=== PATIENT | male | born 1940 | race Caucasian/White ===

== ENCOUNTER 2016-10-06 13:17 | Emergency (ER) | payer OTHER, BC ==
[~2016-10-06] VITALS: Ht 170.2 cm; Wt 98.0 kg
[~2016-10-06 13:17] MED LIST: METFTAB PO; SIMV40TA2 PO
[2016-10-06 13:21] VITALS: TEMP 36.8
[2016-10-06] MEDS ORDERED: PIPERACILLIN/TAZOBACTAM 4.5 GM/100ML D5W IV STA (14:22)
[2016-10-06] MEDS ORDERED: SODIUM CHLORIDE 0.9% 1000ML 1,000 ML IV ONE (14:22)
[2016-10-06 14:28] VITALS: Ht 170.2 cm; Wt 98.0 kg
--- NOTE | 2016-10-06 14:57 | DIAGNOSTIC IMAGING REPORT ---
CHEST ONE VIEW PORTABLE CLINICAL HISTORY: Sepsis dyspnea COMPARISON STUDY: 07/25/2014 FINDINGS: The bones soft tissues and hemidiaphragms are normal. The cardiomediastinal silhouette is normal. The lungs are clear. The pulmonary vasculature is normal. IMPRESSION: Negative chest. Electronically signed by: Cesar Slater M.D. 10/06/2016 2:56 PM Dictated Date/Time: 10/06/2016 2:56 PM
[2016-10-06 15:06] LABS: HEMATOCRIT 35.6 % (42-52); MEAN CELL VOLUME 84.8 fL (80-100); MEAN CORPUSCULAR HEMOGLOBIN 29.5 pg (25-34); MEAN CORPUSCULAR HGB CONC 34.8 g/dl (32-36); WHITE BLOOD COUNT 4.27 K/uL (4.8-10.8)
[2016-10-06 15:25] LABS: PROTHROMBIN TIME (PATIENT) 11.2 SECONDS (9.0-12.0)
[2016-10-06 15:40] LABS: ALT/SGPT 56 U/L (12-78); AST/SGOT 55 U/L (15-37); BLOOD UREA NITROGEN 18 mg/dl (7-18); BUN/CREATININE RATIO 14.7 (10-20); CALCIUM 8.2 mg/dl (8.5-10.1); CARBON DIOXIDE 21 mmol/L (21-32); CHLORIDE 100 mmol/L (98-107); GLUCOSE 137 mg/dl (70-99); POTASSIUM 3.5 mmol/L (3.5-5.1); SODIUM 132 mmol/L (136-145)
[2016-10-06 15:42] LABS: BASO % 0.2 %; BASO ABS # 0.01 K/uL (0-0.2); COMPLETE YES; IG% 0.5 %; LYMPH % 19.7 %; LYMPH ABS # 0.84 K/uL (1.2-3.4); MEAN PLATELET VOLUME 10.6 fL (7.4-10.4); MONO % 3.7 %; NEUT % 75.9 %; PLATELET COUNT 79 K/uL (130-400); PLT ESTIMATE DECREASED
[2016-10-06 15:44] LABS: ALB/GLOB RATIO 0.9 (0.9-2); ALKALINE PHOSPHATASE 67 U/L (45-117)
[2016-10-06 15:57] VITALS: O2SAT 95
[2016-10-06 17:19] LABS: URINE APPEARANCE CLEAR (CLEAR); URINE BILIRUBIN NEG (NEG); URINE COLOR YELLOW; URINE NITRITE NEG (NEG); URINE PH 5.5 (4.5-7.5); URINE SPECIFIC GRAVITY 1.021 (1.000-1.030); UROBILINOGEN NEG (NEG); ZZUR CULT IF INDIC CLEAN CATCH NO
[2016-10-06 17:25] LABS: MANUAL MICROSCOPIC REQUIRED? NO; REVIEW REQ? NO
[2016-10-06] MEDS ORDERED: CEPH500C PO (17:41)
[2016-10-06 17:49] VITALS: BP 131/57; PULSE 93; O2SAT 97
--- NOTE | 2016-10-06 17:54 | EMERGENCY ROOM VISIT NOTE ---
History Report prepared by Willie: Lino Hess Under the Supervision of: Dr. Zaid Baldwin M.D. First contact with patient: 14:18 Chief Complaint: WEAKNESS Stated Complaint: FEVER, VOMITING, WEAKNESS History of Present Illness The patient is a 76 year old male who presents to the Emergency Room with complaints of a waxing and waning fever of 105 degrees beginning 10 days ago. He states that he was waking up sweating with chills each night over the past week. He was seen by his PCP for his symptoms and was given an injection which improved his symptoms. The patient states that his symptoms were improving following the injection, but suddenly came back last night. He denies any cough , sore throat, SOB, abdominal pain, chest pain, or rash. He also complains of burning with urination and vomiting. The patient has a history of melanoma. He is currently receiving radiation treatments, but no chemotherapy. He does not believe that he is immunocompromised. The patient notes that he may have passed out earlier this week as well, but denies any injury. He states that he has not had anything to eat today due to lack of appetite. I obtained records from the outpatient office. The patient received 1 gm of Rocephin IM and was placed on a 10 day course of Keflex. He had blood work which did not suggest any bacterial source. Source of History: patient Onset: 10 days ago Symptom Intensity: 105 degrees Quality: other (fever) Timing: waxes/wanes Associated Symptoms: + chills, + diaphoresis, + vomiting, + urinary symptoms (burning with urination), No sorethroat, No cough, No chest pain, No SOB, No abdominal pain Review of Systems See HPI for pertinent positives & negatives. A total of 10 systems reviewed and were otherwise negative. Past Medical & Surgical Medical Problems: (1) Metastatic malignant melanoma Family History No pertinent family history stated. Social History Smoking Status: Never Smoker Current/Historical Medications Scheduled Allopurinol (Zyloprim), 300 MG PO DAILY Cephalexin Monohydrate (Keflex), 500 MG PO QID Simvastatin (Zocor), 40 MG PO QPM Scheduled PRN Metformin Ext Rel (Glucophage Ext Rel), 500 MG PO DAILY PRN for BID Allergies Coded Allergies: No Known Allergies (Unverified , 10/06/16) Physical Exam Vital Signs Date Time Temp Pulse Resp B/P (MAP) Pulse Ox O2 Delivery O2 Flow Rate FiO2 10/06/16 17:49 93 20 131/57 97 10/06/16 17:01 96 16 120/58 96 Room Air 10/06/16 15:57 95 10/06/16 15:20 89 18 114/61 94 Room Air 10/06/16 13:21 36.8 98 20 142/72 97 Room Air Physical Exam GENERAL: Patient is in no acute distress. HEENT: No acute trauma, normocephalic atraumatic, mucous membranes moist, no nasal congestion, no scleral icterus. NECK: No stridor, no adenopathy, no meningismus, trachea is midline. LUNGS: Clear to auscultation bilaterally, no wheeze, no rhonchi, breath sounds equal. HEART: Without murmurs gallops or rubs, regular rate and rhythm. ABDOMEN: Soft, nontender, bowel sounds positive, no hernias, no peritonitis. EXTREMITIES: No cyanosis or edema, full range of motion of all the joints without pain or difficulty, no signs for acute trauma. No evidence of cellulitis. NEUROLOGIC: Oriented x 3, no acute motor or sensory deficits, no focal weakness. SKIN: No rash, no jaundice, no diaphoresis. Medical Decision & Procedures ER Provider Diagnostic Interpretation: X-ray results as stated below per interpretation by me and the radiologist: CHEST ONE VIEW PORTABLE FINDINGS: The bones soft tissues and hemidiaphragms are normal. The cardiomediastinal silhouette is normal. The lungs are clear. The pulmonary vasculature is normal. IMPRESSION: Negative chest. Electronically signed by: Cesar Slater M.D. Laboratory Results 10/06/16 14:35 Red Blood Count 4.20, Mean Corpuscular Volume 84.8, Mean Corpuscular Hemoglobin 29.5, Mean Corpuscular Hemoglobin Concent 34.8, Mean Platelet Volume 10.6, Neutrophils (%) (Auto) 75.9, Lymphocytes (%) (Auto) 19.7, Monocytes (%) (Auto) 3.7, Eosinophils (%) (Auto) 0.0, Basophils (%) (Auto) 0.2, Neutrophils # (Auto) 3.24, Lymphocytes # (Auto) 0.84, Monocytes # (Auto) 0.16, Eosinophils # (Auto) 0.00, Basophils # (Auto) 0.01 10/06/16 14:35 Test 10/06/16 13:24 10/06/16 14:35 10/06/16 15:46 10/06/16 17:00 Bedside Glucose 156 mg/dl (70-99) White Blood Count 4.27 K/uL (4.8-10.8) Red Blood Count 4.20 M/uL (4.7-6.1) Hemoglobin 12.4 g/dL (14.0-18.0) Hematocrit 35.6 % (42-52) Mean Corpuscular Volume 84.8 fL (80-100) Mean Corpuscular Hemoglobin 29.5 pg (25-34) Mean Corpuscular Hemoglobin Concent 34.8 g/dl (32-36) Platelet Count 79 K/uL (130-400) Mean Platelet Volume 10.6 fL (7.4-10.4) Neutrophils (%) (Auto) 75.9 % Lymphocytes (%) (Auto) 19.7 % Monocytes (%) (Auto) 3.7 % Eosinophils (%) (Auto) 0.0 % Basophils (%) (Auto) 0.2 % Neutrophils # (Auto) 3.24 K/uL (1.4-6.5) Lymphocytes # (Auto) 0.84 K/uL (1.2-3.4) Monocytes # (Auto) 0.16 K/uL (0.11-0.59) Eosinophils # (Auto) 0.00 K/uL (0-0.5) Basophils # (Auto) 0.01 K/uL (0-0.2) RDW Standard Deviation 46.3 fL (36.4-46.3) RDW Coefficient of Variation 14.9 % (11.5-14.5) Immature Granulocyte % (Auto) 0.5 % Immature Granulocyte # (Auto) 0.02 K/uL (0.00-0.02) Platelet Estimate DECREASED Prothrombin Time 11.2 SECONDS (9.0-12.0) Prothromb Time International Ratio 1.0 (0.9-1.1) Activated Partial Thromboplast Time 26.8 SECONDS (21.0-31.0) Partial Thromboplastin Ratio 1.0 Anion Gap 11.0 mmol/L (3-11) Est Creatinine Clear Calc Drug Dose 58.4 ml/min Estimated GFR () 67.7 Estimated GFR (Non- 58.4 BUN/Creatinine Ratio 14.7 (10-20) Calcium Level 8.2 mg/dl (8.5-10.1) Total Bilirubin 0.6 mg/dl (0.2-1) Aspartate Amino Transf (AST/SGOT) 55 U/L (15-37) Alanine Aminotransferase (ALT/SGPT) 56 U/L (12-78) Alkaline Phosphatase 67 U/L (45-117) Troponin I < 0.015 ng/ml (0-0.045) Total Protein 6.8 gm/dl (6.4-8.2) Albumin 3.2 gm/dl (3.4-5.0) Globulin 3.6 gm/dl (2.5-4.0) Albumin/Globulin Ratio 0.9 (0.9-2) Bedside Lactic Acid Venous 1.30 mmol/L (0.90-1.70) Urine Color YELLOW Urine Appearance CLEAR (CLEAR) Urine pH 5.5 (4.5-7.5) Urine Specific [place] 1.021 (1.000-1.030) Urine Protein 2+ (NEG) Urine Glucose (UA) NEG (NEG) Urine Ketones NEG (NEG) Urine Occult Blood TRACE (NEG) Urine Nitrite NEG (NEG) Urine Bilirubin NEG (NEG) Urine Urobilinogen NEG (NEG) Urine Leukocyte Esterase NEG (NEG) Urine WBC (Auto) 1-5 /hpf (0-5) Urine RBC (Auto) 0-4 /hpf (0-4) Urine Hyaline Casts (Auto) 1-5 /lpf (0-5) Urine Epithelial Cells (Auto) 10-20 /lpf (0-5) Urine Bacteria (Auto) NEG (NEG) Laboratory results reviewed by me. Medications Administered Medications (Trade) Dose Ordered Sig/[place] Route Start Time Stop Time Status Last Admin Dose Admin Sodium Chloride 1,000 ml @ 999 mls/hr Q1H1M ONCE IV 10/06/16 14:22 10/06/16 15:22 DC 10/06/16 15:25 999 MLS/HR Piperacillin Sod/ Tazobactam Sod (Zosyn Iv) 4.5 gm ONE STAT IV 10/06/16 14:22 10/06/16 14:27 DC 10/06/16 14:22 4.5 GM ECG Indication: weakness Rate (beats per minute): 92 Rhythm: sinus with SA, sinus rhythm Findings: RBBB, no ectopy ED Course 1419: The patient was evaluated in room C9. A complete history and physical exam was performed. 1422: Ordered Zosyn 4.5 gm IV, Sodium Chloride 1000 ml @ 999 mls/hr IV. 1737: Reevaluated the patient. He feels better. Discussed results and discharge instructions: he verbalized understanding and agreement. He will follow up with his PCP within two days. The patient is ready for discharge. Medical Decision The patient is a 76 year old male who presents to the ED with complaints of fevers. Differential diagnoses considered include bacteremia, sepsis, pneumonia , UTI, pyelonephritis, cellulitis, dehydration, electrolyte imbalance, anemia, dysrhythmia, and SC. Blood pressure screening: Patient was found to have a slightly elevated blood pressure due to circumstances. I do not believe that the patient requires hypertension monitoring. Medication Reconciliation: I attest that I have personally reviewed the patient' s current medication list. The white count, hemoglobin and platelet count are all slightly low, this is consistent with his past testing. No significant electrolyte abnormality, kidney failure, hepatitis. Urinalysis does not show evidence for infection. Chest x-ray shows no pneumonia or CHF. EKG shows a sinus rhythm, no acute ischemic change. Cardiac enzyme testing times one is not consistent with acute cardiac injury. On exam, the patient was not toxic or febrile. There was no cellulitis. Blood cultures are pending. The patient received IV saline and IV Zosyn. He is resting comfortably. He is feeling improved. I reviewed his workup as an outpatient when he presented to his doctor for similar symptoms. His workup showed no source for bacterial infection, the notes indicate a viral source for the fever. I do think the patient can be discharged. I will place him back on Keflex which seemed to help him before. We await blood culture results. He will follow with his doctor for a recheck in a couple days. He was encouraged to return here for worsening symptoms or if not feeling improved. Impression Primary Impression: Weakness Additional Impression: Chills Scribe Attestation The scribe's documentation has been prepared under my direction and personally reviewed by me in its entirety. I confirm that the note above accurately reflects all work, treatment, procedures, and medical decision making performed by me. Departure Information Dispostion Home / Self-Care Prescriptions Cephalexin Monohydrate (Keflex) 500 Mg Cap 500 MG PO QID for 10 Days, #40 CAP Prov: Zaid Baldwin M.D. 10/06/16 Referrals Angélica Root M.D. (MEDICAL) (PCP) Forms HOME CARE DOCUMENTATION FORM, IMPORTANT VISIT INFORMATION Patient Instructions My [facility] Additional Instructions Keflex 4x per day for 10 days stay well hydrated rest tylenol for aches or chills we will call with any positive blood culture results see your fam md with 1-2 days for a recheck return to the ER for worsening symptoms as discussed Problem Qualifiers
[2016-11-17] MEDS ORDERED: ALLO300T2 PO (11:45)
[2016-12-04] MEDS ORDERED: LSX20 PO (15:16)
[2016-12-04] MEDS ORDERED: MCRK20 PO (15:16)
[2016-12-04] MEDS ORDERED: AMB5 PO (15:16)
[2016-12-04] MEDS ORDERED: CYM20 PO (15:16)
[2016-12-04] MEDS ORDERED: DRGTP25 TD (15:16)
[2016-12-04] MEDS ORDERED: NRN300 PO (15:16)
[2016-12-04] MEDS ORDERED: CLC100 PO (15:22)
[2016-12-04] MEDS ORDERED: DXM/4 PO (15:22)
== END 2016-10-06 17:50 | disposition home or self-care (01) ==
LOC: C.EDB 13:19 → C.EDC 17:50
DX: R53.1 Weakness (principal); R68.83 Chills (without fever); Z85.820 Personal history of malignant melanoma of skin; Z79.899 Other long term (current) drug therapy

== ENCOUNTER 2016-10-08 08:27 | Inpatient (IN) | payer OTHER, BC ==
[~2016-10-08] VITALS: Ht 170.2 cm; Wt 97.7 kg
[~2016-10-08 08:27] MED LIST changes: +CEPH500C PO
[2016-10-08] MEDS ORDERED: SODIUM CHLORIDE 0.9% 1000ML 1,000 ML IV STA (08:48)
--- NOTE | 2016-10-08 08:54 | EMERGENCY ROOM VISIT NOTE ---
History Report prepared by Willie: Veronica Mar Under the Supervision of: Dr. Sumeet Sandoval M.D. First contact with patient: 08:42 Chief Complaint: FEVER Stated Complaint: FEVER,NAUSEA,SENT BY CROW MIX History of Present Illness The patient is a 76 year old male who presents to the Emergency Room with complaints of a constant fever beginning a few days prior to arrival. He was given a shot of Rocephin when the fever started. He was seen in the ED 2 days and started on Keflex. He has had no improvement of his symptoms. The patient saw his PCP this morning and was referred to the ED. The patient is experiencing fatigue and weakness. He notes recently he has fallen. The patient is unsure if he hit his head when he fell. The patient is currently on chemotherapy for Melanoma. 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 Review of Systems See HPI for pertinent positives & negatives. A total of 10 systems reviewed and were otherwise negative. Past Medical & Surgical Medical Problems: (1) Metastatic malignant melanoma (2) Pancytopenia Family History Diabetes mellitus FHx: cancer Social History Smoking Status: Never Smoker Smokeless Tobacco Use: No Alcohol Use: none Housing Status: lives alone Occupation Status: retired Current/Historical Medications Scheduled Allopurinol (Zyloprim), 300 MG PO DAILY Cephalexin Monohydrate (Keflex), 500 MG PO QID Metformin HCl (Metformin HCl), 500 MG PO BID Simvastatin (Zocor), 40 MG PO QPM Allergies Coded Allergies: No Known Allergies (Unverified , 10/06/16) Physical Exam Vital Signs Date Time Temp Pulse Resp B/P (MAP) Pulse Ox O2 Delivery O2 Flow Rate FiO2 10/08/16 11:38 37.1 82 20 126/56 95 Room Air 10/08/16 10:33 86 19 135/60 96 10/08/16 10:15 96 Room Air 10/08/16 09:56 37.3 81 20 144/71 95 Room Air 10/08/16 09:20 85 20 116/65 95 Room Air 10/08/16 08:46 93 10/08/16 08:34 38.1 98 22 123/64 97 Room Air Physical Exam GENERAL: Patient is ill appearing, diaphoretic and in no acute distress. HEENT: No acute trauma, normocephalic atraumatic, mucous membranes moist, no nasal congestion, no scleral icterus. NECK: No stridor, no adenopathy, no meningismus, trachea is midline. LUNGS: No dyspnea. Clear to auscultation and equal bilaterally. No wheeze, no rhonchi. HEART: Tachycardic rate and regular rhythm. No murmurs, rubs, gallops appreciated. ABDOMEN: Soft, nontender, bowel sounds positive, no masses appreciated, no peritonitis. BACK: No midline tenderness, no CVA tenderness EXTREMITIES: Normal motion all extremities, no cyanosis, no edema. NEUROLOGIC: Alert and oriented, no acute motor or sensory deficits, no focal weakness, cranial nerves grossly intact. SKIN: No rash, no jaundice, no diaphoresis. Medical Decision & Procedures ER Provider Diagnostic Interpretation: Radiology results and stated below per my review and radiologist interpretation: CHEST ONE VIEW PORTABLE CLINICAL HISTORY: fever cough COMPARISON STUDY: 10/06/2016 FINDINGS: The bones soft tissues and hemidiaphragms are normal. The cardiomediastinal silhouette is normal. The lungs are clear. The pulmonary vasculature is normal. IMPRESSION: Negative chest. Electronically signed by: Cesar Slater M.D. 10/08/2016 9:13 AM Dictated Date/Time: 10/08/2016 9:[address] CT DOSE: 729.78 mGycm HISTORY: Mental status change syncope, unknown head injury TECHNIQUE: Multiaxial CT images of the head were performed without the use of intravenous contrast. Comparison: None. Findings: The paranasal sinuses and mastoid air cells are clear. The calvarium and skull base are intact. The ventricles and sulci are within normal limits. There is no mass, hematoma, midline shift, or acute infarct. Impression: No acute intracranial abnormality. Electronically signed by: Cesar Slater M.D. 10/08/2016 10:48 AM Dictated Date/Time: 10/08/2016 10:47 AM Laboratory Results 10/08/16 09:00 Red Blood Count 4.06, Mean Corpuscular Volume 84.7, Mean Corpuscular Hemoglobin 30.0, Mean Corpuscular Hemoglobin Concent 35.5, Mean Platelet Volume 10.8, Neutrophils (%) (Auto) 80.3, Lymphocytes (%) (Auto) 15.5, Monocytes (%) (Auto) 3.3, Eosinophils (%) (Auto) 0.0, Basophils (%) (Auto) 0.6, Neutrophils # (Auto) 2.64, Lymphocytes # (Auto) 0.51, Monocytes # (Auto) 0.11, Eosinophils # (Auto) 0.00, Basophils # (Auto) 0.02 10/08/16 09:00 Test 10/08/16 09:00 10/08/16 09:05 10/08/16 12:38 White Blood Count 3.29 K/uL (4.8-10.8) Red Blood Count 4.06 M/uL (4.7-6.1) Hemoglobin 12.2 g/dL (14.0-18.0) Hematocrit 34.4 % (42-52) Mean Corpuscular Volume 84.7 fL (80-100) Mean Corpuscular Hemoglobin 30.0 pg (25-34) Mean Corpuscular Hemoglobin Concent 35.5 g/dl (32-36) Platelet Count 48 K/uL (130-400) Mean Platelet Volume 10.8 fL (7.4-10.4) Neutrophils (%) (Auto) 80.3 % Lymphocytes (%) (Auto) 15.5 % Monocytes (%) (Auto) 3.3 % Eosinophils (%) (Auto) 0.0 % Basophils (%) (Auto) 0.6 % Neutrophils # (Auto) 2.64 K/uL (1.4-6.5) Lymphocytes # (Auto) 0.51 K/uL (1.2-3.4) Monocytes # (Auto) 0.11 K/uL (0.11-0.59) Eosinophils # (Auto) 0.00 K/uL (0-0.5) Basophils # (Auto) 0.02 K/uL (0-0.2) RDW Standard Deviation 46.0 fL (36.4-46.3) RDW Coefficient of Variation 14.8 % (11.5-14.5) Immature Granulocyte % (Auto) 0.3 % Immature Granulocyte # (Auto) 0.01 K/uL (0.00-0.02) Prothrombin Time 12.0 SECONDS (9.0-12.0) Prothromb Time International Ratio 1.1 (0.9-1.1) Anion Gap 13.0 mmol/L (3-11) Est Creatinine Clear Calc Drug Dose 49.8 ml/min Estimated GFR () 56.2 Estimated GFR (Non- 48.5 BUN/Creatinine Ratio 10.5 (10-20) Calcium Level 7.9 mg/dl (8.5-10.1) Magnesium Level 2.0 mg/dl (1.8-2.4) Total Bilirubin 0.7 mg/dl (0.2-1) Direct Bilirubin 0.2 mg/dl (0-0.2) Aspartate Amino Transf (AST/SGOT) 154 U/L (15-37) Alanine Aminotransferase (ALT/SGPT) 101 U/L (12-78) Alkaline Phosphatase 63 U/L (45-117) Total Creatine Kinase 264 U/L (39-308) Creatine Kinase MB < 0.5 ng/ml (0.5-3.6) Creatine Kinase MB Ratio (0-3.0) Troponin I < 0.015 ng/ml (0-0.045) Total Protein 7.0 gm/dl (6.4-8.2) Albumin 3.2 gm/dl (3.4-5.0) Lipase 585 U/L (73-393) Procalcitonin 1.54 ng/ml (0-0.5) Lyme Disease IgG Antibody NEG (NEG) Lyme Disease IgM Antibody NEG (NEG) Bedside Lactic Acid Venous 1.60 mmol/L (0.90-1.70) Urine Color [place]K YELLOW Urine Appearance CLEAR (CLEAR) Urine pH 5.5 (4.5-7.5) Urine Specific [place] 1.024 (1.000-1.030) Urine Protein 3+ (NEG) Urine Glucose (UA) NEG (NEG) Urine Ketones TRACE (NEG) Urine Occult Blood 2+ (NEG) Urine Nitrite NEG (NEG) Urine Bilirubin NEG (NEG) Urine Urobilinogen NEG (NEG) Urine Leukocyte Esterase NEG (NEG) Urine WBC (Auto) 5-10 /hpf (0-5) Urine RBC (Auto) 5-10 /hpf (0-4) Urine Epithelial Cells (Auto) >30 /lpf (0-5) Urine Bacteria (Auto) NEG (NEG) Urine Renal Epithelial Cells /lpf (0-5) Urine Pathogenic Casts 1-5 GRANULAR CASTS /lpf (0) Urine Mucus PRESENT (NONE PRSENT) Laboratory results as reviewed by me. Medications Administered Medications (Trade) Dose Ordered Sig/[place] Route Start Time Stop Time Status Last Admin Dose Admin Sodium Chloride 1,000 ml @ 999 mls/hr Q1H1M STAT IV 10/08/16 08:48 10/08/16 09:48 DC 10/08/16 09:20 999 MLS/HR Piperacillin Sod/ Tazobactam Sod (Zosyn Iv) 4.5 gm NOW STAT IV 10/08/16 10:15 10/08/16 10:18 DC 10/08/16 10:48 4.5 GM Vancomycin HCl 2500 mg/Sodium Chloride 550 ml @ 200 mls/hr ONE STAT IV 10/08/16 10:15 10/08/16 12:59 DC 10/08/16 11:26 200 MLS/HR ED Course 0843: The patient was evaluated in room A12. A complete history and physical exam was performed. 0848: Sodium Chloride 1,000 ml @ 999 mls/hr IV. 1013: I reevaluated the patient. 1015: Vancomycin HCl 2,500 mg/ Sodium Chloride 550 ml @ 200 mls/hr IV, Zosyn IV 4.5 gm IV. 1016: Discussed the patient's case with CECILIA Moulton. The patient will be evaluated for further treatment and disposition. 1020: Upon reevaluation, the patient is hemodynamically stable. Discussed results and treatment plan with the patient. He verbalized understanding and agreement with the treatment plan. The patient will be evaluated for further management. Medical Decision Differential: Viral, Pharyngitis, Cellulitis, Pneumonia, Influenza, Meningitis, Sepsis, Bacteremia, UTI/Pyelonephritis, Endocrine, Toxicologic, amongst other pathologies entertained. Medication Reconciliation: I attest that I have personally reviewed the patient 's current medication list. Blood pressure screening: Patient was found to have a mildly elevated blood pressure and will be managed by hospitalist further treatment. 76 yr old male on chemo drugs for metastatic melanoma arrives for evaluation of persistent fever despite abx therapy. Becoming more and more weak to point where unable to stand at home unaided. Associated with fatigue, diaphoresis and generalized fatigue. Exam non-focal though clearly not well. CXR UA unremarkable. Blood cultures, broad spec abx, and fluids started. Not in septic shock and thus does not require 30ml/kg fluid. Stable throughout ED stay. Given this will bring in for further evaluation and treatment. Consults Time Called: 1014 Consulting Physician: CECILIA Moulton Returned Call: [phone] Discussed the patient's case. The patient will be evaluated for further treatment and disposition. Impression Primary Impression: Fever of unknown origin Scribe Attestation The scribe's documentation has been prepared under my direction and personally reviewed by me in its entirety. I confirm that the note above accurately reflects all work, treatment, procedures, and medical decision making performed by me. Departure Information Dispostion Being Evaluated By Hospitalist Referrals Angélica Root M.D. (MEDICAL) (PCP)
--- NOTE | 2016-10-08 09:14 | DIAGNOSTIC IMAGING REPORT ---
CHEST ONE VIEW PORTABLE CLINICAL HISTORY: fever cough COMPARISON STUDY: 10/06/2016 FINDINGS: The bones soft tissues and hemidiaphragms are normal. The cardiomediastinal silhouette is normal. The lungs are clear. The pulmonary vasculature is normal. IMPRESSION: Negative chest. Electronically signed by: Cesar Slater M.D. 10/08/2016 9:13 AM Dictated Date/Time: 10/08/2016 9:12 AM
[2016-10-08] MEDS ORDERED: GLC500 PO (09:19)
[2016-10-08 09:29] LABS: HEMATOCRIT 34.4 % (42-52); MEAN CELL VOLUME 84.7 fL (80-100); MEAN CORPUSCULAR HGB CONC 35.5 g/dl (32-36); RED BLOOD COUNT 4.06 M/uL (4.7-6.1); WHITE BLOOD COUNT 3.29 K/uL (4.8-10.8)
[2016-10-08 09:48] LABS: ALT/SGPT 101 U/L (12-78); AST/SGOT 154 U/L (15-37); BLOOD UREA NITROGEN 15 mg/dl (7-18); BUN/CREATININE RATIO 10.5 (10-20); CALCIUM 7.9 mg/dl (8.5-10.1); CARBON DIOXIDE 21 mmol/L (21-32); CHLORIDE 98 mmol/L (98-107); GLUCOSE 132 mg/dl (70-99); POTASSIUM 3.2 mmol/L (3.5-5.1); SODIUM 132 mmol/L (136-145)
[2016-10-08 09:54] LABS: ALKALINE PHOSPHATASE 63 U/L (45-117)
[2016-10-08 09:58] LABS: INR 1.1 (0.9-1.1)
[2016-10-08 09:59] LABS: MEAN PLATELET VOLUME 10.8 fL (7.4-10.4); PLATELET COUNT 48 K/uL (130-400)
[2016-10-08 10:05] LABS: BASO % 0.6 %; BASO ABS # 0.02 K/uL (0-0.2); COMPLETE YES; IG% 0.3 %; LYMPH % 15.5 %; LYMPH ABS # 0.51 K/uL (1.2-3.4); MONO % 3.3 %; NEUT % 80.3 %
[2016-10-08 10:15] VITALS: O2SAT 96; Ht 170.2 cm; Wt 97.7 kg
[2016-10-08] MEDS ORDERED: PIPERACILLIN/TAZOBACTAM 4.5 GM/100ML D5W IV STA (10:15)
[2016-10-08] MEDS ORDERED: VANCOMYCIN INJ 2,500 MG in SODIUM CHLORIDE 0.9% 500ML 500 ML IV STA (10:15)
[2016-10-08 10:37] LABS: LYME DISEASE AB IGG NEG (NEG); LYME DISEASE AB IGM NEG (NEG)
--- NOTE | 2016-10-08 10:49 | DIAGNOSTIC IMAGING REPORT ---
HEAD CT NONCONTRAST CT DOSE: 729.78 mGycm HISTORY: Mental status change syncope, unknown head injury TECHNIQUE: Multiaxial CT images of the head were performed without the use of intravenous contrast. Comparison: None. Findings: The paranasal sinuses and mastoid air cells are clear. The calvarium and skull base are intact. The ventricles and sulci are within normal limits. There is no mass, hematoma, midline shift, or acute infarct. Impression: No acute intracranial abnormality. Electronically signed by: Cesar Slater M.D. 10/08/2016 10:48 AM Dictated Date/Time: 10/08/2016 10:47 AM
[2016-10-08] MEDS ORDERED: ONDANSETRON INJ 2 MG/ML 2 ML VIAL IV PRN (11:15)
[2016-10-08] MEDS ORDERED: DEXTROSE 50% 50 ML SYR IV PRN (11:30)
[2016-10-08] MEDS ORDERED: GLUCAGON FOR INJ 1 MG VIAL SQ PRN (11:30)
[2016-10-08] MEDS ORDERED: GLUCOSE 10 TABS/TUBE PO PRN (11:30)
[2016-10-08] MEDS ORDERED: GLUCOSE 40% GEL 15 GM TUBE PO PRN (11:30)
[2016-10-08] MEDS ORDERED: PIPERACILL/TAZOBAC CONSULT ACTIVE PRN (11:59)
[2016-10-08] MEDS ORDERED: VANCOMYCIN CONSULT ACTIVE PRN (11:59)
--- NOTE | 2016-10-08 12:28 | DIAGNOSTIC IMAGING REPORT ---
ABDOMINAL ULTRASOUND, RIGHT UPPER QUADRANT HISTORY: elevated LFTs. COMPARISON: Outside hospital abdomen and pelvis CT 04/03/2015. FINDINGS: Pancreas: The pancreatic tail is obscured by overlying bowel gas. The remaining portions of the pancreas are within normal limits. Liver: Unremarkable. Gallbladder: No gallbladder wall thickening. No gallstones. A 3 mm gallbladder polyp. CBD: 4 mm. Right kidney: No hydronephrosis. IMPRESSION: 1. Unremarkable liver. 2. No gallbladder wall thickening. No gallstones. 3. A 3 mm gallbladder polyp. Electronically signed by: Earl Saeed M.D. 10/08/2016 12:27 PM Dictated Date/Time: 10/08/2016 12:24 PM
[2016-10-08 12:51] LABS: URINE APPEARANCE CLEAR (CLEAR); URINE BILIRUBIN NEG (NEG); URINE COLOR DK YELLOW; URINE EPITHELIAL CELL AUTO >30 /lpf (0-5); URINE NITRITE NEG (NEG); URINE PH 5.5 (4.5-7.5); URINE SPECIFIC GRAVITY 1.024 (1.000-1.030); UROBILINOGEN NEG (NEG); ZZUR CULT IF INDIC CLEAN CATCH NO
[2016-10-08 12:59] LABS: MANUAL MICROSCOPIC REQUIRED? NO; REVIEW REQ? YES
[2016-10-08 13:07] LABS: URINE PATH CASTS 1-5 GRANULAR CASTS /lpf (0)
[2016-10-08 13:08] LABS: URINE MUCUS PRESENT (NONE PRSENT)
[2016-10-08 13:40] VITALS: BP 95/56; PULSE 83; TEMP 36.7; O2SAT 96
[2016-10-08] MEDS: POTASSIUM CHLR 10 MEQ / WTR 10 MEQ in PREMIXED WATER 100 ML IV SCH ×3 (13:55→15:47)
[2016-10-08] MEDS: NSS + 20MEQ KCL 1000ML 1,000 ML IV SCH ×3 (13:57→21:07)
--- NOTE | 2016-10-08 14:28 | Pharmacy Progress Note ---
Pharmacy Antibiotic Consult Date of Service: Oct 08, 2016. Pharmacy Dosing Scope Pharmacy is consulted to initiate vancomycin and zosyn IV dosing therapy, order appropriate labs and adjust drug dose/frequency. Subjective The patient is a 76 year old male admitted on Oct 08, 2016 at 11:15. Objective Height (Feet): 5 Height (Inches): 7.00 Weight (Kilograms): 97.000 Lab Results (24hrs): Test 10/08/16 09:00 10/08/16 09:05 10/08/16 12:38 10/08/16 13:45 White Blood Count 3.29 K/uL (4.8-10.8) Red Blood Count 4.06 M/uL (4.7-6.1) Hemoglobin 12.2 g/dL (14.0-18.0) Hematocrit 34.4 % (42-52) Mean Corpuscular Volume 84.7 fL (80-100) Mean Corpuscular Hemoglobin 30.0 pg (25-34) Mean Corpuscular Hemoglobin Concent 35.5 g/dl (32-36) Platelet Count 48 K/uL (130-400) Mean Platelet Volume 10.8 fL (7.4-10.4) Neutrophils (%) (Auto) 80.3 % Lymphocytes (%) (Auto) 15.5 % Monocytes (%) (Auto) 3.3 % Eosinophils (%) (Auto) 0.0 % Basophils (%) (Auto) 0.6 % Neutrophils # (Auto) 2.64 K/uL (1.4-6.5) Lymphocytes # (Auto) 0.51 K/uL (1.2-3.4) Monocytes # (Auto) 0.11 K/uL (0.11-0.59) Eosinophils # (Auto) 0.00 K/uL (0-0.5) Basophils # (Auto) 0.02 K/uL (0-0.2) RDW Standard Deviation 46.0 fL (36.4-46.3) RDW Coefficient of Variation 14.8 % (11.5-14.5) Immature Granulocyte % (Auto) 0.3 % Immature Granulocyte # (Auto) 0.01 K/uL (0.00-0.02) Prothrombin Time 12.0 SECONDS (9.0-12.0) Prothromb Time International Ratio 1.1 (0.9-1.1) Sodium Level 132 mmol/L (136-145) Potassium Level 3.2 mmol/L (3.5-5.1) Chloride Level 98 mmol/L (98-107) Carbon Dioxide Level 21 mmol/L (21-32) Anion Gap 13.0 mmol/L (3-11) Blood Urea Nitrogen 15 mg/dl (7-18) Creatinine 1.40 mg/dl (0.60-1.40) Est Creatinine Clear Calc Drug Dose 49.8 ml/min Estimated GFR () 56.2 Estimated GFR (Non- 48.5 BUN/Creatinine Ratio 10.5 (10-20) Random Glucose 132 mg/dl (70-99) Calcium Level 7.9 mg/dl (8.5-10.1) Magnesium Level 2.0 mg/dl (1.8-2.4) Total Bilirubin 0.7 mg/dl (0.2-1) Direct Bilirubin 0.2 mg/dl (0-0.2) Aspartate Amino Transf (AST/SGOT) 154 U/L (15-37) Alanine Aminotransferase (ALT/SGPT) 101 U/L (12-78) Alkaline Phosphatase 63 U/L (45-117) Total Creatine Kinase 264 U/L (39-308) Creatine Kinase MB < 0.5 ng/ml (0.5-3.6) Creatine Kinase MB Ratio (0-3.0) Troponin I < 0.015 ng/ml (0-0.045) Total Protein 7.0 gm/dl (6.4-8.2) Albumin 3.2 gm/dl (3.4-5.0) Lipase 585 U/L (73-393) Procalcitonin 1.54 ng/ml (0-0.5) Lyme Disease IgG Antibody NEG (NEG) Lyme Disease IgM Antibody NEG (NEG) Bedside Lactic Acid Venous 1.60 mmol/L (0.90-1.70) Urine Color DK YELLOW Urine Appearance CLEAR (CLEAR) Urine pH 5.5 (4.5-7.5) Urine Specific Rom[place] 1.024 (1.000-1.030) Urine Protein 3+ (NEG) Urine Glucose (UA) NEG (NEG) Urine Ketones TRACE (NEG) Urine Occult Blood 2+ (NEG) Urine Nitrite NEG (NEG) Urine Bilirubin NEG (NEG) Urine Urobilinogen NEG (NEG) Urine Leukocyte Esterase NEG (NEG) Urine WBC (Auto) 5-10 /hpf (0-5) Urine RBC (Auto) 5-10 /hpf (0-4) Urine Epithelial Cells (Auto) >30 /lpf (0-5) Urine Bacteria (Auto) NEG (NEG) Urine Renal Epithelial Cells /lpf (0-5) Urine Pathogenic Casts 1-5 GRANULAR CASTS /lpf (0) Urine Mucus PRESENT (NONE PRSENT) Micro Results: Item Value Date Time Urine Culture Received 10/08/16 1238 Urine , Clean Catch Pending Blood Culture Received 10/08/16 0905 Blood Pending Blood Culture Received 10/08/16 0900 Blood Pending Assessment & Plan Patient started on vancomycin and zosyn after presenting with persistent fever. Of note, had been seen in ED given keflex 2 days ago. BC x 2 and urine cultures are pending. Also currently receiving chemotherapy. Vancomycin: * Patient received LD of vancomycin 2500 mg (~25 mg/kg) x 1 in the ED * Will start MD of vancomycin 1500 mg (~15 mg/kg) iv q 18 hrs to achieve an estimated trough ~15-20 mcg/ml (goal for bacteremia/pna) * Estimated kinetics: t1/2~15 hrs, ke~0.045 hr-1, CrCl ~50 ml/min (baseline Scr closer to 1.2 mg/dL) * Will obtain a trough prior to the 1800 dose on 10/10 to ensure therapeutic Zosyn: * 4.5 gm iv x 1 (given in ED); will start 3.375 gm iv q 8 hrs (appropriate for CrCl >20 ml/min) Pharmacy will continue to follow and will adjust dose/frequency as necessary. Thank you
--- NOTE | 2016-10-08 14:40 | Progress Note ---
Progress Note Date of Service Oct 08, 2016. Progress Note ID Consult Dictated #[id number] A/P: 1. Fever -Continue abx, follow cultures -Add doxy, ? tick borne -perph smear pending, add anaplasma serologies -will follow, thank you
--- NOTE | 2016-10-08 15:12 | INFECT. DISEASE CONSULTATION ---
DATE OF CONSULTATION: 10/08/2016 DATE OF CONSULTATION: 10/08/2016. HISTORY OF PRESENT ILLNESS: This is a 76-year-old gentleman who was admitted to the hospital after he had a syncopal episode at home. He was just recently seen in the Emergency Room 2 days ago for a febrile illness and discharged on Keflex. Blood cultures were done at that time and were negative. He did not feel any improvement on Keflex and continued to have worsening fevers at home with associated chills and sweats. He states last night he was sleeping on his couch when he got up to go to the bathroom. He felt severely weak and needed a cane to make it to the bathroom. On his way back to the couch he had a syncopal episode and woke up on the floor. He crawled across the floor to his cellphone and called family members who subsequently brought him to the hospital. He states his fever has been going on for the past 1-1/2 to 2 weeks. He has poor p.o. intake. He has had one episode of vomiting and intermittent diarrhea. He denies any abdominal pain. He did have jello here today and tolerated this well. He denies any cough, shortness of breath, wheezing or chest pain. He denies any fevers. He denies any headache or double vision. He has no nuchal rigidity. He denies any urinary symptoms. He denies any tick bites or skin rashes. He denies any skin abrasions other than his bilateral knees from crawling on the carpet last night. He denies any back pain, arthralgias or myalgias. He denies any sick contacts or recent travel. All remaining review of systems are reviewed and are unremarkable. PAST MEDICAL HISTORY: Significant for metastatic malignant melanoma and pancytopenia. PAST SURGICAL HISTORY: Unknown. FAMILY HISTORY: Noncontributory. SOCIAL HISTORY: Negative for tobacco use, alcohol use or drug use. He lives at home. He denies any sick contacts or travel. He denies any tick bite. ALLERGIES: He has no known drug allergies. CURRENT MEDICATIONS: Include allopurinol, vancomycin, Zocor, insulin, Zosyn, potassium, acetaminophen and Zofran. PHYSICAL EXAMINATION: VITAL SIGNS: Temperature is 36.7, T-max is 38.1, pulse 83, respiratory rate is 20, blood pressure is 95/56, oxygen saturation 96% on room air. GENERAL: He is awake, alert and oriented x3. He is in no acute distress. HEAD, EYES, EARS, NOSE, AND THROAT: Mucous membranes are moist. Extraocular muscles are intact. HEART: Regular. LUNGS: Clear bilaterally. ABDOMEN: Soft, nontender, nondistended. There is no lower extremity edema. SKIN: Without rash. LABORATORY STUDIES: CBC today reveals a white blood cell count of 3.9, hemoglobin 12.2, platelets are 48. Peripheral smear is pending. Chemistry panel reveals a sodium of 132, potassium 3.2, chloride 98, bicarbonate 21, BUN 15, creatinine 1.4, glucose is 132, AST is 154, ALT is 101, CK-MB is negative. Procalcitonin is 1.4, lipase is 585. Urinalysis has 5-10 WBCs. Lyme screen is negative. Blood cultures are pending. Blood cultures were obtained in the ER on the and are negative to date. His white blood cell count at that time was 4.2 and platelets are 79. LFTs were normal at his previous ER visit. Chest x-ray is unremarkable. Head CT is unremarkable. Liver ultrasound does not show any gallstones. ASSESSMENT AND PLAN: Fever. Certainly blood cultures will be followed. His previous blood cultures are negative to date and repeats are pending. Urine studies are pending as well. He can remain on empiric antibiotics. I will add doxycycline empirically for tick-borne illness such as Anaplasma with elevated LFTs and pancytopenia. Peripheral smear is pending, but serologies will be checked as well. We will follow along with you. Thank you for this consultation.
--- NOTE | 2016-10-08 15:17 | History and Physical ---
History & Physical Date & Time of Service: Oct 08, 2016 at 11:20 Chief Complaint: Fever,Nausea,Sent By Neeraj King. Primary Care Physician: Angélica Root M.D. (MEDICAL) History of Present Illness Source: patient, family (daughter in law at bedside), clinic records, hospital records This is a 76 year old male with metastatic melanoma who presents to the ED with fever and generalized weakness. 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 Patient follows with Dr. Vogel / Diann WILSON of [place] hem/onc and Dr. Tari Aguirre for radiation oncology. Radiation is being done for mets to left lateral abdominal wall and left subpleural space. Patient is currently undergoing immunotherapy with Opdivo and Yervoy- last treatment 3 weeks ago. Patient states the day after last treatment he developed profuse sweats and subjective fever. He was seen in clinic by Dr. Root on 09/23 and found to have fever of 100.3, declined ER eval, and was treated with Rocephin injection and started on PO Keflex for infection of unknown source. Labs showed mild pancytopenia, mildly elevated ALT and AST. Blood cultures from 09/23 were negative. He was seen in the ER on 10/06, was afebrile with mild pancytopenia. UA and CXR were negative. He was given a dose of Zosyn and sent home with PO Keflex. BC from 10/06 no growth to date. He was seen again in clinic today by Dr. Lozano, was febrile to 102.5 in office, declined admission to [facility], and was sent to ER for evaluation. Patient reports intermittent subjective fevers/ sweats at home which occur randomly. Unsure of his temps at home. He reports fatigue, generalized weakness , poor PO intake. Has required walker for 2 days. Had trouble getting up off couch. Taking in liquids and meds only. He was vomiting, last episode 1 week ago , but still remains nauseous. Has had diarrhea starting 2 days ago with liquid stools. He has lost 27 lb in past 3 weeks per Epic trend. He reports possible syncopal episodes at home x 2 which were unwitnessed. He only remembers awakening on the floor. Denies any significant injury. No tongue biting or incontinence. Has nonpainful rash on left flank in radiation area which is well demarcated, but no other rashes or wounds. Patient denies headache, dizziness, vision change, focal neurologic symptoms, rhinorrhea, sore throat, cough, SOB, chest pain, abdominal pain, dysuria, frequency, urgency, bleeding. Past Medical/Surgical History Medical Problems: (1) DM type 2 (diabetes mellitus, type 2) Status: Chronic (2) Dyslipidemia Status: Chronic (3) Gout Status: Chronic (4) Metastatic malignant melanoma Permanent Comment: Development of the lesion of the left ring finger in 2013 Biopsy then amputation of the left ring finger and sentinel lymph node biopsy Stage pT3a pN2a M0 Treatment with systemic chemotherapy - Keytruda discontinued due to pneumonitis Development of a axillary mass 4 cycles of Yervoy September 2014 showing progression September 2015 status post 4 weekly radiation treatments to the left abdominal wall December 2015 excision of multiple deep subcutaneous metastatic lesions Status post 12 cycles of Pembro completed February 2016 Development of additional left abdominal wall lesions Status: Chronic (5) SAVANNAH on CPAP Status: Chronic Surgical Problems: (1) History of carpal tunnel surgery Status: Chronic (2) History of surgical removal of pilonidal cyst Status: Chronic (3) S/p amputation left 4th finger Status: Chronic (4) S/P colonoscopy with polypectomy Status: Chronic (5) S/P lumbar discectomy Status: Chronic Family History Diabetes mellitus FHx: cancer Social History Smoking Status: Former Smoker Smokeless Tobacco Use: No Alcohol Use: none Housing status: lives alone Occupational Status: retired Immunizations History of Influenza Vaccine: No History of Tetanus Vaccine?: Yes History of Pneumococcal: No History of Hepatitis B Vaccine: No Multi-Drug Resistant Organisms History of MDRO: No Allergies Coded Allergies: No Known Allergies (Unverified , 10/06/16) Home Medications Scheduled Allopurinol (Zyloprim), 300 MG PO DAILY Cephalexin Monohydrate (Keflex), 500 MG PO QID Metformin HCl (Metformin HCl), 500 MG PO BID Simvastatin (Zocor), 40 MG PO QPM Review of Systems Constitutional- (+) as noted above Eyes- no acute visual changes ENT- no sinus drainage; no pharyngitis Pulmonary- no cough, no wheezing, no shortness of breath Cardiac- no chest pain, no palpitations, no orthopnea, no dependent edema GI- (+) as noted above - no dysuria, no hematuria Musculoskeletal- no arthralgias, no myalgias Derm- no rashes, no new skin lesions, no changing skin lesions Hematologic- no unusual bruising, no unusual bleeding Lymphatics- no adenopathy Endocrine- no polyuria or polydipsia; no heat or cold intolerance Neuro- no headaches, no focal neurologic symptoms Psych- no anxiety, no depression Physical Exam Vital Signs Date Time Temp Pulse Resp B/P (MAP) Pulse Ox O2 Delivery O2 Flow Rate FiO2 10/08/16 10:33 86 19 135/60 96 10/08/16 09:56 37.3 81 20 144/71 95 Room Air 10/08/16 09:20 85 20 116/65 95 Room Air 10/08/16 08:46 93 10/08/16 08:34 38.1 98 22 123/64 97 Room Air General Appearance: WD/WN, + pertinent finding (acutely ill appearing 76 year old male, diaphoretic, not in acute distress, daughter in law at bedside) Head: normocephalic, atraumatic Eyes: normal inspection, PERRL, EOMI, sclerae normal ENT: hearing grossly normal, pharynx normal Neck: supple, trachea midline Respiratory/Chest: lungs clear, normal breath sounds, no respiratory distress, no accessory muscle use Cardiovascular: regular rate, rhythm, no murmur Abdomen/GI: normal bowel sounds, non tender, soft Extremities/Musculoskelatal: no calf tenderness, no pedal edema Neurologic/Psych: alert, normal mood/affect, oriented x 3, + pertinent finding (no focal deficit on gross examination. speech is clear. no facial droop. no motor deficit of extremities. ) Skin: warm/dry, + diaphoresis, + pertinent finding (well demarcated area of erythema on left flank in area of radiation tx. no warmth or tenderness. ) Diagnostics Laboratory Results Results Past 24 Hours Test 10/08/16 09:00 10/08/16 09:05 10/08/16 11:11 Range/Units White Blood Count 3.29 4.8-10.8 K/uL Red Blood Count 4.06 4.7-6.1 M/uL Hemoglobin 12.2 14.0-18.0 g/dL Hematocrit 34.4 42-52 % Mean Corpuscular Volume 84.7 80-100 fL Mean Corpuscular Hemoglobin 30.0 25-34 pg Mean Corpuscular Hemoglobin Concent 35.5 32-36 g/dl Platelet Count 48 130-400 K/uL Mean Platelet Volume 10.8 7.4-10.4 fL Neutrophils (%) (Auto) 80.3 % Lymphocytes (%) (Auto) 15.5 % Monocytes (%) (Auto) 3.3 % Eosinophils (%) (Auto) 0.0 % Basophils (%) (Auto) 0.6 % Neutrophils # (Auto) 2.64 1.4-6.5 K/uL Lymphocytes # (Auto) 0.51 1.2-3.4 K/uL Monocytes # (Auto) 0.11 0.11-0.59 K/uL Eosinophils # (Auto) 0.00 0-0.5 K/uL Basophils # (Auto) 0.02 0-0.2 K/uL RDW Standard Deviation 46.0 36.4-46.3 fL RDW Coefficient of Variation 14.8 11.5-14.5 % Immature Granulocyte % (Auto) 0.3 % Immature Granulocyte # (Auto) 0.01 0.00-0.02 K/uL Prothrombin Time 12.0 9.0-12.0 SECONDS Prothromb Time International Ratio 1.1 0.9-1.1 Sodium Level 132 136-145 mmol/L Potassium Level 3.2 3.5-5.1 mmol/L Chloride Level 98 98-107 mmol/L Carbon Dioxide Level 21 21-32 mmol/L Anion Gap 13.0 3-11 mmol/L Blood Urea Nitrogen 15 7-18 mg/dl Creatinine 1.40 0.60-1.40 mg/dl Est Creatinine Clear Calc Drug Dose 49.8 ml/min Estimated GFR () 56.2 Estimated GFR (Non- 48.5 BUN/Creatinine Ratio 10.5 10-20 Random Glucose 132 70-99 mg/dl Calcium Level 7.9 8.5-10.1 mg/dl Magnesium Level 2.0 1.8-2.4 mg/dl Total Bilirubin 0.7 0.2-1 mg/dl Direct Bilirubin 0.2 0-0.2 mg/dl Aspartate Amino Transf (AST/SGOT) 154 15-37 U/L Alanine Aminotransferase (ALT/SGPT) 101 12-78 U/L Alkaline Phosphatase 63 45-117 U/L Total Creatine Kinase 264 39-308 U/L Creatine Kinase MB < 0.5 0.5-3.6 ng/ml Creatine Kinase MB Ratio 0-3.0 Troponin I < 0.015 0-0.045 ng/ml Total Protein 7.0 6.4-8.2 gm/dl Albumin 3.2 3.4-5.0 gm/dl Lyme Disease IgG Antibody NEG NEG Lyme Disease IgM Antibody NEG NEG Bedside Lactic Acid Venous 1.60 0.90-1.70 mmol/L Microbiology Results 10/08/16 Blood Culture, Received Pending 10/08/16 Blood Culture, Received Pending Diagnostic Radiology CHEST ONE VIEW PORTABLE CLINICAL HISTORY: fever cough COMPARISON STUDY: 10/06/2016 FINDINGS: The bones soft tissues and hemidiaphragms are normal. The cardiomediastinal silhouette is normal. The lungs are clear. The pulmonary vasculature is normal. IMPRESSION: Negative chest. HEAD CT NONCONTRAST CT DOSE: 729.78 mGycm HISTORY: Mental status change syncope, unknown head injury TECHNIQUE: Multiaxial CT images of the head were performed without the use of intravenous contrast. Comparison: None. Findings: The paranasal sinuses and mastoid air cells are clear. The calvarium and skull base are intact. The ventricles and sulci are within normal limits. There is no mass, hematoma, midline shift, or acute infarct. Impression: No acute intracranial abnormality. ABDOMINAL ULTRASOUND, RIGHT UPPER QUADRANT HISTORY: elevated LFTs. COMPARISON: Outside hospital abdomen and pelvis CT 04/03/2015. FINDINGS: Pancreas: The pancreatic tail is obscured by overlying bowel gas. The remaining portions of the pancreas are within normal limits. Liver: Unremarkable. Gallbladder: No gallbladder wall thickening. No gallstones. A 3 mm gallbladder polyp. CBD: 4 mm. Right kidney: No hydronephrosis. IMPRESSION: 1. Unremarkable liver. 2. No gallbladder wall thickening. No gallstones. 3. A 3 mm gallbladder polyp. EKG NSR, 91 bpm, RBBB- chronic Impression Assessment and Plan FEVER OF UNKNOWN ORIGIN In patient with metastatic melanoma on immunotherapy and radiation Almost 3 weeks duration, no source identified; treated as outpatient with Rocephin injection x 1, PO Keflex, IV Zosyn x 1 Prior blood cultures 09/23/16-neg, 10/06/16- NGTD CXR- no infiltrate; UA- dirty, no cellulitis Urine culture and blood cultures pending Reports of diarrhea- check stool culture, fecal leucocytes, C. diff Treated with empiric vancomycin and Zosyn in ED Continue vancomycin/ Zosyn for now Consult ID; appreciate input- doxy added for ? tick borne disease, anaplasma serologies added SIRS Meets SIRS criteria with fever and leukopenia; HR stable; BP low normal; POC lactic acid neg; procalcitonin elevated Received 1 liter bolus in ER Continue IVF's at 125/hour- spoke with RN about getting second IV site so this can be started No source of infection identified; f/u cultures Empiric broad spectrum antibiotics as above HYPOKALEMIA Due to poor PO intake/ GI loss IV replacement given Recheck at 5 pm PANCYTOPENIA Check absolute neutrophil count Follows with Dr. Vogel [place] [facility] Consult hem/onc- spoke to Dr. Tomas, appreciate input Check CT A/P, peripheral smear Spoke with Dr. Vogel- appreciate input- recommended adding CT chest, ACTH, cortisol level, TSH, B12, folate; patient had initially declined [facility] admission to Dr. Lozano; would consider transfer to [facility] if anything comes up in the workup Obtain records from Dr. Vogel's office THROMBOCYTOPENIA Platelets 48 No bleeding Monitor CBC NAUSEA/ VOMITING ELEVATED LFT's Check liver ultrasound- unremarkable liver, no GB wall thickening, no gallstones , 3 mm gallbladder polyp Check CT a/p Clear liquid diet for now Recheck LFT's in am SYNCOPE Possibly due to orthostatic hypotension from dehydration CT head negative Check orthostatic VS Monitor in telemetry METASTATIC MELANOMA Malignant melanoma of left 4th finger was dx in 06/2013 s/p amputation; has mets to left lateral abdominal wall and left subpleural space Follows with Dr. Vogel / Diann WILSON of [place] hem/on[facility] and Dr. Tari Aguirre for radiation oncology Currently on immunotherapy Opdivo and Yervoy (last treatment 3 weeks ago) and radiation DM TYPE 2 Hold metformin Insulin sliding scale coverage GOUT Continue allopurinol DYSLIPIDEMIA Continue statin SLEEP APNEA Continue CPAP DVT PROPHYLAXIS SCD's due to thrombocytopenia CODE STATUS Full code per my discussion with the patient DISPOSITION Admit to telemetry Lives alone; social services counselor consulted for discharge planning Follows with Dr. Root for primary care Patient seen in collaboration with Dr. Yung. Please see his addendum. ATTENDING ADDENDUM care coordinated with CECILIA Ferrara please refer to her notes for full details, I agree with her notes patient seen and examined, records reviewed by myself as well on exam, patient seen resting in bed states he feels somewhat better able to tolerate dinner no active dizziness , chest pain, dyspnea, abdominal pain on exam no other symptoms VS noted and reviewed oriented x 3, not in distress, speaks in sentences with no effort nor accessory muscle use normal rate, regular rhythm, no murmurs clear breath sounds bilaterally non distended, soft, nontender no bipedal edema, erythema, warmth no neuro deficits WBC 3.2 Hg 12.2 Crea 1.4 Na 130 K 3.6 ASSESSMENT/PLAN> FEVER ON IMMUNOTHERAPY, RADIATION FOR MALIGNANT MELANOMA -- ff up cultures -- on empiric Vanco, Zosyn Doxy added for possible tick borne illness appreciate ID consult -- IV fluids PANCYTOPENIA -- no signs of bleeding -- Hem/Onc consulted HYPONATREMIA/HYPOKALEMIA -- likely hypovolemic -- will send urine studies -- PO K given -- repeat PCP at 930pm other diagnoses and plan of care as per CECILIA ferrara's notes Arpan Yung MD VTE Prophylaxis VTE Risk Assessment Done? Y/N: Yes Risk Level: Moderate
[2016-10-08 15:55] VITALS: BP 108/51; PULSE 82; TEMP 36.8; O2SAT 96
[2016-10-08] MEDS: INSULIN ASPART 100 UNITS/ML 3 ML PEN SC SCH ×2 (16:15→21:00)
[2016-10-08] MEDS: PIPERACILL/TAZOBAC IV 3.375 GM in DEXTROSE 5% 100ML IV SCH ×2 (16:30→23:53)
[2016-10-08] MEDS ORDERED: OPTIRAY 320 IV PRN (16:30)
[2016-10-08] MEDS: ACETAMINOPHEN 325 MG TAB PO PRN ×2 (16:33→23:52)
[2016-10-08 16:34] VITALS: TEMP 37.5
[2016-10-08 18:09] LABS: BUN/CREATININE RATIO 9.5 (10-20); CALCIUM 7.8 mg/dl (8.5-10.1); CREATININE 1.4 mg/dl (0.60-1.40); POTASSIUM 3.2 mmol/L (3.5-5.1)
--- NOTE | 2016-10-08 18:11 | DIAGNOSTIC IMAGING REPORT ---
CT OF THE CHEST WITH IV CONTRAST CLINICAL HISTORY: Fever of unknown origin MELANOMA COMPARISON STUDY: 07/06/2014 TECHNIQUE: Following the IV administration of 115 mL of Optiray-320, CT of the thorax was performed from the thoracic inlet to the lung bases. Images are reviewed in the axial, sagittal, and coronal planes. IV contrast was administered without complication. CT DOSE: 1386.82 mGy.cm FINDINGS: Thyroid: Imaged portions of the thyroid gland are normal in appearance. Thoracic aorta: The thoracic aorta is normal in course and caliber, noting standard 3-vessel arch anatomy. No aneurysm or dissection is seen. Pulmonary vasculature: The pulmonary trunk is normal in caliber. There are no central filling defects identified to suggest pulmonary embolus. Note that this examination was not protocoled for the evaluation of pulmonary emboli. HEART: The heart is normal in size and configuration, without pericardial effusion. Lungs and pleural spaces: There are no pleural effusions. There is no focal pulmonary consolidation. Evaluation of the lung parenchyma is limited due to respiratory motion artifact. There is a 5 x 3 mm solid left lower lobe point nodule as visualized in image #[id number] Mediastinum: There is no mediastinal lymphadenopathy. Christine: There is no evidence of pathologic hilar adenopathy Axilla: There are postsurgical changes involving the left axilla. No pathologically enlarged lymph nodes are evident Upper abdomen: There is mild splenomegaly. Skeletal structures: There are no lytic or blastic osseous lesions. IMPRESSION: 1. Postsurgical changes involving the left axilla 2. Splenomegaly 3. Slight limited evaluation the lung parenchyma due to respiratory motion artifact. No evidence of focal pulmonary consolidation. 4. 5 x 3 mm solid left lower lobe pulmonary nodule Please refer to below summary of Fleischner criteria recommendations for follow-up of incidental CT nodules (Shelley Alicea, Guidelines for management of small pulmonary nodules detected on CT scans: A statement from the Fleischner Society, Radiology 237: [phone].) SOLID NODULES Solitary nodule size: <6 mm * low risk patients: no follow-up needed * high risk patients: optional CT at 12 months Solitary nodule size: 6-8 mm * low risk patients: follow-up at 6-12 months, then consider further follow-up at 18-24 months * high risk patients: initial follow-up CT at 6-12 months and then at 18-24 months if no change Solitary nodule size: >8 mm * either low or high risk patients - consider follow-up CT at 3 months, and/or CT-PET, and/or biopsy Multiple nodules size: <6 mm * low risk patients: no routine follow-up * high risk patients: optional CT at 12 months Multiple nodules size: 6-8 mm * low risk patients: follow-up at 3-6 months, then consider further follow-up at 18-24 months * high risk patients: follow-up at 3-6 months, then at 18-24 months if no change Multiple nodules size: >8 mm * low risk patients: follow-up at 3-6 months, then consider further follow-up at 18-24 months * high risk patients: follow-up at 3-6 months, then at 18-24 months if no change Note: newly detected indeterminate nodule in persons 35 years of age or older. * low risk patients: minimal or absent history of smoking and/or other known risk factors * high risk patients: history of smoking or of other known risk factors (e.g. first degree relative with lung cancer, or exposure to asbestos, radon, uranium) * if a nodule up to 8 mm is partly solid or is ground glass further follow-up is required after 24 months to exclude possible slow growing adenocarcinoma (ANDRES) SUBSOLID NODULES Solitary pure ground-glass nodule * nodule size <6 mm - no CT follow-up required * nodule size >=6 mm - follow-up CT at 6-12 months, then every 2 years until 5 years Solitary part-solid nodule * nodule size <6 mm - no CT follow-up required * nodule size >=6 mm - follow-up CT at 3-6 months. If unchanged, and solid component remains <6 mm, then annual follow-up for 5 years Multiple subsolid nodules * nodule size <6 mm - follow-up CT at 3-6 months, consider further follow-up at 2 and 4 years if stable * nodule size >=6 mm - follow-up CT at 3-6 months, subsequent management based on the most suspicious nodule(s) Electronically signed by: Adolfo Goodwin M.D. 10/08/2016 6:10 PM Dictated Date/Time: 10/08/2016 6:03 PM
[2016-10-08 18:21] LABS: THYROID STIMULATING HORMONE 1.55 uIu/ml (0.300-4.500)
--- NOTE | 2016-10-08 18:26 | DIAGNOSTIC IMAGING REPORT ---
CT ABD/PELVIS IV AND ORAL CONT CLINICAL HISTORY: Fever of unknown origin. Diarrhea. MELANOMA COMPARISON STUDY: Outside CT scan dated 04/03/2015 TECHNIQUE: Following the IV administration of 115 mL of Optiray-320, CT scan of the abdomen and pelvis was performed from the lung bases to the proximal femurs. Images are reviewed in the axial, sagittal, and coronal planes. IV contrast was administered without complication. CT DOSE: FINDINGS: Lower chest: There is a 5 x 3 mm solid left lower lobe pulmonary nodule. There are no pleural effusions. Liver: No focal hepatic masses are visualized. Gallbladder: Unremarkable. Spleen: The spleen is mildly enlarged measuring 13 cm. The spleen measured 11.8 cm in March 2015 Pancreas: Unremarkable. Adrenal glands: Unremarkable. Kidneys: There is a small nonobstructing lower pole right renal calculus. Bowel: There are no transition zones indicate bowel obstruction. There is no evidence of acute diverticulitis. There is no evidence of acute appendicitis. There is no pathologic bowel wall thickening. Peritoneum: There is no intraperitoneal free air or abdominal ascites. Vasculature: The abdominal aorta is normal in course and caliber. Adenopathy: There are 2 tangential nodules within the central mesentery measuring 22 mm in aggregate. These contain a small calcification. These remain unchanged from the prior study. Pelvic viscera: The bladder, and pelvic viscera are unremarkable. Skeletal structures: No destructive osseous lesions are seen. IMPRESSION: 1. No acute inflammatory changes 2. Right-sided nephrolithiasis 3. Mild splenomegaly 4. Stable small central mesenteric nodules 5. No evidence of bowel obstruction. No evidence of free air. No evidence of acute appendicitis. No evidence of acute diverticulitis. Electronically signed by: Adolfo Goodwin M.D. 10/08/2016 6:24 PM Dictated Date/Time: 10/08/2016 6:18 PM
[2016-10-08] MEDS ORDERED: POTASSIUM CHLORIDE 10 MEQ TABCR PO ONE (20:30)
[2016-10-08 20:36] VITALS: BP 106/56; PULSE 77; TEMP 36.8; O2SAT 96
[2016-10-08] MEDS ORDERED: SIMVASTATIN 40 MG TAB PO SCH (21:00)
[2016-10-08] MEDS: DOXYCYCLINE HYCLATE 100 MG CAP PO SCH (21:04)
[2016-10-08 22:17] LABS: BUN/CREATININE RATIO 8.4 (10-20); CREATININE 1.4 mg/dl (0.60-1.40); POTASSIUM 3.2 mmol/L (3.5-5.1)
[2016-10-08 22:31] LABS: CALCIUM 7.3 mg/dl (8.5-10.1)
--- NOTE | 2016-10-08 22:34 | Medical Consult ---
Consultation Date of Consultation: Oct 08, 2016. Attending Physician: Arpan Yung MD Reason for Consultation: metastatic melanoma Patient with intermittent fevers for past 1 1/2 week History of Present Illness 76 year old male with metastatic melanoma. 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 He developed recurrence. Past treatment included keytruda. He is currently on Yervoy and Opdivo combination under supervision of his oncologist at [facility] Dr Vogel. He is also receiving RT to left abdominal wall lesion. He is admitted with fever and had a syncopal episode at his home. He has fatigue and generalized weakness and decreased oral intake since his last Opdivo /Yervoy treatment approximately 3 weeks ago. +weight loss. Patient reports that for several days after his last treatment he developed night sweats and had subjective fever and chills and he had loss of appetite. He states that this lasted for several days. He had 2 syncopal episodes at his home. He states that on Thursday he went to use his bathroom and woke up on the floor. He states that he had a second episode recalls going into his kitchen but woke up and found himself on the floor. He denies any tongue bite or urine or bowel incontinence. He denies any headache or paresthesias or lightheadedness or chest pain or shortness of breath. He has diarrhea for 2 days. He denies any abdominal pain or vomiting. 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 for melanmoa and sentinel lymph node resection, lumbar discectomy Medical Problems: (1) Chills Status: Acute (2) Fever of unknown origin Status: Acute (3) Weakness Status: Acute Family History Diabetes mellitus FHx: cancer Social History Smoking Status: Former Smoker Smokeless Tobacco Use: No Alcohol Use: none Housing Status: lives alone Occupation Status: retired Allergies Coded Allergies: No Known Allergies (Unverified , 10/06/16) Current Inpatient Medications Current Inpatient Medications Medications (Trade) Dose Ordered Sig/Tamika Route Start Time Stop Time Status Last Admin Dose Admin Potassium Chloride/Sodium Chloride 1,000 ml @ 125 mls/hr Q8H IV 10/08/16 14:00 11/07/16 13:59 10/08/16 21:07 125 MLS/HR Acetaminophen (Tylenol Tab) 650 mg Q4H PRN PO 10/08/16 11:15 11/07/16 11:14 10/08/16 16:33 650 MG Ondansetron HCl (Zofran Inj) 4 mg Q6H PRN IV 10/08/16 11:15 11/07/16 11:14 Insulin Aspart (novoLOG ASPART) SLIDING SCALE If C... ACHS SC 10/08/16 16:00 11/07/16 15:59 Glucose (Glucose 40% Gel) 15-30 GRAMS 15 GRAMS... UD PRN PO 10/08/16 11:30 11/07/16 11:29 Glucose (Glucose Chew Tab) 4-8 Tablets 4 Tabl... UD PRN PO 10/08/16 11:30 11/07/16 11:29 Dextrose (Dextrose 50% 50ML Syringe) 25-50ML OF 50% DW IV FOR... UD PRN IV 10/08/16 11:30 11/07/16 11:29 Glucagon (Glucagon Inj) 1 mg UD PRN SQ 10/08/16 11:30 11/07/16 11:29 Allopurinol (Zyloprim Tab) 300 mg DAILY PO 10/09/16 09:00 11/08/16 08:59 Vancomycin HCl (Consult) 1 ea UD PRN N/A 10/08/16 11:59 11/07/16 11:58 Piperacillin Sod/ Tazobactam Sod (Consult) 1 ea UD PRN N/A 10/08/16 11:59 11/07/16 11:58 Piperacillin Sod/ Tazobactam Sod 3.375 gm/Dextrose 115 ml @ 28.75 mls/ hr Q8H IV 10/08/16 16:00 10/10/16 15:59 10/08/16 16:30 28.75 MLS/HR Vancomycin HCl 1500 mg/Sodium Chloride 530 ml @ 200 mls/hr Q18H IV 10/09/16 06:00 10/11/16 05:59 Doxycycline Hyclate (Vibramycin Cap) 100 mg BID PO 10/08/16 21:00 10/18/16 20:59 10/08/16 21:04 100 MG Ioversol (Optiray 320) 125 ml UD PRN IV 10/08/16 16:30 10/12/16 16:29 Review of Systems Constitutional: + fever (intermittent), + sweats (intermittent), + weight loss , + weakness (generalized), + fatigue Eyes: No worsening of vision, No eye pain, No diplopia ENT: No unusual epistaxis, No nasal symptoms, No sore throat, No trouble swallowing Respiratory: No cough, No sputum, No wheezing, No shortness of breath, No dyspnea on exertion, No dyspnea at rest, No hemoptysis Cardiovascular: No chest pain, No orthopnea, No PND, No edema, No palpitations Abdomen: + diarrhea, No pain, No nausea, No vomiting, No constipation, No GI bleeding Musculoskeletal: No joint pain, No muscle pain Genitourinary - Male: No hematuria, No dysuria, No urinary incontinence Neurologic: No paralysis, No numbness/tingling Endocrine: + fatigue Hematologic / Lymphatic: No abnormal bleeding/bruising, No clotting problems, No swollen lymph nodes Integumentary: No rash, No itch Physical Exam Date Time Temp Pulse Resp B/P (MAP) Pulse Ox O2 Delivery O2 Flow Rate FiO2 10/08/16 20:36 36.8 77 18 106/56 (73) 96 10/08/16 19:30 Room Air 10/08/16 16:34 37.5 10/08/16 16:00 Room Air 10/08/16 15:55 36.8 82 18 108/51 (70) 96 10/08/16 14:07 Room Air 10/08/16 13:40 36.7 83 20 95/56 (69) 96 Room Air 10/08/16 11:38 37.1 82 20 126/56 95 Room Air 10/08/16 10:33 86 19 135/60 96 10/08/16 10:15 96 Room Air 10/08/16 09:56 37.3 81 20 144/71 95 Room Air 10/08/16 09:20 85 20 116/65 95 Room Air 10/08/16 08:46 93 10/08/16 08:34 38.1 98 22 123/64 97 Room Air General Appearance: WD/WN, no apparent distress Head: normocephalic, atraumatic Eyes: sclerae normal, + pertinent finding (Normocephalic atraumatic) ENT: pharynx normal Neck: supple, no adenopathy, no JVD Respiratory/Chest: chest non-tender, lungs clear, normal breath sounds, no respiratory distress, no accessory muscle use Cardiovascular: regular rate, rhythm, no edema, no gallop, no murmur Abdomen/GI: normal bowel sounds, non tender, soft Back: no CVA tenderness Extremities/Musculoskelatal: no calf tenderness, no pedal edema, non-tender Neurologic/Psych: no motor/sensory deficits (grossly), alert, normal mood/ affect, oriented x 3 Skin: warm/dry, no rash, + pertinent finding (mild erythema/RT changes on left flank ) Laboratory Results Last 24 Hours Test 10/08/16 09:00 10/08/16 09:05 10/08/16 12:38 10/08/16 16:33 White Blood Count 3.29 K/uL Red Blood Count 4.06 M/uL Hemoglobin 12.2 g/dL Hematocrit 34.4 % Mean Corpuscular Volume 84.7 fL Mean Corpuscular Hemoglobin 30.0 pg Mean Corpuscular Hemoglobin Concent 35.5 g/dl Platelet Count 48 K/uL Mean Platelet Volume 10.8 fL Neutrophils (%) (Auto) 80.3 % Lymphocytes (%) (Auto) 15.5 % Monocytes (%) (Auto) 3.3 % Eosinophils (%) (Auto) 0.0 % Basophils (%) (Auto) 0.6 % Neutrophils # (Auto) 2.64 K/uL Lymphocytes # (Auto) 0.51 K/uL Monocytes # (Auto) 0.11 K/uL Eosinophils # (Auto) 0.00 K/uL Basophils # (Auto) 0.02 K/uL RDW Standard Deviation 46.0 fL RDW Coefficient of Variation 14.8 % Immature Granulocyte % (Auto) 0.3 % Immature Granulocyte # (Auto) 0.01 K/uL Peripheral Blood Smear Path Consult Prothrombin Time 12.0 SECONDS Prothromb Time International Ratio 1.1 Sodium Level 132 mmol/L Potassium Level 3.2 mmol/L Chloride Level 98 mmol/L Carbon Dioxide Level 21 mmol/L Anion Gap 13.0 mmol/L Blood Urea Nitrogen 15 mg/dl Creatinine 1.40 mg/dl Est Creatinine Clear Calc Drug Dose 49.8 ml/min Estimated GFR () 56.2 Estimated GFR (Non- 48.5 BUN/Creatinine Ratio 10.5 Random Glucose 132 mg/dl Calcium Level 7.9 mg/dl Magnesium Level 2.0 mg/dl Total Bilirubin 0.7 mg/dl Direct Bilirubin 0.2 mg/dl Aspartate Amino Transf (AST/SGOT) 154 U/L Alanine Aminotransferase (ALT/SGPT) 101 U/L Alkaline Phosphatase 63 U/L Total Creatine Kinase 264 U/L Creatine Kinase MB < 0.5 ng/ml Creatine Kinase MB Ratio Troponin I < 0.015 ng/ml Total Protein 7.0 gm/dl Albumin 3.2 gm/dl Lipase 585 U/L Procalcitonin 1.54 ng/ml Lyme Disease IgG Antibody NEG Lyme Disease IgM Antibody NEG Bedside Lactic Acid Venous 1.60 mmol/L Urine Color DK YELLOW Urine Appearance CLEAR Urine pH 5.5 Urine Specific [place] 1.024 Urine Protein 3+ Urine Glucose (UA) NEG Urine Ketones TRACE Urine Occult Blood 2+ Urine Nitrite NEG Urine Bilirubin NEG Urine Urobilinogen NEG Urine Leukocyte Esterase NEG Urine WBC (Auto) 5-10 /hpf Urine RBC (Auto) 5-10 /hpf Urine Hyaline Casts (Auto) 10-30 /lpf Urine Epithelial Cells (Auto) >30 /lpf Urine Bacteria (Auto) NEG Urine Renal Epithelial Cells /lpf Urine Pathogenic Casts 1-5 GRANULAR CASTS /lpf Urine Mucus PRESENT Bedside Glucose 89 mg/dl Test 10/08/16 17:20 10/08/16 20:24 10/08/16 21:30 Sodium Level 130 mmol/L Potassium Level 3.2 mmol/L Chloride Level 99 mmol/L Carbon Dioxide Level 20 mmol/L Anion Gap 11.0 mmol/L Blood Urea Nitrogen 13 mg/dl Creatinine 1.40 mg/dl Est Creatinine Clear Calc Drug Dose 49.8 ml/min Estimated GFR () 56.2 Estimated GFR (Non- 48.5 BUN/Creatinine Ratio 9.5 Random Glucose 127 mg/dl Osmolality 267 mOsm/kg Calcium Level 7.8 mg/dl Magnesium Level 2.0 mg/dl Vitamin B12 Level 565 pg/mL Folate > 24.00 ng/mL Thyroid Stimulating Hormone (TSH) 1.550 uIu/ml Random Cortisol 39.22 mcg/dl Bedside Glucose 161 mg/dl CT abdomen/pelvis IMPRESSION: Adenopathy: There are 2 tangential nodules within the central mesentery measuring 22 mm in aggregate. These contain a small calcification. These remain unchanged from the prior study, No acute inflammatory changes, Right-sided nephrolithiasis Mild splenomegaly, Stable small central mesenteric nodules, No evidence of bowel obstruction. No evidence of free air. No evidence of acute appendicitis. No evidence of acute diverticulitis CT chest IMPRESSION: 1. Postsurgical changes involving the left axilla 2. Splenomegaly 3. Slight limited evaluation the lung parenchyma due to respiratory motion artifact. No evidence of focal pulmonary consolidation. 4. 5 x 3 mm solid left lower lobe pulmonary nodule Assessment & Plan 76 year old male with metastatic melanoma on Yervoy/Opdivo - last treatment 3 weeks ago and palliative RT, admitted with fevers, generalized weakness, poor oral intake. He had recent outpatient antibiotic treatment from his PCP and ER and blood cultures were negative then He had 2 recent falls/syncopal events at his home Recommend rule out infection Recommend consider check Echo and MRI brain Recommend CBC w/ diff, smear, ACTH and cortisol levels TSH He is on empiric antibiotic coverage in the mean time ID consult appreciated Check FSP and fibrinogen level Consider transfer to tertiary center if his symptoms persist without a clear cause Differential include infection, or drug reaction Would recommend consider endocrine and rheumatology evaluation if his symptoms persist without a clear etiology He would be due for treatment Yervoy/Opdivo tomorrow but discussed with the patient that I would recommend hold at least temporarily due to his current symptoms and his poor oral intake Thank you for consult.
[2016-10-08 23:53] VITALS: BP 145/72; PULSE 98; TEMP 38.5; O2SAT 99
[2016-10-09] VITALS (9 sets, daily range): BP systolic 100–131; BP diastolic 54–69; PULSE 74–106; TEMP 36.7–39.4; O2SAT 95–99
[2016-10-09] MEDS ORDERED: POTASSIUM CHLORIDE 10 MEQ TABCR PO ONE (03:45)
[2016-10-09] MEDS: ACETAMINOPHEN 325 MG TAB PO PRN (04:42)
[2016-10-09] MEDS: NSS + 20MEQ KCL 1000ML 1,000 ML IV SCH ×3 (05:09→20:47)
[2016-10-09] MEDS: VANCOMYCIN INJ 1,500 MG in SODIUM CHLORIDE 0.9% 500ML 500 ML IV SCH (06:00)
[2016-10-09 06:30] LABS: HEMATOCRIT 27.9 % (42-52); MEAN CELL VOLUME 83.8 fL (80-100); MEAN CORPUSCULAR HEMOGLOBIN 29.1 pg (25-34); MEAN CORPUSCULAR HGB CONC 34.8 g/dl (32-36); MEAN PLATELET VOLUME 9.8 fL (7.4-10.4); PLATELET COUNT 32 K/uL (130-400); RED BLOOD COUNT 3.33 M/uL (4.7-6.1)
[2016-10-09 07:00] LABS: COMPLETE YES; IG% 0.4 %; LYMPH % 15.4 %; LYMPH ABS # 0.43 K/uL (1.2-3.4); MONO % 5.4 %; NEUT % 78.8 %
[2016-10-09] MEDS: INSULIN ASPART 100 UNITS/ML 3 ML PEN SC SCH ×4 (07:00→21:00)
[2016-10-09 07:02] LABS: FIBRINOGEN* 254 mg/dl (184-400)
[2016-10-09 07:12] LABS: BUN/CREATININE RATIO 9.4 (10-20); CALCIUM 6.9 mg/dl (8.5-10.1); CREATININE 1.2 mg/dl (0.60-1.40); MAGNESIUM 1.9 mg/dl (1.8-2.4); POTASSIUM 3.5 mmol/L (3.5-5.1)
--- NOTE | 2016-10-09 07:12 | Clinical Documentation Query ---
CLINICAL DOCUMENTATION QUERY 76 year old male who is currently undergoing chemotherapy for malignant melanoma. He presents to the Emergency Room with complaints of a constant fever. Query #1/2 In your clinical opinion is this patient being managed for: X ) Chemotherapy related pancytopenia ( ) Other explanation of clinical findings (Please Explain) ( ) Unable to determine (Please Define) ( ) Need to Discuss ( ) Not Agree The medical record reflects the following clinical findings, treatment, and risk factors. Clinical Indicators: WBC 3.29, PLT 48, RBC 4.06, Hgb 12.2, HCT 34.4 Treatment: Oncology consult, daily CBC's Risk Factors: Chemotherapy Query #2/2 In your clinical opinion is this patient being managed for: ( X) Unidentified infectious process evidenced by Fever, +Procalcitonin treated with IV Vanco and Zosyn ( ) Possible sepsis ( ) Other explanation of clinical findings (Please Explain) ( ) Unable to determine (Please Define) ( ) Need to Discuss ( ) Not Agree The medical record reflects the following clinical findings, treatment, and risk factors. Clinical Indicators: Tmax 38.5, WBC 3.29, PLT 48, RBC 4.06, Hgb 12.2, HCT 34.4, Procalcitonin 1.54, Treatment: IVF bolus, IV Zosyn, IV Vancomycin, daily CBC's, Risk Factors: Age, chemotherapy, Please clarify and document your clinical opinion in the progress notes and discharge summary. Terms such as "probable", "suspected", "likely", "questionable", "possible", or "still to be ruled out" are acceptable. IF IN AGREEMENT, YOU MUST DOCUMENT ABOVE DIAGNOSTIC STATEMENT IN DAILY PROGRESS NOTES AND DISCHARGE SUMMARY. This document is not part of the patient's record. Thank You, Dereje Mina, RN [phone]
[2016-10-09] MEDS: DOXYCYCLINE HYCLATE 100 MG CAP PO SCH ×2 (08:08→20:47)
[2016-10-09] MEDS: PIPERACILL/TAZOBAC IV 3.375 GM in DEXTROSE 5% 100ML IV SCH ×2 (08:08→15:59)
[2016-10-09] MEDS: ALLOPURINOL 300 MG TAB PO SCH (08:09)
[2016-10-09] MEDS ORDERED: PHARMACY GLYCEMIC MGMT CONSULT SCH (10:46)
--- NOTE | 2016-10-09 10:49 | Progress Note ---
Medicine Progress Note Date & Time of Visit: Oct 09, 2016 at 10:35. Subjective febrile episodes overnight seen resting in bed, appears brighter, alert states he feels improved compared to yesterday "if only the fever can get controlled" no nausea, abdominal pain no headache, dizziness, chest pain, cough no diarrhea, urinary symptoms denies other symptoms Objective Last 8 Hrs Date Time Temp Pulse Resp B/P (MAP) Pulse Ox O2 Delivery O2 Flow Rate FiO2 10/09/16 08:00 95 Room Air 10/09/16 07:16 36.7 74 20 100/57 (71) 95 Room Air 10/09/16 04:41 38.0 94 18 131/63 (85) 97 Room Air 10/09/16 04:00 Room Air Physical Exam: General- oriented x 3, not in distress, speaks in sentences with no effort Eyes- EOMI, anicteric ENT- oropharynx clear, dry oral mucoas Neck- supple, no JVD, no adenopathy Lungs- clear breath sounds bilaterally Heart- regular rhythm; no murmur, normal rate Abdomen- normal bowel sounds, soft, nontender Extremities- no pretibial edema, no calf tenderness; peripheral pulses intact Neuro- alert, oriented x 3; no gross focal neuro deficit Skin- warm & dry Laboratory Results: Last 24 Hours Test 10/08/16 12:38 10/08/16 16:33 10/08/16 17:20 10/08/16 20:24 Urine Color DK YELLOW Urine Appearance CLEAR Urine pH 5.5 Urine Specific Thurmond 1.024 Urine Protein 3+ Urine Glucose (UA) NEG Urine Ketones TRACE Urine Occult Blood 2+ Urine Nitrite NEG Urine Bilirubin NEG Urine Urobilinogen NEG Urine Leukocyte Esterase NEG Urine WBC (Auto) 5-10 /hpf Urine RBC (Auto) 5-10 /hpf Urine Hyaline Casts (Auto) 10-30 /lpf Urine Epithelial Cells (Auto) >30 /lpf Urine Bacteria (Auto) NEG Urine Renal Epithelial Cells /lpf Urine Pathogenic Casts 1-5 GRANULAR CASTS /lpf Urine Mucus PRESENT Bedside Glucose 89 mg/dl 161 mg/dl Sodium Level 130 mmol/L Potassium Level 3.2 mmol/L Chloride Level 99 mmol/L Carbon Dioxide Level 20 mmol/L Anion Gap 11.0 mmol/L Blood Urea Nitrogen 13 mg/dl Creatinine 1.40 mg/dl Est Creatinine Clear Calc Drug Dose 49.8 ml/min Estimated GFR () 56.2 Estimated GFR (Non- 48.5 BUN/Creatinine Ratio 9.5 Random Glucose 127 mg/dl Osmolality 267 mOsm/kg Calcium Level 7.8 mg/dl Magnesium Level 2.0 mg/dl Vitamin B12 Level 565 pg/mL Folate > 24.00 ng/mL Thyroid Stimulating Hormone (TSH) 1.550 uIu/ml Random Cortisol 39.22 mcg/dl Test 10/08/16 21:40 10/09/16 01:35 10/09/16 06:09 10/09/16 06:42 Sodium Level 131 mmol/L 134 mmol/L Potassium Level 3.2 mmol/L 3.5 mmol/L Chloride Level 100 mmol/L 105 mmol/L Carbon Dioxide Level 22 mmol/L 21 mmol/L Anion Gap 9.0 mmol/L 8.0 mmol/L Blood Urea Nitrogen 12 mg/dl 11 mg/dl Creatinine 1.40 mg/dl 1.20 mg/dl Est Creatinine Clear Calc Drug Dose 49.8 ml/min 58.3 ml/min Estimated GFR () 56.2 67.7 Estimated GFR (Non- 48.5 58.4 BUN/Creatinine Ratio 8.4 9.4 Random Glucose 107 mg/dl 102 mg/dl Calcium Level 7.3 mg/dl 6.9 mg/dl Urine Random Sodium 50 mEq/L White Blood Count 2.80 K/uL Red Blood Count 3.33 M/uL Hemoglobin 9.7 g/dL Hematocrit 27.9 % Mean Corpuscular Volume 83.8 fL Mean Corpuscular Hemoglobin 29.1 pg Mean Corpuscular Hemoglobin Concent 34.8 g/dl Platelet Count 32 K/uL Mean Platelet Volume 9.8 fL Neutrophils (%) (Auto) 78.8 % Lymphocytes (%) (Auto) 15.4 % Monocytes (%) (Auto) 5.4 % Eosinophils (%) (Auto) 0.0 % Basophils (%) (Auto) 0.0 % Neutrophils # (Auto) 2.21 K/uL Lymphocytes # (Auto) 0.43 K/uL Monocytes # (Auto) 0.15 K/uL Eosinophils # (Auto) 0.00 K/uL Basophils # (Auto) 0.00 K/uL RDW Standard Deviation 46.0 fL RDW Coefficient of Variation 14.9 % Immature Granulocyte % (Auto) 0.4 % Immature Granulocyte # (Auto) 0.01 K/uL Erythrocyte Sedimentation Rate 11 mm/hr Fibrinogen 254 mg/dl Fibrin Degradation Products >40 mcg/ml Magnesium Level 1.9 mg/dl Total Bilirubin 0.6 mg/dl Direct Bilirubin 0.2 mg/dl Aspartate Amino Transf (AST/SGOT) 162 U/L Alanine Aminotransferase (ALT/SGPT) 101 U/L Alkaline Phosphatase 56 U/L Total Protein 5.4 gm/dl Albumin 2.5 gm/dl Bedside Glucose 111 mg/dl Date/Time Source Procedure Growth Status 10/08/16 20:07 Stool C.difficile Toxin B Gene (PCR) - Final No C. difficile toxin B gene detected Complete 10/08/16 20:07 Stool WBC Smear - Final Resulted 10/08/16 20:07 Stool Shiga Toxin Test Pending Resulted 10/08/16 20:07 Stool Stool Culture Pending Resulted 10/08/16 12:38 Urine , Clean Catch Urine Culture Pending Received Assessment & Plan 76 year old male with metastatic melanoma, DM presenting with fever. UNIDENTIFIED INFECTIOUS PROCESS, possible BACTEREMIA ON IMMUNO AND RADIATION THERAPY, RADIATION FOR MALIGNANT MELANOMA -- (+) fever spikes WBC decreasing -- (+) procalcitonin -- subjectively, feeling improved -- Blood culture 1/2: gram positive cocci -- on empiric Vanco, Zosyn, Doxy X day 2 -- ID on board, appreciate the input PANCYTOPENIA -- likely from Chemotherapy related, Infection Related -- Follows with Dr. Vogel [place] [facility] -- WBC, RBC, Plt decreasing -- peripheral smear: likely from chemotherapy -- Check absolute neutrophil count CT chest: (+) left lower lobe nodule Ct abdomen: unrevealing cortisol level: normal TSH, B12, folate: normal -- no signs of bleeding -- may need neupogen and irradiated blood products PRN will discuss with Dr. 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 Vogel / Diann W[facility] of [facility] and Dr. Tari Aguirre for radiation oncology Currently on immunotherapy Opdivo and Yervoy (last treatment 3 weeks ago) and radiation HYPONATREMIA -- hypovolemic -- improving continue IV NSS -- repeat PRP in PM HYPOKALEMIA Due to poor PO intake/ GI loss resolved, monitor NAUSEA/ VOMITING, Resolved ELEVATED LFT's liver ultrasound- unremarkable liver, no GB wall thickening, no gallstones, 3 mm gallbladder polyp LFTs: about the same CT a/p: unrevealing -- advance diet monitor LFTs SYNCOPE Possibly due to orthostatic hypotension from dehydration CT head negative continue IV fluids DM TYPE 2 Hold metformin Insulin sliding scale coverage GOUT Continue allopurinol DYSLIPIDEMIA hold statin SLEEP APNEA Continue CPAP DVT PROPHYLAXIS SCD's due to thrombocytopenia CODE STATUS Full code per my discussion with the patient DISPOSITION pending discussed case with patient at length, including that platelets may not be readily available in our facility if needed emergently he would like to continue care in [facility], and wait until tomorrow before making any decision re: transfer Current Inpatient Medications: Current Inpatient Medications Medications (Trade) Dose Ordered Sig/Tamika Route Start Time Stop Time Status Last Admin Dose Admin Potassium Chloride/Sodium Chloride 1,000 ml @ 125 mls/hr Q8H IV 10/08/16 14:00 11/07/16 13:59 10/09/16 05:09 125 MLS/HR Acetaminophen (Tylenol Tab) 650 mg Q4H PRN PO 10/08/16 11:15 11/07/16 11:14 10/09/16 04:42 650 MG Ondansetron HCl (Zofran Inj) 4 mg Q6H PRN IV 10/08/16 11:15 11/07/16 11:14 10/09/16 00:36 4 MG Insulin Aspart (novoLOG ASPART) SLIDING SCALE If C... ACHS SC 10/08/16 16:00 11/07/16 15:59 Glucose (Glucose 40% Gel) 15-30 GRAMS 15 GRAMS... UD PRN PO 10/08/16 11:30 11/07/16 11:29 Glucose (Glucose Chew Tab) 4-8 Tablets 4 Tabl... UD PRN PO 10/08/16 11:30 11/07/16 11:29 Dextrose (Dextrose 50% 50ML Syringe) 25-50ML OF 50% DW IV FOR... UD PRN IV 10/08/16 11:30 11/07/16 11:29 Glucagon (Glucagon Inj) 1 mg UD PRN SQ 10/08/16 11:30 11/07/16 11:29 Allopurinol (Zyloprim Tab) 300 mg DAILY PO 10/09/16 09:00 11/08/16 08:59 10/09/16 08:09 300 MG Vancomycin HCl (Consult) 1 ea UD PRN N/A 10/08/16 11:59 11/07/16 11:58 Piperacillin Sod/ Tazobactam Sod (Consult) 1 ea UD PRN N/A 10/08/16 11:59 11/07/16 11:58 Piperacillin Sod/ Tazobactam Sod 3.375 gm/Dextrose 115 ml @ 28.75 mls/ hr Q8H IV 10/08/16 16:00 10/22/16 15:59 10/09/16 08:08 28.75 MLS/HR Vancomycin HCl 1500 mg/Sodium Chloride 530 ml @ 200 mls/hr Q18H IV 10/09/16 06:00 10/23/16 05:59 10/09/16 06:00 200 MLS/HR Doxycycline Hyclate (Vibramycin Cap) 100 mg BID PO 10/08/16 21:00 10/18/16 20:59 10/09/16 08:08 100 MG Ioversol (Optiray 320) 125 ml UD PRN IV 10/08/16 16:30 10/12/16 16:29
--- NOTE | 2016-10-09 11:41 | Pharmacy Progress Note ---
Glycemic Control Intl Consult Date of Service Oct 09, 2016. Scope Glycemic Pharmacist consulted by Dr Yung on 10/09/16 for glycemic control and to write orders per [facility] inpatient glycemic control protocol Objective Weight (Kilograms): 97.500 Accuchecks BSG (last 24hrs): Test 10/08/16 16:33 10/08/16 17:20 10/08/16 20:24 10/08/16 21:40 Bedside Glucose 89 mg/dl (70-99) 161 mg/dl (70-99) Random Glucose 127 mg/dl (70-99) 107 mg/dl (70-99) Test 10/09/16 06:09 10/09/16 06:42 Random Glucose 102 mg/dl (70-99) Bedside Glucose 111 mg/dl (70-99) Laboratory Data (last 24hrs) Test 10/08/16 17:20 10/08/16 21:40 10/09/16 06:09 Anion Gap 11.0 mmol/L 9.0 mmol/L 8.0 mmol/L BUN/Creatinine Ratio 9.5 8.4 9.4 Blood Urea Nitrogen 13 mg/dl 12 mg/dl 11 mg/dl Creatinine 1.40 mg/dl 1.40 mg/dl 1.20 mg/dl Potassium Level 3.2 mmol/L 3.2 mmol/L 3.5 mmol/L Sodium Level 130 mmol/L 131 mmol/L 134 mmol/L White Blood Count 2.80 K/uL Red Blood Count 3.33 M/uL Hemoglobin 9.7 g/dL Hematocrit 27.9 % Mean Corpuscular Volume 83.8 fL Mean Corpuscular Hemoglobin 29.1 pg Mean Corpuscular Hemoglobin Concent 34.8 g/dl Platelet Count 32 K/uL Mean Platelet Volume 9.8 fL Neutrophils (%) (Auto) 78.8 % Lymphocytes (%) (Auto) 15.4 % Monocytes (%) (Auto) 5.4 % Eosinophils (%) (Auto) 0.0 % Basophils (%) (Auto) 0.0 % Neutrophils # (Auto) 2.21 K/uL Lymphocytes # (Auto) 0.43 K/uL Monocytes # (Auto) 0.15 K/uL Eosinophils # (Auto) 0.00 K/uL Basophils # (Auto) 0.00 K/uL Recent Pertinent Medications Outpatient Anti-diabetic Regimen: * Metformin 500 mg PO BID * A1c - ordered for 10/09 The patient is currently receiving: * Correctional Insulin: Novolog Correction per scale ACHS Goal Range: Low 140 mg/dL - High 180 mg/dL Correction Factor: 45 mg/dL/unit * Prandial insulin: Per carb ratio of 1 unit per 15 grams CHO consumed Risk Factors for Insulin Resistance: * Infection: Vancomycin + Zosyn + Doxycycline PO * Diet: T2DM Assessment & Plan ASSESSMENT: * 76 yr old T2DM admitted with pancytopenia and fever of unknown source. h/o metastatic melanoma undergoing immunotherapy and radiation therapy. * Unknown level of outpatient glycemic control - A1c pending * Pt is maintained on oral antidiabetic agents as an outpatient * Oral agents are not recommended for inpatient use d/t drug interactions, changing PO intake, and difficulty titrating for acute hyper/hypoglycemia. ADA recommends re-initiating outpatient oral agents 1-2 days prior to discharge if/ when appropriate if they were held on admission. * Will hold oral agents for admission and utilize SQ bolus insulin which is the recommended regimen for inpatient glycemic control. * Will initiate weight based insulin dosing for insulin stacey patient and titrate based on BSG trends. * ADA & AACE recommend a goal blood sugar range 140-180 mg/dl for the majority of critically ill & non-critically ill patients. * Patient is currently euglycemic - basal insulin not indicated at this time PLAN FOR INPATIENT GLYCEMIC CONTROL: * Holding outpatient oral diabetes medications * Correctional Insulin with NOVOLOG per scale ACHS * Goal Range: Low 140 mg/dL - High 180 mg/dL * Correction Factor: 45 mg/dL/unit * Nutritional / Prandial insulin per carb ratio of 1 unit per 15 grams CHO consumed * Please note that the plan above was derived based on current level of insulin resistance and hospital stress. These recommendations are appropriate for inpatient admission only. Plan of care upon discharge will need to be reassessed to avoid potential outpatient hypo/hyperglycemia. Thank you.
[2016-10-09] MEDS: ACETAMINOPHEN 325 MG TAB PO SCH ×2 (12:12→20:06)
--- NOTE | 2016-10-09 14:22 | Progress Note ---
Subjective Date of Service: Oct 09, 2016. Subjective pt ambulating in room, intermittent fevers overnight. currently afebrile. tolerating abx, remains on broad spectrum. Initial blood culture with gpc, 10/06 cultures remain negative. wbc decreased to 2.8 today. ESR 11, LFTS remain elevated. c diff negative. ct abd/pelvis without abnml or liver/gb. spleen mildly enlarged, solitary left pulm nodule, no PE/ consolidation. Problem List Medical Problems: (1) Chills Status: Acute (2) Fever of unknown origin Status: Acute (3) Weakness Status: Acute Objective Vital Signs Date Time Temp Pulse Resp B/P (MAP) Pulse Ox O2 Delivery O2 Flow Rate FiO2 10/09/16 13:56 36.7 10/09/16 12:00 88 10/09/16 12:00 95 Room Air 10/09/16 10:57 37.1 87 20 120/59 (79) 98 Room Air 10/09/16 08:00 95 Room Air 10/09/16 07:16 36.7 74 20 100/57 (71) 95 Room Air 10/09/16 04:41 38.0 94 18 131/63 (85) 97 Room Air 10/09/16 04:00 Room Air 10/09/16 01:00 37.4 10/09/16 00:00 Room Air 10/08/16 23:53 38.5 98 18 145/72 (96) 99 Room Air 10/08/16 20:36 36.8 77 18 106/56 (73) 96 10/08/16 19:30 Room Air 10/08/16 16:34 37.5 10/08/16 16:00 Room Air 10/08/16 15:55 36.8 82 18 108/51 (70) 96 Physical Exam General Appearance: WD/WN, no apparent distress Neck: supple Respiratory/Chest: no respiratory distress Neurologic/Psychiatric: alert, oriented x 3 Skin: normal color Laboratory Results Item Value Date Time Blood Culture - Preliminary Resulted 10/08/16 0900 Blood Gram Positive Cocci C.difficile Toxin B Gene (PCR) - Final Complete 10/08/162006 Stool No C. difficile toxin B gene detected Urine Culture - Preliminary Resulted 10/08/16 1238 Urine , Clean Catch NO GROWTH - LESS THAN 1,000 COLONIES/... Last 24 Hours Test 10/08/16 16:33 10/08/16 17:20 10/08/16 20:24 10/08/16 21:40 Bedside Glucose 89 mg/dl 161 mg/dl Sodium Level 130 mmol/L 131 mmol/L Potassium Level 3.2 mmol/L 3.2 mmol/L Chloride Level 99 mmol/L 100 mmol/L Carbon Dioxide Level 20 mmol/L 22 mmol/L Anion Gap 11.0 mmol/L 9.0 mmol/L Blood Urea Nitrogen 13 mg/dl 12 mg/dl Creatinine 1.40 mg/dl 1.40 mg/dl Est Creatinine Clear Calc Drug Dose 49.8 ml/min 49.8 ml/min Estimated GFR () 56.2 56.2 Estimated GFR (Non- 48.5 48.5 BUN/Creatinine Ratio 9.5 8.4 Random Glucose 127 mg/dl 107 mg/dl Osmolality 267 mOsm/kg Calcium Level 7.8 mg/dl 7.3 mg/dl Magnesium Level 2.0 mg/dl Vitamin B12 Level 565 pg/mL Folate > 24.00 ng/mL Thyroid Stimulating Hormone (TSH) 1.550 uIu/ml Random Cortisol 39.22 mcg/dl Test 10/09/16 01:35 10/09/16 06:09 10/09/16 06:42 Urine Random Sodium 50 mEq/L White Blood Count 2.80 K/uL Red Blood Count 3.33 M/uL Hemoglobin 9.7 g/dL Hematocrit 27.9 % Mean Corpuscular Volume 83.8 fL Mean Corpuscular Hemoglobin 29.1 pg Mean Corpuscular Hemoglobin Concent 34.8 g/dl Platelet Count 32 K/uL Mean Platelet Volume 9.8 fL Neutrophils (%) (Auto) 78.8 % Lymphocytes (%) (Auto) 15.4 % Monocytes (%) (Auto) 5.4 % Eosinophils (%) (Auto) 0.0 % Basophils (%) (Auto) 0.0 % Neutrophils # (Auto) 2.21 K/uL Lymphocytes # (Auto) 0.43 K/uL Monocytes # (Auto) 0.15 K/uL Eosinophils # (Auto) 0.00 K/uL Basophils # (Auto) 0.00 K/uL RDW Standard Deviation 46.0 fL RDW Coefficient of Variation 14.9 % Immature Granulocyte % (Auto) 0.4 % Immature Granulocyte # (Auto) 0.01 K/uL Erythrocyte Sedimentation Rate 11 mm/hr Fibrinogen 254 mg/dl Fibrin Degradation Products >40 mcg/ml Sodium Level 134 mmol/L Potassium Level 3.5 mmol/L Chloride Level 105 mmol/L Carbon Dioxide Level 21 mmol/L Anion Gap 8.0 mmol/L Blood Urea Nitrogen 11 mg/dl Creatinine 1.20 mg/dl Est Creatinine Clear Calc Drug Dose 58.3 ml/min Estimated GFR () 67.7 Estimated GFR (Non- 58.4 BUN/Creatinine Ratio 9.4 Random Glucose 102 mg/dl Calcium Level 6.9 mg/dl Magnesium Level 1.9 mg/dl Total Bilirubin 0.6 mg/dl Direct Bilirubin 0.2 mg/dl Aspartate Amino Transf (AST/SGOT) 162 U/L Alanine Aminotransferase (ALT/SGPT) 101 U/L Alkaline Phosphatase 56 U/L Total Protein 5.4 gm/dl Albumin 2.5 gm/dl Bedside Glucose 111 mg/dl Assessment and Plan (1) Gram positive septicemia Assessment & Plan: cotninue abx, follow cultures, if no gnr, will narrow therapy. repeat blood cultures today, would check echo. tick serologies pending as well, perph smear pending. await results, if negative will stop doxy. will follow. (2) Fever
[2016-10-09 17:31] LABS: BUN/CREATININE RATIO 7.4 (10-20); CALCIUM 7.3 mg/dl (8.5-10.1); CREATININE 1.3 mg/dl (0.60-1.40); POTASSIUM 3.8 mmol/L (3.5-5.1)
--- NOTE | 2016-10-09 21:22 | Hematology/Oncology Prog Note ---
Hematology/Onc Progress Note Date of Service Oct 09, 2016. Subjective S: Patient states that he feels better today Less fatigue, Was feeling good all day and sat in his chair but he had chills and sweats once this afternoon had fever this evening up to 39.4 He states that appetite is improving Denies any cough or shortness of breath Diarrhea improved Denies any bleeding or bruising symptoms Vital Signs Vital Signs Past 12 Hours Date Time Temp Pulse Resp B/P (MAP) Pulse Ox O2 Delivery O2 Flow Rate FiO2 10/09/16 20:22 39.4 92 22 104/54 (71) 96 Room Air 99 109/56 (73) 106 115/64 (81) 10/09/16 16:25 36.9 76 24 122/60 (80) 99 Room Air 86 127/65 (85) 91 130/69 (89) 10/09/16 16:00 Room Air 10/09/16 13:56 36.7 10/09/16 12:00 88 10/09/16 12:00 95 Room Air 10/09/16 10:57 37.1 87 20 120/59 (79) 98 Room Air Physical Exam Head: normocephalic, atraumatic Lungs: Auscuitation: breath sounds normal, no wheezing, no rales/crackles Cardiovascular: Heart Auscultation: RRR, normal S1, normal S2 Abdomen: Inspection & Palpation: soft, non-distended, no tenderness, guarding & rebound Extremities: no edema Laboratory . Results Past 24 Hours Test 10/08/16 21:40 10/09/16 01:35 10/09/16 06:09 10/09/16 06:42 Range/Units Sodium Level 131 134 136-145 mmol/L Potassium Level 3.2 3.5 3.5-5.1 mmol/L Chloride Level 100 105 98-107 mmol/L Carbon Dioxide Level 22 21 21-32 mmol/L Anion Gap 9.0 8.0 3-11 mmol/L Blood Urea Nitrogen 12 11 7-18 mg/dl Creatinine 1.40 1.20 0.60-1.40 mg/dl Est Creatinine Clear Calc Drug Dose 49.8 58.3 ml/min Estimated GFR () 56.2 67.7 Estimated GFR (Non- 48.5 58.4 BUN/Creatinine Ratio 8.4 9.4 10-20 Random Glucose 107 102 70-99 mg/dl Calcium Level 7.3 6.9 8.5-10.1 mg/dl Urine Random Sodium 50 mEq/L White Blood Count 2.80 4.8-10.8 K/uL Red Blood Count 3.33 4.7-6.1 M/uL Hemoglobin 9.7 14.0-18.0 g/dL Hematocrit 27.9 42-52 % Mean Corpuscular Volume 83.8 80-100 fL Mean Corpuscular Hemoglobin 29.1 25-34 pg Mean Corpuscular Hemoglobin Concent 34.8 32-36 g/dl Platelet Count 32 130-400 K/uL Mean Platelet Volume 9.8 7.4-10.4 fL Neutrophils (%) (Auto) 78.8 % Lymphocytes (%) (Auto) 15.4 % Monocytes (%) (Auto) 5.4 % Eosinophils (%) (Auto) 0.0 % Basophils (%) (Auto) 0.0 % Neutrophils # (Auto) 2.21 1.4-6.5 K/uL Lymphocytes # (Auto) 0.43 1.2-3.4 K/uL Monocytes # (Auto) 0.15 0.11-0.59 K/uL Eosinophils # (Auto) 0.00 0-0.5 K/uL Basophils # (Auto) 0.00 0-0.2 K/uL RDW Standard Deviation 46.0 36.4-46.3 fL RDW Coefficient of Variation 14.9 11.5-14.5 % Immature Granulocyte % (Auto) 0.4 % Immature Granulocyte # (Auto) 0.01 0.00-0.02 K/uL Erythrocyte Sedimentation Rate 11 0-14 mm/hr Fibrinogen 254 184-400 mg/dl Fibrin Degradation Products >40 <10 mcg/ml Magnesium Level 1.9 1.8-2.4 mg/dl Total Bilirubin 0.6 0.2-1 mg/dl Direct Bilirubin 0.2 0-0.2 mg/dl Aspartate Amino Transf (AST/SGOT) 162 15-37 U/L Alanine Aminotransferase (ALT/SGPT) 101 12-78 U/L Alkaline Phosphatase 56 45-117 U/L Total Protein 5.4 6.4-8.2 gm/dl Albumin 2.5 3.4-5.0 gm/dl Bedside Glucose 111 70-99 mg/dl Test 10/09/16 10:56 10/09/16 13:51 10/09/16 16:46 10/09/16 17:02 Range/Units Bedside Glucose 113 156 110 70-99 mg/dl Sodium Level 137 136-145 mmol/L Potassium Level 3.8 3.5-5.1 mmol/L Chloride Level 106 98-107 mmol/L Carbon Dioxide Level 19 21-32 mmol/L Anion Gap 12.0 3-11 mmol/L Blood Urea Nitrogen 10 7-18 mg/dl Creatinine 1.30 0.60-1.40 mg/dl Est Creatinine Clear Calc Drug Dose 53.8 ml/min Estimated GFR () 61.4 Estimated GFR (Non- 53.0 BUN/Creatinine Ratio 7.4 10-20 Random Glucose 113 70-99 mg/dl Calcium Level 7.3 8.5-10.1 mg/dl Test 10/09/16 20:56 Range/Units Bedside Glucose 134 70-99 mg/dl Microbiology Results 10/09/16 Blood Culture, Received Pending 10/09/16 Blood Culture, Received Pending Assessment & Plan 76 year old male with metastatic melanoma on yervoy/opdivo admitted with fever chills and night sweats, blood culture positive for gram positive cocci melanoma: was due to yervoy and opdivo today but treatment on hold due to infection Thrombocytopenia: may be secondary to sepsis. recommend monitor cbc w/ diff and transfuse if platelet count is <20 or if any bleeding recommend repeat PT/PTT and fibrinogen as well with next labs He has no bleeding or bruising symptoms at this time Sepsis: Antibiotics as per ID recommend check Echo He is currently on BS antibiotics with zosyn, vancomycin and doxycycline I spoke to Dr Olguin his primary oncologist at [facility] this evening and updated him about the patient's blood culture result and also spoke to him about the CT scan results and he agrees that his symptoms are likely from sepsis/infection Follow up with his primary oncologist at [facility] I discussed recommendations with Dr Woodard
[2016-10-09] MEDS ORDERED: ALUMINUM/MAGNESIUM SUSP 30 ML UDC PO ONE (21:30)
[2016-10-10] VITALS (9 sets, daily range): BP systolic 97–124; BP diastolic 51–66; PULSE 68–98; TEMP 36.5–37.6; O2SAT 91–100
[2016-10-10] MEDS: VANCOMYCIN INJ 1,500 MG in SODIUM CHLORIDE 0.9% 500ML 500 ML IV SCH ×2 (00:39→17:34)
[2016-10-10] MEDS: PIPERACILL/TAZOBAC IV 3.375 GM in DEXTROSE 5% 100ML IV SCH ×2 (00:39→08:05)
[2016-10-10] MEDS: NSS + 20MEQ KCL 1000ML 1,000 ML IV SCH ×2 (06:15→17:11)
[2016-10-10] MEDS: ACETAMINOPHEN 325 MG TAB PO SCH ×4 (06:15→21:22)
[2016-10-10 06:32] LABS: HEMATOCRIT 26.6 % (42-52); MEAN CELL VOLUME 83.9 fL (80-100); MEAN CORPUSCULAR HEMOGLOBIN 28.7 pg (25-34); MEAN CORPUSCULAR HGB CONC 34.2 g/dl (32-36); RED BLOOD COUNT 3.17 M/uL (4.7-6.1); WHITE BLOOD COUNT 2.74 K/uL (4.8-10.8)
[2016-10-10 06:39] LABS: COMPLETE YES; IG% 0.4 %; LYMPH % 21.5 %; LYMPH ABS # 0.59 K/uL (1.2-3.4); MEAN PLATELET VOLUME 10.8 fL (7.4-10.4); MONO % 1.8 %; NEUT % 76.3 %; PLATELET COUNT 31 K/uL (130-400)
[2016-10-10 06:48] LABS: ESTIMATED AVERAGE GLUCOSE 151 mg/dl; HA1C FLAG Normal (Normal)
[2016-10-10 06:58] LABS: CREATININE 1.2 mg/dl (0.60-1.40); POTASSIUM 3.8 mmol/L (3.5-5.1)
[2016-10-10 07:34] LABS: INR 1.2 (0.9-1.1); PARTIAL THROMBOPLASTIN RATIO 1.3; PROTHROMBIN TIME (PATIENT) 13.2 SECONDS (9.0-12.0)
[2016-10-10 07:45] LABS: FIBRINOGEN* 213 mg/dl (184-400)
[2016-10-10] MEDS: ALLOPURINOL 300 MG TAB PO SCH (08:04)
[2016-10-10] MEDS: DOXYCYCLINE HYCLATE 100 MG CAP PO SCH ×2 (08:04→21:21)
[2016-10-10] MEDS: INSULIN ASPART 100 UNITS/ML 3 ML PEN SC SCH ×4 (08:09→21:00)
--- NOTE | 2016-10-10 10:50 | Progress Note ---
Medicine Progress Note Date & Time of Visit: Oct 10, 2016 at 10:35. Subjective patient seen resting in bed, comfortable states he feels improved again today had 1 fever spike last night no chills today denies headache, dizziness, cough, dyspnea, chest pain ,abdominal pain, changes with urination had loose BMs yesterday, none today no other symptoms Objective Last 8 Hrs Date Time Temp Pulse Resp B/P (MAP) Pulse Ox O2 Delivery O2 Flow Rate FiO2 10/10/16 08:00 95 Room Air 10/10/16 07:45 37.3 81 16 110/63 (79) 91 116/65 (82) 124/65 (84) 10/10/16 04:00 Room Air 10/10/16 03:19 36.8 98 28 97/51 (66) 98 Room Air Physical Exam: General- oriented x 3, not in distress, speaks in sentences with no effort Eyes- anicteric Neck- no JVD Lungs- clear breath sounds bilaterally, no rales, no wheezes Heart- regular rhythm; no murmur, normal rate Abdomen- normal bowel sounds, soft, nontender Extremities- no pretibial edema, no calf tenderness; peripheral pulses intact (+) abrasion bilateral knees: no signs of infection Neuro- alert, oriented x 3; no gross focal neuro deficit Skin- warm & dry Laboratory Results: Last 24 Hours Test 10/09/16 10:56 10/09/16 13:51 10/09/16 16:46 10/09/16 17:02 Bedside Glucose 113 mg/dl 156 mg/dl 110 mg/dl Sodium Level 137 mmol/L Potassium Level 3.8 mmol/L Chloride Level 106 mmol/L Carbon Dioxide Level 19 mmol/L Anion Gap 12.0 mmol/L Blood Urea Nitrogen 10 mg/dl Creatinine 1.30 mg/dl Est Creatinine Clear Calc Drug Dose 53.8 ml/min Estimated GFR () 61.4 Estimated GFR (Non- 53.0 BUN/Creatinine Ratio 7.4 Random Glucose 113 mg/dl Calcium Level 7.3 mg/dl Test 10/09/16 20:56 10/10/16 06:15 10/10/16 06:50 Bedside Glucose 134 mg/dl 120 mg/dl White Blood Count 2.74 K/uL Red Blood Count 3.17 M/uL Hemoglobin 9.1 g/dL Hematocrit 26.6 % Mean Corpuscular Volume 83.9 fL Mean Corpuscular Hemoglobin 28.7 pg Mean Corpuscular Hemoglobin Concent 34.2 g/dl Platelet Count 31 K/uL Mean Platelet Volume 10.8 fL Neutrophils (%) (Auto) 76.3 % Lymphocytes (%) (Auto) 21.5 % Monocytes (%) (Auto) 1.8 % Eosinophils (%) (Auto) 0.0 % Basophils (%) (Auto) 0.0 % Neutrophils # (Auto) 2.09 K/uL Lymphocytes # (Auto) 0.59 K/uL Monocytes # (Auto) 0.05 K/uL Eosinophils # (Auto) 0.00 K/uL Basophils # (Auto) 0.00 K/uL RDW Standard Deviation 46.6 fL RDW Coefficient of Variation 15.0 % Immature Granulocyte % (Auto) 0.4 % Immature Granulocyte # (Auto) 0.01 K/uL Prothrombin Time 13.2 SECONDS Prothromb Time International Ratio 1.2 Activated Partial Thromboplast Time 34.5 SECONDS Partial Thromboplastin Ratio 1.3 Fibrinogen 213 mg/dl Fibrin Degradation Products >40 mcg/ml Sodium Level 135 mmol/L Potassium Level 3.8 mmol/L Chloride Level 107 mmol/L Carbon Dioxide Level 19 mmol/L Anion Gap 9.0 mmol/L Blood Urea Nitrogen 12 mg/dl Creatinine 1.20 mg/dl Est Creatinine Clear Calc Drug Dose 58.3 ml/min Estimated GFR () 67.7 Estimated GFR (Non- 58.4 BUN/Creatinine Ratio 10.0 Random Glucose 119 mg/dl Estimated Average Glucose 151 mg/dl Hemoglobin A1c 6.9 % Calcium Level 7.0 mg/dl Total Bilirubin 0.5 mg/dl Direct Bilirubin 0.2 mg/dl Aspartate Amino Transf (AST/SGOT) 180 U/L Alanine Aminotransferase (ALT/SGPT) 116 U/L Alkaline Phosphatase 59 U/L Total Protein 5.2 gm/dl Albumin 2.4 gm/dl Date/Time Source Procedure Growth Status 10/09/16 15:00 Blood Blood Culture Pending Received 10/09/16 14:55 Blood Blood Culture Pending Received Assessment & Plan 76 year old male with metastatic melanoma, DM on Insulin presenting with fever. BACTEREMIA, STAPH ON IMMUNO AND RADIATION THERAPY, RADIATION FOR MALIGNANT MELANOMA -- 1 fever spike last night WBC about the same -- no port/PICC recently -- clinically improving -- Blood culture /2: Staph, sens pending Lyme negative urine culture: negative stool studies, C diff: negative Echo: pending -- on empiric Vanco, Zosyn, Doxy X day 3 -- ID on board, appreciate the input PANCYTOPENIA -- likely Chemotherapy related, Infection Related -- Follows with Dr. Lela Gan hem/onc -- WBC, RBC, Plt about the same as yesterday -- peripheral smear: likely from chemotherapy CT chest: (+) left lower lobe nodule Ct abdomen: unrevealing cortisol level: normal TSH, B12, folate: normal -- no signs of bleeding discussed with Dr. 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 Voegl / Diann [facility] hem/onc and Dr. Tari Aguirre for radiation oncology Currently on immunotherapy Opdivo and Yervoy (last treatment 3 weeks ago) and radiation HYPONATREMIA -- hypovolemic -- improving continue IV NSS, lower rate HYPOKALEMIA Due to poor PO intake/ GI loss resolved, monitor NAUSEA/ VOMITING, Resolved ELEVATED LFT's liver ultrasound- unremarkable liver, no GB wall thickening, no gallstones, 3 mm gallbladder polyp LFTs: about the same CT a/p: unrevealing -- from statin? -- LFTs overall stable hold stain monitor SYNCOPE Possibly due to orthostatic hypotension from dehydration CT head negative continue IV fluids DM TYPE 2 Hold metformin Insulin sliding scale coverage GOUT Continue allopurinol DYSLIPIDEMIA hold statin SLEEP APNEA Continue CPAP DVT PROPHYLAXIS SCD's due to thrombocytopenia CODE STATUS Full code per my discussion with the patient DISPOSITION pending discussed case with patient at length, including that platelets may not be readily available in our facility if needed emergently he would like to continue care in [facility] Current Inpatient Medications: Current Inpatient Medications Medications (Trade) Dose Ordered Sig/Tamika Route Start Time Stop Time Status Last Admin Dose Admin Potassium Chloride/Sodium Chloride 1,000 ml @ 125 mls/hr Q8H IV 10/08/16 14:00 11/07/16 13:59 10/10/16 06:15 125 MLS/HR Ondansetron HCl (Zofran Inj) 4 mg Q6H PRN IV 10/08/16 11:15 11/07/16 11:14 10/09/16 00:36 4 MG Insulin Aspart (novoLOG ASPART) SLIDING SCALE If C... ACHS SC 10/08/16 16:00 11/07/16 15:59 10/10/16 08:09 3 UNITS Glucose (Glucose 40% Gel) 15-30 GRAMS 15 GRAMS... UD PRN PO 10/08/16 11:30 11/07/16 11:29 Glucose (Glucose Chew Tab) 4-8 Tablets 4 Tabl... UD PRN PO 10/08/16 11:30 11/07/16 11:29 Dextrose (Dextrose 50% 50ML Syringe) 25-50ML OF 50% DW IV FOR... UD PRN IV 10/08/16 11:30 11/07/16 11:29 Glucagon (Glucagon Inj) 1 mg UD PRN SQ 10/08/16 11:30 11/07/16 11:29 Allopurinol (Zyloprim Tab) 300 mg DAILY PO 10/09/16 09:00 11/08/16 08:59 10/10/16 08:04 300 MG Vancomycin HCl (Consult) 1 ea UD PRN N/A 10/08/16 11:59 11/07/16 11:58 Piperacillin Sod/ Tazobactam Sod (Consult) 1 ea UD PRN N/A 10/08/16 11:59 11/07/16 11:58 Piperacillin Sod/ Tazobactam Sod 3.375 gm/Dextrose 115 ml @ 28.75 mls/ hr Q8H IV 10/08/16 16:00 10/22/16 15:59 10/10/16 08:05 28.75 MLS/HR Vancomycin HCl 1500 mg/Sodium Chloride 530 ml @ 200 mls/hr Q18H IV 10/09/16 06:00 10/23/16 05:59 10/10/16 00:39 200 MLS/HR Doxycycline Hyclate (Vibramycin Cap) 100 mg BID PO 10/08/16 21:00 10/18/16 20:59 10/10/16 08:04 100 MG Ioversol (Optiray 320) 125 ml UD PRN IV 6/21/17 16:30 10/12/16 16:29 Acetaminophen (Tylenol Tab) 650 mg Q8H PO 10/09/16 14:00 11/08/16 13:59 10/10/16 08:03 650 MG Miscellaneous Information (Consult Glycemic Management Pharmacy) 1 ea UD N/A 10/09/16 10:46 11/08/16 10:45
--- NOTE | 2016-10-10 11:27 | Progress Note ---
Subjective Date of Service: Oct 10, 2016. Subjective Pt evaluation today including: conversation w/ patient, physical exam, chart review, lab review pt feeling much better today. ambulating, more energy, no weakness. no fevers, isolated fever, 39.4 yesterday afternoon, none overnight. slept well. eating. no n/v/d. no pain. Initial blood culture with staph species, ID pending. tolerating abx. repeat blood cultures pending. 10/06 cultures from ER remain negative. no cp. chemo on hold. counts continue to fall, wbc 2.7, platelets 31, heme/onc following. LFTs increased today. tick serologies pending. also on emperic doxy. abd imaging negative. all remaining ros reviewed and are neagtive. Problem List Medical Problems: (1) Chills Status: Acute (2) Fever of unknown origin Status: Acute (3) Weakness Status: Acute Objective Vital Signs Date Time Temp Pulse Resp B/P (MAP) Pulse Ox O2 Delivery O2 Flow Rate FiO2 10/10/16 08:00 95 Room Air 10/10/16 07:45 37.3 81 16 110/63 (79) 91 116/65 (82) 124/65 (84) 10/10/16 04:00 Room Air 10/10/16 03:19 36.8 98 28 97/51 (66) 98 Room Air 10/10/16 00:10 36.5 69 16 106/59 (75) 97 Room Air 10/10/16 00:00 Room Air 10/09/16 20:22 39.4 92 22 104/54 (71) 96 Room Air 99 109/56 (73) 106 115/64 (81) 10/09/16 20:00 Room Air 10/09/16 16:25 36.9 76 24 122/60 (80) 99 Room Air 86 127/65 (85) 91 130/69 (89) 10/09/16 16:00 Room Air 10/09/16 13:56 36.7 10/09/16 12:00 88 10/09/16 12:00 95 Room Air Physical Exam General Appearance: WD/WN, no apparent distress Eyes: normal inspection, EOMI Neck: supple Respiratory/Chest: lungs clear, normal breath sounds, no respiratory distress Cardiovascular: regular rate, rhythm, no edema Abdomen: non tender, soft Extremities: non-tender, normal inspection, no pedal edema Neurologic/Psychiatric: alert, oriented x 3 Skin: normal color, warm/dry Laboratory Results Item Value Date Time Blood Culture - Preliminary Resulted 10/08/16 0900 Blood Staph Species Blood Culture - Preliminary Resulted 10/08/16 0905 Blood NO GROWTH TO DATE. C.difficile Toxin B Gene (PCR) - Final Complete 10/08/162006 Stool No C. difficile toxin B gene detected Blood Culture - Preliminary Resulted 10/06/16 1540 Blood NO GROWTH TO DATE. Blood Culture - Preliminary Resulted 10/06/16 1435 Blood NO GROWTH TO DATE. Last 24 Hours Test 10/09/16 13:51 10/09/16 16:46 10/09/16 17:02 10/09/16 20:56 Bedside Glucose 156 mg/dl 110 mg/dl 134 mg/dl Sodium Level 137 mmol/L Potassium Level 3.8 mmol/L Chloride Level 106 mmol/L Carbon Dioxide Level 19 mmol/L Anion Gap 12.0 mmol/L Blood Urea Nitrogen 10 mg/dl Creatinine 1.30 mg/dl Est Creatinine Clear Calc Drug Dose 53.8 ml/min Estimated GFR () 61.4 Estimated GFR (Non- 53.0 BUN/Creatinine Ratio 7.4 Random Glucose 113 mg/dl Calcium Level 7.3 mg/dl Test 10/10/16 06:15 10/10/16 06:50 White Blood Count 2.74 K/uL Red Blood Count 3.17 M/uL Hemoglobin 9.1 g/dL Hematocrit 26.6 % Mean Corpuscular Volume 83.9 fL Mean Corpuscular Hemoglobin 28.7 pg Mean Corpuscular Hemoglobin Concent 34.2 g/dl Platelet Count 31 K/uL Mean Platelet Volume 10.8 fL Neutrophils (%) (Auto) 76.3 % Lymphocytes (%) (Auto) 21.5 % Monocytes (%) (Auto) 1.8 % Eosinophils (%) (Auto) 0.0 % Basophils (%) (Auto) 0.0 % Neutrophils # (Auto) 2.09 K/uL Lymphocytes # (Auto) 0.59 K/uL Monocytes # (Auto) 0.05 K/uL Eosinophils # (Auto) 0.00 K/uL Basophils # (Auto) 0.00 K/uL RDW Standard Deviation 46.6 fL RDW Coefficient of Variation 15.0 % Immature Granulocyte % (Auto) 0.4 % Immature Granulocyte # (Auto) 0.01 K/uL Prothrombin Time 13.2 SECONDS Prothromb Time International Ratio 1.2 Activated Partial Thromboplast Time 34.5 SECONDS Partial Thromboplastin Ratio 1.3 Fibrinogen 213 mg/dl Fibrin Degradation Products >40 mcg/ml Sodium Level 135 mmol/L Potassium Level 3.8 mmol/L Chloride Level 107 mmol/L Carbon Dioxide Level 19 mmol/L Anion Gap 9.0 mmol/L Blood Urea Nitrogen 12 mg/dl Creatinine 1.20 mg/dl Est Creatinine Clear Calc Drug Dose 58.3 ml/min Estimated GFR () 67.7 Estimated GFR (Non- 58.4 BUN/Creatinine Ratio 10.0 Random Glucose 119 mg/dl Estimated Average Glucose 151 mg/dl Hemoglobin A1c 6.9 % Calcium Level 7.0 mg/dl Total Bilirubin 0.5 mg/dl Direct Bilirubin 0.2 mg/dl Aspartate Amino Transf (AST/SGOT) 180 U/L Alanine Aminotransferase (ALT/SGPT) 116 U/L Alkaline Phosphatase 59 U/L Total Protein 5.2 gm/dl Albumin 2.4 gm/dl Bedside Glucose 120 mg/dl Assessment and Plan (1) Staphylococcus aureus septicemia Assessment & Plan: continue vanco for now, will also continue doxy pending anaplasma. pancytopenia may be due to infection/chemo or combo but will rule out tick borne illness as well. needs echo, r/o veg (2) Fever Assessment & Plan: resolved
--- NOTE | 2016-10-10 14:09 | Pharmacy Progress Note ---
Pharmacy Glycemic Sign Off Nt Date of Service Oct 10, 2016. Assessment & Plan ASSESSMENT: * Pharmacy was consulted by Dr Yung on 10/09/16 for glycemic control and to write orders per [facility] inpatient glycemic control protocol. * Major changes made by pharmacy to antidiabetic regimen include: * holding outpatient medication of metformin and initiating SQ bolus insulin ACHS with NovoLog per CF/CR {weight based parameters} * Patient has been receiving/requiring 0-6 units of insulin per day for adequate glycemic control * BSGs ranging 111 - 156 mg/dl * Regimen has only required minor adjustments over the past 48hrs to achieve this level of control * Do not anticipate further changes in patient status that would quickly deteriorate glycemic control (i.e. patient to be NPO for upcoming procedure, steroids tapering, starting tube feedings, etc). * Please see recommendations for outpatient antidiabetic regimen below. PLAN FOR INPATIENT GLYCEMIC CONTROL: No changes needed to current regimen. * No basal insulin warranted at this time. * Continue NovoLog per scale ACHS/Q6hrs while NPO * Goal range = 110 - 140 mg/dl * CF = 45 mg/dl/unit * CR = 1 unit for ever 15 g CHO consumed * A1c added to discharge instructions to be communicated to PCP. * Pharmacy is signing off of glycemic consult and will no longer be making adjustments to inpatient regimen. Please feel free to re-consult if needed. Thank you. DISCHARGE RECOMMENDATIONS: * A1c 6.9 % on 10/10/16 * Outpatient control is adequate * Pt may resume outpatient regimen of Metformin 500mg PO BIDM * No insulin needed at discharge
[2016-10-10] MEDS ORDERED: VANCOMYCIN TROUGH ONE (17:30)
--- NOTE | 2016-10-10 18:05 | ECHOCARDIOGRAM REPORT ---
*NOTICE TO RECEIVING CONSTITUTION PARTY AGENCY This information is strictly Confidential and protected under [place] law. [place] law prohibits you from making any further disclosure of this information unless further disclosure is expressly permitted by the written consent of the person to whom it pertains or is authorized by law. A general authorization for the release of medical or other information is not sufficient for this purpose. Hospital accepts no responsibility if the information is made available to any other person, INCLUDING THE PATIENT. Interpretation Summary * Name: EPHRAIM BURR Study Date: 10/10/2016 04:01 PM BP: 97/51 mmHg * Patient Location: C.2T\S\S236\S\1 HR: 100 * : 1940 (M/d/yyyy) Gender: Male Height: 67 in * Age: 76 yrs Ethnicity: CA Weight: 214 lb * Ordering Physician: Arpan Yung * Referring Physician: UNKNOWN * Performed By: Crista Suarez RCS * * Reason For Study: BACTEREMIA / R/O ENDOCARDITIS * BSA: 2.1 m2 * -- Conclusions -- * Sinius tachycardia * The left ventricle is normal in size. * There is mild concentric left ventricular hypertrophy. * The left ventricular wall motion is normal. * Ejection Fraction = 65-70%. * There is no valvular disease * No vegetations are visualized within limitations of transthoracic study. Procedure Details * A complete two-dimensional transthoracic echocardiogram was performed (2D, M-mode, Doppler and color flow Doppler). Left Ventricle * The left ventricle is normal in size. * There is mild concentric left ventricular hypertrophy. * Ejection Fraction = 65-70%. * Left ventricular systolic function is normal. * The left ventricular wall motion is normal. Right Ventricle * The right ventricle is normal in size and function. Atria * The left atrial size is normal. * Right atrial size is normal. * No ASD detected; PFO is not assessed. Mitral Valve * The mitral valve is normal. * There is no mitral valve stenosis. * There is trace mitral regurgitation. Tricuspid Valve * The tricuspid valve is normal. * There is no tricuspid stenosis. * There is trace tricuspid regurgitation. Aortic Valve * The aortic valve is trileaflet. * No hemodynamically significant valvular aortic stenosis. * No aortic regurgitation is present. Pulmonic Valve * The pulmonic valve is not well visualized. Great Vessels * The aortic root is normal size. Pericardium/Pleural * There is no pericardial effusion. Great Vessels * Normal inferior vena cava diameter and respiratory variation suggests normal central venous pressure. MMode 2D Measurements and Calculations IVSd 1.4 cm IVSs 1.6 cm LVIDd 4.5 cm LVIDs 3.0 cm LVPWd 1.1 cm LVPWs 1.6 cm IVS/LVPW 1.2 FS 32.2 % EDV(Teich) 90.8 ml ESV(Teich) 35.8 ml EF(Teich) 60.5 % EDV(cubed) 89.1 ml ESV(cubed) 27.8 ml EF(cubed) 68.8 % % IVS thick 15.8 % % LVPW thick 44.5 % LV mass(C)d 205.0 grams LV mass(C)dI 98.5 grams/m\S\2 LV mass(C)s 177.1 grams LV mass(C)sI 85.1 grams/m\S\2 SV(Teich) 55.0 ml SI(Teich) 26.4 ml/m\S\2 SV(cubed) 61.3 ml SI(cubed) 29.4 ml/m\S\2 Ao root diam 3.7 cm Ao root area 10.8 cm\S\2 LA dimension 3.8 cm LA/Ao 1.0 LVOT diam 2.0 cm LVOT area 3.1 cm\S\2 LVAd ap4 36.8 cm\S\2 LVLd ap4 8.5 cm EDV(MOD-sp4) 132.2 ml EDV(sp4-el) 135.4 ml LVAs ap4 21.5 cm\S\2 LVLs ap4 7.1 cm ESV(MOD-sp4) 53.0 ml ESV(sp4-el) 54.8 ml EF(MOD-sp4) 59.9 % EF(sp4-el) 59.5 % LVAd ap2 34.4 cm\S\2 LVLd ap2 8.3 cm EDV(MOD-sp2) 116.1 ml EDV(sp2-el) 120.7 ml LVAs ap2 17.7 cm\S\2 LVLs ap2 6.3 cm ESV(MOD-sp2) 39.1 ml ESV(sp2-el) 42.5 ml EF(MOD-sp2) 66.4 % EF(sp2-el) 64.8 % LVLd %diff -2.15 % EDV(MOD-bp) 123.5 ml LVLs %diff -13.98 % ESV(MOD-bp) 46.8 ml EF(MOD-bp) 62.1 % SV(MOD-sp4) 79.2 ml SI(MOD-sp4) 38.0 ml/m\S\2 SV(MOD-sp2) 77.0 ml SI(MOD-sp2) 37.0 ml/m\S\2 SV(MOD-bp) 76.7 ml SI(MOD-bp) 36.8 ml/m\S\2 SV(sp4-el) 80.6 ml SI(sp4-el) 38.7 ml/m\S\2 SV(sp2-el) 78.2 ml SI(sp2-el) 37.6 ml/m\S\2 Doppler Measurements and Calculations MV E max cassi 100.8 cm/sec MV A max cassi 88.4 cm/sec MV E/A 1.1 MV P1/2t max cassi 124.8 cm/sec MV P1/2t 61.0 msec MVA(P1/2t) 3.6 cm\S\2 MV dec slope 598.9 cm/sec\S\2 MV dec time 0.22 sec Ao V2 max 180.1 cm/sec Ao max PG 13.0 mmHg Ao max PG (full) 0.98 mmHg LEONELA(V,A) 2.9 cm\S\2 LEONELA(V,D) 2.9 cm\S\2 LV V1 max PG 12.0 mmHg LV V1 max 173.1 cm/sec PA V2 max 141.2 cm/sec PA max PG 8.0 mmHg TR max cassi 314.9 cm/sec
--- NOTE | 2016-10-10 20:19 | Pharmacy Progress Note ---
Pharmacy Abx Dose Progress Nt Date of Service Oct 10, 2016. Pharmacy Dosing Scope The patient is currently receiving the following antimicrobial agents per Pharmacy consult: Vancomycin 1500mg (~15mg/kg) IV every 18 hours for febrile bacteremia Objective Height (Feet): 5 Height (Inches): 7.00 Weight (Kilograms): 97.500 Vital Signs (Past 12Hrs) Vital Signs Past 12 Hours Date Time Temp Pulse Resp B/P (MAP) Pulse Ox O2 Delivery O2 Flow Rate FiO2 10/10/16 20:00 Room Air 10/10/16 16:31 37.6 97 20 124/66 (85) 93 Room Air 10/10/16 16:00 95 Room Air 10/10/16 12:04 36.7 68 18 107/60 (76) 100 10/10/16 12:00 95 Room Air Lab Results (24Hrs) Laboratory Tests (24 Hours) Test 10/10/16 06:15 White Blood Count 2.74 K/uL (4.8-10.8) L Red Blood Count 3.17 M/uL (4.7-6.1) L Hemoglobin 9.1 g/dL (14.0-18.0) L Hematocrit 26.6 % (42-52) L Mean Corpuscular Volume 83.9 fL (80-100) Mean Corpuscular Hemoglobin 28.7 pg (25-34) Mean Corpuscular Hemoglobin Concent 34.2 g/dl (32-36) Platelet Count 31 K/uL (130-400) L Mean Platelet Volume 10.8 fL (7.4-10.4) H Neutrophils (%) (Auto) 76.3 % Lymphocytes (%) (Auto) 21.5 % Monocytes (%) (Auto) 1.8 % Eosinophils (%) (Auto) 0.0 % Basophils (%) (Auto) 0.0 % Neutrophils # (Auto) 2.09 K/uL (1.4-6.5) Lymphocytes # (Auto) 0.59 K/uL (1.2-3.4) L Monocytes # (Auto) 0.05 K/uL (0.11-0.59) L Eosinophils # (Auto) 0.00 K/uL (0-0.5) Basophils # (Auto) 0.00 K/uL (0-0.2) Micro Results Date/Time Source Procedure Growth Status 10/09/16 15:00 Blood Blood Culture Pending Received 10/09/16 14:55 Blood Blood Culture Pending Received 10/08/16 09:05 Blood Blood Culture - Preliminary NO GROWTH TO DATE. Resulted 10/08/16 09:00 Blood Blood Culture - Preliminary Coag Neg Staph Not Lugdunensis Resulted 10/08/16 20:07 Stool C.difficile Toxin B Gene (PCR) - Final No C. difficile toxin B gene detected Complete 10/08/16 20:07 Stool WBC Smear - Final Resulted 10/08/16 20:07 Stool Shiga Toxin Test - Preliminary No E. Coli shiga toxin 1 or shiga tox... Resulted 10/08/16 20:07 Stool Stool Culture - Preliminary NO SALMONELLA ISOLATED TO DATE,... Resulted 10/08/16 12:38 Urine , Clean Catch Urine Culture - Final NO GROWTH - LESS THAN 1,000 COLONIES/ML Complete Risk Factors for Resistance * Immunocompromised (chemotherapy) Assessment & Plan Assessment 76 year old male receiving Vancomycin for treatment of febrile bacteremia Day # 3 of antimicrobial therapy Plan Vancomycin IV * Trough level of 14.8 mcg/mL is therapeutic * Continue dose of 1500 mg (~15mkg/kg) IV every 18 hours * Goal trough level for bacteremia : 15 to 20 mcg/mL * Trough or random level ordered for: 10/13/16 ~30 minutes before the 1800 dose Pharmacy will continue to follow and will adjust dose/frequency as necessary. Thank you.
[2016-10-11] VITALS (10 sets, daily range): BP systolic 118–136; BP diastolic 54–72; PULSE 73–96; TEMP 36.6–39.2; O2SAT 94–98
[2016-10-11] MEDS: ACETAMINOPHEN 325 MG TAB PO SCH ×2 (05:30→14:40)
[2016-10-11 07:02] LABS: HEMATOCRIT 26.7 % (42-52); MEAN CELL VOLUME 82.9 fL (80-100); MEAN CORPUSCULAR HEMOGLOBIN 29.2 pg (25-34); MEAN CORPUSCULAR HGB CONC 35.2 g/dl (32-36); RED BLOOD COUNT 3.22 M/uL (4.7-6.1); WHITE BLOOD COUNT 3.35 K/uL (4.8-10.8)
[2016-10-11 07:11] LABS: INR 1.2 (0.9-1.1); PARTIAL THROMBOPLASTIN RATIO 1.3
[2016-10-11 07:12] LABS: BASO % 0.3 %; BASO ABS # 0.01 K/uL (0-0.2); COMPLETE YES; IG% 0.6 %; LYMPH % 20.3 %; LYMPH ABS # 0.68 K/uL (1.2-3.4); MEAN PLATELET VOLUME 11.1 fL (7.4-10.4); MONO % 2.1 %; NEUT % 76.7 %; PLATELET COUNT 41 K/uL (130-400)
[2016-10-11 07:43] LABS: BUN/CREATININE RATIO 10.8 (10-20); CALCIUM 7.4 mg/dl (8.5-10.1); POTASSIUM 3.6 mmol/L (3.5-5.1)
[2016-10-11] MEDS: DOXYCYCLINE HYCLATE 100 MG CAP PO SCH ×2 (08:45→21:46)
[2016-10-11] MEDS: ALLOPURINOL 300 MG TAB PO SCH (08:45)
[2016-10-11] MEDS: INSULIN ASPART 100 UNITS/ML 3 ML PEN SC SCH ×4 (08:49→21:25)
[2016-10-11] MEDS: NSS + 20MEQ KCL 1000ML 1,000 ML IV SCH (10:34)
[2016-10-11] MEDS: VANCOMYCIN INJ 1,500 MG in SODIUM CHLORIDE 0.9% 500ML 500 ML IV SCH (12:10)
[2016-10-11] MEDS ORDERED: ACETAMINOPHEN 325 MG TAB ONE (14:39)
--- NOTE | 2016-10-11 16:51 | Progress Note ---
Medicine Progress Note Date & Time of Visit: Oct 11, 2016 at 16:51. Subjective patient seen resting in bed, comfortable states he feels improved again today still has episodes of feeling warm, "sweats" denies headache, cough, dyspnea, abdominal pain appetite improving no other symptoms patient re-evaluated 645pm noticed rash on his bilateral arms, (+) pruritus no dyspnea, tongue/lip swelling Objective Last 8 Hrs Date Time Temp Pulse Resp B/P (MAP) Pulse Ox O2 Delivery O2 Flow Rate FiO2 10/11/16 16:03 36.9 89 20 132/70 (90) 96 Room Air 10/11/16 16:00 95 Room Air 10/11/16 12:42 36.7 78 18 120/72 (88) 98 10/11/16 12:00 95 Room Air Physical Exam: General- oriented x 3, not in distress, speaks in sentences with no effort Eyes- anicteric Neck- no JVD Lungs- clear breath sounds , no rales/wheezes bilaterally Heart- regular rhythm; no murmur, normal rate Abdomen- normal bowel sounds, soft, nontender Extremities- no pretibial edema, no calf tenderness; peripheral pulses intact (+) abrasion bilateral knees: no signs of infection (+) maculopapular rash on bilateral inner arms, left chest, back Neuro- alert, oriented x 3; no gross focal neuro deficit Skin- warm & dry Laboratory Results: Last 24 Hours Test 10/10/16 17:36 10/10/16 20:39 10/11/16 06:10 10/11/16 06:54 Vancomycin Level Trough 14.8 mcg/ml Bedside Glucose 101 mg/dl 122 mg/dl White Blood Count 3.35 K/uL Red Blood Count 3.22 M/uL Hemoglobin 9.4 g/dL Hematocrit 26.7 % Mean Corpuscular Volume 82.9 fL Mean Corpuscular Hemoglobin 29.2 pg Mean Corpuscular Hemoglobin Concent 35.2 g/dl Platelet Count 41 K/uL Mean Platelet Volume 11.1 fL Neutrophils (%) (Auto) 76.7 % Lymphocytes (%) (Auto) 20.3 % Monocytes (%) (Auto) 2.1 % Eosinophils (%) (Auto) 0.0 % Basophils (%) (Auto) 0.3 % Neutrophils # (Auto) 2.57 K/uL Lymphocytes # (Auto) 0.68 K/uL Monocytes # (Auto) 0.07 K/uL Eosinophils # (Auto) 0.00 K/uL Basophils # (Auto) 0.01 K/uL RDW Standard Deviation 46.6 fL RDW Coefficient of Variation 15.2 % Immature Granulocyte % (Auto) 0.6 % Immature Granulocyte # (Auto) 0.02 K/uL Prothrombin Time 13.0 SECONDS Prothromb Time International Ratio 1.2 Activated Partial Thromboplast Time 34.5 SECONDS Partial Thromboplastin Ratio 1.3 Sodium Level 136 mmol/L Potassium Level 3.6 mmol/L Chloride Level 108 mmol/L Carbon Dioxide Level 16 mmol/L Anion Gap 12.0 mmol/L Blood Urea Nitrogen 11 mg/dl Creatinine 1.00 mg/dl Est Creatinine Clear Calc Drug Dose 69.8 ml/min Estimated GFR () 84.4 Estimated GFR (Non- 72.8 BUN/Creatinine Ratio 10.8 Random Glucose 110 mg/dl Calcium Level 7.4 mg/dl Total Bilirubin 0.5 mg/dl Direct Bilirubin 0.1 mg/dl Aspartate Amino Transf (AST/SGOT) 189 U/L Alanine Aminotransferase (ALT/SGPT) 146 U/L Alkaline Phosphatase 98 U/L Total Protein 5.6 gm/dl Albumin 2.4 gm/dl Test 10/11/16 11:45 10/11/16 16:19 Bedside Glucose 117 mg/dl 192 mg/dl Assessment & Plan 76 year old male with metastatic melanoma, DM on Insulin presenting with fever. BACTEREMIA, STAPH ON CHEMO- AND RADIATION THERAPY FOR MALIGNANT MELANOMA - no fever overnight WBC slightly improved -- no port/PICC recently -- Blood culture /2: Staph, coag neg not Lugdunensis Lyme negative urine culture: negative stool studies, C diff: negative Echo: no vegetation noted -- Zosyn has been discontinued on empiric Vanco Doxy X day 4 hold Vancomycin as patient (+) for rash on the arms, chest and back with pruritus -- discuss antibiotics with ID PANCYTOPENIA -- LIKELY FROM UNDERLYING INFECTION, CHEMOTHERAPY RELATED -- Follows with Dr. Lela Gan hem/onc -- WBC,Plt slightly increased -- peripheral smear: changes likely from chemotherapy CT chest: (+) left lower lobe nodule Ct abdomen: unrevealing cortisol level: normal TSH, B12, folate: normal -- no signs of bleeding discussed with Dr. 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 Vogel / Diann WILSON of [place] hem/onc and Dr. Tari Aguirre for radiation oncology Currently on immunotherapy Opdivo and Yervoy (last treatment 3 weeks ago) and radiation HYPONATREMIA -- hypovolemic -- resolved continue IV NSS HYPOKALEMIA Due to poor PO intake/ GI loss resolved, monitor NAUSEA/ VOMITING, Resolved ELEVATED AST/ALT liver ultrasound- unremarkable liver, no GB wall thickening, no gallstones, [address] a/p: unrevealing -- from statin? -- AST/ALT increasing hold stain -- will consult GI SYNCOPE Possibly due to orthostatic hypotension from dehydration CT head negative continue IV fluids DM TYPE 2 Hold metformin Insulin sliding scale coverage GOUT Continue allopurinol DYSLIPIDEMIA hold statin for elevated LFTs SLEEP APNEA Continue CPAP DVT PROPHYLAXIS SCD's hold anticoag due to thrombocytopenia encouraged ambulation CODE STATUS Full code per my discussion with the patient DISPOSITION pending lives at home with family PT/OT ordered ff up with PCP Dr. Root ff up with Oncologist in [place] Dr. Vogel, Radiation Oncologist in [facility] Dr. Tari Aguirre Current Inpatient Medications: Current Inpatient Medications Medications (Trade) Dose Ordered Sig/Tamika Route Start Time Stop Time Status Last Admin Dose Admin Potassium Chloride/Sodium Chloride 1,000 ml @ 60 mls/hr [id number] IV 10/08/16 14:00 11/07/16 13:59 10/11/16 10:34 60 MLS/HR Ondansetron HCl (Zofran Inj) 4 mg Q6H PRN IV 10/08/16 11:15 11/07/16 11:14 10/09/16 00:36 4 MG Insulin Aspart (novoLOG ASPART) SLIDING SCALE If C... ACHS SC 10/08/16 16:00 11/07/16 15:59 10/11/16 08:49 4 UNITS Glucose (Glucose 40% Gel) 15-30 GRAMS 15 GRAMS... UD PRN PO 10/08/16 11:30 11/07/16 11:29 Glucose (Glucose Chew Tab) 4-8 Tablets 4 Tabl... UD PRN PO 10/08/16 11:30 11/07/16 11:29 Dextrose (Dextrose 50% 50ML Syringe) 25-50ML OF 50% DW IV FOR... UD PRN IV 10/08/16 11:30 11/07/16 11:29 Glucagon (Glucagon Inj) 1 mg UD PRN SQ 10/08/16 11:30 11/07/16 11:29 Allopurinol (Zyloprim Tab) 300 mg DAILY PO 10/09/16 09:00 11/08/16 08:59 10/11/16 08:45 300 MG Vancomycin HCl (Consult) 1 ea UD PRN N/A 10/08/16 11:59 11/07/16 11:58 Vancomycin HCl 1500 mg/Sodium Chloride 530 ml @ 200 mls/hr Q18H IV 10/09/16 06:00 10/23/16 05:59 10/11/16 12:10 200 MLS/HR Doxycycline Hyclate (Vibramycin Cap) 100 mg BID PO 10/08/16 21:00 10/18/16 20:59 10/11/16 08:45 100 MG Ioversol (Optiray 320) 125 ml UD PRN IV 10/08/16 16:30 10/12/16 16:29 Acetaminophen (Tylenol Tab) 650 mg Q8H PO 10/09/16 14:00 11/08/16 13:59 10/11/16 14:40 650 MG
[2016-10-11] MEDS ORDERED: NURSING VERBAL MED ORDER ONE (18:15)
[2016-10-11] MEDS ORDERED: DiphenhydrAMINE HCL 50 MG/ML VIAL IV STA (18:46)
[2016-10-11 19:40] LABS: BUN/CREATININE RATIO 10.3 (10-20); CALCIUM 7.1 mg/dl (8.5-10.1); CREATININE 1.2 mg/dl (0.60-1.40); POTASSIUM 3.4 mmol/L (3.5-5.1)
[2016-10-11] MEDS ORDERED: POTASSIUM CHLORIDE 10 MEQ TABCR PO ONE (21:15)
[2016-10-11] MEDS ORDERED: ACETAMINOPHEN 325 MG TAB PO PRN (22:00)
[2016-10-12] VITALS (10 sets, daily range): BP systolic 129–158; BP diastolic 57–75; PULSE 78–106; TEMP 36.6–37.2; O2SAT 94–99
[2016-10-12] MEDS: NSS + 20MEQ KCL 1000ML 1,000 ML IV SCH ×2 (03:06→20:11)
[2016-10-12 07:07] LABS: HEMATOCRIT 27.9 % (42-52); MEAN CELL VOLUME 83.8 fL (80-100); MEAN CORPUSCULAR HEMOGLOBIN 28.8 pg (25-34); MEAN CORPUSCULAR HGB CONC 34.4 g/dl (32-36); RED BLOOD COUNT 3.33 M/uL (4.7-6.1); WHITE BLOOD COUNT 2.82 K/uL (4.8-10.8)
[2016-10-12 07:15] LABS: INR 1.2 (0.9-1.1); PARTIAL THROMBOPLASTIN RATIO 1.3; PROTHROMBIN TIME (PATIENT) 12.6 SECONDS (9.0-12.0)
[2016-10-12 07:40] LABS: COMPLETE YES; LYMPH % 21.3 %; MEAN PLATELET VOLUME 10.3 fL (7.4-10.4); MONO % 2.8 %; NEUT % 75.9 %; PLATELET COUNT 41 K/uL (130-400)
[2016-10-12 07:44] LABS: POTASSIUM 3.6 mmol/L (3.5-5.1)
[2016-10-12 08:02] LABS: CALCIUM 7.3 mg/dl (8.5-10.1)
[2016-10-12] MEDS: CETIRIZINE HCL 10 MG TAB PO PRN (08:09)
[2016-10-12] MEDS: ALLOPURINOL 300 MG TAB PO SCH (08:09)
[2016-10-12] MEDS: DOXYCYCLINE HYCLATE 100 MG CAP PO SCH ×2 (08:09→21:19)
[2016-10-12] MEDS: INSULIN ASPART 100 UNITS/ML 3 ML PEN SC SCH ×4 (08:13→21:00)
--- NOTE | 2016-10-12 12:13 | Progress Note ---
Medicine Progress Note Date & Time of Visit: Oct 12, 2016 at 11:58. Subjective 76 year old diabetic male with metastatic melanoma on immunotherapy presenting with fever, diarrhea, metabolic encephalopathy and syncopal episodes at home. Pt states that 2.5 weeks ago he developed diarrhea and felt overall sick. He went to take a BM and woke up on the bathroom floor. He then went to sleep and woke up soaking the sheets with sweat. He went to see PCP who prescribed steroids, however, he persistently had symptoms of diarrhea, fevers, chills and again passed out prior to arrival in the ER this admission. He denies cough, sore throat, denies ETOH melba and states that he was a heavy drinker in the past- quit 6 years ago. He denies any smoking. He lives alone at home and is undergoing immunotherapy and XRT for malignant metastatic melanoma. -drug reaction to Vanc yesterday which was stopped. -pt persisted with fever overnight last night -tolerating PO -states he would like to get better faster so he can get out of here but states he understands that he needs to feel better first. Objective Last 8 Hrs Date Time Temp Pulse Resp B/P (MAP) Pulse Ox O2 Delivery O2 Flow Rate FiO2 10/12/16 08:46 36.7 102 16 138/75 (96) 98 Room Air 10/12/16 08:00 95 Room Air 10/12/16 04:15 36.7 78 18 129/67 (87) 98 Room Air 10/12/16 04:00 Room Air Physical Exam: GEN: WNWD, in no acute distress, alert and appropriate HEENT: NC/AT, pupils are equal bilaterally, normal sclerae, no LAD CARDIO: reg rate, S1/2 heard without m/g/r LUNGS: CTA bilaterally, no crackles, rales or wheezes, good diaphragmatic excursion ABD: +BS, soft, non-tender, non-distended, no rebound or guarding EXTREMITY: RP and DP palpable 2+ bilat, no LE swelling or edema, extremities are warm and well-perfused NEURO: CN 2-12 grossly intact, EOMI, sensation intact throughout, no gross focal deficits. MUSC: 5/5 strength throughout, no focal deficits SKIN: erythematous papular rash along both arms and extending into subaxillary area, no rash on back or trunk, skin is warm and dry. There are some healing abrasions on knees bilaterally Laboratory Results: 10/12/16 06:29 Red Blood Count 3.33, Mean Corpuscular Volume 83.8, Mean Corpuscular Hemoglobin 28.8, Mean Corpuscular Hemoglobin Concent 34.4, Mean Platelet Volume 10.3, Neutrophils (%) (Auto) 75.9, Lymphocytes (%) (Auto) 21.3, Monocytes (%) (Auto) 2.8, Eosinophils (%) (Auto) 0.0, Basophils (%) (Auto) 0.0, Neutrophils # (Auto) 2.14, Lymphocytes # (Auto) 0.60, Monocytes # (Auto) 0.08, Eosinophils # (Auto) 0.00, Basophils # (Auto) 0.00 10/12/16 06:29 Test 10/08/16 09:00 10/08/16 09:05 10/08/16 12:38 10/08/16 17:20 Peripheral Blood Smear Path Consult Total Creatine Kinase 264 U/L (39-308) Creatine Kinase MB < 0.5 ng/ml (0.5-3.6) Creatine Kinase MB Ratio (0-3.0) Troponin I < 0.015 ng/ml (0-0.045) Lipase 585 U/L (73-393) Procalcitonin 1.54 ng/ml (0-0.5) Lyme Disease IgG Antibody NEG (NEG) Lyme Disease IgM Antibody NEG (NEG) Bedside Lactic Acid Venous 1.60 mmol/L (0.90-1.70) Urine Color DK YELLOW Urine Appearance CLEAR (CLEAR) Urine pH 5.5 (4.5-7.5) Urine Specific [place] 1.024 (1.000-1.030) Urine Protein 3+ (NEG) Urine Glucose (UA) NEG (NEG) Urine Ketones TRACE (NEG) Urine Occult Blood 2+ (NEG) Urine Nitrite NEG (NEG) Urine Bilirubin NEG (NEG) Urine Urobilinogen NEG (NEG) Urine Leukocyte Esterase NEG (NEG) Urine WBC (Auto) 5-10 /hpf (0-5) Urine RBC (Auto) 5-10 /hpf (0-4) Urine Hyaline Casts (Auto) 10-30 /lpf (0-5) Urine Epithelial Cells (Auto) >30 /lpf (0-5) Urine Bacteria (Auto) NEG (NEG) Urine Renal Epithelial Cells /lpf (0-5) Urine Pathogenic Casts 1-5 GRANULAR CASTS /lpf (0) Urine Mucus PRESENT (NONE PRSENT) Osmolality 267 mOsm/kg (280-300) Vitamin B12 Level 565 pg/mL (211-911) Folate > 24.00 ng/mL (>5.38) Thyroid Stimulating Hormone (TSH) 1.550 uIu/ml (0.300-4.500) Random Cortisol 39.22 mcg/dl Test 10/09/16 01:35 10/09/16 06:09 10/10/16 06:15 10/10/16 17:36 Urine Random Sodium 50 mEq/L Erythrocyte Sedimentation Rate 11 mm/hr (0-14) Magnesium Level 1.9 mg/dl (1.8-2.4) Fibrinogen 213 mg/dl (184-400) Fibrin Degradation Products >40 mcg/ml (<10) Estimated Average Glucose 151 mg/dl Hemoglobin A1c 6.9 % (4.5-5.6) Vancomycin Level Trough 14.8 mcg/ml (SEE COMMENT) Test 10/12/16 06:29 10/12/16 11:48 White Blood Count 2.82 K/uL (4.8-10.8) Red Blood Count 3.33 M/uL (4.7-6.1) Hemoglobin 9.6 g/dL (14.0-18.0) Hematocrit 27.9 % (42-52) Mean Corpuscular Volume 83.8 fL (80-100) Mean Corpuscular Hemoglobin 28.8 pg (25-34) Mean Corpuscular Hemoglobin Concent 34.4 g/dl (32-36) Platelet Count 41 K/uL (130-400) Mean Platelet Volume 10.3 fL (7.4-10.4) Neutrophils (%) (Auto) 75.9 % Lymphocytes (%) (Auto) 21.3 % Monocytes (%) (Auto) 2.8 % Eosinophils (%) (Auto) 0.0 % Basophils (%) (Auto) 0.0 % Neutrophils # (Auto) 2.14 K/uL (1.4-6.5) Lymphocytes # (Auto) 0.60 K/uL (1.2-3.4) Monocytes # (Auto) 0.08 K/uL (0.11-0.59) Eosinophils # (Auto) 0.00 K/uL (0-0.5) Basophils # (Auto) 0.00 K/uL (0-0.2) RDW Standard Deviation 47.9 fL (36.4-46.3) RDW Coefficient of Variation 15.4 % (11.5-14.5) Immature Granulocyte % (Auto) 0.0 % Immature Granulocyte # (Auto) 0.00 K/uL (0.00-0.02) Prothrombin Time 12.6 SECONDS (9.0-12.0) Prothromb Time International Ratio 1.2 (0.9-1.1) Activated Partial Thromboplast Time 33.6 SECONDS (21.0-31.0) Partial Thromboplastin Ratio 1.3 Anion Gap 11.0 mmol/L (3-11) Est Creatinine Clear Calc Drug Dose 69.8 ml/min Estimated GFR () 84.4 Estimated GFR (Non- 72.8 BUN/Creatinine Ratio 12.0 (10-20) Calcium Level 7.3 mg/dl (8.5-10.1) Total Bilirubin 0.5 mg/dl (0.2-1) Direct Bilirubin 0.2 mg/dl (0-0.2) Aspartate Amino Transf (AST/SGOT) 183 U/L (15-37) Alanine Aminotransferase (ALT/SGPT) 163 U/L (12-78) Alkaline Phosphatase 129 U/L (45-117) Total Protein 5.7 gm/dl (6.4-8.2) Albumin 2.3 gm/dl (3.4-5.0) Bedside Glucose 143 mg/dl (70-99) Date/Time Source Procedure Growth Status 10/09/16 15:00 Blood Blood Culture - Preliminary NO GROWTH TO DATE. Resulted 10/08/16 20:07 Stool C.difficile Toxin B Gene (PCR) - Final No C. difficile toxin B gene detected Complete 10/08/16 12:38 Urine , Clean Catch Urine Culture - Final NO GROWTH - LESS THAN 1,000 COLONIES/ML Complete Last 24 Hours Test 10/11/16 16:19 10/11/16 19:15 10/11/16 20:22 10/12/16 06:29 Bedside Glucose 192 mg/dl 104 mg/dl Sodium Level 135 mmol/L 139 mmol/L Potassium Level 3.4 mmol/L 3.6 mmol/L Chloride Level 107 mmol/L 109 mmol/L Carbon Dioxide Level 19 mmol/L 19 mmol/L Anion Gap 9.0 mmol/L 11.0 mmol/L Blood Urea Nitrogen 12 mg/dl 12 mg/dl Creatinine 1.20 mg/dl 1.00 mg/dl Est Creatinine Clear Calc Drug Dose 58.2 ml/min 69.8 ml/min Estimated GFR () 67.7 84.4 Estimated GFR (Non- 58.4 72.8 BUN/Creatinine Ratio 10.3 12.0 Random Glucose 127 mg/dl 111 mg/dl Calcium Level 7.1 mg/dl 7.3 mg/dl White Blood Count 2.82 K/uL Red Blood Count 3.33 M/uL Hemoglobin 9.6 g/dL Hematocrit 27.9 % Mean Corpuscular Volume 83.8 fL Mean Corpuscular Hemoglobin 28.8 pg Mean Corpuscular Hemoglobin Concent 34.4 g/dl Platelet Count 41 K/uL Mean Platelet Volume 10.3 fL Neutrophils (%) (Auto) 75.9 % Lymphocytes (%) (Auto) 21.3 % Monocytes (%) (Auto) 2.8 % Eosinophils (%) (Auto) 0.0 % Basophils (%) (Auto) 0.0 % Neutrophils # (Auto) 2.14 K/uL Lymphocytes # (Auto) 0.60 K/uL Monocytes # (Auto) 0.08 K/uL Eosinophils # (Auto) 0.00 K/uL Basophils # (Auto) 0.00 K/uL RDW Standard Deviation 47.9 fL RDW Coefficient of Variation 15.4 % Immature Granulocyte % (Auto) 0.0 % Immature Granulocyte # (Auto) 0.00 K/uL Prothrombin Time 12.6 SECONDS Prothromb Time International Ratio 1.2 Activated Partial Thromboplast Time 33.6 SECONDS Partial Thromboplastin Ratio 1.3 Total Bilirubin 0.5 mg/dl Direct Bilirubin 0.2 mg/dl Aspartate Amino Transf (AST/SGOT) 183 U/L Alanine Aminotransferase (ALT/SGPT) 163 U/L Alkaline Phosphatase 129 U/L Total Protein 5.7 gm/dl Albumin 2.3 gm/dl Test 10/12/16 06:54 10/12/16 11:48 Bedside Glucose 113 mg/dl 143 mg/dl Assessment & Plan 76 year old diabetic male with metastatic melanoma on immunotherapy presenting with fever, diarrhea, metabolic encephalopathy and syncopal episodes at home 1. Pancytopenia 2. Underlying infection? Fever/chills consistently for two weeks and fever overnight on the doxy. No lines other than PIV. No port or PICC recently. Poss rickettsial? (no known exposure recently) vs liver etiology? (await GI eval and recs but currently imaging is negative). May also be inflammatory or related to immunotherapy--will look back in the records to see when this was started. 3. Drug reaction to vanco-rash on arms bilaterally with pruritis which is improved. 4. 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 Vogel / Diann WILSON of [place] hem/onc and Dr. Tari Aguirre for radiation oncology. Currently on immunotherapy Opdivo and Yervoy ( last treatment 3 weeks ago) and radiation 5. Transaminitis-persistent fevers and chills. RUQ us negative, no TTP in abdomen. CT a/p with IV/PO contrast was unremarkable. Splenomagaly noted on imaging. GI consulted to assist with workup. Of note, statin is being held. 6. Syncope-in setting of diarrhea and persistent fevers and chills, syncope likely related to orthostatic hypotension, especially as it occurred around toileting. 7. DMII-controlled, tolerating PO. Holding Metformin. Cont ISS. DVT proph: SCDs, chemoprophylaxis contraindicated in setting of thrombocytopenia./ FULL CODE Dispo-uncertain at this time. Nancy Stahl DO [facility] Hospitalist. BACTEREMIA, STAPH ON CHEMO- AND RADIATION THERAPY FOR MALIGNANT MELANOMA - no fever overnight WBC slightly improved -- no port/PICC recently -- Blood culture /2: Staph, coag neg not Lugdunensis Lyme negative urine culture: negative stool studies, C diff: negative Echo: no vegetation noted -- Zosyn has been discontinued on empiric Vanco Doxy X day 4 hold Vancomycin as patient (+) for rash on the arms, chest and back with pruritus -- discuss antibiotics with ID PANCYTOPENIA -- LIKELY FROM UNDERLYING INFECTION, CHEMOTHERAPY RELATED -- Follows with Dr. Vogel [place] hem/onc -- WBC,Plt slightly increased -- peripheral smear: changes likely from chemotherapy CT chest: (+) left lower lobe nodule Ct abdomen: unrevealing cortisol level: normal TSH, B12, folate: normal -- no signs of bleeding discussed with Dr. Tomas continue management of infection, monitor CBC daily GOUT Continue allopurinol DYSLIPIDEMIA hold statin for elevated LFTs SLEEP APNEA Continue CPAP DVT PROPHYLAXIS SCD's hold anticoag due to thrombocytopenia encouraged ambulation CODE STATUS Full code per my discussion with the patient DISPOSITION pending lives at home with family PT/OT ordered ff up with PCP Dr. Root ff up with Oncologist in [place] Dr. Vogel, Radiation Oncologist in [facility] Dr. Tari Aguirre Consultants: ID, Gastro, Heme Current Inpatient Medications: Current Inpatient Medications Medications (Trade) Dose Ordered Sig/Tamika Route Start Time Stop Time Status Last Admin Dose Admin Potassium Chloride/Sodium Chloride 1,000 ml @ 60 mls/hr [id number] IV 10/08/16 14:00 11/07/16 13:59 10/12/16 03:06 60 MLS/HR Ondansetron HCl (Zofran Inj) 4 mg Q6H PRN IV 10/08/16 11:15 11/07/16 11:14 10/09/16 00:36 4 MG Insulin Aspart (novoLOG ASPART) SLIDING SCALE If C... ACHS SC 10/08/16 16:00 11/07/16 15:59 10/12/16 08:13 1 UNITS Glucose (Glucose 40% Gel) 15-30 GRAMS 15 GRAMS... UD PRN PO 10/08/16 11:30 11/07/16 11:29 Glucose (Glucose Chew Tab) 4-8 Tablets 4 Tabl... UD PRN PO 10/08/16 11:30 11/07/16 11:29 Dextrose (Dextrose 50% 50ML Syringe) 25-50ML OF 50% DW IV FOR... UD PRN IV 10/08/16 11:30 11/07/16 11:29 Glucagon (Glucagon Inj) 1 mg UD PRN SQ 10/08/16 11:30 11/07/16 11:29 Allopurinol (Zyloprim Tab) 300 mg DAILY PO 10/09/16 09:00 11/08/16 08:59 10/12/16 08:09 300 MG Vancomycin HCl (Consult) 1 ea UD PRN N/A 10/08/16 11:59 11/07/16 11:58 Future Hold Vancomycin HCl 1500 mg/Sodium Chloride 530 ml @ 200 mls/hr Q18H IV 10/09/16 06:00 10/23/16 05:59 Future Hold 10/11/16 12:10 200 MLS/HR Doxycycline Hyclate (Vibramycin Cap) 100 mg BID PO 10/08/16 21:00 10/18/16 20:59 10/12/16 08:09 100 MG Ioversol (Optiray 320) 125 ml UD PRN IV 10/08/16 16:30 10/12/16 16:29 Cetirizine HCl (zyrTEC TAB) 10 mg DAILY PRN PO 10/11/16 19:00 11/10/16 18:59 10/12/16 08:09 10 MG Acetaminophen (Tylenol Tab) 650 mg Q8H PRN PO 10/11/16 22:00 11/08/16 13:59 10/11/16 23:25 650 MG
--- NOTE | 2016-10-12 17:04 | GASTROINTESTINAL CONSULTATION ---
DATE OF CONSULTATION: 10/12/2016 AGE: 76. SEX: Male. RACE: . ATTENDING PHYSICIAN: Dr. Yung. CONSULTING PHYSICIAN: Dr. France. REASON FOR CONSULTATION: Elevated LFTs. HISTORY OF PRESENT ILLNESS: Tom Salmon is a 76-year-old male who presented to the Department of Emergency Medicine on October 08 with complaints of fever and nausea as well as syncope. He had previously been seen for fevers in the ER and was started on antibiotics. He is on chronic chemotherapy for metastatic melanoma and was noted to have pancytopenia on admission as well. During the course of his hospitalization, he has had intermittent fevers to as high as 39.4 on October 09 and last night at 39.2. He had been treated with antibiotics during this hospitalization; however, blood cultures were negative and he is currently off antibiotic therapy. Throughout the course of his hospitalization, he was noted to have elevations of his liver panel including elevation of his AST, his ALT and his alkaline phosphatase. He did have an ultrasound of his liver on October 08 and was noted to have an unremarkable liver with no gallbladder wall thickening or gallstones. There was a 3-mm gallbladder polyp, but no other findings and a CT scan of his abdomen and pelvis was unremarkable. At the time that I saw the patient, he denied any abdominal pain. He states he has never been told previously that his liver panel was abnormal. Review of his medical record reveals no evidence of chronic hepatitis based on laboratory studies with an isolated elevation of his AST, ALT and alkaline phosphatase ____ hospitalization, he did have one elevation of his AST previously, though resolved and a slight elevation of his alkaline phosphatase as well in 2014, which returned to normal as well. He denies any exposure to hepatitis C or other viral hepatitis. He denies any current alcohol use. He states that he drank heavily as a young man, but has not had anything to drink in over 6 years. He is being treated for malignant melanoma at present and he has been on experimental therapy for malignant melanoma at [facility] with Kalyee and Linda. He states his last dose of this was approximately 1 week ago per the patient. He states that he has not had any abdominal pain, fevers, chills, nausea, vomiting, hematemesis, melena, hematochezia, jaundice, acholic stools, dark urine, pruritus or fatigue. His only complaint at present is of night sweats and recurrent fever. PAST MEDICAL HISTORY: Significant for malignant melanoma with metastases as well as pancytopenia. He also has type 2 diabetes, hyperlipidemia, gout, history of radiation exposure, and obstructive sleep apnea, on CPAP. 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 ALLERGIES: None. MEDICATIONS AT PRESENT: Tylenol 650 mg p.o. q. 8 hours p.r.n. fever or pain, Zyrtec 10 mg p.o. daily p.r.n. itching, Zyloprim 300 mg p.o. daily, vibramycin 100 mg p.o. b.i.d. and Zofran 4 mg IV q. 6 hours p.r.n. nausea. SOCIAL HISTORY: He denies any current alcohol use. He states his last drink was 6 years ago. He is a former smoker with a [id number] history. He denies any illicit drug use. He did not have any blood transfusions prior to 1991. FAMILY HISTORY: Negative for GI malignancy or inflammatory bowel disease. REVIEW OF SYSTEMS: Negative x10 system review other than pertinent positives listed in the HPI. PHYSICAL EXAMINATION: VITAL SIGNS: Today include a temp of 37, pulse 106, respirations 18, blood pressure 158/67 and pulse ox of 99% on room air. GENERAL: He is awake, cooperative, chronic ill appearing, in no acute distress. HEAD: Normocephalic and atraumatic. EYES: Pupils equally round. Extraocular muscles are intact. Sclerae are nonicteric. Oropharynx is clear. ENT: External evaluation of ears and nose are normal. Oropharynx is clear. NECK: Soft and supple. CHEST: Decreased breath sounds bilaterally in the bases. CARDIOVASCULAR SYSTEM: Regular rate and rhythm. ABDOMEN: Soft, nontender, and nondistended. There are positive bowel sounds. There is no appreciable hepatosplenomegaly or stigmata of chronic liver disease. EXTREMITIES: No clubbing, cyanosis, or edema. LABORATORY STUDIES: Today include a white blood cell count of 2.82, hemoglobin 9.6, hematocrit 27.9 and a platelet count of 41. PT 12.6, PTT 33.6, and INR 1.2. Sodium 139, potassium 3.6, chloride 109, bicarbonate 19, BUN 12, creatinine 1.0, and blood glucose 111. Total bilirubin 0.5. AST 183, ALT 163, and alkaline phosphatase 129. IMPRESSION: A 76-year-old male with multiple medical comorbidities including malignant melanoma with some slight elevation of his transaminases. The differential diagnosis in this patient regarding his elevated liver panel includes, 1. Medication induced. 2. Infectious etiology secondary to sepsis. 3. Ischemic hepatitis secondary to recent syncopal event. 4. Unless likely chronic viral hepatitis. PLAN: At the present time, I do agree with holding his statin therapy. Other possibilities of this patient's elevated liver panel could be secondary to the patient's treatment with Opdivo and Yervoy or exposure to recent antibiotics, though it definitely appears that his transaminitis is acute in nature as he has not had a previous elevations. I would recommend supportive care. We will follow his clinical course and make further recommendations as needed. Once again, thanks for allowing me to participate in the care of this patient. If you have any further questions, please do not hesitate in contacting me.
[2016-10-13] VITALS (11 sets, daily range): BP systolic 126–177; BP diastolic 44–76; PULSE 77–103; TEMP 36.3–37.6; O2SAT 95–100
[2016-10-13 07:46] LABS: HEMATOCRIT 26.9 % (42-52); MEAN CELL VOLUME 83.3 fL (80-100); MEAN CORPUSCULAR HGB CONC 36.1 g/dl (32-36); RED BLOOD COUNT 3.23 M/uL (4.7-6.1); WHITE BLOOD COUNT 2.97 K/uL (4.8-10.8)
[2016-10-13] MEDS: ALLOPURINOL 300 MG TAB PO SCH (07:51)
[2016-10-13] MEDS: CETIRIZINE HCL 10 MG TAB PO PRN (07:51)
[2016-10-13] MEDS: DOXYCYCLINE HYCLATE 100 MG CAP PO SCH ×2 (07:52→20:16)
[2016-10-13] MEDS: INSULIN ASPART 100 UNITS/ML 3 ML PEN SC SCH ×4 (07:53→20:19)
[2016-10-13 07:57] LABS: BASO % 0.3 %; BASO ABS # 0.01 K/uL (0-0.2); COMPLETE YES; IG% 0.3 %; LYMPH % 21.2 %; LYMPH ABS # 0.63 K/uL (1.2-3.4); MONO % 5.1 %; NEUT % 73.1 %; PLATELET COUNT 56 K/uL (130-400)
[2016-10-13 08:00] LABS: INR 1.1 (0.9-1.1)
[2016-10-13 08:14] LABS: BUN/CREATININE RATIO 10.1 (10-20); C-REACTIVE PROTEIN 12.9 mg/dl (0-0.29); CALCIUM 7.5 mg/dl (8.5-10.1); POTASSIUM 3.5 mmol/L (3.5-5.1)
--- NOTE | 2016-10-13 10:40 | Progress Note ---
Medicine Progress Note Date & Time of Visit: Oct 13, 2016 at 10:25. Subjective 76 year old diabetic male with metastatic melanoma on immunotherapy presenting with fever, diarrhea, metabolic encephalopathy and syncopal episodes at home. Since admission he has been on 3 broad abx for several days and still fevering. He developed a rash after the 4th dose of Vancomycin and was taken off this. He remains on doxycycline and there has been no fever or chills overnight. His diarrhea, nausea and vomiting has resolved and he is tolerating PO. He has some residual weakness in his legs and continues to work with PT. -pt is asymptomatic today aside from some weakness in legs. -denies fevers, chills, abdominal pain, diarrhea, nausea, vomiting -tolerating PO -denies dysuria -denies lightheadedness with ambulation Objective Last 8 Hrs Date Time Temp Pulse Resp B/P (MAP) Pulse Ox O2 Delivery O2 Flow Rate FiO2 10/13/16 08:00 95 Room Air 10/13/16 07:16 37.0 90 19 126/71 (89) 96 Room Air 10/13/16 04:31 36.6 87 18 133/44 (73) 97 Room Air 10/13/16 04:00 Room Air Physical Exam: GEN: WNWD, in no acute distress, alert and appropriate HEENT: NC/AT, pupils are equal bilaterally, normal sclerae CARDIO: reg rate, S1/2 heard without m/g/r LUNGS: CTA bilaterally, no crackles, rales or wheezes, good diaphragmatic excursion ABD: +BS, soft, non-tender, non-distended, no rebound or guarding EXTREMITY: RP and DP palpable 2+ bilat, no LE swelling or edema, extremities are warm and well-perfused NEURO: CN 2-12 grossly intact, sensation intact throughout, no gross focal deficits. MUSC: 5/5 strength throughout, no focal deficits SKIN: erythematous papular rash along both arms and extending into subaxillary area, no rash on back or trunk, skin is warm and dry. There are some healing abrasions on knees bilaterally Laboratory Results: 10/13/16 07:24 Red Blood Count 3.23, Mean Corpuscular Volume 83.3, Mean Corpuscular Hemoglobin 30.0, Mean Corpuscular Hemoglobin Concent 36.1, Mean Platelet Volume 10.0, Neutrophils (%) (Auto) 73.1, Lymphocytes (%) (Auto) 21.2, Monocytes (%) (Auto) 5.1, Eosinophils (%) (Auto) 0.0, Basophils (%) (Auto) 0.3, Neutrophils # (Auto) 2.17, Lymphocytes # (Auto) 0.63, Monocytes # (Auto) 0.15, Eosinophils # (Auto) 0.00, Basophils # (Auto) 0.01 10/13/16 07:24 Test 10/08/16 09:00 10/08/16 09:05 10/08/16 12:38 10/08/16 17:20 Peripheral Blood Smear Path Consult Total Creatine Kinase 264 U/L (39-308) Creatine Kinase MB < 0.5 ng/ml (0.5-3.6) Creatine Kinase MB Ratio (0-3.0) Troponin I < 0.015 ng/ml (0-0.045) Lipase 585 U/L (73-393) Procalcitonin 1.54 ng/ml (0-0.5) Lyme Disease IgG Antibody NEG (NEG) Lyme Disease IgM Antibody NEG (NEG) Bedside Lactic Acid Venous 1.60 mmol/L (0.90-1.70) Urine Color DK YELLOW Urine Appearance CLEAR (CLEAR) Urine pH 5.5 (4.5-7.5) Urine Specific [place] 1.024 (1.000-1.030) Urine Protein 3+ (NEG) Urine Glucose (UA) NEG (NEG) Urine Ketones TRACE (NEG) Urine Occult Blood 2+ (NEG) Urine Nitrite NEG (NEG) Urine Bilirubin NEG (NEG) Urine Urobilinogen NEG (NEG) Urine Leukocyte Esterase NEG (NEG) Urine WBC (Auto) 5-10 /hpf (0-5) Urine RBC (Auto) 5-10 /hpf (0-4) Urine Hyaline Casts (Auto) 10-30 /lpf (0-5) Urine Epithelial Cells (Auto) >30 /lpf (0-5) Urine Bacteria (Auto) NEG (NEG) Urine Renal Epithelial Cells /lpf (0-5) Urine Pathogenic Casts 1-5 GRANULAR CASTS /lpf (0) Urine Mucus PRESENT (NONE PRSENT) Osmolality 267 mOsm/kg (280-300) Vitamin B12 Level 565 pg/mL (211-911) Folate > 24.00 ng/mL (>5.38) Thyroid Stimulating Hormone (TSH) 1.550 uIu/ml (0.300-4.500) Random Cortisol 39.22 mcg/dl Test 10/09/16 01:35 10/09/16 06:09 10/10/16 06:15 10/10/16 17:36 Urine Random Sodium 50 mEq/L Magnesium Level 1.9 mg/dl (1.8-2.4) Fibrinogen 213 mg/dl (184-400) Fibrin Degradation Products >40 mcg/ml (<10) Estimated Average Glucose 151 mg/dl Hemoglobin A1c 6.9 % (4.5-5.6) Vancomycin Level Trough 14.8 mcg/ml (SEE COMMENT) Test 10/12/16 06:29 10/13/16 06:48 10/13/16 07:24 Activated Partial Thromboplast Time 33.6 SECONDS (21.0-31.0) Partial Thromboplastin Ratio 1.3 Bedside Glucose 128 mg/dl (70-99) White Blood Count 2.97 K/uL (4.8-10.8) Red Blood Count 3.23 M/uL (4.7-6.1) Hemoglobin 9.7 g/dL (14.0-18.0) Hematocrit 26.9 % (42-52) Mean Corpuscular Volume 83.3 fL (80-100) Mean Corpuscular Hemoglobin 30.0 pg (25-34) Mean Corpuscular Hemoglobin Concent 36.1 g/dl (32-36) Platelet Count 56 K/uL (130-400) Mean Platelet Volume 10.0 fL (7.4-10.4) Neutrophils (%) (Auto) 73.1 % Lymphocytes (%) (Auto) 21.2 % Monocytes (%) (Auto) 5.1 % Eosinophils (%) (Auto) 0.0 % Basophils (%) (Auto) 0.3 % Neutrophils # (Auto) 2.17 K/uL (1.4-6.5) Lymphocytes # (Auto) 0.63 K/uL (1.2-3.4) Monocytes # (Auto) 0.15 K/uL (0.11-0.59) Eosinophils # (Auto) 0.00 K/uL (0-0.5) Basophils # (Auto) 0.01 K/uL (0-0.2) RDW Standard Deviation 47.9 fL (36.4-46.3) RDW Coefficient of Variation 15.5 % (11.5-14.5) Immature Granulocyte % (Auto) 0.3 % Immature Granulocyte # (Auto) 0.01 K/uL (0.00-0.02) Erythrocyte Sedimentation Rate 12 mm/hr (0-14) Prothrombin Time 12.0 SECONDS (9.0-12.0) Prothromb Time International Ratio 1.1 (0.9-1.1) Anion Gap 10.0 mmol/L (3-11) Est Creatinine Clear Calc Drug Dose 70.0 ml/min Estimated GFR () 84.4 Estimated GFR (Non- 72.8 BUN/Creatinine Ratio 10.1 (10-20) Calcium Level 7.5 mg/dl (8.5-10.1) Total Bilirubin 0.6 mg/dl (0.2-1) Direct Bilirubin 0.2 mg/dl (0-0.2) Aspartate Amino Transf (AST/SGOT) 186 U/L (15-37) Alanine Aminotransferase (ALT/SGPT) 172 U/L (12-78) Alkaline Phosphatase 142 U/L (45-117) C-Reactive Protein 12.90 mg/dl (0-0.29) Total Protein 6.2 gm/dl (6.4-8.2) Albumin 2.5 gm/dl (3.4-5.0) Hepatitis B Surface Antigen NEG (NEG) Hepatitis C Antibody NEG (NEG) Date/Time Source Procedure Growth Status 10/09/16 15:00 Blood Blood Culture - Preliminary NO GROWTH TO DATE. Resulted 10/08/16 20:07 Stool C.difficile Toxin B Gene (PCR) - Final No C. difficile toxin B gene detected Complete 10/08/16 12:38 Urine , Clean Catch Urine Culture - Final NO GROWTH - LESS THAN 1,000 COLONIES/ML Complete Last 24 Hours Test 10/12/16 11:48 10/12/16 16:19 10/12/16 20:22 10/13/16 06:48 Bedside Glucose 143 mg/dl 136 mg/dl 130 mg/dl 128 mg/dl Test 10/13/16 07:24 White Blood Count 2.97 K/uL Red Blood Count 3.23 M/uL Hemoglobin 9.7 g/dL Hematocrit 26.9 % Mean Corpuscular Volume 83.3 fL Mean Corpuscular Hemoglobin 30.0 pg Mean Corpuscular Hemoglobin Concent 36.1 g/dl Platelet Count 56 K/uL Mean Platelet Volume 10.0 fL Neutrophils (%) (Auto) 73.1 % Lymphocytes (%) (Auto) 21.2 % Monocytes (%) (Auto) 5.1 % Eosinophils (%) (Auto) 0.0 % Basophils (%) (Auto) 0.3 % Neutrophils # (Auto) 2.17 K/uL Lymphocytes # (Auto) 0.63 K/uL Monocytes # (Auto) 0.15 K/uL Eosinophils # (Auto) 0.00 K/uL Basophils # (Auto) 0.01 K/uL RDW Standard Deviation 47.9 fL RDW Coefficient of Variation 15.5 % Immature Granulocyte % (Auto) 0.3 % Immature Granulocyte # (Auto) 0.01 K/uL Erythrocyte Sedimentation Rate 12 mm/hr Prothrombin Time 12.0 SECONDS Prothromb Time International Ratio 1.1 Sodium Level 137 mmol/L Potassium Level 3.5 mmol/L Chloride Level 106 mmol/L Carbon Dioxide Level 21 mmol/L Anion Gap 10.0 mmol/L Blood Urea Nitrogen 10 mg/dl Creatinine 1.00 mg/dl Est Creatinine Clear Calc Drug Dose 70.0 ml/min Estimated GFR () 84.4 Estimated GFR (Non- 72.8 BUN/Creatinine Ratio 10.1 Random Glucose 119 mg/dl Calcium Level 7.5 mg/dl Total Bilirubin 0.6 mg/dl Direct Bilirubin 0.2 mg/dl Aspartate Amino Transf (AST/SGOT) 186 U/L Alanine Aminotransferase (ALT/SGPT) 172 U/L Alkaline Phosphatase 142 U/L C-Reactive Protein 12.90 mg/dl Total Protein 6.2 gm/dl Albumin 2.5 gm/dl Hepatitis B Surface Antigen NEG Hepatitis C Antibody NEG Assessment & Plan 76 year old diabetic male with metastatic melanoma on immunotherapy presenting with fever, diarrhea, metabolic encephalopathy and syncopal episodes at home. Since admission he has been on 3 broad abx for several days and still fevering. He developed a rash after the 4th dose of Vancomycin and was taken off this. He remains on doxycycline and there has been no fever or chills overnight. His diarrhea, nausea and vomiting has resolved and he is tolerating PO. He has some residual weakness in his legs and continues to work with PT. 1. Pancytopenia-though 2/2 sepsis of unknown cause. Improved today. Poss virus but other nonninfectious etiologies are also possible. 2. Fever-resolved overnight, pt remains on doxycycline. Uncertain cause for fever w etiologies including but not limited to viral illness, drug reaction ( on two immunotherapies, multiple new meds) vs other. One of four BCx was positive for [employer], thought to be a contaminant, however, appreciate ID input on this. No lines other than PIV. No port or PICC recently. Poss rickettsial? ( no known exposure recently) vs liver etiology? Rickettsial panels still pending and still with transaminitis. Peripheral smear reveals changes consistent with chemotherapy only. I ordered hepatitis panel which is pending and also screened for TB exposure with a Quantiferon which is pending. May also be inflammatory or related to immunotherapy--just started two weeks ago with last dose one week ago. Treated at [facility]. Apprec Heme/Onc thoughts on this. 3. Rash-thought secondary to Vanco, however, there were several doses of this given prior to rash. Listed on allergy profile to be safe. Rash persists with pruritis resolved. Rash does not look much improved but is also not worse. May also be related to poss viral xanthem? Cont to monitor. 4. 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 Vogel / Diann WILSON of [facility] and Dr. Tari Aguirre for radiation oncology. Currently on immunotherapy Opdivo and Yervoy and radiation 5. Transaminitis-persists. RUQ us negative, no TTP in abdomen. CT a/p with IV /PO contrast was unremarkable. Splenomegaly noted on imaging. GI consulted to assist with workup. Of note, statin is being held. 6. Syncope-in setting of diarrhea and persistent fevers and chills, syncope likely related to orthostatic hypotension, especially as it occurred around toileting. 7. DMII-controlled, tolerating PO. Holding Metformin. Cont ISS. 8. Pulmonary nodule-monitor per guidelines. 9. Gout-stable, cont allopurinol 10. HLP-holding statin with elevated LFTs 11. OSA_cont nightly CPAP 12. Weakness-likely related to prolonged hospitalization and recent illness. Cont PT. DVT proph: SCDs, chemoprophylaxis contraindicated in setting of thrombocytopenia. FULL CODE Dispo-uncertain at this time. Nancy Stahl DO [facility] Hospitalist. Consultants: ID, Gastro, Heme Current Inpatient Medications: Current Inpatient Medications Medications (Trade) Dose Ordered Sig/Tamika Route Start Time Stop Time Status Last Admin Dose Admin Ondansetron HCl (Zofran Inj) 4 mg Q6H PRN IV 10/08/16 11:15 11/07/16 11:14 10/09/16 00:36 4 MG Insulin Aspart (novoLOG ASPART) SLIDING SCALE If C... ACHS SC 10/08/16 16:00 11/07/16 15:59 10/13/16 07:53 2 UNITS Glucose (Glucose 40% Gel) 15-30 GRAMS 15 GRAMS... UD PRN PO 10/08/16 11:30 11/07/16 11:29 Glucose (Glucose Chew Tab) 4-8 Tablets 4 Tabl... UD PRN PO 10/08/16 11:30 11/07/16 11:29 Dextrose (Dextrose 50% 50ML Syringe) 25-50ML OF 50% DW IV FOR... UD PRN IV 10/08/16 11:30 11/07/16 11:29 Glucagon (Glucagon Inj) 1 mg UD PRN SQ 10/08/16 11:30 11/07/16 11:29 Allopurinol (Zyloprim Tab) 300 mg DAILY PO 10/09/16 09:00 11/08/16 08:59 10/13/16 07:51 300 MG Doxycycline Hyclate (Vibramycin Cap) 100 mg BID PO 10/08/16 21:00 10/18/16 20:59 10/13/16 07:52 100 MG Cetirizine HCl (zyrTEC TAB) 10 mg DAILY PRN PO 10/11/16 19:00 11/10/16 18:59 10/13/16 07:51 10 MG Acetaminophen (Tylenol Tab) 650 mg Q8H PRN PO 10/11/16 22:00 11/08/16 13:59 10/11/16 23:25 650 MG
--- NOTE | 2016-10-13 11:17 | Gastroenterology Progress Note ---
Progress Note Date of Service: Oct 13, 2016 Subjective Pt evaluation today including: conversation w/ patient, physical exam, chart review, lab review Pt was seen and evaluated this AM. He tells me he is tired and quite drowsy. Fell asleep twice during conversation. Denies abdominal pain, nausea, vomiting, diarrhea. Transaminases remain elevated. Review of Systems Constitutional: No fever, No chills Respiratory: No shortness of breath Cardiac: No chest pain Abdomen: No pain, No nausea, No vomiting, No diarrhea, No constipation Endo: + fatigue Medications Current Inpatient Medications Medications (Trade) Dose Ordered Sig/Tamika Route Start Time Stop Time Status Last Admin Dose Admin Ondansetron HCl (Zofran Inj) 4 mg Q6H PRN IV 10/08/16 11:15 11/07/16 11:14 10/09/16 00:36 4 MG Insulin Aspart (novoLOG ASPART) SLIDING SCALE If C... ACHS SC 10/08/16 16:00 11/07/16 15:59 10/13/16 07:53 2 UNITS Glucose (Glucose 40% Gel) 15-30 GRAMS 15 GRAMS... UD PRN PO 10/08/16 11:30 11/07/16 11:29 Glucose (Glucose Chew Tab) 4-8 Tablets 4 Tabl... UD PRN PO 10/08/16 11:30 11/07/16 11:29 Dextrose (Dextrose 50% 50ML Syringe) 25-50ML OF 50% DW IV FOR... UD PRN IV 10/08/16 11:30 11/07/16 11:29 Glucagon (Glucagon Inj) 1 mg UD PRN SQ 10/08/16 11:30 11/07/16 11:29 Allopurinol (Zyloprim Tab) 300 mg DAILY PO 10/09/16 09:00 11/08/16 08:59 10/13/16 07:51 300 MG Doxycycline Hyclate (Vibramycin Cap) 100 mg BID PO 10/08/16 21:00 10/18/16 20:59 10/13/16 07:52 100 MG Cetirizine HCl (zyrTEC TAB) 10 mg DAILY PRN PO 10/11/16 19:00 11/10/16 18:59 10/13/16 07:51 10 MG Acetaminophen (Tylenol Tab) 650 mg Q8H PRN PO 10/11/16 22:00 11/08/16 13:59 10/11/16 23:25 650 MG Objective Vital Signs Date Time Temp Pulse Resp B/P (MAP) Pulse Ox O2 Delivery O2 Flow Rate FiO2 10/13/16 08:00 95 Room Air 10/13/16 07:16 37.0 90 19 126/71 (89) 96 Room Air 10/13/16 04:31 36.6 87 18 133/44 (73) 97 Room Air 10/13/16 04:00 Room Air 10/12/16 23:59 Room Air 10/12/16 23:48 36.9 104 20 94 Room Air 10/12/16 22:48 132/68 (89) 10/12/16 20:00 Room Air 10/12/16 19:57 36.6 94 20 133/57 (82) 97 Room Air 10/12/16 16:00 95 Room Air 10/12/16 15:27 37.2 98 18 140/68 (92) 97 10/12/16 12:24 37.0 106 18 158/67 (97) 99 Room Air 10/12/16 12:00 95 Room Air Physical Exam General Appearance: no apparent distress Eyes: PERRL ENT: hearing grossly normal Neck: supple Respiratory/Chest: lungs clear, normal breath sounds Cardiovascular: regular rate, rhythm, no JVD, no murmur Abdomen: normal bowel sounds, non tender, soft, no organomegaly Neurologic/Psych: alert, oriented x 3 Skin: normal color, no jaundice Laboratory Results Last 24 Hours Test 10/12/16 11:48 10/12/16 16:19 10/12/16 20:22 10/13/16 06:48 Bedside Glucose 143 mg/dl 136 mg/dl 130 mg/dl 128 mg/dl Test 10/13/16 07:24 White Blood Count 2.97 K/uL Red Blood Count 3.23 M/uL Hemoglobin 9.7 g/dL Hematocrit 26.9 % Mean Corpuscular Volume 83.3 fL Mean Corpuscular Hemoglobin 30.0 pg Mean Corpuscular Hemoglobin Concent 36.1 g/dl Platelet Count 56 K/uL Mean Platelet Volume 10.0 fL Neutrophils (%) (Auto) 73.1 % Lymphocytes (%) (Auto) 21.2 % Monocytes (%) (Auto) 5.1 % Eosinophils (%) (Auto) 0.0 % Basophils (%) (Auto) 0.3 % Neutrophils # (Auto) 2.17 K/uL Lymphocytes # (Auto) 0.63 K/uL Monocytes # (Auto) 0.15 K/uL Eosinophils # (Auto) 0.00 K/uL Basophils # (Auto) 0.01 K/uL RDW Standard Deviation 47.9 fL RDW Coefficient of Variation 15.5 % Immature Granulocyte % (Auto) 0.3 % Immature Granulocyte # (Auto) 0.01 K/uL Erythrocyte Sedimentation Rate 12 mm/hr Prothrombin Time 12.0 SECONDS Prothromb Time International Ratio 1.1 Sodium Level 137 mmol/L Potassium Level 3.5 mmol/L Chloride Level 106 mmol/L Carbon Dioxide Level 21 mmol/L Anion Gap 10.0 mmol/L Blood Urea Nitrogen 10 mg/dl Creatinine 1.00 mg/dl Est Creatinine Clear Calc Drug Dose 70.0 ml/min Estimated GFR () 84.4 Estimated GFR (Non- 72.8 BUN/Creatinine Ratio 10.1 Random Glucose 119 mg/dl Calcium Level 7.5 mg/dl Total Bilirubin 0.6 mg/dl Direct Bilirubin 0.2 mg/dl Aspartate Amino Transf (AST/SGOT) 186 U/L Alanine Aminotransferase (ALT/SGPT) 172 U/L Alkaline Phosphatase 142 U/L C-Reactive Protein 12.90 mg/dl Total Protein 6.2 gm/dl Albumin 2.5 gm/dl Hepatitis B Surface Antigen NEG Hepatitis C Antibody NEG Assessment and Plan A 76-year-old male with multiple medical comorbidities including malignant melanoma on opdivo/yervoy with new elevation of his transaminases. Medication induced vs infectious vs ischemic. Will continue with a serological work up Hold statin Follow labs Continue supportive measures Monitor LFTs ATTESTATION: I have performed a history and physical examination of this patient and reviewed the electronic record. Specifically, on history there is no prior exposure of history of liver abnormality. I have discussed the case with STEVE Samuels. The above note reflects my findings, conclusions, and recommendations. Александр Dumas MD
--- NOTE | 2016-10-13 11:22 | Progress Note ---
Subjective Date of Service: Oct 13, 2016. Subjective pt sleeping, afebrile. 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 ER cultures negative as well. Remains pancytopenic. afebrile. remains on doxy , tick serologies pending but no improvement in counts on doxy. LFTS remain elevated s/p GI eval. ESR remains nml. Hepatitis panel B,C. no overnight events. Problem List Medical Problems: (1) Chills Status: Acute (2) Fever of unknown origin Status: Acute (3) Weakness Status: Acute Objective Vital Signs Date Time Temp Pulse Resp B/P (MAP) Pulse Ox O2 Delivery O2 Flow Rate FiO2 10/13/16 08:00 95 Room Air 10/13/16 07:16 37.0 90 19 126/71 (89) 96 Room Air 10/13/16 04:31 36.6 87 18 133/44 (73) 97 Room Air 10/13/16 04:00 Room Air 10/12/16 23:59 Room Air 10/12/16 23:48 36.9 104 20 94 Room Air 10/12/16 22:48 132/68 (89) 10/12/16 20:00 Room Air 10/12/16 19:57 36.6 94 20 133/57 (82) 97 Room Air 10/12/16 16:00 95 Room Air 10/12/16 15:27 37.2 98 18 140/68 (92) 97 10/12/16 12:24 37.0 106 18 158/67 (97) 99 Room Air 10/12/16 12:00 95 Room Air Physical Exam General Appearance: WD/WN Neck: supple Respiratory/Chest: normal breath sounds, no respiratory distress Skin: normal color Laboratory Results Item Value Date Time Blood Culture - Preliminary Resulted 10/08/16 0900 Blood Coag Neg Staph Not Lugdunensis Blood Culture - Preliminary Resulted 10/08/16 0905 Blood NO GROWTH TO DATE. Blood Culture - Preliminary Resulted 10/09/16 1455 Blood NO GROWTH TO DATE. Blood Culture - Preliminary Resulted 10/09/16 1500 Blood NO GROWTH TO DATE. Blood Culture - Final Complete 10/06/16 1540 Blood NO GROWTH Blood Culture - Final Complete 10/06/16 1435 Blood NO GROWTH Last 24 Hours Test 10/12/16 11:48 10/12/16 16:19 10/12/16 20:22 10/13/16 06:48 Bedside Glucose 143 mg/dl 136 mg/dl 130 mg/dl 128 mg/dl Test 10/13/16 07:24 10/13/16 11:14 White Blood Count 2.97 K/uL Red Blood Count 3.23 M/uL Hemoglobin 9.7 g/dL Hematocrit 26.9 % Mean Corpuscular Volume 83.3 fL Mean Corpuscular Hemoglobin 30.0 pg Mean Corpuscular Hemoglobin Concent 36.1 g/dl Platelet Count 56 K/uL Mean Platelet Volume 10.0 fL Neutrophils (%) (Auto) 73.1 % Lymphocytes (%) (Auto) 21.2 % Monocytes (%) (Auto) 5.1 % Eosinophils (%) (Auto) 0.0 % Basophils (%) (Auto) 0.3 % Neutrophils # (Auto) 2.17 K/uL Lymphocytes # (Auto) 0.63 K/uL Monocytes # (Auto) 0.15 K/uL Eosinophils # (Auto) 0.00 K/uL Basophils # (Auto) 0.01 K/uL RDW Standard Deviation 47.9 fL RDW Coefficient of Variation 15.5 % Immature Granulocyte % (Auto) 0.3 % Immature Granulocyte # (Auto) 0.01 K/uL Erythrocyte Sedimentation Rate 12 mm/hr Prothrombin Time 12.0 SECONDS Prothromb Time International Ratio 1.1 Sodium Level 137 mmol/L Potassium Level 3.5 mmol/L Chloride Level 106 mmol/L Carbon Dioxide Level 21 mmol/L Anion Gap 10.0 mmol/L Blood Urea Nitrogen 10 mg/dl Creatinine 1.00 mg/dl Est Creatinine Clear Calc Drug Dose 70.0 ml/min Estimated GFR () 84.4 Estimated GFR (Non- 72.8 BUN/Creatinine Ratio 10.1 Random Glucose 119 mg/dl Calcium Level 7.5 mg/dl Total Bilirubin 0.6 mg/dl Direct Bilirubin 0.2 mg/dl Aspartate Amino Transf (AST/SGOT) 186 U/L Alanine Aminotransferase (ALT/SGPT) 172 U/L Alkaline Phosphatase 142 U/L C-Reactive Protein 12.90 mg/dl Total Protein 6.2 gm/dl Albumin 2.5 gm/dl Hepatitis B Surface Antigen NEG Hepatitis C Antibody NEG Assessment and Plan (1) Fever Assessment & Plan: resolved, continue to follow cultures suspect intial 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 will follow on doxy pending tick serologies. ? chemo/ malignancy as contributing factor. (2) Positive blood culture
--- NOTE | 2016-10-13 14:07 | Hematology/Oncology Prog Note ---
Hematology/Onc Progress Note Date of Service Oct 13, 2016. Medications Current Inpatient Medications Medications (Trade) Dose Ordered Sig/Tamika Route Start Time Stop Time Status Last Admin Dose Admin Ondansetron HCl (Zofran Inj) 4 mg Q6H PRN IV 10/08/16 11:15 11/07/16 11:14 10/09/16 00:36 4 MG Insulin Aspart (novoLOG ASPART) SLIDING SCALE If C... ACHS SC 10/08/16 16:00 11/07/16 15:59 10/13/16 12:38 5 UNITS Glucose (Glucose 40% Gel) 15-30 GRAMS 15 GRAMS... UD PRN PO 10/08/16 11:30 11/07/16 11:29 Glucose (Glucose Chew Tab) 4-8 Tablets 4 Tabl... UD PRN PO 10/08/16 11:30 11/07/16 11:29 Dextrose (Dextrose 50% 50ML Syringe) 25-50ML OF 50% DW IV FOR... UD PRN IV 10/08/16 11:30 11/07/16 11:29 Glucagon (Glucagon Inj) 1 mg UD PRN SQ 10/08/16 11:30 11/07/16 11:29 Allopurinol (Zyloprim Tab) 300 mg DAILY PO 10/09/16 09:00 11/08/16 08:59 10/13/16 07:51 300 MG Doxycycline Hyclate (Vibramycin Cap) 100 mg BID PO 10/08/16 21:00 10/18/16 20:59 10/13/16 07:52 100 MG Cetirizine HCl (zyrTEC TAB) 10 mg DAILY PRN PO 10/11/16 19:00 11/10/16 18:59 10/13/16 07:51 10 MG Acetaminophen (Tylenol Tab) 650 mg Q8H PRN PO 10/11/16 22:00 11/08/16 13:59 10/11/16 23:25 650 MG Subjective Mr. Salmon Reports feeling overall well today. He has not had a fever since yesterday. He denies cough or dyspnea. He reports a good appetite and has not had nausea. His bowels are becoming more formed ; he had 2 bowel movements today. He has not had bleeding from any sites. He denies headache. Review of Systems: Constitutional: + see HPI Cardiovascular: + see HPI Abdomen: + see HPI Vital Signs Vital Signs Past 12 Hours Date Time Temp Pulse Resp B/P (MAP) Pulse Ox O2 Delivery O2 Flow Rate FiO2 10/13/16 12:57 Room Air 10/13/16 12:21 37.0 82 24 153/72 (99) 98 10/13/16 12:00 37.0 90 19 95 10/13/16 11:30 36.3 77 18 129/71 (90) 97 Room Air 91 145/66 (92) 93 131/68 (89) 10/13/16 08:00 95 Room Air 10/13/16 07:16 37.0 90 19 126/71 (89) 96 Room Air 10/13/16 04:31 36.6 87 18 133/44 (73) 97 Room Air 10/13/16 04:00 Room Air Physical Exam Head: normocephalic, atraumatic ENMT: hearing grossly normal Lungs: Auscuitation: breath sounds normal, no wheezing, no rales/crackles Cardiovascular: Heart Auscultation: pertinent finding (distant heart tones) Abdomen: Bowel Sounds: normal Inspection & Palpation: soft Extremities: no edema, no palpable cord Laboratory 10/13/16 07:24 Red Blood Count 3.23, Mean Corpuscular Volume 83.3, Mean Corpuscular Hemoglobin 30.0, Mean Corpuscular Hemoglobin Concent 36.1, Mean Platelet Volume 10.0, Neutrophils (%) (Auto) 73.1, Lymphocytes (%) (Auto) 21.2, Monocytes (%) (Auto) 5.1, Eosinophils (%) (Auto) 0.0, Basophils (%) (Auto) 0.3, Neutrophils # (Auto) 2.17, Lymphocytes # (Auto) 0.63, Monocytes # (Auto) 0.15, Eosinophils # (Auto) 0.00, Basophils # (Auto) 0.01 10/13/16 07:24 Test 10/13/16 07:24 10/13/16 11:22 10/13/16 12:56 White Blood Count 2.97 K/uL (4.8-10.8) Red Blood Count 3.23 M/uL (4.7-6.1) Hemoglobin 9.7 g/dL (14.0-18.0) Hematocrit 26.9 % (42-52) Mean Corpuscular Volume 83.3 fL (80-100) Mean Corpuscular Hemoglobin 30.0 pg (25-34) Mean Corpuscular Hemoglobin Concent 36.1 g/dl (32-36) Platelet Count 56 K/uL (130-400) Mean Platelet Volume 10.0 fL (7.4-10.4) Neutrophils (%) (Auto) 73.1 % Lymphocytes (%) (Auto) 21.2 % Monocytes (%) (Auto) 5.1 % Eosinophils (%) (Auto) 0.0 % Basophils (%) (Auto) 0.3 % Neutrophils # (Auto) 2.17 K/uL (1.4-6.5) Lymphocytes # (Auto) 0.63 K/uL (1.2-3.4) Monocytes # (Auto) 0.15 K/uL (0.11-0.59) Eosinophils # (Auto) 0.00 K/uL (0-0.5) Basophils # (Auto) 0.01 K/uL (0-0.2) RDW Standard Deviation 47.9 fL (36.4-46.3) RDW Coefficient of Variation 15.5 % (11.5-14.5) Immature Granulocyte % (Auto) 0.3 % Immature Granulocyte # (Auto) 0.01 K/uL (0.00-0.02) Erythrocyte Sedimentation Rate 12 mm/hr (0-14) Prothrombin Time 12.0 SECONDS (9.0-12.0) Prothromb Time International Ratio 1.1 (0.9-1.1) Anion Gap 10.0 mmol/L (3-11) Est Creatinine Clear Calc Drug Dose 70.0 ml/min Estimated GFR () 84.4 Estimated GFR (Non- 72.8 BUN/Creatinine Ratio 10.1 (10-20) Calcium Level 7.5 mg/dl (8.5-10.1) Total Bilirubin 0.6 mg/dl (0.2-1) Direct Bilirubin 0.2 mg/dl (0-0.2) Aspartate Amino Transf (AST/SGOT) 186 U/L (15-37) Alanine Aminotransferase (ALT/SGPT) 172 U/L (12-78) Alkaline Phosphatase 142 U/L (45-117) C-Reactive Protein 12.90 mg/dl (0-0.29) Total Protein 6.2 gm/dl (6.4-8.2) Albumin 2.5 gm/dl (3.4-5.0) Hepatitis B Surface Antigen NEG (NEG) Hepatitis C Antibody NEG (NEG) Bedside Glucose 152 mg/dl (70-99) Assessment & Plan 1. Metastatic melanoma- s/p 2 infusions Yervoy/Opdivo * Metastatic disease intrathoracic * Patient states he will refuse further immunotherapy, but counseled patient this is a decision he needs to have with his primary managing medical oncologist at [place] on discharge 2. 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 Pancytopenia * Improving, continue to monitor CBC daily * Possible element of BM suppression with severe acute illness * Question if thrombocytopenia was potentiated by shock to liver (also why may be seeing LFT elevations) 4. LFT elevations * GI consulted- medication vs infectious vs ischemic * Immunotherapy hepatitis can be seen with Yervoy/Opdivo, if infectious and ischemic considered to be less likely by GI, steroids could be initiated for possible immunotherapy hepatitis * Continue to monitor LFTs daily 5. Rash * Vancomycin being held due to rash * Dermatitis is also a known immune related AE with immunotherapy, again steroids would be indicated for complication such as this * Possibility that infection related rash as well * Will discuss with Dr. Tomas Updated primary service with Dr. Tomas's recommendations: Consider derm consult for rash. Monitor LFTs, if continue to elevate, transfer patient to [facility] [place]. Discussed with Darlene Vee PA-C and with Dr Stahl today Recommend dermatology evaluation of the skin rash and consider transfer to [facility] for evaluation if his rash and LFT abnormalities persist. Differential include drug reaction, immune mediated reactions or infectious causes His LFT abnormalities persist. thrombocytopenia improved.
[2016-10-13] MEDS ORDERED: VANCOMYCIN TROUGH SCH (17:30)
[2016-10-14 03:37] VITALS: BP 129/67; PULSE 93; TEMP 36.6; O2SAT 95
[2016-10-14 06:04] LABS: HEMATOCRIT 24.6 % (42-52); MEAN CELL VOLUME 82.3 fL (80-100); MEAN CORPUSCULAR HEMOGLOBIN 29.1 pg (25-34); MEAN CORPUSCULAR HGB CONC 35.4 g/dl (32-36); RED BLOOD COUNT 2.99 M/uL (4.7-6.1); WHITE BLOOD COUNT 2.36 K/uL (4.8-10.8)
[2016-10-14 06:07] LABS: MEAN PLATELET VOLUME 9.7 fL (7.4-10.4); PLATELET COUNT 64 K/uL (130-400)
[2016-10-14 06:13] LABS: INR 1.2 (0.9-1.1); PROTHROMBIN TIME (PATIENT) 12.6 SECONDS (9.0-12.0)
[2016-10-14 06:50] LABS: BUN/CREATININE RATIO 12.1 (10-20); C-REACTIVE PROTEIN 10.2 mg/dl (0-0.29); CREATININE 0.98 mg/dl (0.60-1.40); POTASSIUM 3.2 mmol/L (3.5-5.1)
[2016-10-14 07:07] LABS: COMPLETE YES; IG% 0.4 %; LARGE PLATELETS 1+; LYMPH % 17.8 %; LYMPH ABS # 0.42 K/uL (1.2-3.4); MONO % 3.4 %; NEUT % 78.4 %
[2016-10-14 07:28] VITALS: BP 135/75; PULSE 76; TEMP 37; O2SAT 99
--- NOTE | 2016-10-14 07:31 | Gastroenterology Progress Note ---
Progress Note Date of Service: Oct 14, 2016 Subjective Pt evaluation today including: conversation w/ patient, physical exam, chart review, lab review Pt was seen and evaluated this AM. No acute events overnight. His only concern is bilateral knee pain and is requesting an orthopedic evaluation - I advised him to address this with Dr. Stahl and the primary team. LFTs remain mildly elevated. Serologies pending. Review of Systems Constitutional: No fever, No chills Respiratory: No shortness of breath Cardiac: No chest pain Abdomen: No pain, No nausea, No vomiting, No diarrhea, No constipation, No GI bleeding Musculoskeletal: + joint pain (bilateral kn ee) Medications Current Inpatient Medications Medications (Trade) Dose Ordered Sig/Tamika Route Start Time Stop Time Status Last Admin Dose Admin Ondansetron HCl (Zofran Inj) 4 mg Q6H PRN IV 10/08/16 11:15 11/07/16 11:14 10/09/16 00:36 4 MG Insulin Aspart (novoLOG ASPART) SLIDING SCALE If C... ACHS SC 10/08/16 16:00 11/07/16 15:59 10/13/16 20:19 2 UNITS Glucose (Glucose 40% Gel) 15-30 GRAMS 15 GRAMS... UD PRN PO 10/08/16 11:30 11/07/16 11:29 Glucose (Glucose Chew Tab) 4-8 Tablets 4 Tabl... UD PRN PO 10/08/16 11:30 11/07/16 11:29 Dextrose (Dextrose 50% 50ML Syringe) 25-50ML OF 50% DW IV FOR... UD PRN IV 10/08/16 11:30 11/07/16 11:29 Glucagon (Glucagon Inj) 1 mg UD PRN SQ 10/08/16 11:30 11/07/16 11:29 Allopurinol (Zyloprim Tab) 300 mg DAILY PO 10/09/16 09:00 11/08/16 08:59 10/13/16 07:51 300 MG Doxycycline Hyclate (Vibramycin Cap) 100 mg BID PO 10/08/16 21:00 10/18/16 20:59 10/13/16 20:16 100 MG Cetirizine HCl (zyrTEC TAB) 10 mg DAILY PRN PO 10/11/16 19:00 11/10/16 18:59 10/13/16 07:51 10 MG Acetaminophen (Tylenol Tab) 650 mg Q8H PRN PO 10/11/16 22:00 11/08/16 13:59 10/11/16 23:25 650 MG Objective Vital Signs Date Time Temp Pulse Resp B/P (MAP) Pulse Ox O2 Delivery O2 Flow Rate FiO2 10/14/16 07:28 37.0 76 20 135/75 (95) 99 Room Air 10/14/16 03:37 36.6 93 20 129/67 (87) 95 Room Air 10/14/16 00:00 Room Air 10/13/16 23:53 36.8 98 20 177/76 (109) 96 Room Air 10/13/16 20:00 Room Air 10/13/16 19:13 37.6 97 18 168/76 (106) 97 Room Air 10/13/16 17:05 37.6 103 20 137/72 97 10/13/16 16:36 37.6 103 20 137/72 97 10/13/16 15:36 36.7 101 24 155/63 (93) 100 10/13/16 12:57 Room Air 10/13/16 12:21 37.0 82 24 153/72 (99) 98 10/13/16 12:00 37.0 90 19 95 10/13/16 11:30 36.3 77 18 129/71 (90) 97 Room Air 91 145/66 (92) 93 131/68 (89) 10/13/16 08:00 95 Room Air Physical Exam General Appearance: no apparent distress Eyes: normal inspection ENT: hearing grossly normal Neck: supple Respiratory/Chest: lungs clear Cardiovascular: regular rate, rhythm Abdomen: normal bowel sounds, non tender, soft Neurologic/Psych: alert, normal mood/affect, oriented x 3 Skin: normal color Laboratory Results Last 24 Hours Test 10/13/16 11:22 10/13/16 12:56 10/13/16 16:02 10/13/16 20:12 Bedside Glucose 152 mg/dl 96 mg/dl 193 mg/dl Test 10/14/16 05:29 White Blood Count 2.36 K/uL Red Blood Count 2.99 M/uL Hemoglobin 8.7 g/dL Hematocrit 24.6 % Mean Corpuscular Volume 82.3 fL Mean Corpuscular Hemoglobin 29.1 pg Mean Corpuscular Hemoglobin Concent 35.4 g/dl Platelet Count 64 K/uL Mean Platelet Volume 9.7 fL Neutrophils (%) (Auto) 78.4 % Lymphocytes (%) (Auto) 17.8 % Monocytes (%) (Auto) 3.4 % Eosinophils (%) (Auto) 0.0 % Basophils (%) (Auto) 0.0 % Neutrophils # (Auto) 1.85 K/uL Lymphocytes # (Auto) 0.42 K/uL Monocytes # (Auto) 0.08 K/uL Eosinophils # (Auto) 0.00 K/uL Basophils # (Auto) 0.00 K/uL RDW Standard Deviation 46.7 fL RDW Coefficient of Variation 15.5 % Immature Granulocyte % (Auto) 0.4 % Immature Granulocyte # (Auto) 0.01 K/uL Nucleated RBC Absolute Count (auto) 0.02 K/uL Nucleated Red Blood Cells % 0.7 % Large Platelets 1+ Erythrocyte Sedimentation Rate 12 mm/hr Prothrombin Time 12.6 SECONDS Prothromb Time International Ratio 1.2 Sodium Level 135 mmol/L Potassium Level 3.2 mmol/L Chloride Level 104 mmol/L Carbon Dioxide Level 21 mmol/L Anion Gap 10.0 mmol/L Blood Urea Nitrogen 12 mg/dl Creatinine 0.98 mg/dl Est Creatinine Clear Calc Drug Dose 74.4 ml/min Estimated GFR () 86.5 Estimated GFR (Non- 74.6 BUN/Creatinine Ratio 12.1 Random Glucose 106 mg/dl Total Bilirubin 0.6 mg/dl Direct Bilirubin 0.1 mg/dl Aspartate Amino Transf (AST/SGOT) 171 U/L Alanine Aminotransferase (ALT/SGPT) 157 U/L Alkaline Phosphatase 124 U/L C-Reactive Protein 10.20 mg/dl Total Protein 5.4 gm/dl Albumin 2.1 gm/dl Assessment and Plan A 76-year-old male with multiple medical comorbidities including malignant melanoma on opdivo/yervoy with new elevation of his transaminases. Medication induced vs infectious vs ischemic. Will continue with a serological work up Hold statin Follow labs Continue supportive measures Monitor LFTs Please call with any questions or concerns. GI will watch labs peripherally. ATTESTATION: I have performed a history and physical examination of this patient and reviewed the electronic record. Specifically, there is no sign of impending liver failure. 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 I have discussed the case with STEVE Samuels. The above note reflects my findings, conclusions, and recommendations. Александр Dumas MD
--- NOTE | 2016-10-14 07:36 | Radiation Oncology Progress Nt ---
Radiation Oncology Progress Nt Date of Service Date of Service: Oct 14, 2016. Subjective Pt evaluation today including: conversation w/ bus info consultant Objective Vital Signs Date Time Temp Pulse Resp B/P (MAP) Pulse Ox O2 Delivery O2 Flow Rate FiO2 10/14/16 07:28 37.0 76 20 135/75 (95) 99 Room Air 10/14/16 03:37 36.6 93 20 129/67 (87) 95 Room Air 10/14/16 00:00 Room Air 10/13/16 23:53 36.8 98 20 177/76 (109) 96 Room Air 10/13/16 20:00 Room Air 10/13/16 19:13 37.6 97 18 168/76 (106) 97 Room Air 10/13/16 17:05 37.6 103 20 137/72 97 10/13/16 16:36 37.6 103 20 137/72 97 10/13/16 15:36 36.7 101 24 155/63 (93) 100 10/13/16 12:57 Room Air 10/13/16 12:21 37.0 82 24 153/72 (99) 98 10/13/16 12:00 37.0 90 19 95 10/13/16 11:30 36.3 77 18 129/71 (90) 97 Room Air 91 145/66 (92) 93 131/68 (89) 10/13/16 08:00 95 Room Air Laboratory Results Last 24 Hours Test 10/13/16 11:22 10/13/16 12:56 10/13/16 16:02 10/13/16 20:12 Bedside Glucose 152 mg/dl 96 mg/dl 193 mg/dl Test 10/14/16 05:29 White Blood Count 2.36 K/uL Red Blood Count 2.99 M/uL Hemoglobin 8.7 g/dL Hematocrit 24.6 % Mean Corpuscular Volume 82.3 fL Mean Corpuscular Hemoglobin 29.1 pg Mean Corpuscular Hemoglobin Concent 35.4 g/dl Platelet Count 64 K/uL Mean Platelet Volume 9.7 fL Neutrophils (%) (Auto) 78.4 % Lymphocytes (%) (Auto) 17.8 % Monocytes (%) (Auto) 3.4 % Eosinophils (%) (Auto) 0.0 % Basophils (%) (Auto) 0.0 % Neutrophils # (Auto) 1.85 K/uL Lymphocytes # (Auto) 0.42 K/uL Monocytes # (Auto) 0.08 K/uL Eosinophils # (Auto) 0.00 K/uL Basophils # (Auto) 0.00 K/uL RDW Standard Deviation 46.7 fL RDW Coefficient of Variation 15.5 % Immature Granulocyte % (Auto) 0.4 % Immature Granulocyte # (Auto) 0.01 K/uL Nucleated RBC Absolute Count (auto) 0.02 K/uL Nucleated Red Blood Cells % 0.7 % Large Platelets 1+ Erythrocyte Sedimentation Rate 12 mm/hr Prothrombin Time 12.6 SECONDS Prothromb Time International Ratio 1.2 Sodium Level 135 mmol/L Potassium Level 3.2 mmol/L Chloride Level 104 mmol/L Carbon Dioxide Level 21 mmol/L Anion Gap 10.0 mmol/L Blood Urea Nitrogen 12 mg/dl Creatinine 0.98 mg/dl Est Creatinine Clear Calc Drug Dose 74.4 ml/min Estimated GFR () 86.5 Estimated GFR (Non- 74.6 BUN/Creatinine Ratio 12.1 Random Glucose 106 mg/dl Total Bilirubin 0.6 mg/dl Direct Bilirubin 0.1 mg/dl Aspartate Amino Transf (AST/SGOT) 171 U/L Alanine Aminotransferase (ALT/SGPT) 157 U/L Alkaline Phosphatase 124 U/L C-Reactive Protein 10.20 mg/dl Total Protein 5.4 gm/dl Albumin 2.1 gm/dl Assessment and Plan (1) Fever of unknown origin Status: Acute (2) Metastatic malignant melanoma Status: Chronic (3) Pancytopenia Mr. Salmon is admitted to the hospital due to fever of unknown origin and was determined to also have thrombocytopenia most likely secondary to his systemic therapy for metastatic melanoma. The patient is also undergoing radiation therapy for multiple nodules in the left chest wall and a subpleural nodule. I have spoken to Dr. Sthal and we will continue with radiation therapy while the patient is in the inpatient setting. The patient was evaluated and deemed stable for treatment.
[2016-10-14] MEDS: ALLOPURINOL 300 MG TAB PO SCH (07:57)
[2016-10-14] MEDS: DOXYCYCLINE HYCLATE 100 MG CAP PO SCH (07:57)
[2016-10-14] MEDS: INSULIN ASPART 100 UNITS/ML 3 ML PEN SC SCH ×4 (08:09→20:22)
[2016-10-14 10:17] VITALS: BP 126/60; PULSE 80; O2SAT 97
[2016-10-14] MEDS: POTASSIUM CHLORIDE 20 MEQ TABCR PO SCH ×2 (10:17→15:43)
[2016-10-14 11:43] VITALS: BP 153/70; PULSE 93; TEMP 37.1; O2SAT 97
[2016-10-14 13:05] LABS: CALCIUM 7.3 mg/dl (8.5-10.1)
--- NOTE | 2016-10-14 14:21 | Progress Note ---
Subjective Date of Service: Oct 14, 2016. Subjective pt with low grade fever overnight, all counts remain low. has been on doxy for ? tick borne illness but no improvement. ? chemo relate, also with elevated LFTs persistent with no evidence of liver disease on ct. Repeat blood cultures all negative, with exception of mechanical drafter in 1/2 sets. ER cultures 10/06 negative. ESR remain negative, LUCY pending, IGRA pending, hepatitis negative, anaplasma pending. no overnight events. Problem List Medical Problems: (1) Chills Status: Acute (2) Fever of unknown origin Status: Acute (3) Weakness Status: Acute Objective Vital Signs Date Time Temp Pulse Resp B/P (MAP) Pulse Ox O2 Delivery O2 Flow Rate FiO2 10/14/16 11:43 37.1 93 18 153/70 (97) 97 Room Air 10/14/16 10:17 80 97 10/14/16 08:00 Room Air 10/14/16 07:28 37.0 76 20 135/75 (95) 99 Room Air 10/14/16 03:37 36.6 93 20 129/67 (87) 95 Room Air 10/14/16 00:00 Room Air 10/13/16 23:53 36.8 98 20 177/76 (109) 96 Room Air 10/13/16 20:00 Room Air 10/13/16 19:13 37.6 97 18 168/76 (106) 97 Room Air 10/13/16 17:05 37.6 103 20 137/72 97 10/13/16 16:36 37.6 103 20 137/72 97 10/13/16 15:36 36.7 101 24 155/63 (93) 100 Laboratory Results Item Value Date Time Blood Culture - Preliminary Resulted 10/09/16 1500 Blood NO GROWTH TO DATE. Blood Culture - Preliminary Resulted 10/09/16 1455 Blood NO GROWTH TO DATE. Blood Culture - Final Complete 10/08/16 0905 Blood NO GROWTH Blood Culture - Final Complete 10/08/16 0900 Blood Coag Neg Staph Not Lugdunensis C.difficile Toxin B Gene (PCR) - Final Complete 10/08/162006 Stool No C. difficile toxin B gene detected WBC Smear - Final Complete 10/08/162006 Stool Urine Culture - Final Complete 10/08/16 1238 Urine , Clean Catch NO GROWTH - LESS THAN 1,000 COLONIES/ML Last 24 Hours Test 10/13/16 16:02 10/13/16 20:12 10/14/16 05:29 10/14/16 07:55 Bedside Glucose 96 mg/dl 193 mg/dl 120 mg/dl White Blood Count 2.36 K/uL Red Blood Count 2.99 M/uL Hemoglobin 8.7 g/dL Hematocrit 24.6 % Mean Corpuscular Volume 82.3 fL Mean Corpuscular Hemoglobin 29.1 pg Mean Corpuscular Hemoglobin Concent 35.4 g/dl Platelet Count 64 K/uL Mean Platelet Volume 9.7 fL Neutrophils (%) (Auto) 78.4 % Lymphocytes (%) (Auto) 17.8 % Monocytes (%) (Auto) 3.4 % Eosinophils (%) (Auto) 0.0 % Basophils (%) (Auto) 0.0 % Neutrophils # (Auto) 1.85 K/uL Lymphocytes # (Auto) 0.42 K/uL Monocytes # (Auto) 0.08 K/uL Eosinophils # (Auto) 0.00 K/uL Basophils # (Auto) 0.00 K/uL RDW Standard Deviation 46.7 fL RDW Coefficient of Variation 15.5 % Immature Granulocyte % (Auto) 0.4 % Immature Granulocyte # (Auto) 0.01 K/uL Nucleated RBC Absolute Count (auto) 0.02 K/uL Nucleated Red Blood Cells % 0.7 % Large Platelets 1+ Erythrocyte Sedimentation Rate 12 mm/hr Prothrombin Time 12.6 SECONDS Prothromb Time International Ratio 1.2 Sodium Level 135 mmol/L Potassium Level 3.2 mmol/L Chloride Level 104 mmol/L Carbon Dioxide Level 21 mmol/L Anion Gap 10.0 mmol/L Blood Urea Nitrogen 12 mg/dl Creatinine 0.98 mg/dl Est Creatinine Clear Calc Drug Dose 74.4 ml/min Estimated GFR () 86.5 Estimated GFR (Non- 74.6 BUN/Creatinine Ratio 12.1 Random Glucose 106 mg/dl Calcium Level 7.3 mg/dl Total Bilirubin 0.6 mg/dl Direct Bilirubin 0.1 mg/dl Aspartate Amino Transf (AST/SGOT) 171 U/L Alanine Aminotransferase (ALT/SGPT) 157 U/L Alkaline Phosphatase 124 U/L C-Reactive Protein 10.20 mg/dl Total Protein 5.4 gm/dl Albumin 2.1 gm/dl Test 10/14/16 11:40 Bedside Glucose 180 mg/dl Assessment and Plan (1) Fever Assessment & Plan: spoke with primary, doubt infectios etiology, ? treatment/ malignancy related. could check lower ext doppler to r/o clot as cause for fever but this would not explain LFTs and pancytopenia. No inclusion bodies noted on smear, smear c/w with chemo related abnml. No contraindication to sterois if felt to be chemo related, agree with transfer if needed. (2) Positive blood culture
[2016-10-14 14:40] VITALS: BP 153/79; PULSE 97; TEMP 36.8; O2SAT 96
--- NOTE | 2016-10-14 16:38 | Hematology/Oncology Prog Note ---
Hematology/Onc Progress Note Date of Service Oct 14, 2016. Subjective Mr. Salmon reports no change in baseline health status. He has not had a documented fever in past 2 days. He denies cough or dyspnea. His bowels are becoming more formed ; he had 2 bowel movements yesterday. He has not had bleeding from any sites. He believes rash on his arms is resolved, sometime during the night. Vital Signs Vital Signs Past 12 Hours Date Time Temp Pulse Resp B/P (MAP) Pulse Ox O2 Delivery O2 Flow Rate FiO2 10/14/16 14:40 36.8 97 20 153/79 (103) 96 Room Air 10/14/16 11:43 37.1 93 18 153/70 (97) 97 Room Air 10/14/16 10:17 80 97 10/14/16 08:00 Room Air 10/14/16 07:28 37.0 76 20 135/75 (95) 99 Room Air Physical Exam Head: normocephalic, atraumatic ENMT: hearing grossly normal Lungs: Auscuitation: breath sounds normal, no wheezing, no rales/crackles Cardiovascular: Heart Auscultation: RRR, pertinent finding Abdomen: Bowel Sounds: normal Inspection & Palpation: soft Laboratory 10/14/16 05:29 Red Blood Count 2.99, Mean Corpuscular Volume 82.3, Mean Corpuscular Hemoglobin 29.1, Mean Corpuscular Hemoglobin Concent 35.4, Mean Platelet Volume 9.7, Neutrophils (%) (Auto) 78.4, Lymphocytes (%) (Auto) 17.8, Monocytes (%) (Auto) 3.4, Eosinophils (%) (Auto) 0.0, Basophils (%) (Auto) 0.0, Neutrophils # (Auto) 1.85, Lymphocytes # (Auto) 0.42, Monocytes # (Auto) 0.08, Eosinophils # (Auto) 0.00, Basophils # (Auto) 0.00 10/14/16 05:29 Test 10/14/16 05:29 10/14/16 11:40 White Blood Count 2.36 K/uL (4.8-10.8) Red Blood Count 2.99 M/uL (4.7-6.1) Hemoglobin 8.7 g/dL (14.0-18.0) Hematocrit 24.6 % (42-52) Mean Corpuscular Volume 82.3 fL (80-100) Mean Corpuscular Hemoglobin 29.1 pg (25-34) Mean Corpuscular Hemoglobin Concent 35.4 g/dl (32-36) Platelet Count 64 K/uL (130-400) Mean Platelet Volume 9.7 fL (7.4-10.4) Neutrophils (%) (Auto) 78.4 % Lymphocytes (%) (Auto) 17.8 % Monocytes (%) (Auto) 3.4 % Eosinophils (%) (Auto) 0.0 % Basophils (%) (Auto) 0.0 % Neutrophils # (Auto) 1.85 K/uL (1.4-6.5) Lymphocytes # (Auto) 0.42 K/uL (1.2-3.4) Monocytes # (Auto) 0.08 K/uL (0.11-0.59) Eosinophils # (Auto) 0.00 K/uL (0-0.5) Basophils # (Auto) 0.00 K/uL (0-0.2) RDW Standard Deviation 46.7 fL (36.4-46.3) RDW Coefficient of Variation 15.5 % (11.5-14.5) Immature Granulocyte % (Auto) 0.4 % Immature Granulocyte # (Auto) 0.01 K/uL (0.00-0.02) Nucleated RBC Absolute Count (auto) 0.02 K/uL (0-0) Nucleated Red Blood Cells % 0.7 % Large Platelets 1+ Erythrocyte Sedimentation Rate 12 mm/hr (0-14) Prothrombin Time 12.6 SECONDS (9.0-12.0) Prothromb Time International Ratio 1.2 (0.9-1.1) Anion Gap 10.0 mmol/L (3-11) Est Creatinine Clear Calc Drug Dose 74.4 ml/min Estimated GFR () 86.5 Estimated GFR (Non- 74.6 BUN/Creatinine Ratio 12.1 (10-20) Calcium Level 7.3 mg/dl (8.5-10.1) Total Bilirubin 0.6 mg/dl (0.2-1) Direct Bilirubin 0.1 mg/dl (0-0.2) Aspartate Amino Transf (AST/SGOT) 171 U/L (15-37) Alanine Aminotransferase (ALT/SGPT) 157 U/L (12-78) Alkaline Phosphatase 124 U/L (45-117) C-Reactive Protein 10.20 mg/dl (0-0.29) Total Protein 5.4 gm/dl (6.4-8.2) Albumin 2.1 gm/dl (3.4-5.0) Bedside Glucose 180 mg/dl (70-99) Assessment & Plan 1. Metastatic melanoma- s/p 2 infusions Yervoy/Opdivo * Metastatic disease intrathoracic * Patient states he will refuse further immunotherapy, but counseled patient this is a decision he needs to have with his primary managing medical oncologist at [facility] on discharge 2. Fever with positive blood culture for [employer] (thought to be contaminated per ID , uncertain source * Last fever was 2 days prior? * Currently on doxycycline only, vancomycin held due to rash * Management per hospitalist and ID * Tick serology pending, EBV and CMV pending * Hep B+C negative 3. Pancytopenia * PLT count improving, WBC/anemia fairly stable * Possible element of BM suppression with severe acute illness * Question if thrombocytopenia was potentiated by shock to liver (also why may be seeing LFT elevations) 4. LFT elevations * GI consulted- medication vs infectious vs ischemic * Immunotherapy hepatitis can be seen with Yervoy/Opdivo, if infectious and ischemic considered to be less likely by GI, steroids could be initiated for possible immunotherapy hepatitis * LFTs stable to better today 5. Rash * Vancomycin being held due to rash * Dermatitis is also a known immune related AE with immunotherapy, again steroids would be indicated for complication such as this * Rash per patient resolved, verified at least on arms It has been decided by primary service to [place] [facility] [place] of FUO, rash and LFTs. His primary managing oncologist will be able to see him in consult there.
--- NOTE | 2016-10-14 18:26 | Progress Note ---
Medicine Progress Note Date & Time of Visit: Oct 14, 2016 at 16:12. Subjective 76 year old diabetic male with metastatic melanoma on immunotherapy presenting with fever, diarrhea, metabolic encephalopathy and syncopal episodes at home. Since admission he has been on 3 broad abx for several days and still fevering. He developed a rash after the 4th dose of Vancomycin and was taken off this. however, in retrospect this was not likely an allergic reaction as he appears to be suffering side effects of his immunotherapy. He remained on doxycycline but this will be stopped now. His diarrhea, nausea and vomiting has resolved and he is tolerating PO. He has some residual weakness in his legs and continues to work with PT. -tolerating PO -not ambulatory and can hardly sit up as he is so weak -rash persists -fever persisted overnight -denies pain -mentating normally -discuss[place] [facility], held on this so we can give a trial of steroids Objective Last 8 Hrs Date Time Temp Pulse Resp B/P (MAP) Pulse Ox O2 Delivery O2 Flow Rate FiO2 10/14/16 14:40 36.8 97 20 153/79 (103) 96 Room Air 10/14/16 11:43 37.1 93 18 153/70 (97) 97 Room Air 10/14/16 10:17 80 97 Physical Exam: GEN: WNWD, in no acute distress, alert and appropriate HEENT: NC/AT, pupils are equal bilaterally, normal sclerae CARDIO: reg rate, S1/2 heard without m/g/r LUNGS: CTA bilaterally, no crackles, rales or wheezes, good diaphragmatic excursion ABD: +BS, soft, non-tender, non-distended, no rebound or guarding EXTREMITY: RP and DP palpable 2+ bilat, no LE swelling or edema, extremities are warm and well-perfused NEURO: CN 2-12 grossly intact, sensation intact throughout, no gross focal deficits. MUSC: 5/5 strength throughout, no focal deficits SKIN: erythematous papular rash along both arms and extending into subaxillary area, no rash on back or trunk, skin is warm and dry. There are some healing abrasions on knees bilaterally Laboratory Results: 10/14/16 05:29 Red Blood Count 2.99, Mean Corpuscular Volume 82.3, Mean Corpuscular Hemoglobin 29.1, Mean Corpuscular Hemoglobin Concent 35.4, Mean Platelet Volume 9.7, Neutrophils (%) (Auto) 78.4, Lymphocytes (%) (Auto) 17.8, Monocytes (%) (Auto) 3.4, Eosinophils (%) (Auto) 0.0, Basophils (%) (Auto) 0.0, Neutrophils # (Auto) 1.85, Lymphocytes # (Auto) 0.42, Monocytes # (Auto) 0.08, Eosinophils # (Auto) 0.00, Basophils # (Auto) 0.00 10/14/16 05:29 Test 10/08/16 09:00 10/08/16 09:05 10/08/16 12:38 10/08/16 17:20 Peripheral Blood Smear Path Consult Total Creatine Kinase 264 U/L (39-308) Creatine Kinase MB < 0.5 ng/ml (0.5-3.6) Creatine Kinase MB Ratio (0-3.0) Troponin I < 0.015 ng/ml (0-0.045) Lipase 585 U/L (73-393) Procalcitonin 1.54 ng/ml (0-0.5) Lyme Disease IgG Antibody NEG (NEG) Lyme Disease IgM Antibody NEG (NEG) Bedside Lactic Acid Venous 1.60 mmol/L (0.90-1.70) Urine Color DK YELLOW Urine Appearance CLEAR (CLEAR) Urine pH 5.5 (4.5-7.5) Urine Specific [place] 1.024 (1.000-1.030) Urine Protein 3+ (NEG) Urine Glucose (UA) NEG (NEG) Urine Ketones TRACE (NEG) Urine Occult Blood 2+ (NEG) Urine Nitrite NEG (NEG) Urine Bilirubin NEG (NEG) Urine Urobilinogen NEG (NEG) Urine Leukocyte Esterase NEG (NEG) Urine WBC (Auto) 5-10 /hpf (0-5) Urine RBC (Auto) 5-10 /hpf (0-4) Urine Hyaline Casts (Auto) 10-30 /lpf (0-5) Urine Epithelial Cells (Auto) >30 /lpf (0-5) Urine Bacteria (Auto) NEG (NEG) Urine Renal Epithelial Cells /lpf (0-5) Urine Pathogenic Casts 1-5 GRANULAR CASTS /lpf (0) Urine Mucus PRESENT (NONE PRSENT) Osmolality 267 mOsm/kg (280-300) Vitamin B12 Level 565 pg/mL (211-911) Folate > 24.00 ng/mL (>5.38) Thyroid Stimulating Hormone (TSH) 1.550 uIu/ml (0.300-4.500) Random Cortisol 39.22 mcg/dl Adrenocorticotropic Hormone 29 PG/ML (6-50) Test 10/09/16 01:35 10/09/16 06:09 10/10/16 06:15 10/10/16 17:36 Urine Random Sodium 50 mEq/L Magnesium Level 1.9 mg/dl (1.8-2.4) Fibrinogen 213 mg/dl (184-400) Fibrin Degradation Products >40 mcg/ml (<10) Estimated Average Glucose 151 mg/dl Hemoglobin A1c 6.9 % (4.5-5.6) Vancomycin Level Trough 14.8 mcg/ml (SEE COMMENT) Test 10/12/16 06:29 10/13/16 07:24 10/13/16 12:56 10/14/16 05:29 Activated Partial Thromboplast Time 33.6 SECONDS (21.0-31.0) Partial Thromboplastin Ratio 1.3 Hepatitis A IgM Antibody NON-REACTIVE (NON-REACTIVE) Hepatitis B Surface Antigen NEG (NEG) Hepatitis B Core IgM Antibody NON-REACTIVE (NON-REACTIVE) Hepatitis C Antibody NEG (NEG) White Blood Count 2.36 K/uL (4.8-10.8) Red Blood Count 2.99 M/uL (4.7-6.1) Hemoglobin 8.7 g/dL (14.0-18.0) Hematocrit 24.6 % (42-52) Mean Corpuscular Volume 82.3 fL (80-100) Mean Corpuscular Hemoglobin 29.1 pg (25-34) Mean Corpuscular Hemoglobin Concent 35.4 g/dl (32-36) Platelet Count 64 K/uL (130-400) Mean Platelet Volume 9.7 fL (7.4-10.4) Neutrophils (%) (Auto) 78.4 % Lymphocytes (%) (Auto) 17.8 % Monocytes (%) (Auto) 3.4 % Eosinophils (%) (Auto) 0.0 % Basophils (%) (Auto) 0.0 % Neutrophils # (Auto) 1.85 K/uL (1.4-6.5) Lymphocytes # (Auto) 0.42 K/uL (1.2-3.4) Monocytes # (Auto) 0.08 K/uL (0.11-0.59) Eosinophils # (Auto) 0.00 K/uL (0-0.5) Basophils # (Auto) 0.00 K/uL (0-0.2) RDW Standard Deviation 46.7 fL (36.4-46.3) RDW Coefficient of Variation 15.5 % (11.5-14.5) Immature Granulocyte % (Auto) 0.4 % Immature Granulocyte # (Auto) 0.01 K/uL (0.00-0.02) Nucleated RBC Absolute Count (auto) 0.02 K/uL (0-0) Nucleated Red Blood Cells % 0.7 % Large Platelets 1+ Erythrocyte Sedimentation Rate 12 mm/hr (0-14) Prothrombin Time 12.6 SECONDS (9.0-12.0) Prothromb Time International Ratio 1.2 (0.9-1.1) Anion Gap 10.0 mmol/L (3-11) Est Creatinine Clear Calc Drug Dose 74.4 ml/min Estimated GFR () 86.5 Estimated GFR (Non- 74.6 BUN/Creatinine Ratio 12.1 (10-20) Calcium Level 7.3 mg/dl (8.5-10.1) Total Bilirubin 0.6 mg/dl (0.2-1) Direct Bilirubin 0.1 mg/dl (0-0.2) Aspartate Amino Transf (AST/SGOT) 171 U/L (15-37) Alanine Aminotransferase (ALT/SGPT) 157 U/L (12-78) Alkaline Phosphatase 124 U/L (45-117) C-Reactive Protein 10.20 mg/dl (0-0.29) Total Protein 5.4 gm/dl (6.4-8.2) Albumin 2.1 gm/dl (3.4-5.0) Test 10/14/16 17:27 Bedside Glucose 127 mg/dl (70-99) Date/Time Source Procedure Growth Status 10/09/16 15:00 Blood Blood Culture - Preliminary NO GROWTH TO DATE. Resulted 10/08/16 20:07 Stool C.difficile Toxin B Gene (PCR) - Final No C. difficile toxin B gene detected Complete 10/08/16 12:38 Urine , Clean Catch Urine Culture - Final NO GROWTH - LESS THAN 1,000 COLONIES/ML Complete Last 24 Hours Test 10/13/16 20:12 10/14/16 05:29 10/14/16 07:55 10/14/16 11:40 Bedside Glucose 193 mg/dl 120 mg/dl 180 mg/dl White Blood Count 2.36 K/uL Red Blood Count 2.99 M/uL Hemoglobin 8.7 g/dL Hematocrit 24.6 % Mean Corpuscular Volume 82.3 fL Mean Corpuscular Hemoglobin 29.1 pg Mean Corpuscular Hemoglobin Concent 35.4 g/dl Platelet Count 64 K/uL Mean Platelet Volume 9.7 fL Neutrophils (%) (Auto) 78.4 % Lymphocytes (%) (Auto) 17.8 % Monocytes (%) (Auto) 3.4 % Eosinophils (%) (Auto) 0.0 % Basophils (%) (Auto) 0.0 % Neutrophils # (Auto) 1.85 K/uL Lymphocytes # (Auto) 0.42 K/uL Monocytes # (Auto) 0.08 K/uL Eosinophils # (Auto) 0.00 K/uL Basophils # (Auto) 0.00 K/uL RDW Standard Deviation 46.7 fL RDW Coefficient of Variation 15.5 % Immature Granulocyte % (Auto) 0.4 % Immature Granulocyte # (Auto) 0.01 K/uL Nucleated RBC Absolute Count (auto) 0.02 K/uL Nucleated Red Blood Cells % 0.7 % Large Platelets 1+ Erythrocyte Sedimentation Rate 12 mm/hr Prothrombin Time 12.6 SECONDS Prothromb Time International Ratio 1.2 Sodium Level 135 mmol/L Potassium Level 3.2 mmol/L Chloride Level 104 mmol/L Carbon Dioxide Level 21 mmol/L Anion Gap 10.0 mmol/L Blood Urea Nitrogen 12 mg/dl Creatinine 0.98 mg/dl Est Creatinine Clear Calc Drug Dose 74.4 ml/min Estimated GFR () 86.5 Estimated GFR (Non- 74.6 BUN/Creatinine Ratio 12.1 Random Glucose 106 mg/dl Calcium Level 7.3 mg/dl Total Bilirubin 0.6 mg/dl Direct Bilirubin 0.1 mg/dl Aspartate Amino Transf (AST/SGOT) 171 U/L Alanine Aminotransferase (ALT/SGPT) 157 U/L Alkaline Phosphatase 124 U/L C-Reactive Protein 10.20 mg/dl Total Protein 5.4 gm/dl Albumin 2.1 gm/dl Assessment & Plan 76 year old diabetic male with metastatic melanoma on immunotherapy presenting with fever, diarrhea, metabolic encephalopathy and syncopal episodes at home. Since admission he has been on 3 broad abx for several days and still fevering. He developed a rash after the 4th dose of Vancomycin and was taken off this. however, in retrospect this was not likely an allergic reaction as he appears to be suffering side effects of his immunotherapy. He remained on doxycycline but this will be stopped now. His diarrhea, nausea and vomiting has resolved and he is tolerating PO. He has some residual weakness in his legs and continues to work with PT. 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 Hodgson) as well as his Oncologist (Dr. Mesfin Vogel) at [facility]. All issues may be a result of an adverse reaction from this medication which needs to be treated with steroids. Will start prednisone at 1mg/kg daily, first dose tonight, and expect him to defervesce fairly quickly. Of note, TSH and ACTH have already been checked and are within normal limits as this is a consideration with possible autoimmune thyroiditis and adrenal insufficiency. Rheum has been consulted and will formally evaluate him tomorrow or Thurs. The patient is aware of this plan and in agreement. I have cancelled [place] [facility] All issues below (#2 -7) are considered related to #1. will cont to monitor for improvement. 2. Pancytopenia 3. Fever 4. Rash 5. Malignant melanoma-monitor axillary mass and lesions 6. Transaminitis 2/2 above. Cont to trend with steroids and expect these to improve. 7. Syncope-no issues since admission, likely related to adverse drug side effect and orthostasis 8. DMII 9. Pulmonary nodule-monitor per guidelines. 10. Gout-stable, cont allopurinol 11. HLP-holding statin with elevated LFTs 12. OSA_cont nightly CPAP 13. Weakness-likely related to prolonged hospitalization and recent illness. Cont PT. Dispo to rehab when medically stable. DVT proph: SCDs, chemoprophylaxis contraindicated in setting of thrombocytopenia. FULL CODE Dispo-to rehab when medically stable. Nancy Stahl DO [facility] Hospitalist. Consultants: ID, Gastro, Heme, Rheum Current Inpatient Medications: Current Inpatient Medications Medications (Trade) Dose Ordered Sig/Tamika Route Start Time Stop Time Status Last Admin Dose Admin Ondansetron HCl (Zofran Inj) 4 mg Q6H PRN IV 10/08/16 11:15 11/07/16 11:14 10/09/16 00:36 4 MG Insulin Aspart (novoLOG ASPART) SLIDING SCALE If C... ACHS SC 10/08/16 16:00 11/07/16 15:59 10/14/16 13:01 5 UNITS Glucose (Glucose 40% Gel) 15-30 GRAMS 15 GRAMS... UD PRN PO 10/08/16 11:30 11/07/16 11:29 Glucose (Glucose Chew Tab) 4-8 Tablets 4 Tabl... UD PRN PO 10/08/16 11:30 11/07/16 11:29 Dextrose (Dextrose 50% 50ML Syringe) 25-50ML OF 50% DW IV FOR... UD PRN IV 10/08/16 11:30 11/07/16 11:29 Glucagon (Glucagon Inj) 1 mg UD PRN SQ 10/08/16 11:30 11/07/16 11:29 Allopurinol (Zyloprim Tab) 300 mg DAILY PO 10/09/16 09:00 11/08/16 08:59 10/14/16 07:57 300 MG Doxycycline Hyclate (Vibramycin Cap) 100 mg BID PO 10/08/16 21:00 10/18/16 20:59 10/14/16 07:57 100 MG Cetirizine HCl (zyrTEC TAB) 10 mg DAILY PRN PO 10/11/16 19:00 11/10/16 18:59 10/13/16 07:51 10 MG Acetaminophen (Tylenol Tab) 650 mg Q8H PRN PO 10/11/16 22:00 11/08/16 13:59 10/11/16 23:25 650 MG
[2016-10-14 23:36] VITALS: BP 130/63; PULSE 80; TEMP 36.6; O2SAT 92
[2016-10-15 03:40] VITALS: BP 126/69; PULSE 63; TEMP 36.6; O2SAT 98
[2016-10-15 06:15] LABS: HEMATOCRIT 27.3 % (42-52); MEAN CELL VOLUME 83.2 fL (80-100); MEAN CORPUSCULAR HEMOGLOBIN 28.7 pg (25-34); MEAN CORPUSCULAR HGB CONC 34.4 g/dl (32-36); RED BLOOD COUNT 3.28 M/uL (4.7-6.1); WHITE BLOOD COUNT 1.49 K/uL (4.8-10.8)
[2016-10-15 06:17] LABS: MEAN PLATELET VOLUME 9.7 fL (7.4-10.4); PLATELET COUNT 70 K/uL (130-400)
[2016-10-15 06:46] LABS: COMPLETE YES; GIANT PLATELETS 2+; IG% 0.7 %; LYMPH % 19.5 %; LYMPH ABS # 0.29 K/uL (1.2-3.4); NEUT % 77.8 %
[2016-10-15 06:48] LABS: ALB/GLOB RATIO 0.6 (0.9-2); BUN/CREATININE RATIO 15.3 (10-20); C-REACTIVE PROTEIN 9.39 mg/dl (0-0.29); CALCIUM 7.7 mg/dl (8.5-10.1); CREATININE 0.9 mg/dl (0.60-1.40); MAGNESIUM 2.1 mg/dl (1.8-2.4); POTASSIUM 3.7 mmol/L (3.5-5.1)
[2016-10-15 06:57] VITALS: BP 136/70; PULSE 68; TEMP 36; O2SAT 99
[2016-10-15] MEDS: ALLOPURINOL 300 MG TAB PO SCH (08:13)
[2016-10-15] MEDS: INSULIN ASPART 100 UNITS/ML 3 ML PEN SC SCH ×4 (08:16→20:41)
[2016-10-15] MEDS ORDERED: PHARMACY GLYCEMIC MGMT CONSULT PRN (08:23)
--- NOTE | 2016-10-15 08:46 | Pharmacy Progress Note ---
Glycemic Control Intl Consult Date of Service Oct 15, 2016. Scope Glycemic Pharmacist reconsulted by Dr Stahl on 10/15/16 for glycemic control and to write orders per [facility] inpatient glycemic control protocol Objective Weight (Kilograms): 103.600 Accuchecks BSG (last 24hrs): Test 10/14/16 11:40 10/14/16 17:27 10/14/16 20:19 10/14/16 23:32 Bedside Glucose 180 mg/dl (70-99) 127 mg/dl (70-99) 144 mg/dl (70-99) 185 mg/dl (70-99) Test 10/15/16 05:53 10/15/16 07:36 Random Glucose 192 mg/dl (70-99) Bedside Glucose 194 mg/dl (70-99) Laboratory Data (last 24hrs) Test 10/15/16 05:53 Anion Gap 11.0 mmol/L BUN/Creatinine Ratio 15.3 Blood Urea Nitrogen 14 mg/dl Creatinine 0.90 mg/dl Potassium Level 3.7 mmol/L Sodium Level 138 mmol/L White Blood Count 1.49 K/uL Red Blood Count 3.28 M/uL Hemoglobin 9.4 g/dL Hematocrit 27.3 % Mean Corpuscular Volume 83.2 fL Mean Corpuscular Hemoglobin 28.7 pg Mean Corpuscular Hemoglobin Concent 34.4 g/dl Platelet Count 70 K/uL Mean Platelet Volume 9.7 fL Neutrophils (%) (Auto) 77.8 % Lymphocytes (%) (Auto) 19.5 % Monocytes (%) (Auto) 2.0 % Eosinophils (%) (Auto) 0.0 % Basophils (%) (Auto) 0.0 % Neutrophils # (Auto) 1.16 K/uL Lymphocytes # (Auto) 0.29 K/uL Monocytes # (Auto) 0.03 K/uL Eosinophils # (Auto) 0.00 K/uL Basophils # (Auto) 0.00 K/uL HbA1c Test 10/10/16 06:15 Hemoglobin A1c 6.9 % (4.5-5.6) H Recent Pertinent Medications Outpatient Anti-diabetic Regimen: * Metformin 500 mg PO BIDM The patient is currently receiving: * Correctional Insulin: Novolog Correction per scale ACHS Goal Range: Low 110 mg/dL - High 140 mg/dL Correction Factor: 45 mg/dL/unit * Prandial insulin: Per carb ratio of 1 unit per 15 grams CHO consumed Risk Factors for Insulin Resistance: * Steroids: Initiated on Prednisone 100 mg PO daily last night * Diet: DM2 Assessment & Plan ASSESSMENT: * Spoke with MD this morning regarding glycemic consult * 76 yo M w/ good glycemic control as evidenced by A1c <7% * Patient's BSGs have been well controlled on wt-based Novolog since admission and metformin has continued to be held * Per MD, Prednisone 100 mg initiated last night and will continue daily with plans to taper over 10 days * Plan will be to tighten CF/CR as steroids have their most profound effect on post-prandial BSGs * Add NPH in the AM to mimic kinetics of oral prednisone to hopefully avoid peak in BSGs in the early evening * ADA & AACE recommend a goal blood sugar range 140-180 mg/dl for the majority of critically ill & non-critically ill patients. However, more stringent targets may be selected in individual cases. Patient has been maintained this admission with a goal 110-140 mg/dL which has been appropriate. PLAN FOR INPATIENT GLYCEMIC CONTROL: * Continue to hold metformin * Initiate NPH 15 units in the AM * Tighten Correctional Insulin with NOVOLOG per scale ACHS * Goal Range: Low 110 mg/dL - High 140 mg/dL * Correction Factor: 30 mg/dL/unit * Nutritional / Prandial insulin per carb ratio of 1 unit per 10 grams CHO consumed * Please note that the plan above was derived based on current level of insulin resistance and hospital stress. These recommendations are appropriate for inpatient admission only. Plan of care upon discharge will need to be reassessed to avoid potential outpatient hypo/hyperglycemia. Thank you.
--- NOTE | 2016-10-15 09:02 | Progress Note ---
Subjective Date of Service: Oct 15, 2016. Subjective pt started on steroids, wbc still low but just started steroids yesterday, rheum eval today. likely reaction to meds. doxy stopped. pt afebrile overnight. Repeat blood cultures negative and final. no overnight events. Problem List Medical Problems: (1) Chills Status: Acute (2) Fever of unknown origin Status: Acute (3) Weakness Status: Acute Objective Vital Signs Date Time Temp Pulse Resp B/P (MAP) Pulse Ox O2 Delivery O2 Flow Rate FiO2 10/15/16 08:15 Room Air 10/15/16 06:57 36.0 68 20 136/70 (92) 99 Room Air 10/15/16 03:40 36.6 63 18 126/69 (88) 98 Room Air 10/15/16 00:01 Room Air 10/14/16 23:36 36.6 80 20 130/63 (85) 92 Room Air 10/14/16 16:20 Room Air 10/14/16 14:40 36.8 97 20 153/79 (103) 96 Room Air 10/14/16 11:43 37.1 93 18 153/70 (97) 97 Room Air 10/14/16 10:17 80 97 Laboratory Results Item Value Date Time Blood Culture - Final Complete 10/09/16 1500 Blood NO GROWTH Blood Culture - Final Complete 10/09/16 1455 Blood NO GROWTH C.difficile Toxin B Gene (PCR) - Final Complete 10/08/162006 Stool No C. difficile toxin B gene detected Blood Culture - Final Complete 10/08/16 0905 Blood NO GROWTH Blood Culture - Final Complete 10/08/16 0900 Blood Coag Neg Staph Not Lugdunensis Last 24 Hours Test 10/14/16 11:40 10/14/16 17:27 10/14/16 20:19 10/14/16 23:32 Bedside Glucose 180 mg/dl 127 mg/dl 144 mg/dl 185 mg/dl Test 10/15/16 05:53 10/15/16 07:36 White Blood Count 1.49 K/uL Red Blood Count 3.28 M/uL Hemoglobin 9.4 g/dL Hematocrit 27.3 % Mean Corpuscular Volume 83.2 fL Mean Corpuscular Hemoglobin 28.7 pg Mean Corpuscular Hemoglobin Concent 34.4 g/dl Platelet Count 70 K/uL Mean Platelet Volume 9.7 fL Neutrophils (%) (Auto) 77.8 % Lymphocytes (%) (Auto) 19.5 % Monocytes (%) (Auto) 2.0 % Eosinophils (%) (Auto) 0.0 % Basophils (%) (Auto) 0.0 % Neutrophils # (Auto) 1.16 K/uL Lymphocytes # (Auto) 0.29 K/uL Monocytes # (Auto) 0.03 K/uL Eosinophils # (Auto) 0.00 K/uL Basophils # (Auto) 0.00 K/uL RDW Standard Deviation 48.3 fL RDW Coefficient of Variation 15.5 % Immature Granulocyte % (Auto) 0.7 % Immature Granulocyte # (Auto) 0.01 K/uL Giant Platelets 2+ Erythrocyte Sedimentation Rate 27 mm/hr Sodium Level 138 mmol/L Potassium Level 3.7 mmol/L Chloride Level 105 mmol/L Carbon Dioxide Level 22 mmol/L Anion Gap 11.0 mmol/L Blood Urea Nitrogen 14 mg/dl Creatinine 0.90 mg/dl Est Creatinine Clear Calc Drug Dose 80.1 ml/min Estimated GFR () 95.8 Estimated GFR (Non- 82.7 BUN/Creatinine Ratio 15.3 Random Glucose 192 mg/dl Calcium Level 7.7 mg/dl Magnesium Level 2.1 mg/dl Total Bilirubin 0.4 mg/dl Aspartate Amino Transf (AST/SGOT) 124 U/L Alanine Aminotransferase (ALT/SGPT) 159 U/L Alkaline Phosphatase 125 U/L C-Reactive Protein 9.39 mg/dl Total Protein 6.2 gm/dl Albumin 2.3 gm/dl Globulin 3.9 gm/dl Albumin/Globulin Ratio 0.6 Bedside Glucose 194 mg/dl Assessment and Plan (1) Fever Assessment & Plan: likely non infectious. now on steroids, no contraindication from ID standpoint. No new ID recs at this time. (2) Positive blood culture
[2016-10-15] MEDS: INSULIN HUMAN NPH SC SCH (09:03)
[2016-10-15 11:14] VITALS: BP 118/64; PULSE 77; TEMP 36.5; O2SAT 95
[2016-10-15] MEDS ORDERED: DiphenhydrAMINE 2%/ZINC 0.1% CREAM 28GM TUBE EXT PRN (11:15)
[2016-10-15] MEDS ORDERED: DiphenhydrAMINE INJ 25 MG in SYRINGE 0 ML IV SCH (11:15)
--- NOTE | 2016-10-15 11:25 | Progress Note ---
Medicine Progress Note Date & Time of Visit: Oct 15, 2016 at 11:18. Subjective 76 year old diabetic male with metastatic melanoma on immunotherapy presenting with fever, diarrhea, metabolic encephalopathy and syncopal episodes at home. Since admission he has been on 3 broad abx for several days and still fevering. He developed a rash after the 4th dose of Vancomycin and was taken off this. however, in retrospect this was not likely an allergic reaction as he appears to be suffering side effects of his immunotherapy. Doxy was stopped with no fevers overnight. His diarrhea, nausea and vomiting has resolved and he is tolerating PO. He has some residual weakness in his legs and continues to work with PT. High dose steroids started last night after conversations with Rheum and his treating Oncologist, Dr. Vogel from [facility]. There is a concern that he has AIH. Rash worsened with itching overnight and WBC decreased slightly, however, will cont with steroids and start Benadryl for supportive care. Will monitor symptoms closely. -pt reports that he slept well -denies pain -rash became more itchy on his arms and is now along his anterior chest, no rash on back -steroids started last night -pt feeling well overall -tolerating PO -continues with PT -no fevers overnight--was taken off doxy last night Objective Last 8 Hrs Date Time Temp Pulse Resp B/P (MAP) Pulse Ox O2 Delivery O2 Flow Rate FiO2 10/15/16 11:14 36.5 77 18 118/64 (82) 95 Room Air 10/15/16 08:15 Room Air 10/15/16 06:57 36.0 68 20 136/70 (92) 99 Room Air 10/15/16 03:40 36.6 63 18 126/69 (88) 98 Room Air Physical Exam: GEN: WNWD, in no acute distress, alert and appropriate HEENT: NC/AT, pupils are equal bilaterally, normal sclerae CARDIO: reg rate, S1/2 heard without m/g/r LUNGS: CTA bilaterally, no crackles, rales or wheezes, good diaphragmatic excursion ABD: +BS, soft, non-tender, non-distended, no rebound or guarding EXTREMITY: RP and DP palpable 2+ bilat, no LE swelling or edema, extremities are warm and well-perfused NEURO: CN 2-12 grossly intact, sensation intact throughout, no gross focal deficits. MUSC: 5/5 strength throughout, no focal deficits SKIN: erythematous papular rash along both arms and extending into subaxillary area, with some extension onto anterior chest, skin is warm and dry. There are some healing abrasions on knees bilaterally Laboratory Results: Last 24 Hours Test 10/14/16 11:40 10/14/16 17:27 10/14/16 20:19 10/14/16 23:32 Bedside Glucose 180 mg/dl 127 mg/dl 144 mg/dl 185 mg/dl Test 10/15/16 05:53 10/15/16 07:36 White Blood Count 1.49 K/uL Red Blood Count 3.28 M/uL Hemoglobin 9.4 g/dL Hematocrit 27.3 % Mean Corpuscular Volume 83.2 fL Mean Corpuscular Hemoglobin 28.7 pg Mean Corpuscular Hemoglobin Concent 34.4 g/dl Platelet Count 70 K/uL Mean Platelet Volume 9.7 fL Neutrophils (%) (Auto) 77.8 % Lymphocytes (%) (Auto) 19.5 % Monocytes (%) (Auto) 2.0 % Eosinophils (%) (Auto) 0.0 % Basophils (%) (Auto) 0.0 % Neutrophils # (Auto) 1.16 K/uL Lymphocytes # (Auto) 0.29 K/uL Monocytes # (Auto) 0.03 K/uL Eosinophils # (Auto) 0.00 K/uL Basophils # (Auto) 0.00 K/uL RDW Standard Deviation 48.3 fL RDW Coefficient of Variation 15.5 % Immature Granulocyte % (Auto) 0.7 % Immature Granulocyte # (Auto) 0.01 K/uL Giant Platelets 2+ Erythrocyte Sedimentation Rate 27 mm/hr Sodium Level 138 mmol/L Potassium Level 3.7 mmol/L Chloride Level 105 mmol/L Carbon Dioxide Level 22 mmol/L Anion Gap 11.0 mmol/L Blood Urea Nitrogen 14 mg/dl Creatinine 0.90 mg/dl Est Creatinine Clear Calc Drug Dose 80.1 ml/min Estimated GFR () 95.8 Estimated GFR (Non- 82.7 BUN/Creatinine Ratio 15.3 Random Glucose 192 mg/dl Calcium Level 7.7 mg/dl Magnesium Level 2.1 mg/dl Total Bilirubin 0.4 mg/dl Aspartate Amino Transf (AST/SGOT) 124 U/L Alanine Aminotransferase (ALT/SGPT) 159 U/L Alkaline Phosphatase 125 U/L C-Reactive Protein 9.39 mg/dl Total Protein 6.2 gm/dl Albumin 2.3 gm/dl Globulin 3.9 gm/dl Albumin/Globulin Ratio 0.6 Bedside Glucose 194 mg/dl Assessment & Plan 76 year old diabetic male with metastatic melanoma on immunotherapy presenting with fever, diarrhea, metabolic encephalopathy and syncopal episodes at home. Since admission he has been on 3 broad abx for several days and still fevering. He developed a rash after the 4th dose of Vancomycin and was taken off this. however, in retrospect this was not likely an allergic reaction as he appears to be suffering side effects of his immunotherapy. Doxy was stopped with no fevers overnight. His diarrhea, nausea and vomiting has resolved and he is tolerating PO. He has some residual weakness in his legs and continues to work with PT. High dose steroids started last night after conversations with Rheum and his treating Oncologist, Dr. Vogel from [facility]. There is a concern that he has AIH. Rash worsened with itching overnight and WBC decreased slightly, however, will cont with steroids and start Benadryl for supportive care. Will monitor symptoms closely. 1. 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 No fevers overnight. Of note, TSH and ACTH have already been checked and are within normal limits as this is a consideration with possible autoimmune thyroiditis and adrenal insufficiency. Rheum has been consulted and will formally evaluate him within the next two days. The patient is aware of this plan and in agreement. I have cancelled the transfer order to [facility]. All issues below (#2-7 ) are considered related to #1. will cont to monitor for improvement. 2. Pancytopenia 3. Fever 4. Rash 5. Malignant melanoma-monitor axillary mass and lesions 6. Transaminitis 2/2 above. Cont to trend with steroids and expect these to improve. 7. Syncope-no issues since admission, likely related to adverse drug side effect and orthostasis 8. DMII--glycemic pharmacy consutl placed and I discussed the case with pharmacist. Now on high dose steroids so expect the blood sugar to rise. She is aware and will adjust insulin accordingly. 9. Pulmonary nodule-monitor per guidelines. 10. Gout-stable, cont allopurinol 11. HLP-holding statin with elevated LFTs-trend them while on the steroids. 12. SAVANNAH-cont nightly CPAP 13. Weakness-likely related to prolonged hospitalization and recent illness. Cont PT. Dispo to rehab when medically stable. DVT proph: SCDs, chemoprophylaxis contraindicated in setting of thrombocytopenia which is again improved today but not >100. FULL CODE Dispo-to rehab when medically stable. Nancy Stahl DO [facility] Hospitalist. Consultants: ID, Gastro, Heme, Rheum Current Inpatient Medications: Current Inpatient Medications Medications (Trade) Dose Ordered Sig/Tamika Route Start Time Stop Time Status Last Admin Dose Admin Ondansetron HCl (Zofran Inj) 4 mg Q6H PRN IV 10/08/16 11:15 11/07/16 11:14 10/09/16 00:36 4 MG Insulin Aspart (novoLOG ASPART) SLIDING SCALE If C... ACHS SC 10/08/16 16:00 11/07/16 15:59 10/15/16 08:16 5 UNITS Glucose (Glucose 40% Gel) 15-30 GRAMS 15 GRAMS... UD PRN PO 10/08/16 11:30 11/07/16 11:29 Glucose (Glucose Chew Tab) 4-8 Tablets 4 Tabl... UD PRN PO 10/08/16 11:30 11/07/16 11:29 Dextrose (Dextrose 50% 50ML Syringe) 25-50ML OF 50% DW IV FOR... UD PRN IV 10/08/16 11:30 11/07/16 11:29 Glucagon (Glucagon Inj) 1 mg UD PRN SQ 10/08/16 11:30 11/07/16 11:29 Allopurinol (Zyloprim Tab) 300 mg DAILY PO 10/09/16 09:00 11/08/16 08:59 10/15/16 08:13 300 MG Cetirizine HCl (zyrTEC TAB) 10 mg DAILY PRN PO 10/11/16 19:00 11/10/16 18:59 10/13/16 07:51 10 MG Acetaminophen (Tylenol Tab) 650 mg Q8H PRN PO 10/11/16 22:00 11/08/16 13:59 10/11/16 23:25 650 MG Prednisone (PredniSONE TAB) 100 mg DAILY@1200 PO 10/14/16 18:15 11/13/16 18:14 10/14/16 18:27 100 MG Miscellaneous Information (Consult Glycemic Management Pharmacy) 1 ea UD PRN N/A 10/15/16 08:23 11/14/16 08:22 Insulin Human NPH (novoLIN-N NPH) 15 units DAILY@0800 SC 10/15/16 08:45 11/14/16 08:44 10/15/16 09:03 15 UNITS Diphenhydramine HCl 25 mg/Syringe 0.5 ml @ 1 mls/min ONE IV 10/15/16 11:15 11/14/16 11:14 UNV Diphenhydramine HCl (Benadryl Cap) 25 mg Q6H PRN PO 10/15/16 17:00 11/14/16 16:59 UNV Diphenhydramine HCl (Benadryl Extra Strength Cream) 1 appln Q6H PRN EXT 10/15/16 11:15 11/14/16 11:14 UNV
[2016-10-15] MEDS ORDERED: DiphenhydrAMINE HCL 50 MG/ML VIAL IV ONE (11:30)
[2016-10-15 15:01] VITALS: BP 139/69; PULSE 78; TEMP 36.2; O2SAT 96
--- NOTE | 2016-10-15 16:24 | Hematology/Oncology Prog Note ---
Hematology/Onc Progress Note Date of Service Oct 15, 2016. Medications Current Inpatient Medications Medications (Trade) Dose Ordered Sig/Tamika Route Start Time Stop Time Status Last Admin Dose Admin Ondansetron HCl (Zofran Inj) 4 mg Q6H PRN IV 10/08/16 11:15 11/07/16 11:14 10/09/16 00:36 4 MG Insulin Aspart (novoLOG ASPART) SLIDING SCALE If C... ACHS SC 10/08/16 16:00 11/07/16 15:59 10/15/16 12:53 5 UNITS Glucose (Glucose 40% Gel) 15-30 GRAMS 15 GRAMS... UD PRN PO 10/08/16 11:30 11/07/16 11:29 Glucose (Glucose Chew Tab) 4-8 Tablets 4 Tabl... UD PRN PO 10/08/16 11:30 11/07/16 11:29 Dextrose (Dextrose 50% 50ML Syringe) 25-50ML OF 50% DW IV FOR... UD PRN IV 10/08/16 11:30 11/07/16 11:29 Glucagon (Glucagon Inj) 1 mg UD PRN SQ 10/08/16 11:30 11/07/16 11:29 Allopurinol (Zyloprim Tab) 300 mg DAILY PO 10/09/16 09:00 11/08/16 08:59 10/15/16 08:13 300 MG Cetirizine HCl (zyrTEC TAB) 10 mg DAILY PRN PO 10/11/16 19:00 11/10/16 18:59 10/13/16 07:51 10 MG Acetaminophen (Tylenol Tab) 650 mg Q8H PRN PO 10/11/16 22:00 11/08/16 13:59 10/11/16 23:25 650 MG Prednisone (PredniSONE TAB) 100 mg DAILY@1200 PO 10/14/16 18:15 11/13/16 18:14 10/15/16 11:56 100 MG Miscellaneous Information (Consult Glycemic Management Pharmacy) 1 ea UD PRN N/A 10/15/16 08:23 11/14/16 08:22 Insulin Human NPH (novoLIN-N NPH) 15 units DAILY@0800 SC 10/15/16 08:45 11/14/16 08:44 10/15/16 09:03 15 UNITS Diphenhydramine HCl (Benadryl Cap) 25 mg Q6H PRN PO 10/15/16 17:00 11/14/16 16:59 Diphenhydramine HCl (Benadryl Extra Strength Cream) 1 appln Q6H PRN EXT 10/15/16 11:15 11/14/16 11:14 Insulin Aspart (novoLOG ASPART) SLIDING SCALE If C... 0200 SC 10/16/16 02:00 11/15/16 01:59 Subjective Mr. Salmon reports no change in baseline health status. He has not had a documented fever in past 2-3 days. He denies cough or dyspnea. It has been a couple of days since last BM. He denies nausea or abdominal pain. He does not think he has a rash currently and denies pruritus. Vital Signs Vital Signs Past 12 Hours Date Time Temp Pulse Resp B/P (MAP) Pulse Ox O2 Delivery O2 Flow Rate FiO2 10/15/16 15:01 36.2 78 18 139/69 (92) 96 Room Air 10/15/16 11:14 36.5 77 18 118/64 (82) 95 Room Air 10/15/16 08:15 Room Air 10/15/16 06:57 36.0 68 20 136/70 (92) 99 Room Air Physical Exam Head: normocephalic, atraumatic ENMT: hearing grossly normal Lungs: Auscuitation: breath sounds normal, no wheezing, no rales/crackles Cardiovascular: Heart Auscultation: RRR, pertinent finding Extremities: no edema, no palpable cord Laboratory 10/15/16 05:53 Red Blood Count 3.28, Mean Corpuscular Volume 83.2, Mean Corpuscular Hemoglobin 28.7, Mean Corpuscular Hemoglobin Concent 34.4, Mean Platelet Volume 9.7, Neutrophils (%) (Auto) 77.8, Lymphocytes (%) (Auto) 19.5, Monocytes (%) (Auto) 2.0, Eosinophils (%) (Auto) 0.0, Basophils (%) (Auto) 0.0, Neutrophils # (Auto) 1.16, Lymphocytes # (Auto) 0.29, Monocytes # (Auto) 0.03, Eosinophils # (Auto) 0.00, Basophils # (Auto) 0.00 10/15/16 05:53 Test 10/15/16 05:53 10/15/16 11:22 White Blood Count 1.49 K/uL (4.8-10.8) Red Blood Count 3.28 M/uL (4.7-6.1) Hemoglobin 9.4 g/dL (14.0-18.0) Hematocrit 27.3 % (42-52) Mean Corpuscular Volume 83.2 fL (80-100) Mean Corpuscular Hemoglobin 28.7 pg (25-34) Mean Corpuscular Hemoglobin Concent 34.4 g/dl (32-36) Platelet Count 70 K/uL (130-400) Mean Platelet Volume 9.7 fL (7.4-10.4) Neutrophils (%) (Auto) 77.8 % Lymphocytes (%) (Auto) 19.5 % Monocytes (%) (Auto) 2.0 % Eosinophils (%) (Auto) 0.0 % Basophils (%) (Auto) 0.0 % Neutrophils # (Auto) 1.16 K/uL (1.4-6.5) Lymphocytes # (Auto) 0.29 K/uL (1.2-3.4) Monocytes # (Auto) 0.03 K/uL (0.11-0.59) Eosinophils # (Auto) 0.00 K/uL (0-0.5) Basophils # (Auto) 0.00 K/uL (0-0.2) RDW Standard Deviation 48.3 fL (36.4-46.3) RDW Coefficient of Variation 15.5 % (11.5-14.5) Immature Granulocyte % (Auto) 0.7 % Immature Granulocyte # (Auto) 0.01 K/uL (0.00-0.02) Giant Platelets 2+ Erythrocyte Sedimentation Rate 27 mm/hr (0-14) Anion Gap 11.0 mmol/L (3-11) Est Creatinine Clear Calc Drug Dose 80.1 ml/min Estimated GFR () 95.8 Estimated GFR (Non- 82.7 BUN/Creatinine Ratio 15.3 (10-20) Calcium Level 7.7 mg/dl (8.5-10.1) Magnesium Level 2.1 mg/dl (1.8-2.4) Total Bilirubin 0.4 mg/dl (0.2-1) Aspartate Amino Transf (AST/SGOT) 124 U/L (15-37) Alanine Aminotransferase (ALT/SGPT) 159 U/L (12-78) Alkaline Phosphatase 125 U/L (45-117) C-Reactive Protein 9.39 mg/dl (0-0.29) Total Protein 6.2 gm/dl (6.4-8.2) Albumin 2.3 gm/dl (3.4-5.0) Globulin 3.9 gm/dl (2.5-4.0) Albumin/Globulin Ratio 0.6 (0.9-2) Bedside Glucose 230 mg/dl (70-99) Assessment & Plan 1. Metastatic melanoma- s/p 2 infusions Yervoy/Opdivo * Metastatic disease intrathoracic, receiving XRT currently * Patient states he will refuse further immunotherapy, but counseled patient this is a decision he needs to have with his primary managing medical oncologist at [facility] on discharge 2. Fever with positive blood culture for [employer]ELER [employer]ATOR (thought to be contaminated per ID , uncertain source) * Last fever was 2-3 days prior * Antibiotics discontinued at this time * Malignancy/treatment related? * Tick serology pending, EBV and CMV pending * Hep B+C negative 3. Pancytopenia * PLT count improving, WBC/anemia fairly stable, WBC should improve with steroid administration * Possible element of BM suppression with severe acute illness * Continue to monitor CBCD daily 4. LFT elevations * GI consulted- medication vs infectious vs ischemic * Immunotherapy hepatitis can be seen with Yervoy/Opdivo- rheum consulted and GI on board that likely related to treatment * Hospitalist started patient on prednisone after discussion with patient's primary medical oncologist- now on 100 mg daily * LFTs stable to better today 5. Rash * Vancomycin was being held due to rash * Dermatitis is also a known immune related AE with immunotherapy- now felt to be the cause of rash (see above for steroid regimen) Will continue to follow along while patient is hospitalized. Patient will ultimately return to the care of his primary managing medical oncologist. Discussed with Kendall Vee PA-C and agree with her note
[2016-10-15 20:13] VITALS: BP 147/73; PULSE 74; TEMP 36.2; O2SAT 97
[2016-10-15 23:34] VITALS: BP 155/68; PULSE 70; TEMP 36.3; O2SAT 92
[2016-10-16] VITALS (7 sets, daily range): BP systolic 121–187; BP diastolic 60–83; PULSE 69–112; TEMP 36.2–36.6; O2SAT 95–98
[2016-10-16] MEDS ORDERED: INSULIN ASPART 100 UNITS/ML 3 ML PEN SC SCH (02:00)
[2016-10-16 06:45] LABS: HEMATOCRIT 26.4 % (42-52); MEAN CELL VOLUME 82.8 fL (80-100); MEAN CORPUSCULAR HEMOGLOBIN 29.2 pg (25-34); MEAN CORPUSCULAR HGB CONC 35.2 g/dl (32-36); MEAN PLATELET VOLUME 9.9 fL (7.4-10.4); PLATELET COUNT 104 K/uL (130-400); RED BLOOD COUNT 3.19 M/uL (4.7-6.1); WHITE BLOOD COUNT 2.67 K/uL (4.8-10.8)
[2016-10-16 07:18] LABS: BUN/CREATININE RATIO 20.2 (10-20); CALCIUM 8.3 mg/dl (8.5-10.1); CREATININE 0.85 mg/dl (0.60-1.40); POTASSIUM 3.6 mmol/L (3.5-5.1)
[2016-10-16 07:21] LABS: ALB/GLOB RATIO 0.6 (0.9-2)
--- NOTE | 2016-10-16 07:26 | Rheumatology Consultation ---
Rheumatology Consultation Date of Consultation: Oct 16, 2016. Reason for Consultation: persistent fevers, pancytopenia, and transaminitis History of Present Illness 76 yo M with metastatic melanoma on immunotherapy who was admitted 8 days ago for persistent fevers and drenching night sweats. Patient noted to have pancytopenia and transamintis. Infectious workup has been negative. He was treated with antibiotics and developed diffuse rash which was initially thought to be due to vancomycin. Overall constellation of symptoms now thought to be due to his immunotherapy with Ipilimumab and nivolumab. Primary team spoke to Dr. Estevez and patient was started on 1 mg/kg of oral prednisone on 10/14/16. He has been afebrile for several days. Several immune serologies and infectious workup are still pending. Today he is concerned that he has been urinating every 2 hours. He does report some burning with urination. He is also worries that he has been unable to walk unassisted. He tells me that prior to his admission, he lost consciousness twice a home and found himself on the floor. He had loss of bowel function with one episode. He does not have any joint pain, numbness, or tingling. No prior rashes before this admission. Past Medical/Surgical History Metastatic melanoma Gout Osteoarthritis Dyslipidemia Type 2 diabetes Sleep disturbance Retinopathy Obstructive sleep apnea Obesity Laminectomy of the lumbar spine Bilateral carpal tunnel release surgery Social History Smoking Status: Former Smoker History of Alcohol Use: No Housing Status: lives alone Occupation Status: retired Review of Systems Constitutional: + fever, + sweats, + weakness, + fatigue Cardiac: No chest pain, No orthopnea Abdomen: No pain, No nausea Musculoskeletal: No joint pain, No muscle pain Male : + dysuria, + urinary frequency Neurologic: + weakness Skin: + rash Allergies Coded Allergies: No Known Allergies (Unverified , 10/14/16) Medications Current Inpatient Medications Medications (Trade) Dose Ordered Sig/Tamika Route Start Time Stop Time Status Last Admin Dose Admin Ondansetron HCl (Zofran Inj) 4 mg Q6H PRN IV 10/08/16 11:15 11/07/16 11:14 10/09/16 00:36 4 MG Insulin Aspart (novoLOG ASPART) SLIDING SCALE If C... ACHS SC 10/08/16 16:00 7/21/17 15:59 10/15/16 20:41 3 UNITS Glucose (Glucose 40% Gel) 15-30 GRAMS 15 GRAMS... UD PRN PO 10/08/16 11:30 11/07/16 11:29 Glucose (Glucose Chew Tab) 4-8 Tablets 4 Tabl... UD PRN PO 10/08/16 11:30 11/07/16 11:29 Dextrose (Dextrose 50% 50ML Syringe) 25-50ML OF 50% DW IV FOR... UD PRN IV 10/08/16 11:30 11/07/16 11:29 Glucagon (Glucagon Inj) 1 mg UD PRN SQ 10/08/16 11:30 11/07/16 11:29 Allopurinol (Zyloprim Tab) 300 mg DAILY PO 10/09/16 09:00 11/08/16 08:59 10/15/16 08:13 300 MG Cetirizine HCl (zyrTEC TAB) 10 mg DAILY PRN PO 10/11/16 19:00 11/10/16 18:59 10/13/16 07:51 10 MG Acetaminophen (Tylenol Tab) 650 mg Q8H PRN PO 10/11/16 22:00 11/08/16 13:59 10/11/16 23:25 650 MG Prednisone (PredniSONE TAB) 100 mg DAILY@1200 PO 10/14/16 18:15 11/13/16 18:14 10/15/16 11:56 100 MG Miscellaneous Information (Consult Glycemic Management Pharmacy) 1 ea UD PRN N/A 10/15/16 08:23 11/14/16 08:22 Insulin Human NPH (novoLIN-N NPH) 15 units DAILY@0800 SC 10/15/16 08:45 11/14/16 08:44 10/15/16 09:03 15 UNITS Diphenhydramine HCl (Benadryl Cap) 25 mg Q6H PRN PO 10/15/16 17:00 11/14/16 16:59 Diphenhydramine HCl (Benadryl Extra Strength Cream) 1 appln Q6H PRN EXT 10/15/16 11:15 11/14/16 11:14 Insulin Aspart (novoLOG ASPART) SLIDING SCALE If C... 0200 SC 10/16/16 02:00 11/15/16 01:59 10/16/16 01:45 3 UNITS Physical Exam Date Time Temp Pulse Resp B/P (MAP) Pulse Ox O2 Delivery O2 Flow Rate FiO2 10/16/16 04:31 36.2 69 20 133/70 (91) 97 Room Air 10/16/16 00:00 Room Air 10/15/16 23:34 36.3 70 20 155/68 (97) 92 Room Air 10/15/16 20:13 36.2 74 17 147/73 (97) 97 Room Air 10/15/16 16:00 Room Air 10/15/16 15:01 36.2 78 18 139/69 (92) 96 Room Air 10/15/16 11:14 36.5 77 18 118/64 (82) 95 Room Air 10/15/16 08:15 Room Air Eyes: bilateral eyes normal inspection, bilateral eyes EOMI ENT: normal ENT inspection Neck: no adenopathy Respiratory: chest non-tender, lungs clear, normal breath sounds, no respiratory distress Cardiovascular: regular rate, rhythm Abdomen: normal bowel sounds, soft Neurologic/Psychiatric: no motor/sensory deficits (able to move all extremities ; gait not assessed.), normal mood/affect, oriented x 3 Skin: warm/dry, + rash Laboratory Results Last 24 Hours Test 10/15/16 07:36 10/15/16 11:22 10/15/16 16:58 10/15/16 20:17 Bedside Glucose 194 mg/dl 230 mg/dl 189 mg/dl 229 mg/dl Test 10/16/16 01:41 10/16/16 06:03 Bedside Glucose 215 mg/dl White Blood Count 2.67 K/uL Red Blood Count 3.19 M/uL Hemoglobin 9.3 g/dL Hematocrit 26.4 % Mean Corpuscular Volume 82.8 fL Mean Corpuscular Hemoglobin 29.2 pg Mean Corpuscular Hemoglobin Concent 35.2 g/dl RDW Standard Deviation 47.2 fL RDW Coefficient of Variation 15.4 % Platelet Count 104 K/uL Mean Platelet Volume 9.9 fL Assessment & Plan Assessment & Plan: 76 yo M with metastatic melanoma started on immunotherapy and subsequently developed persistent fevers, pancytopenia, and transaminitis. Infectious workup has been unrevealing. Symptoms thought to be toxicity associated with checkpoint inhibitor immunotherapy. He has remained afebrile since starting prednisone. His main concern today was frequent urination with burning and not being able to walk unassisted. He denies joint pain or paresthesias. Recommendations --continue 1mg/kg of prednisone for several more days to ensure ongoing improvement of his cell counts and liver function then decrease to 60 mg daily in the AM and gradually taper steroids over at least 1 month --control blood glucose, provide calcium +D for bone health --recheck urinalysis --continue physical therapy, if lower extremity weakness persists, would consider MRI of the lumbar spine to assess for any spinal cord lesions --can schedule with rheumatology 1-2 weeks after discharge as a (RETURN PATIENT) --follow-up pending labs --follow-up with oncology Thank you for allowing rheumatology to participate in the care of this patient.
[2016-10-16] MEDS: CETIRIZINE HCL 10 MG TAB PO PRN (08:22)
[2016-10-16] MEDS: ALLOPURINOL 300 MG TAB PO SCH (08:22)
[2016-10-16] MEDS: INSULIN ASPART 100 UNITS/ML 3 ML PEN SC SCH ×4 (08:27→20:19)
[2016-10-16] MEDS: INSULIN HUMAN NPH SC SCH (08:30)
--- NOTE | 2016-10-16 08:56 | Progress Note ---
Progress Note Date of Service Oct 16, 2016. Progress Note Pt was seen and evaluated this AM. No acute events overnight. Reports a fall around 0915 when he was ambulating assisted from the bathroom to his bed. Fall was assisted. He landed on both knees. Previous abrasions on knees had opened up and were bleeding. Knees are now bandaged. No other injuries noted, he did not hit this head. Lift team assisted him back into bed. He was started on 1mg/ kg of prednisone by rheumatology for concern of AIH given mildly elevated transaminases. Serological work up still pending. LFTs improving this AM. PE: No acute distress, family is now at bedside. Heart is regular in rate and rhythm. Lungs CTA. ABD with+ BS x 4 quadrants without any abdominal pain. A 76-year-old male with multiple medical comorbidities including malignant melanoma on opdivo/yervoy with new elevation of his transaminases. Medication induced vs infectious vs ischemic. Serological work up pending. Rheumatology started prednisone as they were concerned about AIH. Specifically, there is no sign of impending liver failure Hold statin Follow labs Continue supportive measures Monitor LFTs Additional recommendations per rheumatology Please call with any questions or concerns. GI will watch labs peripherally.
[2016-10-16] MEDS: CALCIUM 600MG + VIT D 400 IU TAB PO SCH ×2 (11:07→20:15)
[2016-10-16 13:28] LABS: URINE APPEARANCE CLEAR (CLEAR); URINE BILIRUBIN NEG (NEG); URINE COLOR YELLOW; URINE EPITHELIAL CELL AUTO >30 /lpf (0-5); URINE NITRITE NEG (NEG); URINE SPECIFIC GRAVITY 1.019 (1.000-1.030); UROBILINOGEN NEG (NEG)
[2016-10-16 13:29] LABS: MANUAL MICROSCOPIC REQUIRED? NO; REVIEW REQ? NO
[2016-10-16] MEDS: PHENAZOPYRIDINE HCL 200 MG TAB PO SCH ×2 (14:18→20:16)
[2016-10-16 15:54] LABS: QUANTIF TB AG-NIL 0.05 IU/ML; QUANTIFERON NIL 0.72 IU/ML
[2016-10-16 19:35] LABS: ANAPLASMA PHAGOCYTOPHIL IGG <1:64 (<1:64); ANAPLASMA PHAGOCYTOPHIL IGM <1:20 (<1:20); EHRLICHIA CHAFF IGG AB <1:64 (<1:64); EHRLICHIA CHAFF IGM AB <1:20 (<1:20)
[2016-10-17 00:29] VITALS: BP 139/66; PULSE 70; TEMP 36.4; O2SAT 98
[2016-10-17 07:24] VITALS: BP 155/72; PULSE 71; TEMP 36.3; O2SAT 94
[2016-10-17] MEDS: CETIRIZINE HCL 10 MG TAB PO PRN (07:52)
[2016-10-17] MEDS: ALLOPURINOL 300 MG TAB PO SCH (07:52)
[2016-10-17] MEDS: PHENAZOPYRIDINE HCL 200 MG TAB PO SCH ×2 (07:53→13:59)
[2016-10-17] MEDS: CALCIUM 600MG + VIT D 400 IU TAB PO SCH ×2 (07:53→21:23)
[2016-10-17] MEDS: INSULIN ASPART 100 UNITS/ML 3 ML PEN SC SCH ×4 (08:34→21:28)
[2016-10-17] MEDS: INSULIN HUMAN NPH SC SCH (08:35)
--- NOTE | 2016-10-17 09:08 | Pharmacy Progress Note ---
Glycemic Control Progress Note Date of Service Oct 17, 2016. Scope Glycemic Pharmacist consulted for glycemic control to write orders per [facility] inpatient glycemic control protocol. Objective Accuchecks BSG (last 24hrs): Test 10/16/16 09:21 10/16/16 11:40 10/16/16 17:18 10/16/16 19:44 Bedside Glucose 202 mg/dl (70-99) 183 mg/dl (70-99) 181 mg/dl (70-99) 217 mg/dl (70-99) Test 10/17/16 07:49 10/17/16 08:28 Bedside Glucose 113 mg/dl (70-99) HbA1c: Test 10/10/16 06:15 Hemoglobin A1c 6.9 % (4.5-5.6) H Recent Pertinent Medications Outpatient Anti-diabetic Regimen: * Metformin 500 mg PO BIDM The patient is currently receiving: * Correctional Insulin: Novolog Correction per scale ACHS Goal Range: Low 110 mg/dL - High 140 mg/dL Correction Factor: 25 mg/dL/unit * Prandial insulin: Per carb ratio of 1 unit per 8 grams CHO consumed Risk Factors for Insulin Resistance: * Steroids * Diet Outpatient Anti-Diabetic Meds Oral Agents Assessment & Plan ASSESSMENT: * 76 yo M w/ good glycemic control as evidenced by A1c <7% * Since the initiation of Prednisone 100 mg daily, insulin requirements have increased as expected when compared to prior days not on steroids (~10 units versus ~40 units) * Fasting BSG = 113 this AM; This is within goal range; however, he required ~ 43 units of insulin total yesterday and all BSGs were above goal range. Increase NPH to 20 units today. If steroids taper, clearly we need to go back to 15 and begin to taper NPH with each step down in steroid dose. * Prandial BSGs above goal range at all checks over the past 24 hours. Tighten CF/CR. * ADA & AACE recommend a goal blood sugar range 140-180 mg/dl for the majority of critically ill & non-critically ill patients. However, more stringent targets may be selected in individual cases. Patient has been maintained this admission with a goal 110-140 mg/dL which has been appropriate. PLAN FOR INPATIENT GLYCEMIC CONTROL: * Continue to hold metformin * Increase to NPH 20 units in the AM * Tighten Correctional Insulin with NOVOLOG per scale ACHS * Goal Range: Low 110 mg/dL - High 140 mg/dL * Correction Factor: 20 mg/dL/unit * Nutritional / Prandial insulin per carb ratio of 1 unit per 7 grams CHO consumed * Taper insulin coverage with each step down in steroid dose * Please note that the plan above was derived based on current level of insulin resistance and hospital stress. These recommendations are appropriate for inpatient admission only. Plan of care upon discharge will need to be reassessed to avoid potential outpatient hypo/hyperglycemia. Thank you.
[2016-10-17 10:03] LABS: COMPLETE YES; HEMATOCRIT 30.2 % (42-52); IG% 0.7 %; LYMPH % 16.6 %; LYMPH ABS # 0.47 K/uL (1.2-3.4); MEAN CELL VOLUME 83.9 fL (80-100); MEAN CORPUSCULAR HEMOGLOBIN 28.1 pg (25-34); MEAN CORPUSCULAR HGB CONC 33.4 g/dl (32-36); MEAN PLATELET VOLUME 9.9 fL (7.4-10.4); MONO % 11.3 %; NEUT % 71.4 %; PLATELET COUNT 145 K/uL (130-400); WHITE BLOOD COUNT 2.83 K/uL (4.8-10.8)
[2016-10-17 10:33] LABS: BUN/CREATININE RATIO 21.1 (10-20); CALCIUM 9.1 mg/dl (8.5-10.1)
[2016-10-17 10:36] LABS: ALB/GLOB RATIO 0.7 (0.9-2)
[2016-10-17 11:23] VITALS: BP 156/75; PULSE 74; TEMP 36.5; O2SAT 95
[2016-10-17] MEDS ORDERED: POTASSIUM CHLORIDE 20 MEQ TABCR PO ONE (12:00)
[2016-10-17] MEDS: POTASSIUM CHLR 10 MEQ / WTR 10 MEQ in PREMIXED WATER 100 ML IV SCH ×4 (12:26→21:22)
--- NOTE | 2016-10-17 14:32 | Progress Note ---
Medicine Progress Note Date & Time of Visit: Oct 16, 2016 at 15:13. Subjective 76 year old diabetic male with metastatic melanoma on immunotherapy presenting with fever, diarrhea, metabolic encephalopathy and syncopal episodes at home. Since admission he has been on 3 broad abx for several days and was still fevering. He developed a rash after the 4th dose of Vancomycin and was taken off this. however, in retrospect this was not likely an allergic reaction as he appears to be suffering side effects of his immunotherapy. Doxy was stopped with no fevers after stopping. His diarrhea, nausea and vomiting has resolved and he is tolerating PO. He has some residual weakness in his legs and continues to work with PT but hasn't made much improvement. High dose steroids started last night after conversations with Rheum and his [place] [facility] [place] There is a concern that he has AIH. Rash worsened with itching overnight and WBC decreased slightly, however, will cont with steroids and start Benadryl for supportive care. Rash is resolving. Weakness persists. +weakness in legs with difficulty sitting up-no change in several days -denies any shortness of breath -denies any saddle anesthesia -5/5 strength in legs -was walking to bathroom this morning and legs buckled and slid down to the floor. -tolerating PO -afebrile -no complaints except for his weakness. Objective Last 8 Hrs Date Time Temp Pulse Resp B/P (MAP) Pulse Ox O2 Delivery O2 Flow Rate FiO2 10/16/16 14:53 36.6 75 20 162/60 (94) 96 Room Air 10/16/16 11:58 36.3 77 20 162/71 (101) 97 Room Air 10/16/16 09:27 121/63 (82) 10/16/16 09:20 112 187/83 (117) 10/16/16 09:00 Room Air Physical Exam: GEN: WNWD, in no acute distress, alert and appropriate HEENT: NC/AT, pupils are equal bilaterally, normal sclerae CARDIO: reg rate, S1/2 heard without m/g/r LUNGS: CTA bilaterally, no crackles, rales or wheezes, good diaphragmatic excursion ABD: +BS, soft, non-tender, non-distended, no rebound or guarding EXTREMITY: RP and DP palpable 2+ bilat, no LE swelling or edema, extremities are warm and well-perfused NEURO: CN 2-12 grossly intact, sensation intact throughout, no gross focal deficits. MUSC: 5/5 strength throughout, no focal deficits SKIN: erythematous papular rash along both arms and extending into subaxillary area, with some extension onto anterior chest, skin is warm and dry. There are some healing abrasions on knees bilaterally Laboratory Results: Test 10/08/16 09:00 10/08/16 09:05 10/08/16 12:38 10/08/16 17:20 Peripheral Blood Smear Path Consult Total Creatine Kinase 264 U/L (39-308) Creatine Kinase MB < 0.5 ng/ml (0.5-3.6) Creatine Kinase MB Ratio (0-3.0) Troponin I < 0.015 ng/ml (0-0.045) Lipase 585 U/L (73-393) Procalcitonin 1.54 ng/ml (0-0.5) Lyme Disease IgG Antibody NEG (NEG) Lyme Disease IgM Antibody NEG (NEG) Bedside Lactic Acid Venous 1.60 mmol/L (0.90-1.70) Urine Renal Epithelial Cells /lpf (0-5) Urine Pathogenic Casts 1-5 GRANULAR CASTS /lpf (0) Urine Mucus PRESENT (NONE PRSENT) Osmolality 267 mOsm/kg (280-300) Vitamin B12 Level 565 pg/mL (211-911) Folate > 24.00 ng/mL (>5.38) Thyroid Stimulating Hormone (TSH) 1.550 uIu/ml (0.300-4.500) Random Cortisol 39.22 mcg/dl Adrenocorticotropic Hormone 29 PG/ML (6-50) Anaplasma phagocytophila IgG Ab <1:64 (<1:64) Anaplasma phagocytophila IgM Ab <1:20 (<1:20) Anaplasma phagocytophila Interpret see note Ehrlichia chaffeensis IgG Antibody <1:64 (<1:64) Ehrlichia chaffeensis IgM Antibody <1:20 (<1:20) Ehrlichia chaffeensis Interpret see note Test 10/09/16 01:35 10/10/16 06:15 10/10/16 17:36 10/12/16 06:29 Urine Random Sodium 50 mEq/L Fibrinogen 213 mg/dl (184-400) Fibrin Degradation Products >40 mcg/ml (<10) Estimated Average Glucose 151 mg/dl Hemoglobin A1c 6.9 % (4.5-5.6) Vancomycin Level Trough 14.8 mcg/ml (SEE COMMENT) Activated Partial Thromboplast Time 33.6 SECONDS (21.0-31.0) Partial Thromboplastin Ratio 1.3 Test 10/13/16 07:24 10/13/16 12:56 10/14/16 05:29 10/15/16 05:53 Hepatitis A IgM Antibody NON-REACTIVE (NON-REACTIVE) Hepatitis B Surface Antigen NEG (NEG) Hepatitis B Core IgM Antibody NON-REACTIVE (NON-REACTIVE) Hepatitis C Antibody NEG (NEG) TB Test (QFT) Nil 0.72 IU/ML TB Test (QFT) Mitogen Minus Nil 6.32 IU/ML TB Test (QFT) Antigen Minus Nil 0.05 IU/ML TB Test (QFT) NEGATIVE (NEGATIVE) Anti-Nuclear Antibody Screen NEGATIVE (NEGATIVE) Anti-Mitochondrial Antibody LESS THAN 1:20 TITER Anti-Smooth Muscle Antibody 1:20 TITER Cytomegalovirus IgG Antibody >10.00 U/ML Cytomegalovirus IgM Antibody <30.00 Au/mL Anshu-Pittman Virus Capsid Ag IgG Ab 699.00 U/ML E-B Virus Capsid Ag IgM Ab Index <36.00 U/ML Anshu-Pittman Virus Nuclear Ag Ab 104.00 U/ML Nucleated RBC Absolute Count (auto) 0.02 K/uL (0-0) Nucleated Red Blood Cells % 0.7 % Large Platelets 1+ Prothrombin Time 12.6 SECONDS (9.0-12.0) Prothromb Time International Ratio 1.2 (0.9-1.1) Direct Bilirubin 0.1 mg/dl (0-0.2) Giant Platelets 2+ Erythrocyte Sedimentation Rate 27 mm/hr (0-14) Magnesium Level 2.1 mg/dl (1.8-2.4) C-Reactive Protein 9.39 mg/dl (0-0.29) Test 10/16/16 13:15 10/17/16 09:19 10/17/16 11:40 Urine Color YELLOW Urine Appearance CLEAR (CLEAR) Urine pH 6.0 (4.5-7.5) Urine Specific [place] 1.019 (1.000-1.030) Urine Protein 1+ (NEG) Urine Glucose (UA) NEG (NEG) Urine Ketones NEG (NEG) Urine Occult Blood NEG (NEG) Urine Nitrite NEG (NEG) Urine Bilirubin NEG (NEG) Urine Urobilinogen NEG (NEG) Urine Leukocyte Esterase NEG (NEG) Urine WBC (Auto) 1-5 /hpf (0-5) Urine RBC (Auto) 0-4 /hpf (0-4) Urine Hyaline Casts (Auto) 5-10 /lpf (0-5) Urine Epithelial Cells (Auto) >30 /lpf (0-5) Urine Bacteria (Auto) NEG (NEG) White Blood Count 2.83 K/uL (4.8-10.8) Red Blood Count 3.60 M/uL (4.7-6.1) Hemoglobin 10.1 g/dL (14.0-18.0) Hematocrit 30.2 % (42-52) Mean Corpuscular Volume 83.9 fL (80-100) Mean Corpuscular Hemoglobin 28.1 pg (25-34) Mean Corpuscular Hemoglobin Concent 33.4 g/dl (32-36) Platelet Count 145 K/uL (130-400) Mean Platelet Volume 9.9 fL (7.4-10.4) Neutrophils (%) (Auto) 71.4 % Lymphocytes (%) (Auto) 16.6 % Monocytes (%) (Auto) 11.3 % Eosinophils (%) (Auto) 0.0 % Basophils (%) (Auto) 0.0 % Neutrophils # (Auto) 2.02 K/uL (1.4-6.5) Lymphocytes # (Auto) 0.47 K/uL (1.2-3.4) Monocytes # (Auto) 0.32 K/uL (0.11-0.59) Eosinophils # (Auto) 0.00 K/uL (0-0.5) Basophils # (Auto) 0.00 K/uL (0-0.2) RDW Standard Deviation 47.4 fL (36.4-46.3) RDW Coefficient of Variation 15.5 % (11.5-14.5) Immature Granulocyte % (Auto) 0.7 % Immature Granulocyte # (Auto) 0.02 K/uL (0.00-0.02) Anion Gap 9.0 mmol/L (3-11) Est Creatinine Clear Calc Drug Dose 71.0 ml/min Estimated GFR () 84.4 Estimated GFR (Non- 72.8 BUN/Creatinine Ratio 21.1 (10-20) Calcium Level 9.1 mg/dl (8.5-10.1) Total Bilirubin 0.6 mg/dl (0.2-1) Aspartate Amino Transf (AST/SGOT) 54 U/L (15-37) Alanine Aminotransferase (ALT/SGPT) 112 U/L (12-78) Alkaline Phosphatase 104 U/L (45-117) Total Protein 6.3 gm/dl (6.4-8.2) Albumin 2.6 gm/dl (3.4-5.0) Globulin 3.7 gm/dl (2.5-4.0) Albumin/Globulin Ratio 0.7 (0.9-2) Bedside Glucose 131 mg/dl (70-99) Date/Time Source Procedure Growth Status 10/09/16 15:00 Blood Blood Culture - Final NO GROWTH Complete 10/08/16 20:07 Stool C.difficile Toxin B Gene (PCR) - Final No C. difficile toxin B gene detected Complete 10/16/16 13:15 Urine , Clean Catch Urine Culture - Preliminary NO GROWTH - LESS THAN 1,000 COLONIES/... Resulted Last 24 Hours Test 10/15/16 16:58 10/15/16 20:17 10/16/16 01:41 10/16/16 06:03 Bedside Glucose 189 mg/dl 229 mg/dl 215 mg/dl White Blood Count 2.67 K/uL Red Blood Count 3.19 M/uL Hemoglobin 9.3 g/dL Hematocrit 26.4 % Mean Corpuscular Volume 82.8 fL Mean Corpuscular Hemoglobin 29.2 pg Mean Corpuscular Hemoglobin Concent 35.2 g/dl RDW Standard Deviation 47.2 fL RDW Coefficient of Variation 15.4 % Platelet Count 104 K/uL Mean Platelet Volume 9.9 fL Sodium Level 139 mmol/L Potassium Level 3.6 mmol/L Chloride Level 107 mmol/L Carbon Dioxide Level 24 mmol/L Anion Gap 8.0 mmol/L Blood Urea Nitrogen 17 mg/dl Creatinine 0.85 mg/dl Est Creatinine Clear Calc Drug Dose 84.0 ml/min Estimated GFR () 98.1 Estimated GFR (Non- 84.6 BUN/Creatinine Ratio 20.2 Random Glucose 163 mg/dl Calcium Level 8.3 mg/dl Total Bilirubin 0.5 mg/dl Aspartate Amino Transf (AST/SGOT) 68 U/L Alanine Aminotransferase (ALT/SGPT) 127 U/L Alkaline Phosphatase 113 U/L Total Protein 6.2 gm/dl Albumin 2.3 gm/dl Globulin 3.9 gm/dl Albumin/Globulin Ratio 0.6 Test 10/16/16 07:50 10/16/16 09:21 10/16/16 11:40 10/16/16 13:15 Bedside Glucose 180 mg/dl 202 mg/dl 183 mg/dl Urine Color YELLOW Urine Appearance CLEAR Urine pH 6.0 Urine Specific [place] 1.019 Urine Protein 1+ Urine Glucose (UA) NEG Urine Ketones NEG Urine Occult Blood NEG Urine Nitrite NEG Urine Bilirubin NEG Urine Urobilinogen NEG Urine Leukocyte Esterase NEG Urine WBC (Auto) 1-5 /hpf Urine RBC (Auto) 0-4 /hpf Urine Hyaline Casts (Auto) 5-10 /lpf Urine Epithelial Cells (Auto) >30 /lpf Urine Bacteria (Auto) NEG Date/Time Source Procedure Growth Status 10/16/16 13:15 Urine , Clean Catch Urine Culture Pending Received Assessment & Plan 76 year old diabetic male with metastatic melanoma on immunotherapy presenting with fever, diarrhea, metabolic encephalopathy and syncopal episodes at home. Since admission he has been on 3 broad abx for several days and was still fevering. He developed a rash after the 4th dose of Vancomycin and was taken off this. however, in retrospect this was not likely an allergic reaction as he appears to be suffering side effects of his immunotherapy. Doxy was stopped with no fevers after stopping. His diarrhea, nausea and vomiting has resolved and he is tolerating PO. He has some residual weakness in his legs and continues to work with PT but hasn't made much improvement. High dose steroids started last night after conversations with Rheum and his [place]cologist[place] [facility] [place] There is a concern that he has AIH. Rash worsened with itching overnight and WBC decreased slightly, however, will cont with steroids and start Benadryl for supportive care. Rash is resolving. Weakness persists. 1. 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 Clinical improvement with residual weakness in legs. Rheum agrees with cont long steroid taper over next month 2. Pancytopenia-improved 3. Fever-resolved 4. Rash-resolving 5. Malignant melanoma-monitor axillary mass and lesions 6. Transaminitis 2/2 above. Cont to trend with steroids. Improved by 50% 7. Syncope-no issues since admission, likely related to adverse drug side effect and orthostasis 8. DMII--glycemic pharmacy consult placed and I discussed the case with pharmacist. Now on high dose steroids so expect the blood sugar to rise. Apprec recs. 9. Pulmonary nodule-monitor per guidelines. 10. Gout-stable, cont allopurinol 11. HLP-holding statin with elevated LFTs 12. SAVANNAH-cont nightly CPAP 13. Weakness-likely related to prolonged hospitalization and recent illness. Present for last several days and thought to improve with cont PT for reconditioning and high dose steroid therapy. DVT proph: SCDs, chemoprophylaxis contraindicated in setting of thrombocytopenia which is again improved today but not >100. FULL CODE Dispo-to rehab when medically stable. Nancy Stahl DO [facility] Hospitalist. Consultants: ID, Gastro, Heme, Rheum Current Inpatient Medications: Current Inpatient Medications Medications (Trade) Dose Ordered Sig/Tamika Route Start Time Stop Time Status Last Admin Dose Admin Ondansetron HCl (Zofran Inj) 4 mg Q6H PRN IV 10/08/16 11:15 11/07/16 11:14 10/09/16 00:36 4 MG Insulin Aspart (novoLOG ASPART) SLIDING SCALE If C... ACHS SC 10/08/16 16:00 11/07/16 15:59 10/16/16 12:32 7 UNITS Glucose (Glucose 40% Gel) 15-30 GRAMS 15 GRAMS... UD PRN PO 10/08/16 11:30 11/07/16 11:29 Glucose (Glucose Chew Tab) 4-8 Tablets 4 Tabl... UD PRN PO 10/08/16 11:30 11/07/16 11:29 Dextrose (Dextrose 50% 50ML Syringe) 25-50ML OF 50% DW IV FOR... UD PRN IV 10/08/16 11:30 11/07/16 11:29 Glucagon (Glucagon Inj) 1 mg UD PRN SQ 10/08/16 11:30 11/07/16 11:29 Allopurinol (Zyloprim Tab) 300 mg DAILY PO 10/09/16 09:00 11/08/16 08:59 10/16/16 08:22 300 MG Cetirizine HCl (zyrTEC TAB) 10 mg DAILY PRN PO 10/11/16 19:00 11/10/16 18:59 10/16/16 08:22 10 MG Acetaminophen (Tylenol Tab) 650 mg Q8H PRN PO 10/11/16 22:00 11/08/16 13:59 10/11/16 23:25 650 MG Miscellaneous Information (Consult Glycemic Management Pharmacy) 1 ea UD PRN N/A 10/15/16 08:23 11/14/16 08:22 Insulin Human NPH (novoLIN-N NPH) 15 units DAILY@0800 SC 10/15/16 08:45 11/14/16 08:44 10/16/16 08:30 15 UNITS Diphenhydramine HCl (Benadryl Cap) 25 mg Q6H PRN PO 10/15/16 17:00 11/14/16 16:59 Diphenhydramine HCl (Benadryl Extra Strength Cream) 1 appln Q6H PRN EXT 10/15/16 11:15 11/14/16 11:14 Prednisone (PredniSONE TAB) 100 mg DAILY PO 10/17/16 08:00 11/14/16 07:59 Phenazopyridine HCl (Pyridium Tab) 200 mg TID PO 10/16/16 14:00 10/18/16 13:59 10/16/16 14:18 200 MG Calcium/Vitamin D (Caltrate Plus Tab) 1 tab BID PO 10/16/16 10:00 11/15/16 09:59 10/16/16 11:07 1 TAB
[2016-10-17 15:10] VITALS: BP 134/75; PULSE 76; TEMP 36.4; O2SAT 96
[2016-10-17 16:38] LABS: CYTOMEGALOVIRUS IGG AB >10.00 U/ML
--- NOTE | 2016-10-17 17:46 | Progress Note ---
Medicine Progress Note Date & Time of Visit: Oct 17, 2016 at 17:34. Subjective 76 year old diabetic male with metastatic melanoma on immunotherapy presenting with fever, diarrhea, metabolic encephalopathy and syncopal episodes at home. Since admission he has been on 3 broad abx for several days and was still fevering. He developed a rash after the 4th dose of Vancomycin and was taken off this. however, in retrospect this was not likely an allergic reaction as he appears to be suffering side effects of his immunotherapy. Doxy was stopped with no fevers after stopping. His diarrhea, nausea and vomiting has resolved and he is tolerating PO. He has some residual weakness in his legs and continues to work with PT but hasn't made much improvement. High dose steroids started last night after conversations with Rheum and his treating Oncologist, Dr. Vogel from [facility] [place]. There is a concern that he has AIH. Rash worsened with itching overnight and WBC decreased slightly, however, will cont with steroids and start Benadryl for supportive care. Rash is resolved. Weakness persists. -+weakness and hasn't gotten up and out of bed -some difficulty supporting himself up sitting on side of bed -afebrile overnight and otherwise feeling well -denies any shortness of breath -denies sensation loss in groin, loss of control of bowel or bladder, urinary retention, tingling sensation in legs or arms -denies back pain Objective Last 8 Hrs Date Time Temp Pulse Resp B/P (MAP) Pulse Ox O2 Delivery O2 Flow Rate FiO2 10/17/16 16:10 Room Air 10/17/16 15:10 36.4 76 18 134/75 (94) 96 Room Air 10/17/16 11:23 36.5 74 20 156/75 (102) 95 Room Air Physical Exam: GEN: WNWD, in no acute distress, alert and appropriate HEENT: NC/AT, pupils are equal bilaterally, normal sclerae CARDIO: reg rate, S1/2 heard without m/g/r LUNGS: CTA bilaterally, no crackles, rales or wheezes, good diaphragmatic excursion ABD: +BS, soft, non-tender, non-distended, no rebound or guarding EXTREMITY: RP and DP palpable 2+ bilat, no LE swelling or edema, extremities are warm and well-perfused NEURO: CN 2-12 intact, sensation intact throughout, BR reflex 2/4 bilaterally, cannot obtain knee or S1 reflexes, however, patient is guarding. MUSC: 5/5 strength throughout, pt has difficulty sitting up on his own. SKIN: warm and dry with well-healed abrasions on knees bilaterally. Laboratory Results: 10/17/16 09:19 Red Blood Count 3.60, Mean Corpuscular Volume 83.9, Mean Corpuscular Hemoglobin 28.1, Mean Corpuscular Hemoglobin Concent 33.4, Mean Platelet Volume 9.9, Neutrophils (%) (Auto) 71.4, Lymphocytes (%) (Auto) 16.6, Monocytes (%) (Auto) 11.3, Eosinophils (%) (Auto) 0.0, Basophils (%) (Auto) 0.0, Neutrophils # (Auto ) 2.02, Lymphocytes # (Auto) 0.47, Monocytes # (Auto) 0.32, Eosinophils # (Auto ) 0.00, Basophils # (Auto) 0.00 10/17/16 09:19 Test 10/08/16 09:00 10/08/16 09:05 10/08/16 12:38 10/08/16 17:20 Peripheral Blood Smear Path Consult Total Creatine Kinase 264 U/L (39-308) Creatine Kinase MB < 0.5 ng/ml (0.5-3.6) Creatine Kinase MB Ratio (0-3.0) Troponin I < 0.015 ng/ml (0-0.045) Lipase 585 U/L (73-393) Procalcitonin 1.54 ng/ml (0-0.5) Lyme Disease IgG Antibody NEG (NEG) Lyme Disease IgM Antibody NEG (NEG) Bedside Lactic Acid Venous 1.60 mmol/L (0.90-1.70) Urine Renal Epithelial Cells /lpf (0-5) Urine Pathogenic Casts 1-5 GRANULAR CASTS /lpf (0) Urine Mucus PRESENT (NONE PRSENT) Osmolality 267 mOsm/kg (280-300) Vitamin B12 Level 565 pg/mL (211-911) Folate > 24.00 ng/mL (>5.38) Thyroid Stimulating Hormone (TSH) 1.550 uIu/ml (0.300-4.500) Random Cortisol 39.22 mcg/dl Adrenocorticotropic Hormone 29 PG/ML (6-50) Anaplasma phagocytophila IgG Ab <1:64 (<1:64) Anaplasma phagocytophila IgM Ab <1:20 (<1:20) Anaplasma phagocytophila Interpret see note Ehrlichia chaffeensis IgG Antibody <1:64 (<1:64) Ehrlichia chaffeensis IgM Antibody <1:20 (<1:20) Ehrlichia chaffeensis Interpret see note Test 10/09/16 01:35 10/10/16 06:15 10/10/16 17:36 10/12/16 06:29 Urine Random Sodium 50 mEq/L Fibrinogen 213 mg/dl (184-400) Fibrin Degradation Products >40 mcg/ml (<10) Estimated Average Glucose 151 mg/dl Hemoglobin A1c 6.9 % (4.5-5.6) Vancomycin Level Trough 14.8 mcg/ml (SEE COMMENT) Activated Partial Thromboplast Time 33.6 SECONDS (21.0-31.0) Partial Thromboplastin Ratio 1.3 Test 10/13/16 07:24 10/13/16 12:56 10/14/16 05:29 10/15/16 05:53 Hepatitis A IgM Antibody NON-REACTIVE (NON-REACTIVE) Hepatitis B Surface Antigen NEG (NEG) Hepatitis B Core IgM Antibody NON-REACTIVE (NON-REACTIVE) Hepatitis C Antibody NEG (NEG) TB Test (QFT) Nil 0.72 IU/ML TB Test (QFT) Mitogen Minus Nil 6.32 IU/ML TB Test (QFT) Antigen Minus Nil 0.05 IU/ML TB Test (QFT) NEGATIVE (NEGATIVE) Anti-Nuclear Antibody Screen NEGATIVE (NEGATIVE) Anti-Mitochondrial Antibody LESS THAN 1:20 TITER Anti-Smooth Muscle Antibody 1:20 TITER Cytomegalovirus IgG Antibody >10.00 U/ML Cytomegalovirus IgM Antibody <30.00 Au/mL Anshu-Pittman Virus Capsid Ag IgG Ab 699.00 U/ML E-B Virus Capsid Ag IgM Ab Index <36.00 U/ML Anshu-Pittman Virus Nuclear Ag Ab 104.00 U/ML Nucleated RBC Absolute Count (auto) 0.02 K/uL (0-0) Nucleated Red Blood Cells % 0.7 % Large Platelets 1+ Prothrombin Time 12.6 SECONDS (9.0-12.0) Prothromb Time International Ratio 1.2 (0.9-1.1) Direct Bilirubin 0.1 mg/dl (0-0.2) Giant Platelets 2+ Erythrocyte Sedimentation Rate 27 mm/hr (0-14) Magnesium Level 2.1 mg/dl (1.8-2.4) C-Reactive Protein 9.39 mg/dl (0-0.29) Test 10/16/16 13:15 10/17/16 09:19 10/17/16 11:40 Urine Color YELLOW Urine Appearance CLEAR (CLEAR) Urine pH 6.0 (4.5-7.5) Urine Specific [place] 1.019 (1.000-1.030) Urine Protein 1+ (NEG) Urine Glucose (UA) NEG (NEG) Urine Ketones NEG (NEG) Urine Occult Blood NEG (NEG) Urine Nitrite NEG (NEG) Urine Bilirubin NEG (NEG) Urine Urobilinogen NEG (NEG) Urine Leukocyte Esterase NEG (NEG) Urine WBC (Auto) 1-5 /hpf (0-5) Urine RBC (Auto) 0-4 /hpf (0-4) Urine Hyaline Casts (Auto) 5-10 /lpf (0-5) Urine Epithelial Cells (Auto) >30 /lpf (0-5) Urine Bacteria (Auto) NEG (NEG) White Blood Count 2.83 K/uL (4.8-10.8) Red Blood Count 3.60 M/uL (4.7-6.1) Hemoglobin 10.1 g/dL (14.0-18.0) Hematocrit 30.2 % (42-52) Mean Corpuscular Volume 83.9 fL (80-100) Mean Corpuscular Hemoglobin 28.1 pg (25-34) Mean Corpuscular Hemoglobin Concent 33.4 g/dl (32-36) Platelet Count 145 K/uL (130-400) Mean Platelet Volume 9.9 fL (7.4-10.4) Neutrophils (%) (Auto) 71.4 % Lymphocytes (%) (Auto) 16.6 % Monocytes (%) (Auto) 11.3 % Eosinophils (%) (Auto) 0.0 % Basophils (%) (Auto) 0.0 % Neutrophils # (Auto) 2.02 K/uL (1.4-6.5) Lymphocytes # (Auto) 0.47 K/uL (1.2-3.4) Monocytes # (Auto) 0.32 K/uL (0.11-0.59) Eosinophils # (Auto) 0.00 K/uL (0-0.5) Basophils # (Auto) 0.00 K/uL (0-0.2) RDW Standard Deviation 47.4 fL (36.4-46.3) RDW Coefficient of Variation 15.5 % (11.5-14.5) Immature Granulocyte % (Auto) 0.7 % Immature Granulocyte # (Auto) 0.02 K/uL (0.00-0.02) Anion Gap 9.0 mmol/L (3-11) Est Creatinine Clear Calc Drug Dose 71.0 ml/min Estimated GFR () 84.4 Estimated GFR (Non- 72.8 BUN/Creatinine Ratio 21.1 (10-20) Calcium Level 9.1 mg/dl (8.5-10.1) Total Bilirubin 0.6 mg/dl (0.2-1) Aspartate Amino Transf (AST/SGOT) 54 U/L (15-37) Alanine Aminotransferase (ALT/SGPT) 112 U/L (12-78) Alkaline Phosphatase 104 U/L (45-117) Total Protein 6.3 gm/dl (6.4-8.2) Albumin 2.6 gm/dl (3.4-5.0) Globulin 3.7 gm/dl (2.5-4.0) Albumin/Globulin Ratio 0.7 (0.9-2) Bedside Glucose 131 mg/dl (70-99) Date/Time Source Procedure Growth Status 10/09/16 15:00 Blood Blood Culture - Final NO GROWTH Complete 10/08/16 20:07 Stool C.difficile Toxin B Gene (PCR) - Final No C. difficile toxin B gene detected Complete 10/16/16 13:15 Urine , Clean Catch Urine Culture - Preliminary NO GROWTH - LESS THAN 1,000 COLONIES/... Resulted Last 24 Hours Test 10/16/16 19:44 10/17/16 07:49 10/17/16 09:19 10/17/16 11:40 Bedside Glucose 217 mg/dl 113 mg/dl 131 mg/dl White Blood Count 2.83 K/uL Red Blood Count 3.60 M/uL Hemoglobin 10.1 g/dL Hematocrit 30.2 % Mean Corpuscular Volume 83.9 fL Mean Corpuscular Hemoglobin 28.1 pg Mean Corpuscular Hemoglobin Concent 33.4 g/dl Platelet Count 145 K/uL Mean Platelet Volume 9.9 fL Neutrophils (%) (Auto) 71.4 % Lymphocytes (%) (Auto) 16.6 % Monocytes (%) (Auto) 11.3 % Eosinophils (%) (Auto) 0.0 % Basophils (%) (Auto) 0.0 % Neutrophils # (Auto) 2.02 K/uL Lymphocytes # (Auto) 0.47 K/uL Monocytes # (Auto) 0.32 K/uL Eosinophils # (Auto) 0.00 K/uL Basophils # (Auto) 0.00 K/uL RDW Standard Deviation 47.4 fL RDW Coefficient of Variation 15.5 % Immature Granulocyte % (Auto) 0.7 % Immature Granulocyte # (Auto) 0.02 K/uL Sodium Level 139 mmol/L Potassium Level 3.0 mmol/L Chloride Level 103 mmol/L Carbon Dioxide Level 27 mmol/L Anion Gap 9.0 mmol/L Blood Urea Nitrogen 21 mg/dl Creatinine 1.00 mg/dl Est Creatinine Clear Calc Drug Dose 71.0 ml/min Estimated GFR () 84.4 Estimated GFR (Non- 72.8 BUN/Creatinine Ratio 21.1 Random Glucose 140 mg/dl Calcium Level 9.1 mg/dl Total Bilirubin 0.6 mg/dl Aspartate Amino Transf (AST/SGOT) 54 U/L Alanine Aminotransferase (ALT/SGPT) 112 U/L Alkaline Phosphatase 104 U/L Total Protein 6.3 gm/dl Albumin 2.6 gm/dl Globulin 3.7 gm/dl Albumin/Globulin Ratio 0.7 Assessment & Plan 76 year old diabetic male with metastatic melanoma on immunotherapy presenting with fever, diarrhea, metabolic encephalopathy and syncopal episodes at home. Since admission he has been on 3 broad abx for several days and was still fevering. He developed a rash after the 4th dose of Vancomycin and was taken off this. however, in retrospect this was not likely an allergic reaction as he appears to be suffering side effects of his immunotherapy. Doxy was stopped with no fevers after stopping. His diarrhea, nausea and vomiting has resolved and he is tolerating PO. He has some residual weakness in his legs and continues to work with PT but hasn't made much improvement. High dose steroids started last night after conversations with Rheum and his treating Oncologist, Dr. Vogel from [facility]. There is a concern that he has AIH. Rash worsened with itching overnight and WBC decreased slightly, however, will cont with steroids and start Benadryl for supportive care. Rash is resolved. Weakness persists. 1. 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 Clinical improvement with residual weakness in legs. Rheum agrees with cont long steroid taper over next month. Continues with XRT while inpatient. ASMA came back positive today. 2. Weakness-likely related to prolonged hospitalization and recent illness in addition to immunotherapy drugs. Spoke with PT who states that he has truncal weakness and has little to no control over his left leg. Very unsteady on his feet and a fall risk. He has had weakness like this for the past few days which was thought to be 2/2 above. However, now considering GBS, neuropathy/ damage, vs abscess or other spinal process. Also considering mets to the brain. I am unable to obtain knee reflexes on him as he cannot relax his legs enough, same with Achilles reflex, BR 2/4 bilaterally. Otherwise no focal neuro deficit except that patient has trouble sitting up on side of bed. He is mentating appropriately with CN intact, sensation intact and strength is 5/5 throughout. Discussed the case with Dr. Amezquita including the need for imaging. He recommended MRI brain and spinal column with contrast and will formally consult Neuro to see him. Cont steroids and nurses and patient aware to alert MD in case of difficulty breathing. 2. Pancytopenia-improved 3. Fever-resolved 4. Rash-resolving 5. Malignant melanoma-monitor axillary mass and lesions 6. Transaminitis 2/2 above. Cont to trend with steroids. Continues to improve. 7. Syncope-no issues since admission, likely related to adverse drug side effect and orthostasis 8. DMII--glycemic pharmacy consult placed and I discussed the case with pharmacist. Now on high dose steroids so expect the blood sugar to rise. Apprec recs. 9. Pulmonary nodule-monitor per guidelines. 10. Gout-stable, cont allopurinol 11. HLP-holding statin with elevated LFTs 12. SAVANNAH-cont nightly CPAP DVT proph: SCDs, chemoprophylaxis contraindicated in setting of thrombocytopenia which is again improved today but not >100. FULL CODE Dispo-to rehab when medically stable. Nancy Stahl DO [facility] Hospitalist. Consultants: ID, Gastro, Heme, Rheum Current Inpatient Medications: Current Inpatient Medications Medications (Trade) Dose Ordered Sig/Tamika Route Start Time Stop Time Status Last Admin Dose Admin Ondansetron HCl (Zofran Inj) 4 mg Q6H PRN IV 10/08/16 11:15 11/07/16 11:14 10/09/16 00:36 4 MG Insulin Aspart (novoLOG ASPART) SLIDING SCALE If C... ACHS SC 10/08/16 16:00 11/07/16 15:59 10/17/16 12:09 8 UNITS Glucose (Glucose 40% Gel) 15-30 GRAMS 15 GRAMS... UD PRN PO 10/08/16 11:30 11/07/16 11:29 Glucose (Glucose Chew Tab) 4-8 Tablets 4 Tabl... UD PRN PO 10/08/16 11:30 11/07/16 11:29 Dextrose (Dextrose 50% 50ML Syringe) 25-50ML OF 50% DW IV FOR... UD PRN IV 10/08/16 11:30 11/07/16 11:29 Glucagon (Glucagon Inj) 1 mg UD PRN SQ 10/08/16 11:30 11/07/16 11:29 Allopurinol (Zyloprim Tab) 300 mg DAILY PO 10/09/16 09:00 11/08/16 08:59 10/17/16 07:52 300 MG Cetirizine HCl (zyrTEC TAB) 10 mg DAILY PRN PO 10/11/16 19:00 11/10/16 18:59 10/17/16 07:52 10 MG Acetaminophen (Tylenol Tab) 650 mg Q8H PRN PO 10/11/16 22:00 11/08/16 13:59 10/11/16 23:25 650 MG Miscellaneous Information (Consult Glycemic Management Pharmacy) 1 ea UD PRN N/A 10/15/16 08:23 11/14/16 08:22 Diphenhydramine HCl (Benadryl Cap) 25 mg Q6H PRN PO 10/15/16 17:00 11/14/16 16:59 Diphenhydramine HCl (Benadryl Extra Strength Cream) 1 appln Q6H PRN EXT 10/15/16 11:15 11/14/16 11:14 Prednisone (PredniSONE TAB) 100 mg DAILY PO 10/17/16 08:00 11/14/16 07:59 10/17/16 07:53 100 MG Phenazopyridine HCl (Pyridium Tab) 200 mg TID PO 10/16/16 14:00 10/18/16 13:59 10/17/16 13:59 200 MG Calcium/Vitamin D (Caltrate Plus Tab) 1 tab BID PO 10/16/16 10:00 11/15/16 09:59 10/17/16 07:53 1 TAB Insulin Human NPH (novoLIN-N NPH) 20 units DAILY@0800 SC 10/17/16 08:00 11/16/16 07:59 10/17/16 08:35 20 UNITS
[2016-10-17] MEDS ORDERED: GADAVIST IV PRN (19:45)
--- NOTE | 2016-10-17 19:55 | DIAGNOSTIC IMAGING REPORT ---
MRI OF THE BRAIN COMBO CLINICAL HISTORY: Lower extremity weakness. History of melanoma. COMPARISON STUDY: CT of the brain dated 10/08/2016. MRI of the brain dated 08/14/2014. TECHNIQUE: MRI of the brain was performed utilizing various T1 and T2-weighted sequences in the axial, sagittal, and coronal planes. Contrast-enhanced sequences were acquired following the administration of 10 cc of Gadavist. FINDINGS: Brain parenchyma: There are age-related involutional changes noting mild subcortical and periventricular microangiopathic disease. There is no hemorrhage or mass effect. There is no restricted diffusion to suggest acute ischemia. No enhancing mass lesion is identified on the postcontrast images. Tomas-white matter differentiation is preserved. No extra-axial fluid collection is seen. The cerebellar tonsils are normal in configuration. Ventricles, sulci, and cisterns: Prominent secondary to involutional change. Pituitary and sella: Unremarkable. Intracranial vasculature: Normal flow voids are maintained at the skull base. Orbits: The bony orbits are grossly intact. Orbital contents are normal in appearance. Sinuses and mastoids: There are small mastoid effusions. The paranasal sinuses are clear. Calvarium: Unremarkable. Cervical cord: Partially visualized cervical spinal cord is normal in morphology and signal intensity. IMPRESSION: There is no hemorrhage, enhancing mass, or evidence of acute ischemia. Electronically signed by: Zaid Hickey M.D. 10/17/2016 7:54 PM Dictated Date/Time: 10/17/2016 7:51 PM
[2016-10-17 20:40] VITALS: BP 151/68; PULSE 81; TEMP 36.5; O2SAT 94
--- NOTE | 2016-10-17 20:51 | DIAGNOSTIC IMAGING REPORT ---
MRI OF THE THORACIC SPINE COMBO CLINICAL HISTORY: Truncal weakness. History melanoma. COMPARISON STUDY: CT scan of the chest dated 10/08/2016. PET/CT dated 07/18/2016. TECHNIQUE: MRI of the thoracic spine is performed utilizing various T1 and T2-weighted sequences in the axial and sagittal planes. Contrast-enhanced images were acquired following the IV administration of 10 cc of Gadavist. FINDINGS: Vertebral body height and alignment are maintained throughout the thoracic spine. Marrow signal intensity is heterogeneous. No destructive bony lesion is seen. Multilevel degenerative endplate change is observed. Mild endplate edema is noted at T7-T8, T8-T9, and T9-T10. The transverse and spinous processes are intact as imaged. The thoracic spinal cord is normal in morphology and signal intensity. No abnormal enhancement or mass lesion is seen on the postcontrast images. The conus medullaris terminates at L1. Degenerative disc desiccation is seen throughout. No large disc herniation is identified. There is no acquired compromise of the central canal. No significant neural foramina stenosis is observed. The paraspinous soft tissues are within normal limits noting fatty atrophy of the paraspinous muscular tear. The lung parenchyma is grossly clear but not well evaluated by MRI. IMPRESSION: 1. No acute abnormality. 2. Mild degenerative change as above. Electronically signed by: Zaid Hickey M.D. 10/17/2016 8:50 PM Dictated Date/Time: 10/17/2016 8:42 PM
--- NOTE | 2016-10-17 20:56 | DIAGNOSTIC IMAGING REPORT ---
MRI OF THE CERVICAL SPINE COMBO CLINICAL HISTORY: Lower extremity weakness. COMPARISON STUDY: PET/CT dated 07/18/2016. TECHNIQUE: MRI of the cervical spine is performed using various T1 and T2-weighted sequences in the axial and sagittal planes. Contrast-enhanced images were acquired following the IV administration of 10 cc of Gadavist. FINDINGS: Cervical spine: Vertebral body height is maintained at the cervical spine. There is straightening of the cervical lordosis with reversal centered at C4-C5. Alignment is maintained. Anterior osteophytes are seen throughout. Chronic degenerative endplate changes seen at all levels. No destructive bony lesion is seen. The spinous processes appear intact. The atlantodental articulation appears preserved. Intervertebral discs: Degenerative disc desiccation an mild to moderate loss of height is seen at all cervical levels. Loss of height is greatest at C5-C6 and C6-C7. Spinal cord: The cervical spinal cord is normal in morphology and signal intensity. No abnormal enhancement is seen on the postcontrast images. No mass lesion is identified in the central canal. C2-C3: There is a tiny posterior disc osteophyte complex of no consequence. Facet arthropathy causes minimal right-sided neural foraminal stenosis. C3-C4: A posterior disc osteophyte complex eccentric to the left effaces the ventral cord. Uncovertebral and facet arthropathy cause mild left greater than right neural foraminal stenosis. C4-C5: A posterior disc osteophyte complex effaces the ventral cord. Facet arthropathy causes minimal bilateral neural foraminal stenosis. C5-C6: A posterior discussed by complex effaces the ventral cord. Uncovertebral and facet arthropathy causes severe left and moderate to severe right neural foraminal stenosis. C6-C7: A posterior disc osteophyte complex eccentric to the left effaces the ventral cord. Uncovertebral and facet arthropathy cause severe left and moderate to severe right neural foraminal stenosis. C7-T1: Unremarkable. Brain parenchyma: Partially imaged brain parenchyma the skull base is within normal limits. Soft tissues: The prevertebral and paraspinous soft tissues are within normal limits. IMPRESSION: 1. No destructive bony lesion is identified. 2. Advanced multilevel cervical spondylosis with multilevel acquired compromise of the central canal. See discussion for detailed level by level analysis. 3. Degenerative disc disease and chronic endplate change as above. Electronically signed by: Zaid Hickey M.D. 10/17/2016 8:55 PM Dictated Date/Time: 10/17/2016 8:49 PM
--- NOTE | 2016-10-17 21:51 | DIAGNOSTIC IMAGING REPORT ---
MRI OF THE LUMBAR SPINE COMBO CLINICAL HISTORY: Lower extremity weakness. Reported history of melanoma. COMPARISON STUDY: Abdominal CT dated 10/08/2016. PET/CT dated 07/18/2016. TECHNIQUE: MRI of the lumbar spine is performed utilizing various T1 and T2-weighted sequences in the axial and sagittal planes. Contrast-enhanced sequences are acquired following the IV administration of 10 cc of Gadavist. FINDINGS: Lumbar spine: Vertebral body height and alignment are maintained throughout the lumbar spine. Marrow signal intensity is heterogeneous. No destructive bony lesion is seen. Anterior osteophytes are seen throughout. The transverse and spinous processes are intact as visualized. There is no evidence of spondylolysis. Degenerative endplate edema is noted at L3-L4. Mild chronic degenerative endplate change is seen at most lumbar levels. Intervertebral discs: Degenerative disc desiccation is noted throughout the lumbar spine. There is moderate loss of height at L4-L5. Spinal cord: The visualized spinal cord is normal in morphology and signal intensity. The conus medullaris terminates at the level of L2. No abnormal enhancement is identified on the postcontrast images. No enhancing mass lesion is seen within the central canal. L1-L2: Unremarkable. L2-L3: Unremarkable. L3-L4: Unremarkable. L4-L5: There is minimal disc bulge eccentric to the right. The central canal is widely patent. There is right-sided subarticular stenosis. Facet arthropathy causes mild to moderate right greater than left neural foraminal stenosis. L5-S1: The central canal is widely patent. Facet arthropathy is of no consequence. Sacrum: The visualized sacrum is normal in morphology and slightly heterogeneous in signal intensity. There are foci of fatty marrow replacement. No destructive lesion is seen. Soft tissues: There is fatty atrophy of the paraspinous musculature. The visualized retroperitoneal structures are grossly normal but probably evaluated. IMPRESSION: 1. No destructive bony process is identified throughout the lumbar spine. 2. There is no disc herniation or central canal stenosis. 3. Minimal spondylotic change as above. See discussion for detailed level by level analysis. 4. Degenerative disc disease as above with mild endplate edema seen at L3-L4. Electronically signed by: Zaid Hickey M.D. 10/17/2016 9:50 PM Dictated Date/Time: 10/17/2016 9:43 PM
[2016-10-17 23:47] VITALS: BP 132/60; PULSE 69; TEMP 36.5; O2SAT 94
[2016-10-18 04:31] VITALS: BP 168/75; PULSE 71; TEMP 36.4; O2SAT 97
[2016-10-18 05:49] LABS: HEMATOCRIT 27.9 % (42-52); MEAN CELL VOLUME 83.8 fL (80-100); MEAN CORPUSCULAR HEMOGLOBIN 29.4 pg (25-34); MEAN CORPUSCULAR HGB CONC 35.1 g/dl (32-36); PLATELET COUNT 128 K/uL (130-400); RED BLOOD COUNT 3.33 M/uL (4.7-6.1); WHITE BLOOD COUNT 2.92 K/uL (4.8-10.8)
[2016-10-18 06:29] LABS: ALB/GLOB RATIO 0.7 (0.9-2); BUN/CREATININE RATIO 24.4 (10-20); C-REACTIVE PROTEIN 1.32 mg/dl (0-0.29); POTASSIUM 3.6 mmol/L (3.5-5.1)
[2016-10-18 07:30] VITALS: O2SAT 97
[2016-10-18 07:46] VITALS: BP 146/76; PULSE 72; TEMP 36.5; O2SAT 95
[2016-10-18] MEDS: CALCIUM 600MG + VIT D 400 IU TAB PO SCH (08:02)
[2016-10-18] MEDS: ALLOPURINOL 300 MG TAB PO SCH (08:02)
[2016-10-18] MEDS: CETIRIZINE HCL 10 MG TAB PO PRN (08:02)
[2016-10-18] MEDS: INSULIN ASPART 100 UNITS/ML 3 ML PEN SC SCH ×2 (09:27→12:54)
[2016-10-18] MEDS: INSULIN HUMAN NPH SC SCH (09:29)
--- NOTE | 2016-10-18 10:01 | Discharge Instructions ---
Discharge Instructions Date of Service Oct 18, 2016. Admission Reason for Admission: Fever Of Unknown Origin, Pancytopenia Discharge Discharge Diagnosis / Problem: Autoimmune hepatitis, Guillain Spade Syndrome Discharge Goals Goal(s): Therapeutic intervention, Prevent Disease Progression Activity Recommendations Activity Level: Assistance Required Therapies: Physical Therapy, Occupational Therapy Exercise/Sports Limitations: gradually increase as tolerated Shower/Bathe: no limitations . Additional Information Patient informed of condition: Yes Advance Directives: Yes DNR: No Level of Care: Other Communicable Disease: No Prognosis: Deteriorating Oxygen at (LPM): not required Espinoza Catheter: No Instructions / Follow-Up Instructions / Follow-Up Inpatient Medications Acetaminophen (Tylenol Tab) 650 mg Q8H PRN PO Last administered on 10/11/16 23 :25; Admin Dose 650 MG; Start 10/11/16 at 22:00; Stop 11/08/16 at 13:59 Allopurinol (Zyloprim Tab) 300 mg DAILY PO Last administered on 10/18/16 08:02; Admin Dose 300 MG; Start 10/09/16 at 09:00; Stop 11/08/16 at 08:59 Calcium/Vitamin D (Caltrate Plus Tab) 1 tab BID PO Last administered on 08:02; Admin Dose 1 TAB; Start 10/16/16 at 10:00; Stop 11/15/16 at 09:59 Cetirizine HCl (zyrTEC TAB) 10 mg DAILY PRN PO Last administered on 10/18/16 08 :02; Admin Dose 10 MG; Start 10/11/16 at 19:00; Stop 11/10/16 at 18:59 Dextrose (Dextrose 50% 50ML Syringe) 25-50ML OF 50% DW IV FOR... UD PRN IV; Start 10/08/16 at 11:30; Stop 11/07/16 at 11:29 Diphenhydramine HCl (Benadryl Cap) 25 mg Q6H PRN PO; Start 10/15/16 at 17:00; Stop 11/14/16 at 16:59 Diphenhydramine HCl (Benadryl Extra Strength Cream) 1 appln Q6H PRN EXT; Start 10/15/16 at 11:15; Stop 11/14/16 at 11:14 Gadobutrol (Gadavist) 10 mmol UD PRN IV; Start 10/17/16 at 19:45; Stop 10/21/16 at 19:44 Glucagon (Glucagon Inj) 1 mg UD PRN SQ; Start 10/08/16 at 11:30; Stop 11/07/16 at 11:29 Glucose (Glucose 40% Gel) 15-30 GRAMS 15 GRAMS... UD PRN PO; Start 10/08/16 at 11:30; Stop 11/07/16 at 11:29 Glucose (Glucose Chew Tab) 4-8 Tablets 4 Tabl... UD PRN PO; Start 10/08/16 at 11:30; Stop 11/07/16 at 11:29 Insulin Aspart (novoLOG ASPART) SLIDING SCALE If C... ACHS SC Last administered on 10/18/16 09:27; Admin Dose 5 UNITS; Start 10/08/16 at 16:00; Stop 11/07/16 at 15:59 Insulin Human NPH (novoLIN-N NPH) 20 units DAILY@0800 SC Last administered on 09:29; Admin Dose 20 UNITS; Start 10/17/16 at 08:00; Stop 11/16/16 at 07: 59 Miscellaneous Information (Consult Glycemic Management Pharmacy) 1 ea UD PRN N/ A; Start 10/15/16 at 08:23; Stop 11/14/16 at 08:22 Ondansetron HCl (Zofran Inj) 4 mg Q6H PRN IV Last administered on 10/09/16 00: 36; Admin Dose 4 MG; Start 10/08/16 at 11:15; Stop 11/07/16 at 11:14 Prednisone (PredniSONE TAB) 100 mg DAILY PO Last administered on 10/18/16 08:03 ; Admin Dose 100 MG; Start 10/17/16 at 08:00; Stop 11/14/16 at 07:59 TRANSFER: [facility], Accepting physician, Dr. Lance Meyer, Neurology DIAGNOSIS: 1. Guillain-Spade Syndrome 2. AIH 2/2 recent immunotherapy CONDITION: guarded VITALS: q4h ACTIVITY: bed rest DIET: ADA 1999 INS AND OUTS: routine IV FLUIDS: KVO MEDS: see attached list ALLERGIES: NKDA It is recommended that you follow-up with your primary care physician within one week of discharge from [facility]. It was a pleasure taking care of you! Call if you have any questions or problems. You can reach a [facility] hospitalist on duty at [facility] 24 hours a day by calling [phone]. Take care of yourself. DO [facility] Hospital[facility] Current Hospital Diet Patient's current hospital diet: Diabetes Type 2 Diet Discharge Diet Recommended Diet: Diabetes Type 2 Diet Procedures Procedures Performed: MRI brain/spine with contrast. Images sent on disc. Pending Studies Studies pending at discharge: no Laboratory Results Hemoglobin A1c Test 10/10/16 06:15 Range/Units Estimated Average Glucose 151 mg/dl Hemoglobin A1c 6.9 H 4.5-5.6 % Medical Emergencies . Who to Call and When: Medical Emergencies: If at any time you feel your situation is an emergency, please call 911 immediately. . Non-Emergent Contact Non-Emergency issues call your: Primary Care Provider . . "Provider Documentation" section prepared by Nancy Stahl. . Core Measure Problem Core Measures: None
--- NOTE | 2016-10-18 10:22 | Discharge Summary ---
Discharge Summary Date of Service Oct 18, 2016. Discharge Summary Admission Date: Oct 08, 2016 at 11:15 Discharge Date: Oct 18, 2016 Discharge Disposition: Acute care facility Principal Diagnosis: Guillian [place] Syndrome Autoimmune hepatitis DM II Pulmonary Nodule-monitor per guidelines Gout Hyperlipidemia SAVANNAH-on CPAP qHS Procedures: MRI brain/spine Vaccinations: None. Consultations: ID, Gastro, Heme, Rheum Pending Studies/Follow-Up: see instructions below Medication Reconciliation Continued Medications: Allopurinol (Zyloprim) 300 Mg Tab 300 MG PO DAILY, TAB Discontinued Medications: Metformin HCl (Metformin HCl) 500 Mg Tab 500 MG PO BID Simvastatin (Zocor) 40 Mg Tab 40 MG PO QPM, TAB Admission Information HPI (per Admitting provider): This is a 76 year old male with metastatic melanoma who presents to the ED with fever and generalized weakness. 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 Patient follows with Dr. Vogel / Diann WILSON of [facility] and Dr. Tari Aguirre for radiation oncology. Radiation is being done for mets to left lateral abdominal wall and left subpleural space. Patient is currently undergoing immunotherapy with Opdivo and Yervoy- last treatment 3 weeks ago. Patient states the day after last treatment he developed profuse sweats and subjective fever. He was seen in clinic by Dr. Root on 09/23 and found to have fever of 100.3, declined ER eval, and was treated with Rocephin injection and started on PO Keflex for infection of unknown source. Labs showed mild pancytopenia, mildly elevated ALT and AST. Blood cultures from 09/23 were negative. He was seen in the ER on 10/06, was afebrile with mild pancytopenia. UA and CXR were negative. He was given a dose of Zosyn and sent home with PO Keflex. BC from 10/06 no growth to date. He was seen again in clinic today by Dr. Lozano, was febrile to 102.5 in office, declined admission to [facility], and was sent to ER for evaluation. Patient reports intermittent subjective fevers/ sweats at home which occur randomly. Unsure of his temps at home. He reports fatigue, generalized weakness , poor PO intake. Has required walker for 2 days. Had trouble getting up off couch. Taking in liquids and meds only. He was vomiting, last episode 1 week ago , but still remains nauseous. Has had diarrhea starting 2 days ago with liquid stools. He has lost 27 lb in past 3 weeks per Epic trend. He reports possible syncopal episodes at home x 2 which were unwitnessed. He only remembers awakening on the floor. Denies any significant injury. No tongue biting or incontinence. Has nonpainful rash on left flank in radiation area which is well demarcated, but no other rashes or wounds. Patient denies headache, dizziness, vision change, focal neurologic symptoms, rhinorrhea, sore throat, cough, SOB, chest pain, abdominal pain, dysuria, frequency, urgency, bleeding. Physical Exam (per Admitting): General Appearance: WD/WN, + pertinent finding (acutely ill appearing 76 year old male, diaphoretic, not in acute distress, daughter in law at bedside) Head: normocephalic, atraumatic Eyes: normal inspection, PERRL, EOMI, sclerae normal ENT: hearing grossly normal, pharynx normal Neck: supple, trachea midline Respiratory/Chest: lungs clear, normal breath sounds, no respiratory distress, no accessory muscle use Cardiovascular: regular rate, rhythm, no murmur Abdomen/GI: normal bowel sounds, non tender, soft Extremities/Musculoskelatal: no calf tenderness, no pedal edema Neurologic/Psych: alert, normal mood/affect, oriented x 3, + pertinent finding (no focal deficit on gross examination. speech is clear. no facial droop. no motor deficit of extremities. ) Skin: warm/dry, + diaphoresis, + pertinent finding (well demarcated area of erythema on left flank in area of radiation tx. no warmth or tenderness. ) Hospital Course 76 year old diabetic male with metastatic melanoma on immunotherapy presenting with fever, diarrhea, metabolic encephalopathy and ?syncopal episodes, described as "knees buckling" at home. He was still fevering with only some improvement clinically on 3 broad spectrum abx including doxycycline. On HD 4 , despite receiving several doses of Vancomycin, he developed a erythematous papular rash on his arms that briefly extended onto his upper chest. Vanc was held, however, in retrospect, this was not thought to be 2/2 allergic infection with other symptoms pointing to adverse drug effects after receiving combination immunotherapy for malignant melanoma with mets 6 weeks prior. His lack of response to doxycycline and further verified negative rickettsial panel made this less likely, also. LFTs continued to be elevated and prednisone was started on prednisone at 1mg/kg on 10/14 for autoimmune hepatitis. The patient continued to improve clinical and his pacytopenia, anemia and LFTs also improved. However, he remained very weak, especially compared to his baseline. As he had 5/5 strength intact throughout and no sensation loss, he was thought to be deconditioned, or to be experiencing this weakness as another known side effect of the immunotherapy. Reflexes in the knees and ankles were not able to be elicited for two days, but the patient was guarding. Physical therapy confirmed that he was, in fact, getting worse despite steroid treatment for several days. MRI brain, c-spine, t-spine and l-spine with contrast were ordered for multiple reasons in this setting and Neurology was consulted. 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 As EMG, IVIG non plasma exchange therapies are available at this facility, he was transferred to Dr. Lance Meyer in the Dept of Neurology, at [facility] for further workup and treatment. Total time spent on discharge = 60 minutes This includes examination of the patient, discharge planning, medication reconciliation, and communication with other providers. Discharge Instructions Discharge Instructions Date of Service Oct 18, 2016. Admission Reason for Admission: Fever Of Unknown Origin, Pancytopenia Discharge Discharge Diagnosis / Problem: Autoimmune hepatitis, Guillain [place] Syndrome Discharge Goals Goal(s): Therapeutic intervention, Prevent Disease Progression Activity Recommendations Activity Level: Assistance Required Therapies: Physical Therapy, Occupational Therapy Exercise/Sports Limitations: gradually increase as tolerated Shower/Bathe: no limitations . Additional Information Patient informed of condition: Yes Advance Directives: Yes DNR: No Level of Care: Other Communicable Disease: No Prognosis: Deteriorating Oxygen at (LPM): not required Espinoza Catheter: No Instructions / Follow-Up Instructions / Follow-Up Inpatient Medications Acetaminophen (Tylenol Tab) 650 mg Q8H PRN PO Last administered on 10/11/16 23 :25; Admin Dose 650 MG; Start 10/11/16 at 22:00; Stop 11/08/16 at 13:59 Allopurinol (Zyloprim Tab) 300 mg DAILY PO Last administered on 10/18/16 08:02; Admin Dose 300 MG; Start 10/09/16 at 09:00; Stop 11/08/16 at 08:59 Calcium/Vitamin D (Caltrate Plus Tab) 1 tab BID PO Last administered on 08:02; Admin Dose 1 TAB; Start 10/16/16 at 10:00; Stop 11/15/16 at 09:59 Cetirizine HCl (zyrTEC TAB) 10 mg DAILY PRN PO Last administered on 10/18/16 08 :02; Admin Dose 10 MG; Start 10/11/16 at 19:00; Stop 11/10/16 at 18:59 Dextrose (Dextrose 50% 50ML Syringe) 25-50ML OF 50% DW IV FOR... UD PRN IV; Start 10/08/16 at 11:30; Stop 11/07/16 at 11:29 Diphenhydramine HCl (Benadryl Cap) 25 mg Q6H PRN PO; Start 10/15/16 at 17:00; Stop 11/14/16 at 16:59 Diphenhydramine HCl (Benadryl Extra Strength Cream) 1 appln Q6H PRN EXT; Start 10/15/16 at 11:15; Stop 11/14/16 at 11:14 Gadobutrol (Gadavist) 10 mmol UD PRN IV; Start 10/17/16 at 19:45; Stop 10/21/16 at 19:44 Glucagon (Glucagon Inj) 1 mg UD PRN SQ; Start 10/08/16 at 11:30; Stop 11/07/16 at 11:29 Glucose (Glucose 40% Gel) 15-30 GRAMS 15 GRAMS... UD PRN PO; Start 10/08/16 at 11:30; Stop 11/07/16 at 11:29 Glucose (Glucose Chew Tab) 4-8 Tablets 4 Tabl... UD PRN PO; Start 10/08/16 at 11:30; Stop 11/07/16 at 11:29 Insulin Aspart (novoLOG ASPART) SLIDING SCALE If C... ACHS SC Last administered on 10/18/16 09:27; Admin Dose 5 UNITS; Start 10/08/16 at 16:00; Stop 11/07/16 at 15:59 Insulin Human NPH (novoLIN-N NPH) 20 units DAILY@0800 SC Last administered on 09:29; Admin Dose 20 UNITS; Start 10/17/16 at 08:00; Stop 11/16/16 at 07: 59 Miscellaneous Information (Consult Glycemic Management Pharmacy) 1 ea UD PRN N/ A; Start 10/15/16 at 08:23; Stop 11/14/16 at 08:22 Ondansetron HCl (Zofran Inj) 4 mg Q6H PRN IV Last administered on 10/09/16 00: 36; Admin Dose 4 MG; Start 10/08/16 at 11:15; Stop 11/07/16 at 11:14 Prednisone (PredniSONE TAB) 100 mg DAILY PO Last administered on 10/18/16 08:03 ; Admin Dose 100 MG; Start 10/17/16 at 08:00; Stop 11/14/16 at 07:59 [place] [facility] Accepting physician, Dr. Lance Meyer, Neurology DIAGNOSIS: 1. Guillain-[place] Syndrome 2. AIH 2/2 recent immunotherapy CONDITION: guarded VITALS: q4h ACTIVITY: bed rest DIET: ADA 1999 INS AND OUTS: routine IV FLUIDS: KVO MEDS: see attached list ALLERGIES: NKDA It is recommended that you follow-up with your primary care physician within one week of discharge from [facility]. It was a pleasure taking care of you! Call if you have any questions or problems. You can reach a [facility] hospitalist on duty at [facility] 24 hours a day by calling [phone]. Take care of yourself. Nancy Stahl, [facility] Hospitalist Current Hospital Diet Patient's current hospital diet: Diabetes Type 2 Diet Discharge Diet Recommended Diet: Diabetes Type 2 Diet Procedures Procedures Performed: MRI brain/spine with contrast. Images sent on disc. Pending Studies Studies pending at discharge: no Laboratory Results Hemoglobin A1c Test 10/10/16 06:15 Range/Units Estimated Average Glucose 151 mg/dl Hemoglobin A1c 6.9 H 4.5-5.6 % Medical Emergencies . Who to Call and When: Medical Emergencies: If at any time you feel your situation is an emergency, please call 911 immediately. . Non-Emergent Contact Non-Emergency issues call your: Primary Care Provider . . "Provider Documentation" section prepared by Nancy Stahl. . Core Measure Problem Core Measures: None Additional Copies To Angélica Root M.D. (MEDICAL)
--- NOTE | 2016-10-18 10:24 | Neurology Consultation ---
Neurology Consultation Date of Service Oct 18, 2016. Neurology Consultation I have been asked to assess this 76 year old man with metastatic melanoma and comorbidities that include type two dm with retinopathy, dyslipidemia, sleep apnea, obesity and piror lumbar laminectomy who has been on immunotherapy with check point inhibitors for several months the most recent being about 3 weeks ago according to him. He presented about ten days ago with fever, sweats and progressive weakness with falls due to left leg giving away along with some paresthesias of distal feet and hands that he claims are new issues. There has been no radicular pain, recent tick bites, but he post admission developed a rash and the diagnosis of this being due to an immune mediated adverse event related to the check point inhibitor therapy was made. Multiple antibiotics have been offered without any significant benefit and hiw weakness has apparently been progressive according to pt assessments. I discussed the case yesterday with Dr Stahl and refer the reader to her notes along with those from rheumatology and oncology and to the extensive records regarding hei past history medications family history and pertinent ros. I recommended in light of his known metastatic disease and bran and panspinal mri series with and without contrast and this has not revealed any evidence for metastatic disease or meningeal ca which was clinically not likely but needed to be excluded. Today his exam reveals a normal mental status and intact cranial nerves but I cannot demonstrate any dtrs in arms or legs and note patchy diffuse weakness in left L3-S1 groups and in right L3-4 groups, along with left grater than right C5 -6 groups and some variable weakness in intrinsic hand muscles and perhaps wrist flexors and extensors although effort is less than optimal at times. 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 This entity is rare but has been reported and apparently generally does respond to steroids ( in contrast to GBS presenting in the usual post infectious setting ) but thus far it has not and he may need plasmapheresis. i M not sure that ivig has a role here and my experience with the neurolopgical side effects of these agents is quite limited ( specifically to this case ) We have no capacity to do electrodiagnostic studies on inpatients here at [facility] and an lp -while potentially helpful- would not be more than supprotive of the diagnosis and furthermore we do not provide plasmapheresis as a therapeutic option. So I have advised Dr Stahl to make arrangement to transfer him to [facility] for further evaluation and more thorough neurological consultation and testing Zack Amezquita MD
[2016-10-18 10:31] VITALS: BP 146/76; PULSE 72; TEMP 36.5; O2SAT 95
[2016-10-18 11:40] VITALS: BP 160/76; PULSE 74; TEMP 36.8; O2SAT 92
[2016-10-18 14:55] VITALS: BP 160/76; PULSE 74; TEMP 36.8; O2SAT 92
[2016-11-17] MEDS ORDERED: ALLO300T2 PO (11:45)
[2016-12-04] MEDS ORDERED: AMB5 PO (15:16)
[2016-12-04] MEDS ORDERED: CYM20 PO (15:16)
[2016-12-04] MEDS ORDERED: NRN300 PO (15:16)
[2016-12-04] MEDS ORDERED: DRGTP25 TD (15:16)
[2016-12-04] MEDS ORDERED: MCRK20 PO (15:16)
[2016-12-04] MEDS ORDERED: LSX20 PO (15:16)
[2016-12-04] MEDS ORDERED: CLC100 PO (15:22)
[2016-12-04] MEDS ORDERED: DXM/4 PO (15:22)
== END 2016-10-18 15:40 | disposition short-term general hospital (02) | DRG 871 ==
LOC: C.EDB 08:29 → C.2T 11:15 → ENRESERV 11:51 → C.4E 10-13 11:59
PROVIDERS: ADMIT Internal Medicine; ATTEND Hospitalist
DX: R78.81 Bacteremia (principal); D61.810 Antineoplastic chemotherapy induced pancytopenia; E87.1 Hypo-osmolality and hyponatremia; G61.0 Guillain-Barre syndrome; C43.9 Malignant melanoma of skin, unspecified; B99.9 Unspecified infectious disease; E11.9 Type 2 diabetes mellitus without complications; M10.9 Gout, unspecified; G47.33 Obstructive sleep apnea (adult) (pediatric); K75.4 Autoimmune hepatitis; N39.0 Urinary tract infection, site not specified; K64.9 Unspecified hemorrhoids; F03.90 Unspecified dementia, unspecified severity, without behavioral disturbance, psychotic disturbance, mood disturbance, and anxiety; I25.10 Atherosclerotic heart disease of native coronary artery without angina pectoris; I10 Essential (primary) hypertension; E78.5 Hyperlipidemia, unspecified; Z86.73 Personal history of transient ischemic attack (TIA), and cerebral infarction without residual deficits; Z87.440 Personal history of urinary (tract) infections; Z98.49 Cataract extraction status, unspecified eye; Z98.890 Other specified postprocedural states; Z79.02 Long term (current) use of antithrombotics/antiplatelets; Z79.84 Long term (current) use of oral hypoglycemic drugs; Z79.899 Other long term (current) drug therapy; K56.69 Other intestinal obstruction; R53.83 Other fatigue; R11.0 Nausea; K74.60 Unspecified cirrhosis of liver

== ENCOUNTER 2016-11-17 22:04 | Emergency (ER) | payer OTHER, BC ==
[~2016-11-17] VITALS: Ht 170.2 cm; Wt 84.1 kg
[~2016-11-17 22:04] MED LIST changes: +ALLO300T2 PO; -CEPH500C PO; -METFTAB PO; -SIMV40TA2 PO
[2016-11-17 22:12] VITALS: TEMP 36.4; Ht 170.2 cm; Wt 84.1 kg
[2016-11-17] MEDS ORDERED: MoRPHine SULFATE 4 MG/ML 1 ML CARP\\VIAL IV STA (22:28)
[2016-11-17] MEDS ORDERED: ONDANSETRON INJ 2 MG/ML 2 ML VIAL IV STA (22:28)
--- NOTE | 2016-11-17 22:35 | EMERGENCY ROOM VISIT NOTE ---
History Report prepared by Willie: Radha Turner Under the Supervision of: Dr. Eamon Mcginnis D.O. First contact with patient: 22:20 Chief Complaint: ABDOMINAL PAIN Stated Complaint: ABDOMINAL PAIN Nursing Triage Summary: c/o left abd pain x 4 days. reports intermittent nausea and decreased apetite. pt finished radiation for melanoma to left abd on . History of Present Illness The patient is a 76 year old male who presents to the Emergency Room with complaints of an episode of right sided abdominal pain starting a four days ago. The patient states that he had his last dose of radiation for melanoma at [place] four days ago. He notes that it feels like he has to have a bowel movement. He complains of nausea and a decreased appetite. He currently rates his pain as a 10/10 in severity. He denies ever having abdominal pain after radiation or abdominal surgeries. Source of History: patient Onset: four days ago Position: abdomen (right sided) Symptom Intensity: 10/10 Quality: other ("needs to have a bowel movement") Timing: other (episode) Associated Symptoms: + nausea Note: The patient complains of decreased appetite. The patient denies abdominal pain after radiation or abdominal surgeries. Review of Systems See HPI for pertinent positives and negatives. A total of ten systems were reviewed and were otherwise negative. 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 (4) S/P colonoscopy with polypectomy (5) S/P lumbar discectomy Family History Diabetes mellitus FHx: cancer Social History Smoking Status: Former Smoker Alcohol Use: none Drug Use: none Housing Status: lives alone Occupation Status: retired Current/Historical Medications Scheduled Allopurinol (Zyloprim), 300 MG PO DAILY Dexamethasone (Decadron), 4 TAB PO DAILY Enoxaparin (Lovenox), 40 MG SQ Q24H Lansoprazole (Prevacid), 30 MG PO DAILY Simvastatin (Zocor), 40 MG PO QPM Sucralfate (Carafate), 1 GM PO QAM&HS Scheduled PRN Acetaminophen (Tylenol), 650 MG PO Q4 PRN for Pain or Fever Prochlorperazine Maleate (Compazine), 10 MG PO Q6H PRN for Nausea or Vomiting Triamcinolone Acet (Triamcinolone Acetonide), 1 APPLN TOP BID PRN for RASH Allergies Coded Allergies: No Known Allergies (Unverified , 11/17/16) Physical Exam Vital Signs Date Time Temp Pulse Resp B/P (MAP) Pulse Ox O2 Delivery O2 Flow Rate FiO2 11/18/16 01:00 81 22 112/68 99 Room Air 11/17/16 23:51 69 16 121/58 96 Room Air 11/17/16 23:13 77 20 106/65 93 Room Air 11/17/16 22:25 79 11/17/16 22:12 36.4 77 28 108/63 100 Room Air Physical Exam GENERAL: Awake, alert, well-appearing, in no distress HENT: Normocephalic, atraumatic. Oropharynx unremarkable. EYES: Normal conjunctiva. Sclera non-icteric. NECK: Supple. No nuchal rigidity. FROM. No JVD. RESPIRATORY: Clear to auscultation. CARDIAC: Regular rate, normal rhythm. Extremities warm and well perfused. Pulses equal. ABDOMEN: Soft, non-distended. Mild tenderness to palpation in RLQ. No rebound or guarding. No masses. Skin lesion on left lateral flank. RECTAL: Deferred. MUSCULOSKELETAL: Chest examination reveals no tenderness. The back is symmetrical on inspection without obvious abnormality. There is no CVA tenderness to palpation. No joint edema. LOWER EXTREMITIES: Calves are equal size bilaterally and non-tender. No edema. No discoloration. NEURO: Normal sensorium. No sensory or motor deficits noted. SKIN: No rash or jaundice noted. Medical Decision & Procedures ER Provider Diagnostic Interpretation: CT ABDOMEN & PELVIS: Indication: Diffuse abdominal pain, appendix present. Comparison: CT abdomen and pelvis 10/08/2016. Findings: There is a small bowel loop with wall thickening and haziness in the central and right lower abdomen, compatible with enteritis, infectious or inflammatory. Pancolonic liquid stool indicates diarrheal state. No evidence of bowel obstruction. Normal appendix. No free fluid or free air. The 2 mesenteric lymph nodes in the central abdomen are again noted and essentially stable in size with aggregate measurement of 2.3 cm. Stable mild splenomegaly. nonobstructive 5 mm calcified right kidney stone. The liver, pancreas, gallbladder, and left kidney are unremarkable. Stab;e 5 mm pulmonary nodule in the left lower lobe. Mild bibasilar atelectasis. Radiologist: Ty Elizabeth M.D. Study ready at 23:49 and initial results transmitted at 00:31. Laboratory Results 11/17/16 22:30 Red Blood Count 3.71, Mean Corpuscular Volume 85.7, Mean Corpuscular Hemoglobin 29.1, Mean Corpuscular Hemoglobin Concent 34.0, Mean Platelet Volume 9.3, Neutrophils (%) (Auto) 65.0, Lymphocytes (%) (Auto) 29.2, Monocytes (%) (Auto) 5.2, Eosinophils (%) (Auto) 0.0, Basophils (%) (Auto) 0.0, Neutrophils # (Auto) 2.11, Lymphocytes # (Auto) 0.95, Monocytes # (Auto) 0.17, Eosinophils # (Auto) 0.00, Basophils # (Auto) 0.00 11/17/16 22:30 Test 11/17/16 22:30 11/17/16 23:10 White Blood Count 3.25 K/uL (4.8-10.8) Red Blood Count 3.71 M/uL (4.7-6.1) Hemoglobin 10.8 g/dL (14.0-18.0) Hematocrit 31.8 % (42-52) Mean Corpuscular Volume 85.7 fL (80-100) Mean Corpuscular Hemoglobin 29.1 pg (25-34) Mean Corpuscular Hemoglobin Concent 34.0 g/dl (32-36) Platelet Count 93 K/uL (130-400) Mean Platelet Volume 9.3 fL (7.4-10.4) Neutrophils (%) (Auto) 65.0 % Lymphocytes (%) (Auto) 29.2 % Monocytes (%) (Auto) 5.2 % Eosinophils (%) (Auto) 0.0 % Basophils (%) (Auto) 0.0 % Neutrophils # (Auto) 2.11 K/uL (1.4-6.5) Lymphocytes # (Auto) 0.95 K/uL (1.2-3.4) Monocytes # (Auto) 0.17 K/uL (0.11-0.59) Eosinophils # (Auto) 0.00 K/uL (0-0.5) Basophils # (Auto) 0.00 K/uL (0-0.2) RDW Standard Deviation 53.4 fL (36.4-46.3) RDW Coefficient of Variation 17.2 % (11.5-14.5) Immature Granulocyte % (Auto) 0.6 % Immature Granulocyte # (Auto) 0.02 K/uL (0.00-0.02) Dohle Bodies 1+ Platelet Estimate DECREASED Anion Gap 8.0 mmol/L (3-11) Est Creatinine Clear Calc Drug Dose 82.5 ml/min Estimated GFR () 101.1 Estimated GFR (Non- 87.2 BUN/Creatinine Ratio 27.3 (10-20) Calcium Level 8.3 mg/dl (8.5-10.1) Total Bilirubin 0.4 mg/dl (0.2-1) Direct Bilirubin 0.1 mg/dl (0-0.2) Aspartate Amino Transf (AST/SGOT) 17 U/L (15-37) Alanine Aminotransferase (ALT/SGPT) 23 U/L (12-78) Alkaline Phosphatase 77 U/L (45-117) Total Protein 6.0 gm/dl (6.4-8.2) Albumin 2.3 gm/dl (3.4-5.0) Lipase 168 U/L (73-393) Urine Color DK YELLOW Urine Appearance CLEAR (CLEAR) Urine pH 6.0 (4.5-7.5) Urine Specific Duarte 1.031 (1.000-1.030) Urine Protein 2+ (NEG) Urine Glucose (UA) NEG (NEG) Urine Ketones TRACE (NEG) Urine Occult Blood NEG (NEG) Urine Nitrite POS (NEG) Urine Bilirubin NEG (NEG) Urine Urobilinogen NEG (NEG) Urine Leukocyte Esterase SMALL (NEG) Urine WBC (Auto) 10-30 /hpf (0-5) Urine RBC (Auto) 0-4 /hpf (0-4) Urine Hyaline Casts (Auto) 10-30 /lpf (0-5) Urine Epithelial Cells (Auto) 10-20 /lpf (0-5) Urine Bacteria (Auto) 1+ (NEG) Laboratory results reviewed by me Medications Administered Medications (Trade) Dose Ordered Sig/Tamika Route Start Time Stop Time Status Last Admin Dose Admin Morphine Sulfate (MoRPHine SULFATE INJ) 4 mg NOW STAT IV 11/17/16 22:28 11/17/16 22:29 DC 11/17/16 22:59 4 MG Ondansetron HCl (Zofran Inj) 4 mg NOW STAT IV 11/17/16 22:28 11/17/16 22:29 DC 11/17/16 22:58 4 MG ECG Indication: abdominal pain Rate (beats per minute): 78 Rhythm: sinus rhythm Findings: RBBB, no acute ischemic change, other (normal axis) ED Course 2223: The patient was evaluated in room A2. A complete history and physical exam was performed. 2228: Ordered Zofran Inj 4 mg IV, Morphine Sulfate 4 mg IV. 0050: I reevaluated the patient. Discussed results and discharge instructions: He verbalized understanding and agreement. The patient is ready for discharge. Medical Decision Differential diagnosis: Etiologies such as appendicitis, diverticulitis, PUD, biliary pathology, UTI, pancreatitis, obstruction, mesenteric ischemia, aortic pathology, infections, inflammatory bowel disease, renal colic, as well as others were entertained. Patient was given IV fluids IV pain medicine IV nausea medicine. Repeat examination patient's resting in no distress and feels much improved. Patient has an enteritis this may be due to radiation could be radiation enteritis however there is no bowel obstruction on CT. I've discussed evaluation with the patient patient's family member at bedside the patient is currently at [facility] rehabilitation he will be returned to their facility for further care Medication Reconcilliation Current Medication List: was personally reviewed by me Blood Pressure Screening Patient's blood pressure: Normal blood pressure Impression Primary Impression: Abdominal pain Additional Impression: Enteritis Scribe Attestation The scribe's documentation has been prepared under my direction and personally reviewed by me in its entirety. I confirm that the note above accurately reflects all work, treatment, procedures, and medical decision making performed by me. Departure Information Dispostion Home / Self-Care Prescriptions Ondasetron Odt (ZOFRAN ODT) 4 Mg Tab 4 MG SL Q6H for Nausea, #14 TAB Prov: Eamon Mcginnis, 11/18/16 Referrals Angélica Root M.D. (MEDICAL) (PCP) Patient Instructions ED Gastroenteritis Non Infec, My [facility] Problem Qualifiers
[2016-11-17 22:38] LABS: HEMATOCRIT 31.8 % (42-52); MEAN CELL VOLUME 85.7 fL (80-100); MEAN CORPUSCULAR HEMOGLOBIN 29.1 pg (25-34); RED BLOOD COUNT 3.71 M/uL (4.7-6.1); WHITE BLOOD COUNT 3.25 K/uL (4.8-10.8)
[2016-11-17] MEDS ORDERED: OPTIRAY 320 IV PRN (22:45)
[2016-11-17 22:55] LABS: BUN/CREATININE RATIO 27.3 (10-20); CALCIUM 8.3 mg/dl (8.5-10.1); CREATININE 0.79 mg/dl (0.60-1.40); POTASSIUM 3.7 mmol/L (3.5-5.1)
[2016-11-17 23:01] LABS: MEAN PLATELET VOLUME 9.3 fL (7.4-10.4); PLATELET COUNT 93 K/uL (130-400)
[2016-11-17 23:02] LABS: COMPLETE YES; DOHLE BODIES 1+; IG% 0.6 %; LYMPH % 29.2 %; LYMPH ABS # 0.95 K/uL (1.2-3.4); MONO % 5.2 %; PLT ESTIMATE DECREASED
[2016-11-17] MEDS ORDERED: ENOX40IN SQ (23:02)
[2016-11-17] MEDS ORDERED: ACET-1311 PO (23:02)
[2016-11-17] MEDS ORDERED: DXM/4 PO (23:02)
[2016-11-17] MEDS ORDERED: SUCR1TAB29 PO (23:02)
[2016-11-17] MEDS ORDERED: TRMCR515 TOP (23:05)
[2016-11-17] MEDS ORDERED: PROC1TAB5 PO (23:05)
[2016-11-17] MEDS ORDERED: LANS30CA12 PO (23:05)
[2016-11-17] MEDS ORDERED: SIMV40TA2 PO (23:05)
[2016-11-17 23:23] LABS: URINE APPEARANCE CLEAR (CLEAR); URINE BILIRUBIN NEG (NEG); URINE COLOR DK YELLOW; URINE NITRITE POS (NEG); URINE SPECIFIC GRAVITY 1.031 (1.000-1.030); UROBILINOGEN NEG (NEG); ZZURINE CULT IF INDIC CATH YES
[2016-11-17 23:26] LABS: MANUAL MICROSCOPIC REQUIRED? NO
[2016-11-17 23:27] LABS: REVIEW REQ? YES
[2016-11-18] MEDS ORDERED: ONDA4TAB10 SL (01:17)
[2016-11-18 01:53] VITALS: BP 121/67; PULSE 77; O2SAT 95
--- NOTE | 2016-11-18 07:17 | DIAGNOSTIC IMAGING REPORT ---
ABDOMEN AND PELVIS CT WITH IV CONTRAST CT DOSE: 470.97 mGy.cm HISTORY: Generalized abdominal pain TECHNIQUE: Multiaxial CT images of the abdomen and pelvis were performed following the use of intravenous contrast. A dose lowering technique was utilized adhering to the principles of ALARA. COMPARISON STUDY: Abdomen and pelvis CT 10/08/2016. Melanoma. FINDINGS: Stable 5 mm nodule within the left lower lobe. No pneumoperitoneum. No pneumatosis. No suspicious lytic or blastic osseous lesions. The liver, gallbladder, pancreas, adrenal glands, left kidney are unremarkable. There are 2 stones within the right kidney. No hydronephrosis. Mild splenomegaly, unchanged. No retroperitoneal lymphadenopathy. There are 2 adjacent partially calcified soft tissue nodules within the right side of the mesentery. These measure a total size of 2.3 cm. These are not significantly changed. Bladder is decompressed and not well evaluated. Liquid stool within the colon. Normal appendix. There is a long segment of thickened small bowel within the midabdomen which is consistent with an ileal loop. No evidence for bowel obstruction. There are 4 subcutaneous soft tissue nodules within the left side of the abdomen. These nodules are slightly hyperdense with the largest measuring approximately 16 mm. This is adjacent to the left anterior eighth rib. IMPRESSION: 1. Long segment of thickened ileum consistent with a nonspecific enteritis. This favors an infectious or inflammatory process. No evidence for bowel obstruction. 2. There are 4 slightly hyperdense subcutaneous nodules within the left side of the abdomen as described above. These are concerning for metastatic nodules given the patient's history of melanoma. Nonemergent fine-needle aspiration aspiration follow-up can be performed for further evaluation. Electronically signed by: Earl Saeed M.D. 11/18/2016 7:16 AM Dictated Date/Time: 11/18/2016 7:05 AM
--- NOTE | 2016-11-20 15:48 | Pharmacy Progress Note ---
ED Pharmacist Culture FollowUp Date of Service: Nov 20, 2016. Called [facility] regarding Pseudomonas isolated in urine culture. Spoke with Brittany (RN) who requested results be faxed to . Results faxed , confirmation received. Further management per [facility] Nava.
[2016-12-04] MEDS ORDERED: CYM20 PO (15:16)
[2016-12-04] MEDS ORDERED: MCRK20 PO (15:16)
[2016-12-04] MEDS ORDERED: AMB5 PO (15:16)
[2016-12-04] MEDS ORDERED: LSX20 PO (15:16)
[2016-12-04] MEDS ORDERED: NRN300 PO (15:16)
[2016-12-04] MEDS ORDERED: DRGTP25 TD (15:16)
[2016-12-04] MEDS ORDERED: DXM/4 PO (15:22)
[2016-12-04] MEDS ORDERED: CLC100 PO (15:22)
== END 2016-11-18 01:55 | disposition home or self-care (01) ==
LOC: EDBD 22:04 → C.EDA 22:09
DX: K52.9 Noninfective gastroenteritis and colitis, unspecified (principal); R10.31 Right lower quadrant pain; Z85.820 Personal history of malignant melanoma of skin; E11.9 Type 2 diabetes mellitus without complications; E78.5 Hyperlipidemia, unspecified; M10.9 Gout, unspecified; G47.33 Obstructive sleep apnea (adult) (pediatric); Z83.3 Family history of diabetes mellitus; Z80.9 Family history of malignant neoplasm, unspecified; Z87.891 Personal history of nicotine dependence; Z79.899 Other long term (current) drug therapy

== ENCOUNTER 2016-11-29 20:54 | Inpatient (IN) | payer OTHER, BC ==
[~2016-11-29] VITALS: Ht 170.2 cm; Wt 88.5 kg
[~2016-11-29 20:54] MED LIST changes: +ACET-1311 PO; +DXM/4 PO; +ENOX40IN SQ; +LANS30CA12 PO; +ONDA4TAB10 SL; +PROC1TAB5 PO; +SIMV40TA2 PO; +SUCR1TAB29 PO; +TRMCR515 TOP
[2016-11-29] MEDS ORDERED: SODIUM CHLORIDE 0.9% 1000ML 1,000 ML IV STA (21:49)
[2016-11-29] MEDS ORDERED: SODIUM CHLORIDE 0.9% 500ML 500 ML IV STA ×2 (21:49→23:05)
--- NOTE | 2016-11-29 21:53 | DIAGNOSTIC IMAGING REPORT ---
CHEST ONE VIEW PORTABLE CLINICAL HISTORY: Chest pain. COMPARISON STUDY: Chest radiograph and chest CT October 08, 2016. FINDINGS: There are left axilla surgical clips. No pneumothorax or pleural effusion is present. Cardiomediastinal silhouette is unremarkable. There is mild interstitial prominence. Linear bibasilar opacities are noted. IMPRESSION: 1. Linear left basilar opacities which favor atelectasis. 2. Interstitial prominence. This may reflect pulmonary vascular congestion or less likely an infectious process. Radiographic follow up is recommended. Electronically signed by: Joel Huerta M.D. 11/29/2016 9:51 PM Dictated Date/Time: 11/29/2016 9:49 PM
[2016-11-29] MEDS ORDERED: PIPERACILLIN/TAZOBACTAM 4.5 GM/100ML D5W IV STA (22:01)
[2016-11-29] MEDS ORDERED: LEVAQUIN 750MG / 150ML D5W IV ONE (22:15)
[2016-11-29] MEDS ORDERED: LINEZOLID / D5W 600 MG in PREMIXED IN D5W 300 ML IV STA (22:20)
[2016-11-29] MEDS ORDERED: ARTISOL12 OPB (22:23)
[2016-11-29] MEDS ORDERED: CIPR250T3 PO (22:25)
[2016-11-29 22:28] LABS: HEMATOCRIT 22.6 % (42-52); MEAN CELL VOLUME 87.3 fL (80-100); MEAN CORPUSCULAR HEMOGLOBIN 29.3 pg (25-34); MEAN CORPUSCULAR HGB CONC 33.6 g/dl (32-36); RED BLOOD COUNT 2.59 M/uL (4.7-6.1); WHITE BLOOD COUNT 3.62 K/uL (4.8-10.8)
[2016-11-29] MEDS ORDERED: MELA1TAB5 PO (22:28)
[2016-11-29 22:29] LABS: VEN BLD GAS O2 SATURATION 91.4 %; VEN BLOOD GAS BASE EXCESS -0.6 mEq/L
[2016-11-29 22:30] LABS: PROTHROMBIN TIME (PATIENT) 11.1 SECONDS (9.0-12.0)
[2016-11-29] MEDS ORDERED: INSU100I SQ (22:30)
[2016-11-29] MEDS ORDERED: LANS30CA12 PO (22:31)
[2016-11-29 22:33] LABS: POINT OF CARE PRO-BNP 3728 pg/ml (0-1800); POINT OF CARE TROPONIN I < 0.030 ng/ml (0-0.045)
[2016-11-29] MEDS ORDERED: ONDA4TAB10 SL (22:33)
[2016-11-29] MEDS ORDERED: OPTIRAY 320 IV PRN (22:45)
[2016-11-29 22:50] LABS: ALKALINE PHOSPHATASE 106 U/L (45-117); ALT/SGPT 46 U/L (12-78); BLOOD UREA NITROGEN 15 mg/dl (7-18); BUN/CREATININE RATIO 21.4 (10-20); CALCIUM 7.9 mg/dl (8.5-10.1); CARBON DIOXIDE 25 mmol/L (21-32); CHLORIDE 106 mmol/L (98-107); CREATININE 0.71 mg/dl (0.60-1.40); GLUCOSE 147 mg/dl (70-99)
[2016-11-29 22:56] LABS: POTASSIUM 4.3 mmol/L (3.5-5.1); SODIUM 141 mmol/L (136-145)
[2016-11-29] MEDS ORDERED: ACETAMINOPHEN 500 MG TAB PO STA (23:05)
[2016-11-29 23:08] LABS: AST/SGOT 28 U/L (15-37); MAGNESIUM 1.9 mg/dl (1.8-2.4)
[2016-11-29 23:09] LABS: CKMB/CK RATIO 2.5 (0-3.0)
[2016-11-29 23:10] LABS: PLATELET COUNT 94 K/uL (130-400)
[2016-11-29 23:15] LABS: ANISOCYTOSIS PRESENT; COMPLETE YES; EOS % 0.3 %; IG% 2.5 %; LYMPH ABS # 1.16 K/uL (1.2-3.4); MEAN PLATELET VOLUME 9.3 fL (7.4-10.4); MICROCYTOSIS PRESENT; MONO % 5.8 %; NEUT % 59.4 %
[2016-11-30] VITALS (17 sets, daily range): BP systolic 92–112; BP diastolic 53–69; PULSE 65–70; TEMP 36.3–36.9; O2SAT 95–98; Ht 170.2 cm; Wt 88.5 kg
[2016-11-30] MEDS ORDERED: FENTANYL CITRATE INJ 50 MCG/1 ML 2 ML VIAL IV STA (00:20)
[2016-11-30] MEDS ORDERED: ONDANSETRON INJ 2 MG/ML 2 ML VIAL ONE (01:32)
[2016-11-30] MEDS ORDERED: ONDANSETRON INJ 2 MG/ML 2 ML VIAL IV STA (01:32)
--- NOTE | 2016-11-30 02:12 | EMERGENCY ROOM VISIT NOTE ---
ED Visit Note First contact with patient: 22:26 HPI: SOB, BLE edema/pain PE: hypoxic, SBP 90s NC/AT IRIR, no murmurs Ronchi diffusely Abd soft NT/ND Ext: 1+edema, no erythema Neuro: grossly intact Plan: BNP elevated with pulmonary edema on CXR. EKG with new Aflutter. EF grossly preserved on limited bedside echo. Mild RV enlargement but no gross evidence of RV strain. Plethoric IVC with minimal respiratory variability. Trop negative. Lactate elevated in setting of hypoxia. Bld cxr drawn, empiric sepsis coverage given. CT scan negative for PE. ?high-output cardiomyopathy in setting of new anemia. Rectal exam negative. Consented for blood products. Likely will need combination of transfusion and diuresis. Admitted to medicine service for further management. I reviewed the patient's past medical history, medications, and visit nursing notes. I discussed the case with the physician assistant counsel, examined the patient, and agree with the findings and plan as documented in the physician assistants note.
[2016-11-30] MEDS ORDERED: ACETAMINOPHEN 325 MG TAB PO PRN ×3 (03:30→04:45)
[2016-11-30] MEDS ORDERED: PROCHLORPERAZINE MALEATE 10 MG TAB PO PRN (03:30)
[2016-11-30] MEDS ORDERED: PIPERACILL/TAZOBAC IV 4.5 GM in DEXTROSE 5% 100ML 100 ML IV SCH (03:30)
[2016-11-30] MEDS ORDERED: TRIAMCINOLONE ACET 0.5% CR 15 GM TUBE EXT PRN (03:30)
--- NOTE | 2016-11-30 03:30 | EMERGENCY ROOM VISIT NOTE ---
History First contact with patient: 21:31 Chief Complaint: SHORTNESS OF BREATH Stated Complaint: SOB, LEG PAIN Nursing Triage Summary: PT arrived via ambulance ALS. Pt lives at [facility]. Staff reported that last evening the pt was complaining of Chest pain and SOB. Today around 1900 the pt reported to staff the he was having extreme pain in his legs and feet bilaterally. Pt stated it feels like they are on fire. When EMS arrived pts pulse ox was 91% RA and respirations of 44. Pt was placed on 3 lpm of oxygen which brought his pulse ox to 96%. Pt reported leg and foot pain to be a 10 out of 10 on pain scale. EMS was to give pain medication but pts blood pressure was only 90 systolic. Pts lungs are diminished bilaterally. Pt is not on any home oxygen. Pt was given 350 ml of NSS. History of Present Illness The patient is a 76 year old male who presents to the Emergency Room with complaints of increasing shortness of breath with productive cough with green sputum with subjective fever and chills and leg swelling for the past day. Patient also complains of a slight headache. No history of CHF or PE. No prior heart disease. Echo from a month and half ago was normal. Patient is currently undergoing radiation and chemotherapy for melanoma with metastases. Patient was seen last month and half ago and was transferred to [facility] for possible Guillain-Pittman syndrome. This was negative. Patient's been having difficulties with ambulation and leg weakness. 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 Patient had a LP done there and had cancer cells in the CSF. Patient follows with [facility] oncology and radiology. His last chemoradiation was 3 weeks ago. Patient is bedbound for the past 2 months. Patient denies chest pain, abdominal pain, vomiting, diarrhea, loss of bowel control. No known black or blood in his stool. No prior blood contusion. Patient has a Espinoza in place. Review of Systems See HPI for pertinent positives & negatives. A total of 10 systems reviewed and were otherwise negative. 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 finger (4) S/P colonoscopy with polypectomy (5) S/P lumbar discectomy Family History Diabetes mellitus FHx: cancer Social History Smoking Status: Former Smoker Alcohol Use: none Drug Use: none Housing Status: lives alone Occupation Status: retired Current/Historical Medications Scheduled Allopurinol (Zyloprim), 300 MG PO DAILY Artificial Tear Solution (Artificial Tears), 2 DROPS OPB TID Ciprofloxacin (Cipro), 250 MG PO BID Dexamethasone (Decadron), 4 MG PO DAILY Enoxaparin (Lovenox), 40 MG SQ Q24H Insulin Lispro (Human) (Humalog), UNITS SQ ACHS Lansoprazole (Prevacid), 30 MG PO DAILY Melatonin (Kp Melatonin), 3 MG PO HS Ondasetron Odt (Zofran Odt), 4 MG SL Q6H Simvastatin (Zocor), 40 MG PO QPM Sucralfate (Carafate), 1 GM PO QAM&HS Scheduled PRN Acetaminophen (Tylenol), 650 MG PO Q4 PRN for Pain or Fever Prochlorperazine Maleate (Compazine), 10 MG PO Q6H PRN for Nausea or Vomiting Triamcinolone Acet (Triamcinolone Acetonide), 1 APPLN TOP BID PRN for RASH Physical Exam Vital Signs Date Time Temp Pulse Resp B/P (MAP) Pulse Ox O2 Delivery O2 Flow Rate FiO2 11/30/16 02:16 103/52 11/30/16 02:01 103/55 11/30/16 01:51 65 16 96 11/30/16 01:46 111/57 11/30/16 01:39 66 11/30/16 01:30 104/58 11/30/16 00:46 100/56 11/30/16 00:31 103/59 11/30/16 00:30 66 97 11/30/16 00:16 103/53 11/30/16 00:12 103/51 11/30/16 00:07 95/51 11/29/16 23:31 106/55 11/29/16 23:16 103/56 11/29/16 23:01 99/51 11/29/16 23:00 68 24 97 11/29/16 22:15 69 29 103/55 97 Room Air 11/29/16 21:46 93 Room Air 11/29/16 21:46 96 Nasal Cannula 2.0 11/29/16 21:22 70 11/29/16 21:07 94 Room Air 11/29/16 21:07 36.8 70 31 108/49 93 Room Air Physical Exam VITALS: Vitals are noted on the nurse's note and reviewed by myself. Vital signs mildly hypertensive GENERAL:pleasant male, in no acute distress, nondiaphoretic, well-developed well -nourished. SKIN: The skin was without rashes, erythema, edema, or bruising. There is no tenting of the skin. Capillary reflex less than 2 seconds. HEAD: Normocephalic atraumatic. EARS: External auditory canals clear, tympanic membranes pearly woody without erythema or effusion bilaterally. EYES: Pupils equal round and reactive to light and accommodation. Conjunctivae without injection, sclerae without icterus. Extraocular movements intact. NOSE: Patent, turbinates without inflammation or discharge. MOUTH: Mucous membranes mildly dry pharynx without erythema or exudate. Uvula midline. Airway patent. Tongue does not deviate. NECK: Supple without nuchal rigidity. No lymphadenopathy. No thyromegaly. Cervical spine is nontender. No JVD. HEART: Regular rate and rhythm LUNGS: Clear to auscultation bilaterally without wheezes, rales or rhonchi. No dullness to percussion. No retractions or accessory muscle use. ABDOMEN: Positive bowel sounds x 4. Normal tympanic percussion. Soft, nontender, without masses or organomegaly. Hagen sign negative. No guarding or rebound tenderness. Rectal exam: Brown stool guaiac-negative. MUSCULOSKELETAL: No thoracic or lumbar tenderness on exam. No muscle atrophy, erythema, noted. Trace pedal edema bilaterally. Pedal pulses +2 equal present bilaterally. Patient has subjective decreased sensation to the lower legs from below the knees. Patient states that it has been ongoing for a couple weeks now. NEURO: Patient was alert and oriented to person place and time. Normal sensation to light and sharp touch to all other areas. No focal neurological deficits. Medical Decision & Procedures Laboratory Results 11/29/16 22:08 Red Blood Count 2.59, Mean Corpuscular Volume 87.3, Mean Corpuscular Hemoglobin 29.3, Mean Corpuscular Hemoglobin Concent 33.6, Mean Platelet Volume 9.3, Neutrophils (%) (Auto) 59.4, Lymphocytes (%) (Auto) 32.0, Monocytes (%) (Auto) 5.8, Eosinophils (%) (Auto) 0.3, Basophils (%) (Auto) 0.0, Neutrophils # (Auto) 2.15, Lymphocytes # (Auto) 1.16, Monocytes # (Auto) 0.21, Eosinophils # (Auto) 0.01, Basophils # (Auto) 0.00 11/29/16 22:08 Test 11/29/16 22:08 11/29/16 22:15 11/29/16 22:16 White Blood Count 3.62 K/uL (4.8-10.8) Red Blood Count 2.59 M/uL (4.7-6.1) Hemoglobin 7.6 g/dL (14.0-18.0) Hematocrit 22.6 % (42-52) Mean Corpuscular Volume 87.3 fL (80-100) Mean Corpuscular Hemoglobin 29.3 pg (25-34) Mean Corpuscular Hemoglobin Concent 33.6 g/dl (32-36) Platelet Count 94 K/uL (130-400) Mean Platelet Volume 9.3 fL (7.4-10.4) Neutrophils (%) (Auto) 59.4 % Lymphocytes (%) (Auto) 32.0 % Monocytes (%) (Auto) 5.8 % Eosinophils (%) (Auto) 0.3 % Basophils (%) (Auto) 0.0 % Neutrophils # (Auto) 2.15 K/uL (1.4-6.5) Lymphocytes # (Auto) 1.16 K/uL (1.2-3.4) Monocytes # (Auto) 0.21 K/uL (0.11-0.59) Eosinophils # (Auto) 0.01 K/uL (0-0.5) Basophils # (Auto) 0.00 K/uL (0-0.2) RDW Standard Deviation 58.2 fL (36.4-46.3) RDW Coefficient of Variation 18.6 % (11.5-14.5) Immature Granulocyte % (Auto) 2.5 % Immature Granulocyte # (Auto) 0.09 K/uL (0.00-0.02) Anisocytosis PRESENT Microcytosis PRESENT Prothrombin Time 11.1 SECONDS (9.0-12.0) Prothromb Time International Ratio 1.0 (0.9-1.1) Activated Partial Thromboplast Time 27.1 SECONDS (21.0-31.0) Partial Thromboplastin Ratio 1.0 Venous Blood pH 7.48 (7.36-7.41) Venous Blood Partial Pressure CO2 31 mmHg (38.0-50.0) Venous Blood Partial Pressure O2 62 mmHg Venous Blood HCO3 23 mmol/L Venous Blood Oxygen Saturation 91.4 % Venous Blood Base Excess -0.6 mEq/L Anion Gap 10.0 mmol/L (3-11) Est Creatinine Clear Calc Drug Dose 94.2 ml/min Estimated GFR () 105.6 Estimated GFR (Non- 91.1 BUN/Creatinine Ratio 21.4 (10-20) Calcium Level 7.9 mg/dl (8.5-10.1) Magnesium Level 1.9 mg/dl (1.8-2.4) Total Bilirubin 0.3 mg/dl (0.2-1) Direct Bilirubin < 0.1 mg/dl (0-0.2) Aspartate Amino Transf (AST/SGOT) 28 U/L (15-37) Alanine Aminotransferase (ALT/SGPT) 46 U/L (12-78) Alkaline Phosphatase 106 U/L (45-117) Total Creatine Kinase 32 U/L (39-308) Creatine Kinase MB 0.8 ng/ml (0.5-3.6) Creatine Kinase MB Ratio 2.5 (0-3.0) Troponin I 0.016 ng/ml (0-0.045) Pro-B-Type Natriuretic Peptide 4551 pg/ml (0-1800) Total Protein 5.0 gm/dl (6.4-8.2) Albumin 2.0 gm/dl (3.4-5.0) Lipase 320 U/L (73-393) Thyroid Stimulating Hormone (TSH) 2.010 uIu/ml (0.300-4.500) Bedside Troponin I < 0.030 ng/ml (0-0.045) FO-Smk-K-Type Natriuretic Peptide 3728 pg/ml (0-1800) Bedside Lactic Acid Venous 2.92 mmol/L (0.90-1.70) Medications Administered Medications (Trade) Dose Ordered Sig/Tamika Route Start Time Stop Time Status Last Admin Dose Admin Sodium Chloride 500 ml @ 999 mls/hr Q31M STAT IV 11/29/16 21:49 11/29/16 22:19 DC 11/29/16 22:17 999 MLS/HR Sodium Chloride 1,000 ml @ 125 mls/hr Q8H STAT IV 11/29/16 21:49 11/30/16 05:48 11/29/16 23:00 125 MLS/HR Piperacillin Sod/ Tazobactam Sod (Zosyn Iv) 4.5 gm NOW STAT IV 11/29/16 22:01 11/29/16 22:03 DC 11/29/16 22:56 4.5 GM Levofloxacin (Levaquin / D5W) 750 mg NOW ONCE IV 11/29/16 22:15 11/29/16 22:16 DC 11/29/16 22:56 750 MG Linezolid 600 mg/ Prmx 300 ml @ 300 mls/hr NOW STAT IV 11/29/16 22:20 11/29/16 23:19 DC 11/30/16 00:45 300 MLS/HR Sodium Chloride 500 ml @ 999 mls/hr Q31M STAT IV 11/29/16 23:05 11/29/16 23:35 DC 11/29/16 23:05 999 MLS/HR Acetaminophen (Tylenol Tab) 1,000 mg NOW STAT PO 11/29/16 23:05 11/29/16 23:06 DC 11/29/16 23:05 1,000 MG Fentanyl Citrate (Fentanyl Inj) 50 mcg NOW STAT IV 11/30/16 00:20 11/30/16 00:21 DC 11/30/16 00:46 50 MCG Ondansetron HCl (Zofran Inj) 4 mg NOW STAT IV 11/30/16 01:32 11/30/16 01:33 DC 11/30/16 01:33 4 MG ED Course Prior records/ancillary studies reviewed. Triage Nursing notes reviewed. Additional history obtained from the family. The patient's history was concerning for respiratory difficulties. Differential diagnosis: Etiologies such as progression of carcinoma, infections, reactive airway disease , pneumonia, pneumothorax, COPD, CHF, cardiac ischemia, pulmonary embolism, musculoskeletal, gastrointestinal, as well as others were entertained. Physical examination: As above. ER treatment provided: Antibiotics, IV fluids, Tylenol, fentanyl On reassessment the patient felt better. Diagnostic interpretation by me: The electrocardiogram was negative for acute ischemic or pathologic change. Poor baseline, no acute ST-T wave changes. Impression normal sinus rhythm interpreted by myself The labs revealed anemia worse than baseline. Elevated BNP. Patient was consented to blood transfusion. Medicine will write for the blood transfusion if indicated Elevated lactic acid. Negative troponin Imaging studies: Chest x-ray as above. CLINICAL HISTORY: Chest pain. COMPARISON STUDY: Chest radiograph and chest CT October 08, 2016. FINDINGS: There are left axilla surgical clips. No pneumothorax or pleural effusion is present. Cardiomediastinal silhouette is unremarkable. There is mild interstitial prominence. Linear bibasilar opacities are noted. IMPRESSION: 1. Linear left basilar opacities which favor atelectasis. 2. Interstitial prominence. This may reflect pulmonary vascular congestion or less likely an infectious process. Radiographic follow up is recommended. Electronically signed by: Joel Huerta M.D. Head CT negative for acute findings. CTA negative for PE. Concerns for CHF per radiology Consultation: A consultation was placed with Dr. Barrera, hospitalist. The case was discussed and diagnostics were reviewed. The patient was evaluated in the ER for further treatment. This appears to be consistent with anemia, source of breath, cough with possible pneumonia and CHF. Patient's been feeling ill. He was started on antibiotic for possible pneumonia. He had an elevated lactic acid. He was typed and screened for blood transfusion. This is deferred to medicine. Patient had a negative guaiac. Blood pressure did improve. He was neurovascularly and neurologically intact. He agrees to treatment plan of admission. By the evaluation outlined above emergent etiologies such as cardiac ischemia, pulmonary embolism, reactive airway disease, pneumothorax, musculoskeletal, serious bacterial infections, as well as others were deemed relatively unlikely. The pt informed about the findings as listed above. All questions were answered and pleased with the treatment. Case reviewed with my attending. Medical Decision as above Medication Reconcilliation Current Medication List: was personally reviewed by me Blood Pressure Screening Patient's blood pressure: Normal blood pressure Impression Primary Impression: Congestive heart failure Additional Impressions: Anemia possible pneumonia Departure Information Dispostion Being Evaluated By Hospitalist Condition FAIR Forms HOME CARE DOCUMENTATION FORM, IMPORTANT VISIT INFORMATION Patient Instructions My [facility] Problem Qualifiers Primary Impression: Congestive heart failure Congestive heart failure type: unspecified congestive heart failure type Congestive heart failure chronicity: acute Qualified Codes: I50.9 - Heart failure, unspecified
[2016-11-30] MEDS ORDERED: DEXTROSE 50% 50 ML SYR IV PRN (03:45)
[2016-11-30] MEDS ORDERED: GLUCOSE 40% GEL 15 GM TUBE PO PRN (03:45)
[2016-11-30] MEDS ORDERED: GLUCAGON FOR INJ 1 MG VIAL SQ PRN (03:45)
[2016-11-30] MEDS ORDERED: GLUCOSE 10 TABS/TUBE PO PRN (03:45)
[2016-11-30] MEDS ORDERED: ONDANSETRON INJ 2 MG/ML 2 ML VIAL IV PRN (04:45)
[2016-11-30] MEDS: HYDROmorphone INJ 1 MG/ML SYR IV PRN ×3 (05:21→21:46)
[2016-11-30] MEDS ORDERED: PIPERACILL/TAZOBAC IV 3.375 GM in DEXTROSE 5% 100ML IV ONE (06:15)
[2016-11-30] MEDS ORDERED: PIPERACILL/TAZOBAC CONSULT ACTIVE PRN ×2 (06:15)
--- NOTE | 2016-11-30 06:41 | HISTORY & PHYSICAL EXAMINATION ---
DATE OF ADMISSION: 11/30/2016 PRIMARY CARE PROVIDER: Dr. Root. CHIEF COMPLAINT: Nausea, vomiting, increasing shortness of breath and bilateral leg pain since last noon. 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 He carries extensive course in his medical care consisting of a 76-year-old male with metastatic melanoma that was diagnosed initially in 2003, was admitted to [facility] on October 08 until October 18. At that time, he was admitted with fever, diarrhea, and probable syncope. In the hospital, he was given extensive course of antibiotic and he was having new neurological symptoms while in the hospital suggestive of Guillain-Ravenna syndrome and he was referred to [facility]. He was hospitalized at [facility] on 18 of October to 13 of November and underwent extensive investigation and management from different specialists. 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 He also underwent lumbar puncture and a spinal fluid culture analysis 2 times did not show any infective agent, but that was positive for Guillain-Ravenna/peripheral neuropathy and it was negative for any malignant cells, especially in one of the tests. Treatment given included IV insulin Solu-Medrol and oral corticosteroids and he completed course of antibiotics with vancomycin, ampicillin, Doxycycline and his fever resolved. He also got intrathecal chemotherapy and radiation in the spine about 10 doses and he was told that his cancer has been terminal and wherever he goes option remains as comfort care down the line. He is here today from [place] complaining of weakness, nausea, vomiting, and severe bilateral leg pain. He has been hemodynamically stable in the emergency room and his blood count is remarkable for hemoglobin of 7.6, platelet of 94, ProBNP of 4000 and his CAT scan of the chest did not show any pulmonary embolism, but concern was for CHF. CT of the head did not show any acute hemorrhage and given his complex medical history and presentation, he was admitted to telemetry unit. PAST MEDICAL HISTORY: Significant for metastatic malignant melanoma, leptomeningeal and cauda equina area metastases, gouty arthropathy, severe obstructive sleep apnea, diabetes type 2, hyperlipidemia and recent placement of Ommaya reservoir in the brain for chemotherapy. PAST SURGICAL HISTORY: Significant for amputation of the left fourth finger due to melanoma and axillary node resection, carpal tunnel surgery x2, ROUTE SALESMAN chemotherapy through Ommaya placed at [facility] since October this year, lumbar puncture x2 in [facility], and removal of lumbar spine lamina in 1988. FAMILY HISTORY: Brother has diabetes. Father had heart disorder and also lung disorders. SOCIAL HISTORY: He is a . He has 2 children. He quit smoking in 1979. He does not drink any alcohol. Now, he has been residing in [place]. ALLERGIES: No known allergies. MEDICATIONS: He has been on ciprofloxacin 250 mg b.i.d., Zofran ODT 4 mg as directed, Tylenol 325 mg tablet 2 tablets q. 4 hourly p.r.n., allopurinol 300 mg daily, Artificial Tear as directed, Decadron 4 mg daily, Lovenox 40 mg daily, insulin lispro as directed, Prevacid 30 mg daily, melatonin 3 mg daily, Compazine 10 mg q. 6 hourly p.r.n., simvastatin 40 mg daily, sucralfate 1 gram a.c. and at bedtime and Aristocort ointment as directed. REVIEW OF SYSTEMS: Other systems were unremarkable except those mentioned in the history of present complaint. PHYSICAL EXAMINATION: GENERAL: In the ER, he was not having any acute distress, minimal shortness of breath at rest. VITAL SIGNS: Temperature 36.8, pulse was 65, blood pressure 103/52, saturation 96% on 2 liters. HEENT: Unremarkable. NECK: Supple. No JVD, no bruit. CHEST: Occasional crackles at the bases. HEART: S1, S2 regular. ABDOMEN: Soft, benign, nontender, no organomegaly. Bowel sounds present. EXTREMITIES: Trace edema bilaterally. MUSCULOSKELETAL SYSTEM: Did not show any acute arthritis but movement of the lower extremities cause pain. CENTRAL NERVOUS SYSTEM: He is alert, awake, oriented x3. He does have pain involving both the lower extremities and also headache. He is generally very weak in the lower extremities due to pain, but clinically, no focal neuro deficit appreciated. LABORATORY DATA: Noted today white count was 3.62, H&H 7.6/22.26, and platelet was 94. Venous blood gas; pH 7.48, pCO2 31, pO2 62. Sodium 141, potassium 4.3, chloride 106, carbon dioxide 25, BUN 15, creatinine 0.71, random glucose 141. Lactic acid was 2.92. LFTs unremarkable. CK-MB and troponin negative. BNP was 4551. TSH 2.0. IMAGING DATA: Chest x-ray, left linear basilar opacities, interstitial prominence. This may reflect pulmonary vascular congestion or less likely infective process. CTA negative for pulmonary embolism, but to wait for full report. Venous duplex negative for any clot. CT of the head negative for any acute events, but wait for actual report. EKG was in sinus rhythm and no acute ST-T wave changes. IMPRESSION AND PLAN: 1. Nausea, vomiting, and generalized weakness could be secondary to ongoing gastritis or gastroenteritis. He has been on PPI and also sucralfate. We will continue with that. His nausea and vomiting could be secondary to ongoing infection. 2. Shortness of breath with low saturation. Chest x-ray showed pulmonary vascular congestion/infective process. He has had extensive antibiotic coverage since about September for a different kind of infection. We will continue with broad-spectrum antibiotic empirically and blood culture has been sent for that. We will give him oxygen and also blood transfusion for low hemoglobin, which maybe contributing his shortness of breath. 3.Severe Anemia:No source of bleeding,Check stool for blood.Will transfuse 2 units of PRBC. 4. Increasing leg pain. The pain is secondary to leptomeningeal disease history in the cauda equina. He has had radiation treatment before for that and no further treatment at this time except giving pain medications which will be given eventually. 5. 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 6. Diabetes type 2. Continue with current insulin doses and blood sugars a.c. and at bedtime. 7. Hyperlipidemia. Continue current medications. 8. Severe obstructive sleep apnea. Can use his own CPAP if he has been using. 9. Gastrointestinal prophylaxis with PPI and sucralfate. 10. Deep venous thrombosis prophylaxis with Lovenox. 11. Code status. I have discussed with the patient in detail. He will be a DNR. Also, I had long discussion with the patient for more than an hour and he decided that if there is no improvement of his medical condition and if the pain is worse and shortness of breath is worse, then he will go for comfort care only from here. In my clinical judgment, the beneficiary meets criteria as per CMS for 2 midnight stay in the hospital. LISA
[2016-11-30] MEDS: INSULIN ASPART 100 UNITS/ML 3 ML PEN SQ SCH ×4 (07:00→20:49)
[2016-11-30] MEDS: SUCRALFATE 1 GM TAB PO SCH ×2 (07:00→12:26)
--- NOTE | 2016-11-30 07:00 | DIAGNOSTIC IMAGING REPORT ---
HEAD CT NONCONTRAST CT DOSE: 614.27 mGy.cm HISTORY: Headache. TECHNIQUE: Multiaxial CT images of the head were performed without the use of intravenous contrast. Automated exposure control was utilized for this study. A dose lowering technique was utilized adhering to the principles of ALARA. Comparison: Head CT 10/08/2016. Findings: The paranasal sinuses and mastoid air cells are clear. The calvarium and skull base are intact. There is no mass, hematoma, midline shift, acute infarct. White matter hypodensity is nonspecific but suggestive of microvascular ischemic change. The ventricles and sulci demonstrate mild age-related involutional changes. Right frontal approach ventriculostomy catheter with the tip terminating at the foramen of Monro. The ventricles are stable in size. Impression: No acute intracranial abnormality. Interval placement of a right sided ventriculostomy catheter. Electronically signed by: Earl Saeed M.D. 11/30/2016 6:59 AM Dictated Date/Time: 11/30/2016 6:56 AM
--- NOTE | 2016-11-30 07:40 | DIAGNOSTIC IMAGING REPORT ---
CHEST CTA for PULMONARY ARTERIES CT DOSE: 520.53 mGy.cm HISTORY: Short of breath. Anterior chest pain. TECHNIQUE: Multiaxial CT images of the chest were performed following the intravenous administration of contrast to evaluate the pulmonary arteries. Maximal intensity projection images were also obtained. A dose lowering technique was utilized adhering to the principles of ALARA. COMPARISON STUDY: Chest CT 10/08/2016. FINDINGS: The visualized liver is unremarkable. Splenomegaly, unchanged. No pleural or pericardial effusions. Prominent right peritracheal lymph nodes measure subcentimeter in short axis diameter. Therefore, no mediastinal or hilar lymphadenopathy. Postoperative changes within the left ankle axilla, unchanged. No axillary lymphadenopathy. Subcentimeter thyroid nodules. No fractures within the visualized osseous structures. No pneumothorax. The central airways are patent. Scattered patchy groundglass airspace opacities. Normal caliber thoracic aorta with no evidence for dissection. Coronary artery calcifications. No filling defects within the pulmonary arteries to suggest pulmonary embolus. IMPRESSION: 1. No evidence for pulmonary embolus. 2. Scattered patchy groundglass airspace opacities seen throughout the lungs. This is nonspecific and could be due to developing pulmonary edema or an atypical pneumonia. 3. Stable splenomegaly. Electronically signed by: Earl Saeed M.D. 11/30/2016 7:39 AM Dictated Date/Time: 11/30/2016 7:32 AM
[2016-11-30] MEDS ORDERED: FUROSEMIDE INJ 40 MG in SYRINGE 0 ML IV SCH (08:00)
--- NOTE | 2016-11-30 08:24 | DIAGNOSTIC IMAGING REPORT ---
BILATERAL LOWER EXTREMITY VENOUS DOPPLER HISTORY: CA pt, leg swelling COMPARISON STUDY: None. FINDINGS: There is normal compressibility, flow, and augmentation within the bilateral lower extremity deep venous systems. IMPRESSION: No DVT within the right or left lower extremity. Electronically signed by: Earl Saeed M.D. 11/30/2016 8:23 AM Dictated Date/Time: 11/30/2016 8:22 AM
[2016-11-30] MEDS: ENOXAPARIN 40 MG/0.4 ML SYR SQ SCH (08:54)
[2016-11-30] MEDS: ALLOPURINOL 300 MG TAB PO SCH (08:54)
[2016-11-30] MEDS: PANTOprazole SOD 40 MG TAB PO SCH (08:54)
[2016-11-30] MEDS ORDERED: DEXAMETHASONE 4 MG TAB PO SCH (09:00)
[2016-11-30] MEDS: ARTIFICIAL TEARS OP SOLN OPB SCH ×6 (09:55→20:46)
[2016-11-30] MEDS: LINEZOLID / D5W 600 MG in PREMIXED IN D5W 300 ML IV SCH (12:27)
[2016-11-30] MEDS: PIPERACILL/TAZOBAC IV 3.375 GM in DEXTROSE 5% 100ML IV SCH ×2 (12:27→20:53)
[2016-11-30] MEDS: HYDROmorphone INJ 0.5 MG/0.5 ML SYR IV PRN ×2 (15:25→18:36)
[2016-11-30] MEDS: GABAPENTIN 300 MG CAP PO SCH ×2 (16:48→20:46)
[2016-11-30] MEDS: ACETAMINOPHEN 500 MG TAB PO SCH ×2 (16:49→21:49)
[2016-11-30] MEDS ORDERED: FUROSEMIDE 20 MG TAB PO SCH (17:00)
[2016-11-30] MEDS ORDERED: SIMVASTATIN 40 MG TAB PO SCH (21:00)
[2016-11-30] MEDS ORDERED: NON-FORMULARY MEDICATION (Melatonin (Kp Melatonin) 3 MG) PO SCH (21:00)
[2016-11-30] MEDS ORDERED: ZOLPIDEM TARTRATE 5 MG TAB PO PRN (22:00)
[2016-11-30] MEDS ORDERED: LEVOFLOXACIN / D5W 750 MG in PREMIXED IN D5W 150 ML IV SCH (23:00)
--- NOTE | 2016-11-30 23:22 | Progress Note ---
Medicine Progress Note Date & Time of Visit: Nov 30, 2016 at 10:39. Subjective tolerating PO pain in legs is burning insomnia 2/2 pain in legs pt considering Hospice care at this point. Objective Last 8 Hrs Date Time Temp Pulse Resp B/P (MAP) Pulse Ox O2 Delivery O2 Flow Rate FiO2 11/30/16 10:20 36.9 66 14 107/65 96 11/30/16 06:50 36.8 66 20 101/62 (75) 97 Nasal Cannula 2.0 11/30/16 06:34 36.8 66 22 92/67 98 2.0 11/30/16 05:30 36.4 65 18 102/58 (73) 97 Nasal Cannula 11/30/16 05:16 65 17 105/53 95 11/30/16 04:46 36.8 65 20 99/53 95 Nasal Cannula 11/30/16 03:51 66 21 11/30/16 03:21 66 19 11/30/16 03:01 102/54 11/30/16 02:51 66 20 11/30/16 02:46 103/59 Physical Exam: GEN: WNWD, in no acute distress, alert and appropriate HEENT: NC/AT, PERRL, normal sclerae, MMM CARDIO: reg rate, S1/2 heard without m/g/r, no edema, 2+ peripheral pulses throughout. LUNGS: CTA bilaterally, no crackles, rales or wheezes, good diaphragmatic excursion ABD: soft, non-tender, non-distended, no rebound or guarding, +BS EXTREMITY: RP and DP palpable 2+ bilat, no LE swelling or edema, extremities are warm and well-perfused NEURO: CN 2-12 grossly intact, sensation intact throughout but decreased in all extremities, could not elicit reflexes MUSC: very limited strength in legs-5/5 hip extension, 3/5 hip flexion, noted foot drop, difficult for patient to sit up on his own. SKIN: warm and dry Laboratory Results: 11/29/16 22:08 Red Blood Count 2.59, Mean Corpuscular Volume 87.3, Mean Corpuscular Hemoglobin 29.3, Mean Corpuscular Hemoglobin Concent 33.6, Mean Platelet Volume 9.3, Neutrophils (%) (Auto) 59.4, Lymphocytes (%) (Auto) 32.0, Monocytes (%) (Auto) 5.8, Eosinophils (%) (Auto) 0.3, Basophils (%) (Auto) 0.0, Neutrophils # (Auto) 2.15, Lymphocytes # (Auto) 1.16, Monocytes # (Auto) 0.21, Eosinophils # (Auto) 0.01, Basophils # (Auto) 0.00 11/29/16 22:08 Test 11/29/16 22:08 11/29/16 22:15 11/29/16 22:16 11/30/16 20:32 White Blood Count 3.62 K/uL (4.8-10.8) Red Blood Count 2.59 M/uL (4.7-6.1) Hemoglobin 7.6 g/dL (14.0-18.0) Hematocrit 22.6 % (42-52) Mean Corpuscular Volume 87.3 fL (80-100) Mean Corpuscular Hemoglobin 29.3 pg (25-34) Mean Corpuscular Hemoglobin Concent 33.6 g/dl (32-36) Platelet Count 94 K/uL (130-400) Mean Platelet Volume 9.3 fL (7.4-10.4) Neutrophils (%) (Auto) 59.4 % Lymphocytes (%) (Auto) 32.0 % Monocytes (%) (Auto) 5.8 % Eosinophils (%) (Auto) 0.3 % Basophils (%) (Auto) 0.0 % Neutrophils # (Auto) 2.15 K/uL (1.4-6.5) Lymphocytes # (Auto) 1.16 K/uL (1.2-3.4) Monocytes # (Auto) 0.21 K/uL (0.11-0.59) Eosinophils # (Auto) 0.01 K/uL (0-0.5) Basophils # (Auto) 0.00 K/uL (0-0.2) RDW Standard Deviation 58.2 fL (36.4-46.3) RDW Coefficient of Variation 18.6 % (11.5-14.5) Immature Granulocyte % (Auto) 2.5 % Immature Granulocyte # (Auto) 0.09 K/uL (0.00-0.02) Anisocytosis PRESENT Microcytosis PRESENT Prothrombin Time 11.1 SECONDS (9.0-12.0) Prothromb Time International Ratio 1.0 (0.9-1.1) Activated Partial Thromboplast Time 27.1 SECONDS (21.0-31.0) Partial Thromboplastin Ratio 1.0 Venous Blood pH 7.48 (7.36-7.41) Venous Blood Partial Pressure CO2 31 mmHg (38.0-50.0) Venous Blood Partial Pressure O2 62 mmHg Venous Blood HCO3 23 mmol/L Venous Blood Oxygen Saturation 91.4 % Venous Blood Base Excess -0.6 mEq/L Anion Gap 10.0 mmol/L (3-11) Est Creatinine Clear Calc Drug Dose 94.2 ml/min Estimated GFR () 105.6 Estimated GFR (Non- 91.1 BUN/Creatinine Ratio 21.4 (10-20) Calcium Level 7.9 mg/dl (8.5-10.1) Magnesium Level 1.9 mg/dl (1.8-2.4) Total Bilirubin 0.3 mg/dl (0.2-1) Direct Bilirubin < 0.1 mg/dl (0-0.2) Aspartate Amino Transf (AST/SGOT) 28 U/L (15-37) Alanine Aminotransferase (ALT/SGPT) 46 U/L (12-78) Alkaline Phosphatase 106 U/L (45-117) Total Creatine Kinase 32 U/L (39-308) Creatine Kinase MB 0.8 ng/ml (0.5-3.6) Creatine Kinase MB Ratio 2.5 (0-3.0) Troponin I 0.016 ng/ml (0-0.045) Pro-B-Type Natriuretic Peptide 4551 pg/ml (0-1800) Total Protein 5.0 gm/dl (6.4-8.2) Albumin 2.0 gm/dl (3.4-5.0) Lipase 320 U/L (73-393) Thyroid Stimulating Hormone (TSH) 2.010 uIu/ml (0.300-4.500) Bedside Troponin I < 0.030 ng/ml (0-0.045) MJ-Ksc-L-Type Natriuretic Peptide 3728 pg/ml (0-1800) Bedside Lactic Acid Venous 2.92 mmol/L (0.90-1.70) Bedside Glucose 149 mg/dl (70-99) Date/Time Source Procedure Growth Status 11/29/16 22:08 Blood Blood Culture Pending Received 8/13/17 10:50 Nasal MRSA DNA Surveillance Screen - Final Specimen Negative for MRSA by DNA Probe Complete Last 24 Hours Test 11/29/16 22:08 11/29/16 22:15 11/29/16 22:16 11/30/16 06:41 White Blood Count 3.62 K/uL Red Blood Count 2.59 M/uL Hemoglobin 7.6 g/dL Hematocrit 22.6 % Mean Corpuscular Volume 87.3 fL Mean Corpuscular Hemoglobin 29.3 pg Mean Corpuscular Hemoglobin Concent 33.6 g/dl Platelet Count 94 K/uL Mean Platelet Volume 9.3 fL Neutrophils (%) (Auto) 59.4 % Lymphocytes (%) (Auto) 32.0 % Monocytes (%) (Auto) 5.8 % Eosinophils (%) (Auto) 0.3 % Basophils (%) (Auto) 0.0 % Neutrophils # (Auto) 2.15 K/uL Lymphocytes # (Auto) 1.16 K/uL Monocytes # (Auto) 0.21 K/uL Eosinophils # (Auto) 0.01 K/uL Basophils # (Auto) 0.00 K/uL RDW Standard Deviation 58.2 fL RDW Coefficient of Variation 18.6 % Immature Granulocyte % (Auto) 2.5 % Immature Granulocyte # (Auto) 0.09 K/uL Anisocytosis PRESENT Microcytosis PRESENT Prothrombin Time 11.1 SECONDS Prothromb Time International Ratio 1.0 Activated Partial Thromboplast Time 27.1 SECONDS Partial Thromboplastin Ratio 1.0 Venous Blood pH 7.48 Venous Blood Partial Pressure CO2 31 mmHg Venous Blood Partial Pressure O2 62 mmHg Venous Blood HCO3 23 mmol/L Venous Blood Oxygen Saturation 91.4 % Venous Blood Base Excess -0.6 mEq/L Sodium Level 141 mmol/L Potassium Level 4.3 mmol/L Chloride Level 106 mmol/L Carbon Dioxide Level 25 mmol/L Anion Gap 10.0 mmol/L Blood Urea Nitrogen 15 mg/dl Creatinine 0.71 mg/dl Est Creatinine Clear Calc Drug Dose 94.2 ml/min Estimated GFR () 105.6 Estimated GFR (Non- 91.1 BUN/Creatinine Ratio 21.4 Random Glucose 147 mg/dl Calcium Level 7.9 mg/dl Magnesium Level 1.9 mg/dl Total Bilirubin 0.3 mg/dl Direct Bilirubin < 0.1 mg/dl Aspartate Amino Transf (AST/SGOT) 28 U/L Alanine Aminotransferase (ALT/SGPT) 46 U/L Alkaline Phosphatase 106 U/L Total Creatine Kinase 32 U/L Creatine Kinase MB 0.8 ng/ml Creatine Kinase MB Ratio 2.5 Troponin I 0.016 ng/ml Pro-B-Type Natriuretic Peptide 4551 pg/ml Total Protein 5.0 gm/dl Albumin 2.0 gm/dl Lipase 320 U/L Thyroid Stimulating Hormone (TSH) 2.010 uIu/ml Bedside Troponin I < 0.030 ng/ml JQ-Zxv-X-Type Natriuretic Peptide 3728 pg/ml Bedside Lactic Acid Venous 2.92 mmol/L Bedside Glucose 134 mg/dl Date/Time Source Procedure Growth Status 11/29/16 22:08 Blood Blood Culture Pending Received 11/29/16 21:58 Blood Blood Culture Pending Received Assessment & Plan 76 yo M with complex h/o malignant melanoma treatment presents with worsening leg pain/leg numbness and shortness of breath 1. Dyspnea-improved after blood administration and Lasix 40 IV in between units. There was pulmonary congestion noted on admission CXR and it appears he was SOB 2/2 pulmonary edema; also on treatment for HCAP as he had SOB with hypoxia and chills reported. No fevers or coughing recently though and changes on the left base of the xray appears more consistent with atelectasis. 2. Pancytopenia with severe anemia-2 units of blood were transfused. 3. Atrial flutter-new onset. Anticoagulation contraindicated at this time. TTE ordered this morning-reading pending. 4. 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 Will start gabapentin and dilaudid for breakthrough. 5. 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 DMII-controlled, cont ISS/carb coverage. 7. Severe obstructive sleep apnea. Can use his own CPAP if he has been using. DVT proph: Lovenox DNR Dispo-poor prognosis, pt considering home with Hospice. [facility] consulted. [facility] Current Inpatient Medications: Current Inpatient Medications Medications (Trade) Dose Ordered Sig/Tamika Route Start Time Stop Time Status Last Admin Dose Admin Ioversol (Optiray 320) 125 ml UD PRN IV 11/29/16 22:45 12/03/16 22:44 Allopurinol (Zyloprim Tab) 300 mg DAILY PO 11/30/16 09:00 12/30/16 08:59 11/30/16 08:54 300 MG Dexamethasone (Decadron Tab) 4 mg DAILY PO 11/30/16 09:00 12/30/16 08:59 11/30/16 08:54 4 MG Enoxaparin Sodium (Lovenox Inj) 40 mg Q24H SQ 11/30/16 09:00 12/30/16 08:59 11/30/16 08:54 40 MG Insulin Aspart (novoLOG ASPART) ACHS SQ 11/30/16 07:00 12/30/16 06:59 Prochlorperazine Maleate (Compazine Tab) 10 mg Q6H PRN PO 11/30/16 03:30 12/30/16 03:29 Simvastatin (Zocor Tab) 40 mg QPM PO 11/30/16 21:00 12/30/16 20:59 Sucralfate (Carafate Tab) 1 gm ACHS PO 11/30/16 07:00 12/30/16 06:59 Triamcinolone Acetonide (Kenalog 0.5% Crm) 1 appln BID PRN EXT 11/30/16 03:30 12/30/16 03:29 Artificial Tears (Artificial Tears) 2 drops TID OPB 11/30/16 09:00 12/30/16 08:59 11/30/16 09:55 2 DROPS Pantoprazole Sodium (Protonix Tab) 40 mg QAM PO 11/30/16 09:00 12/30/16 08:59 11/30/16 08:54 40 MG Levofloxacin 750 mg/Prmx 150 ml @ 100 mls/hr Q24H IV 11/30/16 23:00 12/01/16 00:29 Linezolid 600 mg/ Prmx 300 ml @ 300 mls/hr Q12H IV 11/30/16 13:00 12/01/16 13:59 Hydromorphone HCl (Dilaudid Inj) 1 mg Q4H PRN IV 11/30/16 03:30 12/14/16 03:29 11/30/16 10:16 1 MG Glucose (Glucose 40% Gel) 15-30 GRAMS 15 GRAMS... UD PRN PO 11/30/16 03:45 12/30/16 03:44 Glucose (Glucose Chew Tab) 4-8 Tablets 4 Tabl... UD PRN PO 11/30/16 03:45 12/30/16 03:44 Dextrose (Dextrose 50% 50ML Syringe) 25-50ML OF 50% DW IV FOR... UD PRN IV 11/30/16 03:45 12/30/16 03:44 Glucagon (Glucagon Inj) 1 mg UD PRN SQ 11/30/16 03:45 12/30/16 03:44 Acetaminophen (Tylenol Tab) 650 mg Q4 PRN PO 11/30/16 04:00 12/30/16 03:59 11/30/16 08:52 650 MG Ondansetron HCl (Zofran Inj) 4 mg Q6H PRN IV 11/30/16 04:45 12/30/16 04:44 11/30/16 06:36 4 MG Piperacillin Sod/ Tazobactam Sod (Consult) 1 ea UD PRN N/A 11/30/16 06:15 12/30/16 06:14 Piperacillin Sod/ Tazobactam Sod 3.375 gm/Dextrose 115 ml @ 28.75 mls/ hr Q8H IV 11/30/16 10:00 12/02/16 09:59 Furosemide 40 mg/ Syringe 4 ml @ 4 mls/min TODAY@0800 IV 11/30/16 08:00 11/30/16 12:00 11/30/16 08:53 4 MLS/MIN
[2016-12-01] MEDS: LINEZOLID / D5W 600 MG in PREMIXED IN D5W 300 ML IV SCH ×2 (01:32→12:25)
[2016-12-01 04:00] VITALS: BP 107/64; PULSE 70; TEMP 36.9; O2SAT 98
[2016-12-01] MEDS: PIPERACILL/TAZOBAC IV 3.375 GM in DEXTROSE 5% 100ML IV SCH ×2 (04:19→12:24)
[2016-12-01] MEDS: ACETAMINOPHEN 500 MG TAB PO SCH ×3 (06:01→22:07)
[2016-12-01 06:39] LABS: HEMATOCRIT 32.3 % (42-52); MEAN CELL VOLUME 87.1 fL (80-100); MEAN CORPUSCULAR HEMOGLOBIN 27.5 pg (25-34); MEAN CORPUSCULAR HGB CONC 31.6 g/dl (32-36); RED BLOOD COUNT 3.71 M/uL (4.7-6.1); WHITE BLOOD COUNT 3.76 K/uL (4.8-10.8)
[2016-12-01 07:15] LABS: CALCIUM 7.5 mg/dl (8.5-10.1); CREATININE 0.72 mg/dl (0.60-1.40); POTASSIUM 3.4 mmol/L (3.5-5.1)
[2016-12-01 07:34] LABS: MEAN PLATELET VOLUME 9.3 fL (7.4-10.4); PLATELET COUNT 87 K/uL (130-400)
[2016-12-01 07:39] LABS: ANISOCYTOSIS PRESENT; BASO % 0.5 %; BASO ABS # 0.02 K/uL (0-0.2); COMPLETE YES; IG% 4.5 %; LYMPH % 27.7 %; LYMPH ABS # 1.04 K/uL (1.2-3.4); MONO % 6.6 %; NEUT % 60.7 %
[2016-12-01 07:50] VITALS: BP 106/64; PULSE 69; TEMP 36.8; O2SAT 97
[2016-12-01] MEDS: HYDROmorphone INJ 1 MG/ML SYR IV PRN ×3 (07:52→16:22)
[2016-12-01] MEDS: ALLOPURINOL 300 MG TAB PO SCH (08:00)
[2016-12-01] MEDS: DEXAMETHASONE 4 MG TAB PO SCH (08:00)
[2016-12-01] MEDS: PANTOprazole SOD 40 MG TAB PO SCH (08:00)
[2016-12-01] MEDS: GABAPENTIN 300 MG CAP PO SCH ×3 (08:01→20:39)
[2016-12-01] MEDS: ARTIFICIAL TEARS OP SOLN OPB SCH ×6 (08:02→20:40)
[2016-12-01] MEDS: ENOXAPARIN 40 MG/0.4 ML SYR SQ SCH (08:02)
[2016-12-01] MEDS: INSULIN ASPART 100 UNITS/ML 3 ML PEN SQ SCH ×4 (08:07→20:38)
--- NOTE | 2016-12-01 08:37 | ECHOCARDIOGRAM REPORT ---
*NOTICE TO RECEIVING [employer] This information is strictly Confidential and protected under [place] law. [place] law prohibits you from making any further disclosure of this information unless further disclosure is expressly permitted by the written consent of the person to whom it pertains or is authorized by law. A general authorization for the release of medical or other information is not sufficient for this purpose. Hospital accepts no responsibility if the information is made available to any other person, INCLUDING THE PATIENT. Interpretation Summary * Name: EPHRAIM BURR Study Date: 11/30/2016 12:22 PM BP: 107/65 mmHg * Patient Location: C.2T\S\S243\S\1 HR: 66 * : 1940 (M/d/yyyy) Gender: Male Height: 67 in * Age: 76 yrs Ethnicity: [place] Weight: 193 lb * Ordering Physician: Nancy Stahl * Referring Physician: Self, Referred * Performed By: Sofya Alba RDCS * * Reason For Study: A-Flutter * BSA: 2.0 m2 * -- Conclusions -- * Atrial flutter with controlled ventricular rate was present during the echocardiogram. * There is mild concentric left ventricular hypertrophy. * There is subtle flattening of the interventricular septum in diastolic consistent with right ventricular volume overload. * Otherwise, there are no regional wall motion abnormalities noted. * The right ventricle is mildly dilated. * The right ventricular systolic function is mildly reduced. * There is mild tricuspid regurgitation. * Doppler findings do not suggest pulmonary hypertension. * There is no pericardial effusion. * Compared to the images of the prior study dated, 10/10/16, atrial flutter with controlled ventricular rate is now present as compared to sinus tachycardia at 100 bpm. The interventricular septal flattening, and right ventricular chamber sized and RV systolic dysfunction were present on the prior study, with no significant change noted. Procedure Details * A complete two-dimensional transthoracic echocardiogram was performed (2D, M-mode, Doppler and color flow Doppler). Left Ventricle * The left ventricle is normal in size. * There is mild concentric left ventricular hypertrophy. * Left ventricular systolic function is normal. * Ejection Fraction = 60-65%. * The left ventricular wall motion is normal. * No regional wall motion abnormalities noted. * There is subtle flattening of the interventricular septum in diastolic consistent with right ventricular volume overload. Right Ventricle * The right ventricle is mildly dilated. * The right ventricular systolic function is mildly reduced. Atria * The left atrial size is normal. * Right atrial size is normal. * There is no evidence of atrial septal defect, but resolution does not allow assessment for a patent foramen ovale. Mitral Valve * The mitral valve is normal. * There is no mitral valve stenosis. * Significant mitral regurgitation is absent. Tricuspid Valve * The tricuspid valve is normal. * There is no tricuspid stenosis. * There is mild tricuspid regurgitation. * Doppler findings do not suggest pulmonary hypertension. Aortic Valve * The aortic valve is trileaflet. * Aortic stenosis is absent. * There is no significant aortic regurgitation. Pulmonic Valve * The pulmonary valve is not well seen, but the Doppler examination is normal without significant regurgitation or stenosis. Great Vessels * The aortic root and proximal ascending aorta are normal sized. Pericardium/Pleural * There is no pericardial effusion. Great Vessels * Normal inferior vena cava diameter and respiratory variation suggests normal central venous pressure. MMode 2D Measurements and Calculations IVSd 1.1 cm LVIDd 3.8 cm LVIDs 2.4 cm LVPWd 0.66 cm IVS/LVPW 1.7 FS 35.4 % EDV(Teich) 60.3 ml ESV(Teich) 20.7 ml EF(Teich) 65.6 % EDV(cubed) 53.1 ml ESV(cubed) 14.3 ml EF(cubed) 73.1 % LV mass(C)d 97.2 grams LV mass(C)dI 48.8 grams/m\S\2 SV(Teich) 39.6 ml SI(Teich) 19.9 ml/m\S\2 SV(cubed) 38.8 ml SI(cubed) 19.5 ml/m\S\2 Ao root diam 3.3 cm Ao root area 8.6 cm\S\2 ACS 2.1 cm LA dimension 2.7 cm asc Aorta Diam 3.0 cm LA/Ao 0.82 LVOT diam 2.0 cm LVOT area 3.2 cm\S\2 LVAd ap4 20.7 cm\S\2 LVLd ap4 6.9 cm EDV(MOD-sp4) 50.6 ml EDV(sp4-el) 52.7 ml LVAs ap4 11.0 cm\S\2 LVLs ap4 5.8 cm ESV(MOD-sp4) 16.8 ml ESV(sp4-el) 17.7 ml EF(MOD-sp4) 66.7 % EF(sp4-el) 66.4 % LVAd ap2 20.3 cm\S\2 LVLd ap2 6.8 cm EDV(MOD-sp2) 51.7 ml EDV(sp2-el) 51.9 ml LVAs ap2 10.8 cm\S\2 LVLs ap2 5.2 cm ESV(MOD-sp2) 18.2 ml ESV(sp2-el) 18.9 ml EF(MOD-sp2) 64.7 % EF(sp2-el) 63.6 % LVLd %diff -2.26 % EDV(MOD-bp) 51.4 ml LVLs %diff -10.13 % ESV(MOD-bp) 18.3 ml EF(MOD-bp) 64.4 % SV(MOD-sp4) 33.7 ml SI(MOD-sp4) 16.9 ml/m\S\2 SV(MOD-sp2) 33.4 ml SI(MOD-sp2) 16.8 ml/m\S\2 SV(MOD-bp) 33.1 ml SI(MOD-bp) 16.6 ml/m\S\2 SV(sp4-el) 35.0 ml SI(sp4-el) 17.6 ml/m\S\2 SV(sp2-el) 33.0 ml SI(sp2-el) 16.6 ml/m\S\2 Doppler Measurements and Calculations MV E max cassi 100.4 cm/sec MV A max cassi 57.2 cm/sec MV E/A 1.8 MV dec time 0.17 sec Ao V2 max 106.9 cm/sec Ao max PG 4.6 mmHg Ao max PG (full) 1.7 mmHg LEONELA(V,A) 2.5 cm\S\2 LEONELA(V,D) 2.5 cm\S\2 LV V1 max PG 2.9 mmHg LV V1 max 85.4 cm/sec PA V2 max 97.7 cm/sec PA max PG 3.8 mmHg PA acc slope 457.8 cm/sec\S\2 PA acc time 0.12 sec TR max cassi 219.8 cm/sec PA pr(Accel) 25.1 mmHg
--- NOTE | 2016-12-01 09:20 | Clinical Documentation Query ---
SANDEEP Hanley : CLINICAL DOCUMENTATION QUERIES QUERY 1 OF 2 Patient is a 76 year old male admitted for evaluation and treatment of worsening leg pain/leg numbness and shortness of breath. Documentation includes "There was pulmonary congestion noted on admission CXR and it appears he was SOB 2/2 pulmonary edema". He was treated with transfusion of PRBC's and IV Lasix. As appropriate, consider documentation as suggested below as the acuity of the diagnosis cannot be assumed by the professional clinical coder. Thank you. In your clinical opinion is this patient being managed for: ( x ) Acute pulmonary edema ( ) Other explanation of clinical findings (Please Explain) ( ) Unable to determine (Please Define) ( ) Need to Discuss ( ) Not Agree The medical record reflects the following clinical findings, treatment, and risk factors. Clinical Indicators: As above Treatment: Telemetry, IV Lasix, echocardiogram, daily weights, I/O Risk Factors: Age, comorbid conditions, infection, anemia QUERY 2 OF 2 Progress note documentation includes "pancytopenia". Noted to have undergone recent intrathecal chemotherapy and prior interferon therapy with known bone marrow suppressive characteristics. As appropriate, consider clarification of etiology of pancytopenia as noted below. In your clinical opinion is this patient being managed for: (x ) Antineoplastic chemotherapy induced pancytopenia ( ) Other explanation of clinical findings (Please Explain) ( ) Unable to determine (Please Define) ( ) Need to Discuss ( ) Not Agree The medical record reflects the following clinical findings, treatment, and risk factors. Clinical Indicators: As above Treatment: PRBC transfusion, serial hematology Risk Factors: Chemotherapeutic administration. Please clarify and document your clinical opinion in the progress notes and discharge summary. Terms such as "probable", "suspected", "likely", "questionable", "possible", or "still to be ruled out" are acceptable. IF IN AGREEMENT, YOU MUST DOCUMENT ABOVE DIAGNOSTIC STATEMENT IN DAILY PROGRESS NOTES AND DISCHARGE SUMMARY. This document is not part of the patient's record. Thank You, Georges Roldan, ANDI [phone]
--- NOTE | 2016-12-01 09:30 | Palliative Care Consultation ---
Consultation Date of Consultation: Dec 01, 2016. Requesting Physician: Nancy Stahl DO Attending Physician: Nancy Stahl DO Reason for Consultation: Plan of care, pain management History of Present Illness Pt is a 76 yo male diagnosed with Metastatic Melanoma in 2013 - started on L 4th finger. Pt is getting IT chemo - he has received 4 of 8 planned treatments at [place]. Pt was admitted on 11/29 for SOB, increased LE edema and nausea. Pt has been diuresed approx 1 L so far with improvement. 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 Pt was started on Neurontin 300 mg TID - he reports less pain in his legs this am. he is also receiving Dilaudid prn for pain. Pt would like to return home but would require 24 hour care. Pt reports that his son may be able to help some and may be able to get some nursing via the [place] - pt is service connected (per pt). Plan to mmet with son and pt tomorrow when son is able to be present to discuss options and goals. Past Medical/Surgical History Medical History: Metastatic Melanoma, DM, gout, SAVANNAH with CPAP QHS, HLD Surgical History: Amputation of L 4th digit at PIP joint, carpal tunnel surgery X 2, lumbar laminectomy '89 Family History + for DM, Cancer and heart disease Social History Smoking Status: Former Smoker (smoked 2-3 ppd X nearly 10 years - quit 50 years ago) History of Alcohol Use: No Drug Use: none Marital Status: Housing Status: lives alone (son and daughter live within 1 mile of pt's home) Occupation Status: retired Review of Systems Constitutional: + weakness Eyes: No discharge ENT: No hearing loss Respiratory: + shortness of breath, + dyspnea on exertion Cardiac: + orthopnea, + edema Abdomen: + pain Male : + problem reported (urinary retention) Neurologic: + paralysis, + weakness, + numbness/tingling Psychiatric: + depression symptoms (pt tearful) Heme: + problem reported (thrombocytopenia, anemia - required transfusion) Endo: + fatigue Allergies Coded Allergies: No Known Allergies (Unverified , 11/17/16) Medications Current Inpatient Medications Medications (Trade) Dose Ordered Sig/Tamika Route Start Time Stop Time Status Last Admin Dose Admin Ioversol (Optiray 320) 125 ml UD PRN IV 11/29/16 22:45 12/03/16 22:44 Allopurinol (Zyloprim Tab) 300 mg DAILY PO 11/30/16 09:00 12/30/16 08:59 12/01/16 08:00 300 MG Enoxaparin Sodium (Lovenox Inj) 40 mg Q24H SQ 11/30/16 09:00 12/30/16 08:59 12/01/16 08:02 40 MG Insulin Aspart (novoLOG ASPART) ACHS SQ 11/30/16 07:00 12/30/16 06:59 12/01/16 08:07 2 UNITS Prochlorperazine Maleate (Compazine Tab) 10 mg Q6H PRN PO 11/30/16 03:30 12/30/16 03:29 Triamcinolone Acetonide (Kenalog 0.5% Crm) 1 appln BID PRN EXT 11/30/16 03:30 12/30/16 03:29 Artificial Tears (Artificial Tears) 2 drops TID OPB 11/30/16 09:00 12/30/16 08:59 12/01/16 08:02 2 DROPS Pantoprazole Sodium (Protonix Tab) 40 mg QAM PO 11/30/16 09:00 12/30/16 08:59 12/01/16 08:00 40 MG Linezolid 600 mg/ Prmx 300 ml @ 300 mls/hr Q12H IV 11/30/16 13:00 12/01/16 13:59 12/01/16 01:32 300 MLS/HR Glucose (Glucose 40% Gel) 15-30 GRAMS 15 GRAMS... UD PRN PO 11/30/16 03:45 12/30/16 03:44 Glucose (Glucose Chew Tab) 4-8 Tablets 4 Tabl... UD PRN PO 11/30/16 03:45 12/30/16 03:44 Dextrose (Dextrose 50% 50ML Syringe) 25-50ML OF 50% DW IV FOR... UD PRN IV 11/30/16 03:45 12/30/16 03:44 Glucagon (Glucagon Inj) 1 mg UD PRN SQ 11/30/16 03:45 12/30/16 03:44 Ondansetron HCl (Zofran Inj) 4 mg Q6H PRN IV 11/30/16 04:45 12/30/16 04:44 11/30/16 06:36 4 MG Piperacillin Sod/ Tazobactam Sod (Consult) 1 ea UD PRN N/A 11/30/16 06:15 12/30/16 06:14 Piperacillin Sod/ Tazobactam Sod 3.375 gm/Dextrose 115 ml @ 28.75 mls/ hr Q8H IV 11/30/16 10:00 12/02/16 09:59 12/01/16 04:19 28.75 MLS/HR Dexamethasone (Decadron Tab) 2 mg DAILY PO 12/01/16 09:00 12/30/16 08:59 12/01/16 08:00 2 MG Gabapentin (Neurontin Cap) 300 mg TID PO 11/30/16 15:30 12/30/16 15:29 12/01/16 08:01 300 MG Acetaminophen (Tylenol Tab) 1,000 mg Q8 PO 11/30/16 15:30 12/30/16 15:29 12/01/16 06:01 1,000 MG Zolpidem Tartrate (Ambien Tab) 5 mg HS PRN PO 11/30/16 22:00 12/30/16 21:59 11/30/16 21:43 5 MG Hydromorphone HCl (Dilaudid Inj) 1 mg Q3H PRN IV 11/30/16 21:15 12/14/16 15:14 12/01/16 07:52 1 MG Potassium Chloride (Klor-Con Tab) 40 meq QAM PO 12/01/16 10:00 12/31/16 09:59 Physical Exam Date Time Temp Pulse Resp B/P (MAP) Pulse Ox O2 Delivery O2 Flow Rate FiO2 12/01/16 07:50 36.8 69 20 106/64 (78) 97 Nasal Cannula 2.0 12/01/16 04:52 Nasal Cannula 2.0 12/01/16 04:00 36.9 70 22 107/64 (78) 98 Room Air 12/01/16 00:37 Nasal Cannula 2.0 11/30/16 23:24 36.3 68 20 109/64 (79) 97 Nasal Cannula 2.0 11/30/16 20:34 Nasal Cannula 2.0 11/30/16 19:44 36.8 67 20 94/57 (69) 97 Nasal Cannula 2.0 11/30/16 16:00 97 Nasal Cannula 2.0 11/30/16 15:01 36.3 68 20 93/56 (68) 96 Nasal Cannula 2.0 11/30/16 12:00 97 Nasal Cannula 2.0 11/30/16 11:50 36.8 70 20 107/65 (79) 98 Nasal Cannula 2.0 11/30/16 11:23 36.8 66 20 104/64 (77) 98 Nasal Cannula 2.0 11/30/16 10:50 36.8 66 20 107/66 (80) 96 Nasal Cannula 2.0 11/30/16 10:20 36.9 66 14 107/65 96 General Appearance: + pertinent finding (mild SOB with speech - on O2 via NC) Eyes: EOMI ENT: hearing grossly normal Neck: supple Respiratory: + crackles (few crackles both bases) Cardiovascular: regular rate, rhythm (regualr on exam - had A fib/flutter on EKG) Abdomen: non tender, soft Musculoskeletal: abnormal strength (only slight movement in toes when asked to move them), poor tone Neurologic/Psychiatric: + depressed affect Skin: warm/dry Laboratory Results Last 24 Hours Test 11/30/16 11:03 11/30/16 16:09 11/30/16 20:32 12/01/16 06:07 Bedside Glucose 157 mg/dl 192 mg/dl 149 mg/dl White Blood Count 3.76 K/uL Red Blood Count 3.71 M/uL Hemoglobin 10.2 g/dL Hematocrit 32.3 % Mean Corpuscular Volume 87.1 fL Mean Corpuscular Hemoglobin 27.5 pg Mean Corpuscular Hemoglobin Concent 31.6 g/dl Platelet Count 87 K/uL Mean Platelet Volume 9.3 fL Neutrophils (%) (Auto) 60.7 % Lymphocytes (%) (Auto) 27.7 % Monocytes (%) (Auto) 6.6 % Eosinophils (%) (Auto) 0.0 % Basophils (%) (Auto) 0.5 % Neutrophils # (Auto) 2.28 K/uL Lymphocytes # (Auto) 1.04 K/uL Monocytes # (Auto) 0.25 K/uL Eosinophils # (Auto) 0.00 K/uL Basophils # (Auto) 0.02 K/uL RDW Standard Deviation 55.0 fL RDW Coefficient of Variation 18.1 % Immature Granulocyte % (Auto) 4.5 % Immature Granulocyte # (Auto) 0.17 K/uL Anisocytosis PRESENT Sodium Level 139 mmol/L Potassium Level 3.4 mmol/L Chloride Level 105 mmol/L Carbon Dioxide Level 27 mmol/L Anion Gap 7.0 mmol/L Blood Urea Nitrogen 14 mg/dl Creatinine 0.72 mg/dl Est Creatinine Clear Calc Drug Dose 92.0 ml/min Estimated GFR () 105.0 Estimated GFR (Non- 90.6 BUN/Creatinine Ratio 20.0 Random Glucose 90 mg/dl Calcium Level 7.5 mg/dl Test 12/01/16 07:18 Bedside Glucose 108 mg/dl Assessment & Plan Palliative Performance Scale: 30 % Will titrate Neurontin for LE neuropathy - Pain improving Insomnia - slept well after Ambien + Dilaudid Plan to meet with pt and son tomorrow to determine POC regarding continuing IT chemo Pt is not a good rehab candidate Will discuss returning home with Hospice and additional care. Discussed with attending physician Total time : 60 min with > 50% of time discussing treatment options and goals of care at bedside.
[2016-12-01] MEDS ORDERED: HEPARIN IV LOW DOSE NO BOLUS SCH (09:56)
[2016-12-01 10:41] LABS: INR 1.1 (0.9-1.1); PROTHROMBIN TIME (PATIENT) 11.5 SECONDS (9.0-12.0)
[2016-12-01] MEDS: POTASSIUM CHLORIDE 20 MEQ TABCR PO SCH (11:21)
[2016-12-01 11:37] VITALS: BP 93/51; PULSE 70; TEMP 37; O2SAT 96
--- NOTE | 2016-12-01 13:04 | CONSULTATION REPORT ---
DATE OF CONSULTATION: 12/01/2016 A 76-year-old type 2 diabetic was admitted with complex malignant melanoma, shortness of breath and increasing leg pain. I was consulted for painful ingrown nail. The patient denies redness and drainage. He notes his primary care has tried cutting the area previously with some relief. He does not see our direct care supervisor on a regular basis. PAST SURGICAL HISTORY: Left fourth finger amputation secondary to melanoma with axillary node dissection, carpal tunnel surgery x2, lumbar puncture. 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 PAST FAMILY HISTORY: Lung disorder, heart disorder with father and brother is diabetic. ALLERGIES: No known drug allergies. MEDICATIONS: Per chart. PHYSICAL EXAMINATION: EXTREMITIES: Lower extremity exam, DP and PT nonpalpable secondary to lower leg edema. Absence of digital hair is noted. Pitting edema +4/6, bilateral lower extremities. There is no focal edema noted over the hallux nails. DERMATOLOGIC: The bilateral borders of left hallux nail were incurvated, mycotic, dystrophic. Pain on dorsal pressure of the nail as well as the medial border of the right first digit. The remaining nails are within normal limits. NEUROLOGIC: Epicritic sensation per [place] monofilament 5.07, absent distally. MUSCULOSKELETAL: Collapsing calcaneal valgus foot type with decreasing manual muscle testing, lower extremity. IMPRESSION: 1. 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 2. Type 2 diabetes. 3. Paronychia of bilateral borders left hallux, medial border right hallux. TREATMENT: 1. Partial nail avulsion was performed with topical anesthetic with 11 blade and nail splitter. Nail groove was resected back in proximal and distal fashion. Remaining nail was debrided. Only topical anesthesia was used due to peripheral neuropathy. No dressing was applied. No bleeding occurred with debridement. 2. Continued diabetic foot precautions. 3. Consult as needed.
[2016-12-01 15:06] VITALS: BP 116/63; PULSE 85; TEMP 36.7; O2SAT 92
[2016-12-01 16:00] VITALS: O2SAT 92
[2016-12-01] MEDS ORDERED: NALOXONE HCL 0.4 MG/1 ML VIAL/CARP IV PRN (17:00)
[2016-12-01] MEDS ORDERED: HYDROmorphone HCL 0.5MG/ML 50 ML CASSETTE IV PRN (17:00)
[2016-12-01] MEDS ORDERED: POTASSIUM CHLORIDE 20 MEQ TABCR PO ONE (19:30)
[2016-12-01] MEDS ORDERED: FUROSEMIDE INJ 20 MG in SYRINGE 0 ML IV SCH (19:30)
[2016-12-01] MEDS: SODIUM CHLORIDE 0.9% 1000ML 1,000 ML IV SCH (19:33)
[2016-12-01 20:00] VITALS: O2SAT 94
[2016-12-01] MEDS: DOCUSATE SODIUM 100 MG CAP PO SCH (20:38)
--- NOTE | 2016-12-01 22:06 | Progress Note ---
Medicine Progress Note Date & Time of Visit: Dec 01, 2016 at 17:03. Subjective s/p podiatry removal of ingrown toenail today and pt feels so much better pain still present in legs but he just got the pain pump set up and working gabapentin helpful Ambien was very helpful and he got the first full night of sleep in awhile tolerating PO still unable to ambulate and is very weak Objective Last 8 Hrs Date Time Temp Pulse Resp B/P (MAP) Pulse Ox O2 Delivery O2 Flow Rate FiO2 12/01/16 15:06 36.7 85 22 116/63 (80) 92 Nasal Cannula 2.0 12/01/16 12:00 Nasal Cannula 2.0 12/01/16 11:37 37.0 70 19 93/51 (65) 96 Nasal Cannula 2.0 Physical Exam: GEN: WNWD, in no acute distress, alert and appropriate HEENT: NC/AT, PERRL, normal sclerae, MMM CARDIO: reg rate, S1/2 heard without m/g/r, no edema, 2+ peripheral pulses throughout. LUNGS: Some faint crackles at the bases bilaterally, no rakes or wheezes present. ABD: soft, non-tender, non-distended, no rebound or guarding, +BS EXTREMITY: RP and DP palpable 2+ bilat, no LE swelling or edema, extremities are warm and well-perfused NEURO: CN 2-12 grossly intact, sensation intact throughout but decreased in all extremities, could not elicit reflexes MUSC: very limited strength in legs-5/5 hip extension, 3/5 hip flexion, noted foot drop, difficult for patient to sit up on his own. SKIN: warm and dry Laboratory Results: 12/01/16 06:07 Red Blood Count 3.71, Mean Corpuscular Volume 87.1, Mean Corpuscular Hemoglobin 27.5, Mean Corpuscular Hemoglobin Concent 31.6, Mean Platelet Volume 9.3, Neutrophils (%) (Auto) 60.7, Lymphocytes (%) (Auto) 27.7, Monocytes (%) (Auto) 6.6, Eosinophils (%) (Auto) 0.0, Basophils (%) (Auto) 0.5, Neutrophils # (Auto) 2.28, Lymphocytes # (Auto) 1.04, Monocytes # (Auto) 0.25, Eosinophils # (Auto) 0.00, Basophils # (Auto) 0.02 12/01/16 06:07 Test 11/29/16 22:08 11/29/16 22:15 11/29/16 22:16 12/01/16 06:07 Microcytosis PRESENT Venous Blood pH 7.48 (7.36-7.41) Venous Blood Partial Pressure CO2 31 mmHg (38.0-50.0) Venous Blood Partial Pressure O2 62 mmHg Venous Blood HCO3 23 mmol/L Venous Blood Oxygen Saturation 91.4 % Venous Blood Base Excess -0.6 mEq/L Magnesium Level 1.9 mg/dl (1.8-2.4) Total Bilirubin 0.3 mg/dl (0.2-1) Direct Bilirubin < 0.1 mg/dl (0-0.2) Aspartate Amino Transf (AST/SGOT) 28 U/L (15-37) Alanine Aminotransferase (ALT/SGPT) 46 U/L (12-78) Alkaline Phosphatase 106 U/L (45-117) Total Creatine Kinase 32 U/L (39-308) Creatine Kinase MB 0.8 ng/ml (0.5-3.6) Creatine Kinase MB Ratio 2.5 (0-3.0) Troponin I 0.016 ng/ml (0-0.045) Pro-B-Type Natriuretic Peptide 4551 pg/ml (0-1800) Total Protein 5.0 gm/dl (6.4-8.2) Albumin 2.0 gm/dl (3.4-5.0) Lipase 320 U/L (73-393) Thyroid Stimulating Hormone (TSH) 2.010 uIu/ml (0.300-4.500) Bedside Troponin I < 0.030 ng/ml (0-0.045) CR-Rxr-W-Type Natriuretic Peptide 3728 pg/ml (0-1800) Bedside Lactic Acid Venous 2.92 mmol/L (0.90-1.70) White Blood Count 3.76 K/uL (4.8-10.8) Red Blood Count 3.71 M/uL (4.7-6.1) Hemoglobin 10.2 g/dL (14.0-18.0) Hematocrit 32.3 % (42-52) Mean Corpuscular Volume 87.1 fL (80-100) Mean Corpuscular Hemoglobin 27.5 pg (25-34) Mean Corpuscular Hemoglobin Concent 31.6 g/dl (32-36) Platelet Count 87 K/uL (130-400) Mean Platelet Volume 9.3 fL (7.4-10.4) Neutrophils (%) (Auto) 60.7 % Lymphocytes (%) (Auto) 27.7 % Monocytes (%) (Auto) 6.6 % Eosinophils (%) (Auto) 0.0 % Basophils (%) (Auto) 0.5 % Neutrophils # (Auto) 2.28 K/uL (1.4-6.5) Lymphocytes # (Auto) 1.04 K/uL (1.2-3.4) Monocytes # (Auto) 0.25 K/uL (0.11-0.59) Eosinophils # (Auto) 0.00 K/uL (0-0.5) Basophils # (Auto) 0.02 K/uL (0-0.2) RDW Standard Deviation 55.0 fL (36.4-46.3) RDW Coefficient of Variation 18.1 % (11.5-14.5) Immature Granulocyte % (Auto) 4.5 % Immature Granulocyte # (Auto) 0.17 K/uL (0.00-0.02) Anisocytosis PRESENT Anion Gap 7.0 mmol/L (3-11) Est Creatinine Clear Calc Drug Dose 92.0 ml/min Estimated GFR () 105.0 Estimated GFR (Non- 90.6 BUN/Creatinine Ratio 20.0 (10-20) Calcium Level 7.5 mg/dl (8.5-10.1) Test 12/01/16 10:19 12/01/16 20:15 Prothrombin Time 11.5 SECONDS (9.0-12.0) Prothromb Time International Ratio 1.1 (0.9-1.1) Activated Partial Thromboplast Time 26.0 SECONDS (21.0-31.0) Partial Thromboplastin Ratio 1.0 Bedside Glucose 167 mg/dl (70-99) Date/Time Source Procedure Growth Status 11/29/16 22:08 Blood Blood Culture - Preliminary NO GROWTH TO DATE. Resulted 11/30/16 10:50 Nasal MRSA DNA Surveillance Screen - Final Specimen Negative for MRSA by DNA Probe Complete Last 24 Hours Test 11/30/16 20:32 12/01/16 06:07 12/01/16 07:18 8/14/17 10:19 Bedside Glucose 149 mg/dl 108 mg/dl White Blood Count 3.76 K/uL Red Blood Count 3.71 M/uL Hemoglobin 10.2 g/dL Hematocrit 32.3 % Mean Corpuscular Volume 87.1 fL Mean Corpuscular Hemoglobin 27.5 pg Mean Corpuscular Hemoglobin Concent 31.6 g/dl Platelet Count 87 K/uL Mean Platelet Volume 9.3 fL Neutrophils (%) (Auto) 60.7 % Lymphocytes (%) (Auto) 27.7 % Monocytes (%) (Auto) 6.6 % Eosinophils (%) (Auto) 0.0 % Basophils (%) (Auto) 0.5 % Neutrophils # (Auto) 2.28 K/uL Lymphocytes # (Auto) 1.04 K/uL Monocytes # (Auto) 0.25 K/uL Eosinophils # (Auto) 0.00 K/uL Basophils # (Auto) 0.02 K/uL RDW Standard Deviation 55.0 fL RDW Coefficient of Variation 18.1 % Immature Granulocyte % (Auto) 4.5 % Immature Granulocyte # (Auto) 0.17 K/uL Anisocytosis PRESENT Sodium Level 139 mmol/L Potassium Level 3.4 mmol/L Chloride Level 105 mmol/L Carbon Dioxide Level 27 mmol/L Anion Gap 7.0 mmol/L Blood Urea Nitrogen 14 mg/dl Creatinine 0.72 mg/dl Est Creatinine Clear Calc Drug Dose 92.0 ml/min Estimated GFR () 105.0 Estimated GFR (Non- 90.6 BUN/Creatinine Ratio 20.0 Random Glucose 90 mg/dl Calcium Level 7.5 mg/dl Prothrombin Time 11.5 SECONDS Prothromb Time International Ratio 1.1 Activated Partial Thromboplast Time 26.0 SECONDS Partial Thromboplastin Ratio 1.0 Test 12/01/16 11:14 12/01/16 16:18 Bedside Glucose 169 mg/dl 232 mg/dl Assessment & Plan 76 yo M with complex h/o malignant melanoma treatment presents with worsening leg pain/leg numbness and shortness of breath 1. 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 Gabapentin and Ambien helped him tremendously last night , increased gabapentin to 600mg PO TID. Breakthrough pain began to worsen today. Added Dilaudid pump on board for breakthrough. consulted pain management for assistance in am who are considering adding Cymbalta. 2. Dyspnea 2/2 acute pulmonary edema--improved after blood administration and Lasix 40 IV in between units on 11/30. There was pulmonary congestion noted on admission CXR and it appears he was SOB 2/2 pulmonary edema; also on treatment for HCAP as he had SOB with hypoxia and chills reported, however, abx have been stopped today. No fevers or coughing recently though and changes on the left base of the xray appears more consistent with atelectasis. Today has crackles on lungs with pulmonary edema and pedal edema likely 2/2 inactivity and prolonged bedrest. Daily Lasix 20mg to start in am with K replacement. Passive ROM q4h ordered per nursing. 3. Antineoplastic chemotherapy induced pancytopenia-- 2 units of blood were transfused on admission. 4. Atrial flutter-new onset. Anticoagulation contraindicated at this time. TTE ordered this morning; no changes from prior echo. Continues on telemetry, however, he can likely be moved to 4th floor in am as he has not had any rate control issues or decompensation. 5. 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 Likely done with treatments at this point. We had another conversation today regarding how far he wanted to go. He is still not 100% on board with Hospice at this point. Dr. Gimenez (palliative) saw the patient this morning and was unable to involve the son in the conversation so will be talking with him tomorrow and aid the transition. 6. DMII-controlled, cont ISS/carb coverage. 7. Severe obstructive sleep apnea. Can use his own CPAP if he has been using. DVT proph: Lovenox DNR Dispo-poor prognosis, pt considering home with Hospice. Palliative consulted. Possible transfer to 4th floor in am. Pt has new onset atrial flutter but is unable to be anticoagulated or treated at this time with rate stable and asymptomatic. DO Allison Fowler Hospitalist Consultants: Palliative Pain Management Current Inpatient Medications: Current Inpatient Medications Medications (Trade) Dose Ordered Sig/Tamika Route Start Time Stop Time Status Last Admin Dose Admin Ioversol (Optiray 320) 125 ml UD PRN IV 11/29/16 22:45 12/03/16 22:44 Allopurinol (Zyloprim Tab) 300 mg DAILY PO 11/30/16 09:00 12/30/16 08:59 12/01/16 08:00 300 MG Insulin Aspart (novoLOG ASPART) ACHS SQ 11/30/16 07:00 12/30/16 06:59 12/01/16 12:27 6 UNITS Prochlorperazine Maleate (Compazine Tab) 10 mg Q6H PRN PO 11/30/16 03:30 12/30/16 03:29 Triamcinolone Acetonide (Kenalog 0.5% Crm) 1 appln BID PRN EXT 11/30/16 03:30 12/30/16 03:29 Artificial Tears (Artificial Tears) 2 drops TID OPB 11/30/16 09:00 12/30/16 08:59 12/01/16 14:38 2 DROPS Pantoprazole Sodium (Protonix Tab) 40 mg QAM PO 11/30/16 09:00 12/30/16 08:59 12/01/16 08:00 40 MG Glucose (Glucose 40% Gel) 15-30 GRAMS 15 GRAMS... UD PRN PO 11/30/16 03:45 12/30/16 03:44 Glucose (Glucose Chew Tab) 4-8 Tablets 4 Tabl... UD PRN PO 11/30/16 03:45 12/30/16 03:44 Dextrose (Dextrose 50% 50ML Syringe) 25-50ML OF 50% DW IV FOR... UD PRN IV 11/30/16 03:45 12/30/16 03:44 Glucagon (Glucagon Inj) 1 mg UD PRN SQ 11/30/16 03:45 12/30/16 03:44 Ondansetron HCl (Zofran Inj) 4 mg Q6H PRN IV 11/30/16 04:45 12/30/16 04:44 11/30/16 06:36 4 MG Piperacillin Sod/ Tazobactam Sod (Consult) 1 ea UD PRN N/A 11/30/16 06:15 12/02/16 09:59 Piperacillin Sod/ Tazobactam Sod 3.375 gm/Dextrose 115 ml @ 28.75 mls/ hr Q8H IV 11/30/16 10:00 12/02/16 09:59 12/01/16 12:24 28.75 MLS/HR Dexamethasone (Decadron Tab) 2 mg DAILY PO 12/01/16 09:00 12/30/16 08:59 12/01/16 08:00 2 MG Acetaminophen (Tylenol Tab) 1,000 mg Q8 PO 11/30/16 15:30 12/30/16 15:29 12/01/16 14:38 1,000 MG Zolpidem Tartrate (Ambien Tab) 5 mg HS PRN PO 11/30/16 22:00 12/30/16 21:59 11/30/16 21:43 5 MG Hydromorphone HCl (Dilaudid Inj) 1 mg Q3H PRN IV 11/30/16 21:15 12/14/16 15:14 12/01/16 16:22 1 MG Potassium Chloride (Klor-Con Tab) 40 meq QAM PO 12/01/16 10:00 12/31/16 09:59 12/01/16 11:21 40 MEQ Gabapentin (Neurontin Cap) 600 mg TID PO 12/01/16 21:00 12/30/16 15:29
[2016-12-02] VITALS (7 sets, daily range): BP systolic 95–114; BP diastolic 49–69; PULSE 66–79; TEMP 36.3–37; O2SAT 92–97
[2016-12-02] MEDS: ACETAMINOPHEN 500 MG TAB PO SCH ×3 (06:03→21:06)
[2016-12-02 07:07] LABS: HEMATOCRIT 31.1 % (42-52); MEAN CELL VOLUME 88.6 fL (80-100); MEAN CORPUSCULAR HEMOGLOBIN 27.9 pg (25-34); MEAN CORPUSCULAR HGB CONC 31.5 g/dl (32-36); RED BLOOD COUNT 3.51 M/uL (4.7-6.1); WHITE BLOOD COUNT 4.01 K/uL (4.8-10.8)
[2016-12-02 07:12] LABS: MEAN PLATELET VOLUME 8.9 fL (7.4-10.4); PLATELET COUNT 94 K/uL (130-400)
[2016-12-02 07:30] LABS: CREATININE 0.74 mg/dl (0.60-1.40)
[2016-12-02] MEDS: PANTOprazole SOD 40 MG TAB PO SCH (08:14)
[2016-12-02] MEDS: GABAPENTIN 300 MG CAP PO SCH ×3 (08:14→21:05)
[2016-12-02] MEDS: DEXAMETHASONE 4 MG TAB PO SCH (08:15)
[2016-12-02] MEDS: ALLOPURINOL 300 MG TAB PO SCH (08:15)
[2016-12-02] MEDS: FUROSEMIDE 20 MG TAB PO SCH (08:15)
[2016-12-02] MEDS: DOCUSATE SODIUM 100 MG CAP PO SCH ×2 (08:15→21:05)
[2016-12-02] MEDS: POTASSIUM CHLORIDE 20 MEQ TABCR PO SCH (08:15)
[2016-12-02] MEDS: INSULIN ASPART 100 UNITS/ML 3 ML PEN SQ SCH ×4 (08:21→21:09)
[2016-12-02] MEDS ORDERED: POTASSIUM CHLORIDE 20 MEQ TABCR PO SCH (09:00)
[2016-12-02] MEDS: ARTIFICIAL TEARS OP SOLN OPB SCH ×6 (09:15→21:06)
--- NOTE | 2016-12-02 09:25 | Pain Management Consultation ---
Pain Management Consultation Date of Consultation Dec 02, 2016. Reason for Consultation Bilateral lower extremity pain History Mr. 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 Patient has been experiencing bilateral dorsal foot pain which is described as a sharp and burning sensation. He describes numbness and weakness in the bilateral legs. There are no aggravating symptoms. Patient rates his pain 4/10 currently and is pleased with his current results. He has been titrated upwards on gabapentin to 600mg TID which has caused significant pain relief. A Dilaudid COO & CO FOUNDER has been also ordered and he has used 2.5mg over the last 12 hours. He denies any side effects to Dilaudid and states that it is providing adequate pain relief. Patient states that he has been able to sleep well at night since the Gabapentin and Dilaudid was initiated. He has been receiving intrathecal chemotherapy at [facility] and has been discontinued from treatment. He is considering hospice. Patient has chronic bilateral lower extremity weakness, LE edema. Case discussed with Dr. Scott Past Medical/Surgical History (1) Congestive heart failure (2) Anemia (3) Bilateral leg pain (4) Leptomeningeal disease (5) Metastatic malignant melanoma (6) DM type 2 (diabetes mellitus, type 2) (7) Pancytopenia (8) Dyslipidemia (9) Gout (10) SAVANNAH on CPAP (11) History of carpal tunnel surgery (12) History of surgical removal of pilonidal cyst (13) S/P lumbar discectomy (14) S/P colonoscopy with polypectomy (15) S/p amputation left 4th finger Family History Diabetes mellitus FHx: cancer Social / Work History Smoking Status: Former smoker Smokeless Tobacco Use: No Drug Use: none Marital Status: Housing Status: lives alone (son and daughter live within 1 mile of pt's home) Occupation: retired Allergies Coded Allergies: No Known Allergies (Unverified , 11/17/16) Medications Current Inpatient Medications Medications (Trade) Dose Ordered Sig/Tamika Route Start Time Stop Time Status Last Admin Dose Admin Ioversol (Optiray 320) 125 ml UD PRN IV 11/29/16 22:45 12/03/16 22:44 Allopurinol (Zyloprim Tab) 300 mg DAILY PO 11/30/16 09:00 12/30/16 08:59 12/02/16 08:15 300 MG Insulin Aspart (novoLOG ASPART) ACHS SQ 11/30/16 07:00 12/30/16 06:59 12/02/16 08:21 3 UNITS Prochlorperazine Maleate (Compazine Tab) 10 mg Q6H PRN PO 11/30/16 03:30 12/30/16 03:29 Triamcinolone Acetonide (Kenalog 0.5% Crm) 1 appln BID PRN EXT 11/30/16 03:30 12/30/16 03:29 Artificial Tears (Artificial Tears) 2 drops TID OPB 11/30/16 09:00 12/30/16 08:59 12/01/16 20:40 2 DROPS Pantoprazole Sodium (Protonix Tab) 40 mg QAM PO 11/30/16 09:00 12/30/16 08:59 12/02/16 08:14 40 MG Glucose (Glucose 40% Gel) 15-30 GRAMS 15 GRAMS... UD PRN PO 11/30/16 03:45 12/30/16 03:44 Glucose (Glucose Chew Tab) 4-8 Tablets 4 Tabl... UD PRN PO 11/30/16 03:45 12/30/16 03:44 Dextrose (Dextrose 50% 50ML Syringe) 25-50ML OF 50% DW IV FOR... UD PRN IV 11/30/16 03:45 12/30/16 03:44 Glucagon (Glucagon Inj) 1 mg UD PRN SQ 11/30/16 03:45 12/30/16 03:44 Ondansetron HCl (Zofran Inj) 4 mg Q6H PRN IV 11/30/16 04:45 12/30/16 04:44 11/30/16 06:36 4 MG Dexamethasone (Decadron Tab) 2 mg DAILY PO 12/01/16 09:00 12/30/16 08:59 12/02/16 08:15 2 MG Acetaminophen (Tylenol Tab) 1,000 mg Q8 PO 11/30/16 15:30 12/30/16 15:29 12/02/16 06:03 1,000 MG Zolpidem Tartrate (Ambien Tab) 5 mg HS PRN PO 11/30/16 22:00 12/30/16 21:59 11/30/16 21:43 5 MG Hydromorphone HCl (Dilaudid Inj) 1 mg Q3H PRN IV 11/30/16 21:15 12/14/16 15:14 12/01/16 16:22 1 MG Potassium Chloride (Klor-Con Tab) 40 meq QAM PO 12/01/16 10:00 12/31/16 09:59 12/02/16 08:15 40 MEQ Gabapentin (Neurontin Cap) 600 mg TID PO 12/01/16 21:00 12/30/16 15:29 12/02/16 08:14 600 MG Naloxone HCl (Narcan Inj) 0.1 mg Q5M PRN IV 12/01/16 17:00 12/31/16 16:59 Hydromorphone HCl (Dilaudid Endless Track Vehicle Supervisor) 25 mg PRN PRN IV 12/01/16 17:00 12/15/16 16:59 12/01/16 18:18 25 MG Docusate Sodium (coLACE CAP) 100 mg BID PO 12/01/16 21:00 12/31/16 20:59 12/02/16 08:15 100 MG Sodium Chloride 1,000 ml @ 15 mls/hr Q24H IV 12/01/16 16:54 12/31/16 16:53 12/01/16 19:33 15 MLS/HR Furosemide (Lasix Tab) 20 mg QAM PO 12/02/16 09:00 01/01/17 08:59 12/02/16 08:15 20 MG Review of Systems Denies any constitutional, cardiac, pulmonary, neurological, GI, , extremity, endocrine, neuro, ENT, dermatological, or musculoskeletal complaints other than stated in HPI Physical Exam Height & Weight: Height 5 feet, 7.00 inches. Weight 87.400 (Kilograms) 192 (Pounds) Last Vital Signs Documentation Date Time Temp Pulse Resp B/P (MAP) Pulse Ox O2 Delivery O2 Flow Rate FiO2 12/02/16 08:05 36.6 79 16 95/57 (70) 95 12/02/16 04:00 Nasal Cannula 2.0 Exam: GENERAL: Mr. Salmon is a 76 y/o white male that appears his stated age. Speech is slowed. Cognition is intact. Mood and affect is appropriate. Laying in the hospital bed, in no acute distress. HEAD: Normocephalic; atraumatic. EYES: Pupils are round, equal, and reactive to light; EOM intact. ENT: No external ear discharge or lesions. No rhinorrhea or epistaxis. + dry buccal mucosa. CHEST: Regular chest respiration and excursion. EXTREMITIES: No strength of the bilateral lower extremities. There is allodynia of the bilateral dorsal aspects of feet. Paresthesias of the legs. + 4 pitting edema. NEURO: CN II-XII grossly intact with no focal deficits noted. AAO x 3. Laboratory Laboratory Results (Last CBC): 12/02/16 06:55 Imaging MRI Findings Lumbar MRI 10/17/2016: negative Thoracic MRI 10/17/2016: negative Cervical MRI 10/17/2016: advanced spondylosis CT Findings 11/29/[address]: No acute intracranial abnormality. Interval placement of a right sided ventriculostomy catheter. Assessment 1. Metastatic Melanoma 2. Neuropathic pain of the bilateral feet 3. Cauda Equina syndrome 4. COPD 5. Lower extremity weakness and edema Recommendations 1. Continue Gabapentin at 600mg TID. 2. Continue Dilaudid COO & CO FOUNDER. Tomorrow will plan to convert 24 hour usage into likely Fentanyl patch for pain relief. 3. Will initiate patient on Cymbalta 20mg daily for possible increased pain relief.
--- NOTE | 2016-12-02 11:59 | Palliative Care Progress Note ---
Palliative Care Progress Note Date of Service Dec 02, 2016. Subjective Pt evaluation today including: conversation w/ patient, conversation w/ family , physical exam, chart review, conversation w/ senior internet sales consultant, review of inpatient medication list Pain: 0/10 this am, pt on Dilaudid FINE GRADE BULLDOZER OPERATOR - received 2.4 mg IV in 12 hours PO Intake: good Voiding: capellan catheter in place Review of Systems Constitutional: + weakness, + fatigue, No fever Eyes: No discharge ENT: No hearing loss, No trouble swallowing Respiratory: + dyspnea on exertion Cardiac: + orthopnea, + edema Abdomen: No pain, No nausea Neurologic: + weakness, + problem reported (no pain or burning in L, near paralysis - only slight movement of toes, decreased strength in UE also) Psychiatric: + problem reported (appropriately tearful at times) Endo: + fatigue Objective Vital Signs Date Time Temp Pulse Resp B/P (MAP) Pulse Ox O2 Delivery O2 Flow Rate FiO2 12/02/16 11:33 36.9 66 18 113/51 (71) 95 12/02/16 08:05 36.6 79 16 95/57 (70) 95 12/02/16 08:00 Nasal Cannula 2.0 12/02/16 04:00 36.8 74 20 99/60 (73) 92 Nasal Cannula 2.0 12/02/16 04:00 Room Air 12/02/16 00:00 Nasal Cannula 2.0 12/02/16 00:00 36.5 71 22 96/49 (65) 94 Room Air 12/01/16 20:00 94 Room Air 12/01/16 16:00 92 Nasal Cannula 2.0 12/01/16 15:06 36.7 85 22 116/63 (80) 92 Nasal Cannula 2.0 12/01/16 12:00 Nasal Cannula 2.0 Physical Exam General Appearance: no apparent distress Eyes: EOMI ENT: hearing grossly normal Neck: supple Respiratory/Chest: lungs clear Cardiovascular: regular rate, rhythm, + pertinent finding (trace pedal edema) Abdomen: non tender, soft Extremities: + pedal edema Neurologic/Psychiatric: + motor weakness, + sensory deficit, + pertinent finding (near paralysis of LE, weakness in UE) Laboratory Results Last 24 Hours Test 12/01/16 16:18 12/01/16 20:15 12/02/16 06:35 12/02/16 06:55 Bedside Glucose 232 mg/dl 167 mg/dl 105 mg/dl White Blood Count 4.01 K/uL Red Blood Count 3.51 M/uL Hemoglobin 9.8 g/dL Hematocrit 31.1 % Mean Corpuscular Volume 88.6 fL Mean Corpuscular Hemoglobin 27.9 pg Mean Corpuscular Hemoglobin Concent 31.5 g/dl RDW Standard Deviation 58.0 fL RDW Coefficient of Variation 18.5 % Platelet Count 94 K/uL Mean Platelet Volume 8.9 fL Activated Partial Thromboplast Time 26.3 SECONDS Partial Thromboplastin Ratio 1.0 Creatinine 0.74 mg/dl Est Creatinine Clear Calc Drug Dose 89.6 ml/min Estimated GFR () 103.8 Estimated GFR (Non- 89.6 Test 12/02/16 11:16 Bedside Glucose 109 mg/dl Assessment and Plan (1) Bilateral leg pain Status: Acute Assessment & Plan: Much improved with Neurontin + prn Dilaudid via FINE GRADE BULLDOZER OPERATOR (2) Leptomeningeal disease Status: Acute Assessment & Plan: Progressing of LE and UE weakness - received 4 of 8 IT Chemo - will likely not continue them. (3) Metastatic malignant melanoma Status: Chronic Assessment & Plan: Goal is pain control and comfort care with pt returning home as soon as possible (4) DM type 2 (diabetes mellitus, type 2) Status: Chronic Assessment & Plan: well controlled with insulin Spoke with son and daughter in law as well as wrapper caser and discussed prognosis and care options including rehab. Discussed prognosis with pt and family at bedside - pt feels he has a few months which is close to his expected prognosis of 8-10 weeks. Pt voiced his goals of getting home as soon as possible , etc. Discussed going home with hospice - pt and family agreeable. Family has friend who works with one of the [facility] hospices and they will notify case management when they choose a hospice. Will cont to monitor pain med requirements over the next 24 hours with plan to transition to PO pain meds for d/c home. Time in: 1010 Time out: 03 15 Total time : 76 minutes with > 50% of time spent counseling regarding treatment options, prognosis and care options. Palliative Performance Scale: 30 % Continued [facility] stay due to: inadequate oral pain control Discharge planning: home with Hospice
[2016-12-02] MEDS: SODIUM CHLORIDE 0.9% 1000ML 1,000 ML IV SCH (16:54)
--- NOTE | 2016-12-02 19:08 | Progress Note ---
Medicine Progress Note Date & Time of Visit: Dec 02, 2016 at 18:43. Subjective Pt was seen and examined lying in bed with no distress Pt said that he slept well last night he said that he is pain is well controlled with the pcp pump and the gabapentin denies any chest pain, palpitation, dizziness and SOB Objective Last 8 Hrs Date Time Temp Pulse Resp B/P (MAP) Pulse Ox O2 Delivery O2 Flow Rate FiO2 12/02/16 16:00 Nasal Cannula 2.0 12/02/16 15:08 36.3 77 20 101/59 (73) 94 Nasal Cannula 2.0 12/02/16 12:00 Nasal Cannula 2.0 12/02/16 11:33 36.9 66 18 113/51 (71) 95 Physical Exam: General- No acute distress Head- atraumatic Eyes- PERRL, EOMI ENT- oropharynx clear Neck- supple, no JVD Lungs-No wheezing Heart- regular rhythm Abdomen- normal bowel sounds, soft, nontender Extremities- no calf tenderness Neuro- alert, oriented x 3; PERRL, EOMI; no facial palsy, decrease sensation in lower extremities Skin- warm & dry Laboratory Results: Last 24 Hours Test 12/01/16 20:15 12/02/16 06:35 12/02/16 06:55 12/02/16 11:16 Bedside Glucose 167 mg/dl 105 mg/dl 109 mg/dl White Blood Count 4.01 K/uL Red Blood Count 3.51 M/uL Hemoglobin 9.8 g/dL Hematocrit 31.1 % Mean Corpuscular Volume 88.6 fL Mean Corpuscular Hemoglobin 27.9 pg Mean Corpuscular Hemoglobin Concent 31.5 g/dl RDW Standard Deviation 58.0 fL RDW Coefficient of Variation 18.5 % Platelet Count 94 K/uL Mean Platelet Volume 8.9 fL Activated Partial Thromboplast Time 26.3 SECONDS Partial Thromboplastin Ratio 1.0 Creatinine 0.74 mg/dl Est Creatinine Clear Calc Drug Dose 89.6 ml/min Estimated GFR () 103.8 Estimated GFR (Non- 89.6 Test 12/02/16 16:03 12/02/16 16:04 Bedside Glucose 286 mg/dl 215 mg/dl Assessment & Plan 76 yo M with complex h/o malignant melanoma treatment presents with worsening leg pain/leg numbness and shortness of breath Leg pain associated with worsening weakness Moslty due to 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 On gabapentin 600mg TID and diluadid LINUX SOLARIS ADMINISTRATOR pump symptoms improved, had finally slept last night on ambien Pain management on board plan to changed to fentanyl patch and adding cymbalta tomorrow Dyspnea Possible related to acute pulmonary edema CTA chest showed no PE Continue lasix 20mg daily received abx for HCAP clinically improved Antineoplastic chemotherapy induced pancytopenia S/P 2 units of blood were transfused on admission. Continue monitor CBC New onset of Atrial flutter Anticoagulation contraindicated at this time. rate is controlled ECHO showed * Atrial flutter with controlled ventricular rate was present during the echocardiogram. * There is mild concentric left ventricular hypertrophy. * There is subtle flattening of the interventricular septum in diastolic consistent with right ventricular volume overload. * Otherwise, there are no regional wall motion abnormalities noted. * The right ventricle is mildly dilated. * The right ventricular systolic function is mildly reduced. * There is mild tricuspid regurgitation. * Doppler findings do not suggest pulmonary hypertension. * There is no pericardial effusion. * Compared to the images of the prior study dated, 10/10/16, atrial flutter with controlled ventricular rate is now present as compared to sinus tachycardia at 100 bpm. The interventricular septal flattening, and right ventricular chamber sized and RV systolic dysfunction were present on the prior study, with no significant change noted. Malignant melanoma mets to skin, lungs and spinal cord s/p Ommaya reservoir placement for intrathecal treatments at [facility]. No further treatment this point. Dr. Gimenez from palliative care had a meeting with pt and his son/ daughter today. very Poor prognosis They agreed for home hospice DMII controlled cont ISS/carb coverage. Severe obstructive sleep apnea. Can use his own CPAP if he has been using. DVT proph: Lovenox Code status DNR Disposition Poor prognosis, pt considering home with Hospice. Palliative care on board Will D/C telemetry and transfer to 4th floor Continued [facility] stay due to: inadequate oral pain control Discharge planning: home with Hospice Consultants: Palliative Pain Management Current Inpatient Medications: Current Inpatient Medications Medications (Trade) Dose Ordered Sig/Tamika Route Start Time Stop Time Status Last Admin Dose Admin Ioversol (Optiray 320) 125 ml UD PRN IV 11/29/16 22:45 12/03/16 22:44 Allopurinol (Zyloprim Tab) 300 mg DAILY PO 11/30/16 09:00 12/30/16 08:59 12/02/16 08:15 300 MG Insulin Aspart (novoLOG ASPART) ACHS SQ 11/30/16 07:00 12/30/16 06:59 12/02/16 17:07 5 UNITS Prochlorperazine Maleate (Compazine Tab) 10 mg Q6H PRN PO 11/30/16 03:30 12/30/16 03:29 Triamcinolone Acetonide (Kenalog 0.5% Crm) 1 appln BID PRN EXT 11/30/16 03:30 12/30/16 03:29 Artificial Tears (Artificial Tears) 2 drops TID OPB 11/30/16 09:00 12/30/16 08:59 12/02/16 15:24 2 DROPS Pantoprazole Sodium (Protonix Tab) 40 mg QAM PO 11/30/16 09:00 12/30/16 08:59 12/02/16 08:14 40 MG Glucose (Glucose 40% Gel) 15-30 GRAMS 15 GRAMS... UD PRN PO 11/30/16 03:45 12/30/16 03:44 Glucose (Glucose Chew Tab) 4-8 Tablets 4 Tabl... UD PRN PO 11/30/16 03:45 12/30/16 03:44 Dextrose (Dextrose 50% 50ML Syringe) 25-50ML OF 50% DW IV FOR... UD PRN IV 11/30/16 03:45 12/30/16 03:44 Glucagon (Glucagon Inj) 1 mg UD PRN SQ 11/30/16 03:45 12/30/16 03:44 Ondansetron HCl (Zofran Inj) 4 mg Q6H PRN IV 11/30/16 04:45 12/30/16 04:44 11/30/16 06:36 4 MG Dexamethasone (Decadron Tab) 2 mg DAILY PO 12/01/16 09:00 12/30/16 08:59 12/02/16 08:15 2 MG Acetaminophen (Tylenol Tab) 1,000 mg Q8 PO 11/30/16 15:30 12/30/16 15:29 12/02/16 15:24 1,000 MG Zolpidem Tartrate (Ambien Tab) 5 mg HS PRN PO 11/30/16 22:00 12/30/16 21:59 11/30/16 21:43 5 MG Hydromorphone HCl (Dilaudid Inj) 1 mg Q3H PRN IV 11/30/16 21:15 12/14/16 15:14 12/01/16 16:22 1 MG Potassium Chloride (Klor-Con Tab) 40 meq QAM PO 12/01/16 10:00 12/31/16 09:59 12/02/16 08:15 40 MEQ Gabapentin (Neurontin Cap) 600 mg TID PO 12/01/16 21:00 12/30/16 15:29 12/02/16 15:23 600 MG Naloxone HCl (Narcan Inj) 0.1 mg Q5M PRN IV 12/01/16 17:00 12/31/16 16:59 Hydromorphone HCl (Dilaudid Audience Coordinator) 25 mg PRN PRN IV 12/01/16 17:00 12/15/16 16:59 12/01/16 18:18 25 MG Docusate Sodium (coLACE CAP) 100 mg BID PO 12/01/16 21:00 12/31/16 20:59 12/02/16 08:15 100 MG Sodium Chloride 1,000 ml @ 15 mls/hr Q24H IV 12/01/16 16:54 12/31/16 16:53 12/02/16 16:54 15 MLS/HR Furosemide (Lasix Tab) 20 mg QAM PO 12/02/16 09:00 01/01/17 08:59 12/02/16 08:15 20 MG
[2016-12-03 04:11] VITALS: BP 118/64; PULSE 73; TEMP 37.2; O2SAT 94
[2016-12-03] MEDS: ACETAMINOPHEN 500 MG TAB PO SCH ×3 (06:21→21:18)
[2016-12-03 07:06] VITALS: BP 116/65; PULSE 76; TEMP 36.6; O2SAT 93
[2016-12-03 07:58] LABS: CREATININE 0.63 mg/dl (0.60-1.40)
[2016-12-03] MEDS ORDERED: HYDROCODONE/ACETAMOPHEN 5/325MG TAB PO PRN (08:15)
--- NOTE | 2016-12-03 08:25 | Pain Management Progress Note ---
Pain Management Progress Note Date of Service Dec 03, 2016. Subjective Mr. Salmon is a 76 year old white male with metastatic melanoma and complains of bilateral dorsal foot pain. He states that his pain is well controlled with the Dilaudid RAILCAR BRAKE OPERATOR. Current pain is 2/10. Patient has decided to be discharged home on hospice. He denies any constipation, nausea, vomiting, dizziness, or confusion. Case discussed with Dr. Scott Objective Vital Signs: Last Vital Signs Documentation Date Time Temp Pulse Resp B/P (MAP) Pulse Ox O2 Delivery O2 Flow Rate FiO2 12/03/16 07:06 36.6 76 20 116/65 (82) 93 Nasal Cannula 3.0 Physical Exam: GENERAL: Mr. Salmon is a 76 year old white male that appears his stated age. Speech and cognition is intact. Mood and affect is appropriate. NEURO: AAO x 3. Cranial nerves grossly intact FEET: Able to wiggle toes slightly, tenderness along the dorsal aspect of feet. Laboratory Laboratory Findings 12/02/16 06:55 Assessment 1. Metastatic Melanoma 2. Neuropathic pain of the bilateral feet 3. Cauda Equina syndrome 4. COPD 5. Lower extremity weakness and edema Recommendations 1. Converted patient's Dilaudid RAILCAR BRAKE OPERATOR usage to 25mcg/hr Fentanyl patch. Orders written. RAILCAR BRAKE OPERATOR has been discontinued. 2. Will initiate Hydrocodone 5/325mg PO x 4 hours PRN breakthrough pain. 3. Continue Gabapentin 600mg TID. May consider further titrating upwards. 4. Continue Cymbalta 20mg daily. May consider further titrating upwards.
--- NOTE | 2016-12-03 08:27 | Palliative Care Progress Note ---
Palliative Care Progress Note Date of Service Dec 03, 2016. Subjective Pt evaluation today including: conversation w/ patient, physical exam, chart review, lab review, review of inpatient medication list Pain: 2/10 Voiding: capellan catheter in place Pt and nursing report pt had a good night, slept well. Pt using Dilaudid COMMODITIES MANAGER for pain when it is 8/10 - occurs on the top of his foot, burning in nature, good relief with 0.3 mg of IV Dilaudid Pt required 16 boluses in the past 24 hours = approx 96 mg of oral morphine equivalent. [place] management came by and plan to place pt on a 25 mcg Fentanyl patch will monitor COMMODITIES MANAGER use while on Fentanyl. Review of Systems Constitutional: No fever Eyes: No discharge ENT: No hearing loss, No sore throat Respiratory: + cough, + dyspnea on exertion Cardiac: + orthopnea, + edema, No chest pain Abdomen: No pain Musculoskeletal: + see HPI Male : + see HPI Neurologic: + paralysis, + weakness, + numbness/tingling, + problem reported ( decreased sensation to light touch from knees on down. No pain with touch) Psychiatric: No insomnia Skin: No rash, No new/changing skin lesions Objective Vital Signs Date Time Temp Pulse Resp B/P (MAP) Pulse Ox O2 Delivery O2 Flow Rate FiO2 12/03/16 07:06 36.6 76 20 116/65 (82) 93 Nasal Cannula 3.0 12/03/16 04:11 37.2 73 18 118/64 (82) 94 Nasal Cannula 12/03/16 04:00 Nasal Cannula 3.0 12/03/16 00:00 Nasal Cannula 3.0 12/02/16 23:00 37.0 71 18 114/69 (84) 95 Nasal Cannula 2.0 12/02/16 20:00 Nasal Cannula 3.0 12/02/16 19:07 36.3 71 19 110/59 (76) 97 Nasal Cannula 3.0 12/02/16 16:00 Nasal Cannula 2.0 12/02/16 15:08 36.3 77 20 101/59 (73) 94 Nasal Cannula 2.0 12/02/16 12:00 Nasal Cannula 2.0 12/02/16 11:33 36.9 66 18 113/51 (71) 95 Physical Exam General Appearance: no apparent distress, + pertinent finding (smiling at times , mood - fair ) Eyes: EOMI ENT: hearing grossly normal Neck: supple Respiratory/Chest: + crackles (bilaterally in bases) Cardiovascular: regular rate, rhythm, + pertinent finding (pedal edema lightly increased) Abdomen: normal bowel sounds, non tender, soft Extremities: + pedal edema, + pertinent finding (only able to move toes slightly) Neurologic/Psychiatric: alert, oriented x 3, + pertinent finding (less tearful) Skin: warm/dry Laboratory Results Last 24 Hours Test 12/02/16 11:16 12/02/16 16:03 12/02/16 16:04 12/02/16 20:09 Bedside Glucose 109 mg/dl 286 mg/dl 215 mg/dl 206 mg/dl Test 12/03/16 06:40 12/03/16 06:47 Bedside Glucose 152 mg/dl Activated Partial Thromboplast Time 27.2 SECONDS Partial Thromboplastin Ratio 1.0 Creatinine 0.63 mg/dl Est Creatinine Clear Calc Drug Dose 105.9 ml/min Estimated GFR () 110.9 Estimated GFR (Non- 95.7 Assessment and Plan (1) Bilateral leg pain Status: Acute Assessment & Plan: Improving with Neurontin - no sedation with increasing dose - consider titrating higher (2) Leptomeningeal disease Status: Acute Assessment & Plan: Pt received 4 of 8 planned IT chemo - not planning any further treatment due to burden of travel and poor response (3) Metastatic malignant melanoma Status: Chronic Assessment & Plan: Goal of comfort care with return home with Hospice (4) DM type 2 (diabetes mellitus, type 2) Status: Chronic Assessment & Plan: controlled with insulin Pt asking how "the end" will look like, discussed he will likely get more confused and sleep more till he is sleeping all the time. Pt was present at the time of of his brother and his . Pt appreciated info. Pt able to go home with Hospice once pain regime is established. Total time : 25 min with >50% of time spent at bedside discussing POC Palliative Performance Scale: 30 % Continued [facility] stay due to: inadequate oral pain control Discharge planning: home with Hospice
[2016-12-03] MEDS: INSULIN ASPART 100 UNITS/ML 3 ML PEN SQ SCH ×4 (08:57→21:21)
[2016-12-03] MEDS: ALLOPURINOL 300 MG TAB PO SCH (09:00)
[2016-12-03] MEDS: PANTOprazole SOD 40 MG TAB PO SCH (09:00)
[2016-12-03] MEDS ORDERED: FENTANYL 25 MCG/HR TDSY TD SCH (09:00)
[2016-12-03] MEDS: DOCUSATE SODIUM 100 MG CAP PO SCH ×2 (09:00→21:17)
[2016-12-03] MEDS: ARTIFICIAL TEARS OP SOLN OPB SCH ×6 (09:08→21:17)
[2016-12-03] MEDS: DEXAMETHASONE 4 MG TAB PO SCH (09:09)
[2016-12-03] MEDS: POTASSIUM CHLORIDE 20 MEQ TABCR PO SCH (09:10)
[2016-12-03] MEDS: FUROSEMIDE 20 MG TAB PO SCH (09:10)
[2016-12-03] MEDS: GABAPENTIN 300 MG CAP PO SCH ×3 (09:11→21:18)
[2016-12-03 10:14] VITALS: BP 116/65; PULSE 76; TEMP 36.6; O2SAT 93
[2016-12-03 11:05] VITALS: BP 104/60; PULSE 70; TEMP 36.6; O2SAT 95
[2016-12-03] MEDS ORDERED: DULOXETINE HCL 20 MG CAP PO ONE (11:20)
--- NOTE | 2016-12-03 11:27 | Progress Note ---
Medicine Progress Note Date & Time of Visit: Dec 03, 2016 at 11:22. Subjective Pt was seen and examined Lying in bed comfortable Pt said that he slept well last night He said that he does not have any pain denies any chest pain, palpitation, dizziness and sob Objective Last 8 Hrs Date Time Temp Pulse Resp B/P (MAP) Pulse Ox O2 Delivery O2 Flow Rate FiO2 12/03/16 11:05 36.6 70 19 104/60 (75) 95 2.0 12/03/16 10:14 36.6 76 20 93 3.0 12/03/16 08:00 Nasal Cannula 3.0 12/03/16 07:06 36.6 76 20 116/65 (82) 93 Nasal Cannula 3.0 12/03/16 04:11 37.2 73 18 118/64 (82) 94 Nasal Cannula 12/03/16 04:00 Nasal Cannula 3.0 Physical Exam: General- No acute distress Head- atraumatic Eyes- PERRL, EOMI ENT- oropharynx clear Neck- supple, no JVD Lungs-No wheezing Heart- regular rhythm Abdomen- normal bowel sounds, soft, nontender Extremities- no calf tenderness Neuro- alert, oriented x 3; PERRL, EOMI; no facial palsy, decrease sensation in lower extremities Skin- warm & dry Laboratory Results: Last 24 Hours Test 12/02/16 16:03 12/02/16 16:04 12/02/16 20:09 12/03/16 06:40 Bedside Glucose 286 mg/dl 215 mg/dl 206 mg/dl 152 mg/dl Test 12/03/16 06:47 Activated Partial Thromboplast Time 27.2 SECONDS Partial Thromboplastin Ratio 1.0 Creatinine 0.63 mg/dl Est Creatinine Clear Calc Drug Dose 105.9 ml/min Estimated GFR () 110.9 Estimated GFR (Non- 95.7 Assessment & Plan 76 yo M with complex h/o malignant melanoma treatment presents with worsening leg pain/leg numbness and shortness of breath Leg pain associated with worsening weakness [place] due to 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 On gabapentin 600mg TID and diluadid P[employer]MENT [employer]ER pump symptoms improved, had finally slept last night on ambien Pain management on board plan to changed to fentanyl patch and adding cymbalta tomorrow 12/03 Dilaudid with P[employer]MENT MIXER pump was d/c started on fentanyl patch 25 mcg Starting on Hydrocodone 5/325mg PO x 4 hours PRN breakthrough pain. Starting on Cymbalta 20mg daily Pain management on board Pain well controlled Dyspnea Possible related to acute pulmonary edema CTA chest showed no PE Continue lasix 20mg daily received abx for HCAP clinically improved Antineoplastic chemotherapy induced pancytopenia S/P 2 units of blood were transfused on admission. Continue monitor CBC New onset of Atrial flutter Anticoagulation contraindicated at this time. rate is controlled ECHO showed * Atrial flutter with controlled ventricular rate was present during the echocardiogram. * There is mild concentric left ventricular hypertrophy. * There is subtle flattening of the interventricular septum in diastolic consistent with right ventricular volume overload. * Otherwise, there are no regional wall motion abnormalities noted. * The right ventricle is mildly dilated. * The right ventricular systolic function is mildly reduced. * There is mild tricuspid regurgitation. * Doppler findings do not suggest pulmonary hypertension. * There is no pericardial effusion. * Compared to the images of the prior study dated, 10/10/16, atrial flutter with controlled ventricular rate is now present as compared to sinus tachycardia at 100 bpm. The interventricular septal flattening, and right ventricular chamber sized and RV systolic dysfunction were present on the prior study, with no significant change noted. 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 No further treatment this point. Dr. Gimenez from palliative care had a meeting with pt and his son/ daughter today. very Poor prognosis They agreed for home hospice DMII controlled cont ISS/carb coverage. Severe obstructive sleep apnea. Can use his own CPAP if he has been using. DVT proph: Lovenox Code status DNR Disposition Poor prognosis Will discharge tomorrow with home Hospice. Palliative care on board Transfer to 4th floor Continued [facility] stay due to: inadequate oral pain control Discharge planning: home with Hospice Consultants: Palliative Pain Management Current Inpatient Medications: Current Inpatient Medications Medications (Trade) Dose Ordered Sig/Tamika Route Start Time Stop Time Status Last Admin Dose Admin Ioversol (Optiray 320) 125 ml UD PRN IV 11/29/16 22:45 12/03/16 22:44 Allopurinol (Zyloprim Tab) 300 mg DAILY PO 11/30/16 09:00 12/30/16 08:59 12/02/16 08:15 300 MG Insulin Aspart (novoLOG ASPART) ACHS SQ 11/30/16 07:00 12/30/16 06:59 12/02/16 21:09 3 UNITS Prochlorperazine Maleate (Compazine Tab) 10 mg Q6H PRN PO 11/30/16 03:30 12/30/16 03:29 Triamcinolone Acetonide (Kenalog 0.5% Crm) 1 appln BID PRN EXT 11/30/16 03:30 12/30/16 03:29 Artificial Tears (Artificial Tears) 2 drops TID OPB 11/30/16 09:00 12/30/16 08:59 12/03/16 09:08 2 DROPS Pantoprazole Sodium (Protonix Tab) 40 mg QAM PO 11/30/16 09:00 12/30/16 08:59 12/02/16 08:14 40 MG Glucose (Glucose 40% Gel) 15-30 GRAMS 15 GRAMS... UD PRN PO 11/30/16 03:45 12/30/16 03:44 Glucose (Glucose Chew Tab) 4-8 Tablets 4 Tabl... UD PRN PO 11/30/16 03:45 12/30/16 03:44 Dextrose (Dextrose 50% 50ML Syringe) 25-50ML OF 50% DW IV FOR... UD PRN IV 11/30/16 03:45 12/30/16 03:44 Glucagon (Glucagon Inj) 1 mg UD PRN SQ 11/30/16 03:45 12/30/16 03:44 Ondansetron HCl (Zofran Inj) 4 mg Q6H PRN IV 11/30/16 04:45 12/30/16 04:44 11/30/16 06:36 4 MG Dexamethasone (Decadron Tab) 2 mg DAILY PO 12/01/16 09:00 12/30/16 08:59 12/03/16 09:09 2 MG Acetaminophen (Tylenol Tab) 1,000 mg Q8 PO 11/30/16 15:30 12/30/16 15:29 12/03/16 06:21 1,000 MG Zolpidem Tartrate (Ambien Tab) 5 mg HS PRN PO 11/30/16 22:00 12/30/16 21:59 11/30/16 21:43 5 MG Hydromorphone HCl (Dilaudid Inj) 1 mg Q3H PRN IV 11/30/16 21:15 12/14/16 15:14 12/01/16 16:22 1 MG Potassium Chloride (Klor-Con Tab) 40 meq QAM PO 12/01/16 10:00 12/31/16 09:59 12/03/16 09:10 40 MEQ Gabapentin (Neurontin Cap) 600 mg TID PO 12/01/16 21:00 12/30/16 15:29 12/03/16 09:11 600 MG Docusate Sodium (coLACE CAP) 100 mg BID PO 12/01/16 21:00 12/31/16 20:59 12/02/16 21:05 100 MG Furosemide (Lasix Tab) 20 mg QAM PO 12/02/16 09:00 01/01/17 08:59 12/03/16 09:10 20 MG Fentanyl (Duragesic Patch) 25 mcg Q72H TD 12/03/16 09:00 12/17/16 08:59 12/03/16 09:00 25 MCG Miscellaneous (Fentanyl Patch Remove & Waste) 1 ea Q3D N/A 12/06/16 08:15 01/05/17 08:14 Miscellaneous Information (Check Fentanyl Patch Placement) 1 ea QS N/A 12/03/16 16:00 01/02/17 15:59 Acetaminophen/ Hydrocodone Bitart ([place] 5/325 Tab) 1 tab Q4 PRN PO 12/03/16 08:15 12/17/16 08:14 Future Hold Duloxetine HCl (Cymbalta Cap) 20 mg QAM PO 12/04/16 08:00 01/03/17 07:59 UNV Duloxetine HCl (Cymbalta Cap) 20 mg 1120 ONCE PO 12/03/16 11:20 12/03/16 11:21 UNV
[2016-12-03 15:06] VITALS: BP 97/55; PULSE 65; TEMP 36.7; O2SAT 96
[2016-12-03 16:00] VITALS: O2SAT 96
[2016-12-03] MEDS: CHECK FENTANYL PATCH PLACEMENT SCH (16:00)
[2016-12-04] VITALS: O2SAT 96
[2016-12-04] MEDS: CHECK FENTANYL PATCH PLACEMENT SCH ×3 (00:09→16:00)
[2016-12-04 00:27] VITALS: BP 106/60; PULSE 67; TEMP 36.6; O2SAT 95
[2016-12-04] MEDS: ACETAMINOPHEN 500 MG TAB PO SCH ×2 (05:51→14:15)
[2016-12-04 07:02] LABS: MEAN CELL VOLUME 87.6 fL (80-100); MEAN CORPUSCULAR HEMOGLOBIN 28.8 pg (25-34); MEAN CORPUSCULAR HGB CONC 32.9 g/dl (32-36); PLATELET COUNT 100 K/uL (130-400); RED BLOOD COUNT 3.54 M/uL (4.7-6.1)
[2016-12-04 07:15] LABS: PARTIAL THROMBOPLASTIN RATIO 1.1
[2016-12-04 07:47] VITALS: BP 110/64; PULSE 83; TEMP 37.2; O2SAT 92
[2016-12-04] MEDS ORDERED: DULOXETINE HCL 20 MG CAP PO SCH (08:00)
[2016-12-04] MEDS: DOCUSATE SODIUM 100 MG CAP PO SCH (08:09)
[2016-12-04] MEDS: ARTIFICIAL TEARS OP SOLN OPB SCH ×4 (08:09→14:14)
[2016-12-04] MEDS: POTASSIUM CHLORIDE 20 MEQ TABCR PO SCH (08:10)
[2016-12-04] MEDS: DEXAMETHASONE 4 MG TAB PO SCH (08:10)
[2016-12-04] MEDS: FUROSEMIDE 20 MG TAB PO SCH (08:11)
[2016-12-04] MEDS: GABAPENTIN 300 MG CAP PO SCH ×2 (08:12→14:14)
[2016-12-04] MEDS: ALLOPURINOL 300 MG TAB PO SCH (08:12)
[2016-12-04] MEDS: PANTOprazole SOD 40 MG TAB PO SCH (08:12)
[2016-12-04] MEDS: INSULIN ASPART 100 UNITS/ML 3 ML PEN SQ SCH ×2 (08:51→12:35)
--- NOTE | 2016-12-04 09:43 | Palliative Care Progress Note ---
Palliative Care Progress Note Date of Service Dec 04, 2016. Subjective Pt evaluation today including: conversation w/ patient, physical exam, chart review Pain: 0/10 this am PO Intake: goo Voiding: capellan catheter in place Review of Systems Constitutional: + problem reported (Pt 's face flushed, warm to touch, temp OK) , No fever Eyes: No discharge ENT: No hearing loss Respiratory: + cough, + shortness of breath, + dyspnea on exertion Cardiac: + orthopnea, + edema Abdomen: No pain Neurologic: + weakness, No memory loss Psychiatric: No insomnia Skin: + rash (face red, no itching, no other skin areas effected) Objective Vital Signs Date Time Temp Pulse Resp B/P (MAP) Pulse Ox O2 Delivery O2 Flow Rate FiO2 12/04/16 07:47 37.2 83 22 110/64 (79) 92 Nasal Cannula 12/04/16 00:27 36.6 67 18 106/60 (75) 95 2.0 12/04/16 00:00 96 Nasal Cannula 2.0 12/03/16 16:00 96 Nasal Cannula 2.0 12/03/16 15:06 36.7 65 18 97/55 (69) 96 2.0 12/03/16 11:05 36.6 70 19 104/60 (75) 95 2.0 12/03/16 10:14 36.6 76 20 93 3.0 Physical Exam General Appearance: + mild distress Eyes: EOMI ENT: hearing grossly normal Neck: supple Respiratory/Chest: + crackles (L base, denies feeling SOB, but has dyspnea a rest and with speech) Cardiovascular: regular rate, rhythm Abdomen: non tender, soft Extremities: + pertinent finding (can only move toes on both feet slightly) Neurologic/Psychiatric: + motor weakness, + sensory deficit (decreased sensation knees on down. ) Skin: + pertinent finding (face red and warm - re-assessed 1 hour later - slightly better, pt denies discomfort) Laboratory Results Last 24 Hours Test 12/03/16 11:32 12/03/16 16:23 12/03/16 19:31 12/04/16 06:14 Bedside Glucose 159 mg/dl 187 mg/dl 194 mg/dl White Blood Count 3.90 K/uL Red Blood Count 3.54 M/uL Hemoglobin 10.2 g/dL Hematocrit 31.0 % Mean Corpuscular Volume 87.6 fL Mean Corpuscular Hemoglobin 28.8 pg Mean Corpuscular Hemoglobin Concent 32.9 g/dl RDW Standard Deviation 58.1 fL RDW Coefficient of Variation 18.4 % Platelet Count 100 K/uL Mean Platelet Volume 9.0 fL Activated Partial Thromboplast Time 27.9 SECONDS Partial Thromboplastin Ratio 1.1 Test 12/04/16 07:28 Bedside Glucose 128 mg/dl Assessment and Plan (1) Bilateral leg pain Status: Acute Assessment & Plan: Pain well controlled on Neurontin + Fentanyl patch - no change in mental status or noted sedation Caution with [place] given that pt is on scheduled Tylenol 3 gm /day consider changing to single agent for BTP (2) Leptomeningeal disease Status: Acute Assessment & Plan: P received 4 of 8 I chemo treatments - no furthe planned at is time due to burden of travel, etc to receive treatmen (3) Metastatic malignant melanoma Status: Chronic Assessment & Plan: Now with Leptomeningeal mets (4) DM type 2 (diabetes mellitus, type 2) Status: Chronic Assessment & Plan: well controlled with insulin Will speak with Hospice medical information specialist regarding discussions with pt an family an POC Plan to discuss with attending physician Total time : 25 min with >50% of time spent at bedside discussing POC with pt Palliative Performance Scale: 30 % Continued [facility] stay due to: other (coordinating discharge with hospice) Discharge planning: home with Hospice
[2016-12-04 13:51] VITALS: BP 110/64; PULSE 83; TEMP 37.2; O2SAT 92
--- NOTE | 2016-12-04 15:07 | Progress Note ---
Medicine Progress Note Date & Time of Visit: Dec 04, 2016 at 14:55. Subjective Pt was seen and examined Lying in bed with family member at beside pt said that he feels ok he denies any pain he said that the patch is working well denies any drowsiness, lethargy, chest pain and palpitation Objective Last 8 Hrs Date Time Temp Pulse Resp B/P (MAP) Pulse Ox O2 Delivery O2 Flow Rate FiO2 12/04/16 13:51 37.2 83 22 92 Nasal Cannula 12/04/16 10:43 Nasal Cannula 2.0 12/04/16 07:47 37.2 83 22 110/64 (79) 92 Nasal Cannula Physical Exam: General- No acute distress Head- atraumatic Eyes- PERRL, EOMI ENT- oropharynx clear Neck- supple, no JVD Lungs-No wheezing Heart- regular rhythm Abdomen- normal bowel sounds, soft, nontender Extremities- no calf tenderness Neuro- alert, oriented x 3; PERRL, EOMI; no facial palsy, decrease sensation in lower extremities Skin- warm & dry Laboratory Results: Last 24 Hours Test 12/03/16 16:23 12/03/16 19:31 12/04/16 06:14 12/04/16 07:28 Bedside Glucose 187 mg/dl 194 mg/dl 128 mg/dl White Blood Count 3.90 K/uL Red Blood Count 3.54 M/uL Hemoglobin 10.2 g/dL Hematocrit 31.0 % Mean Corpuscular Volume 87.6 fL Mean Corpuscular Hemoglobin 28.8 pg Mean Corpuscular Hemoglobin Concent 32.9 g/dl RDW Standard Deviation 58.1 fL RDW Coefficient of Variation 18.4 % Platelet Count 100 K/uL Mean Platelet Volume 9.0 fL Activated Partial Thromboplast Time 27.9 SECONDS Partial Thromboplastin Ratio 1.1 Test 12/04/16 11:23 Bedside Glucose 131 mg/dl Assessment & Plan 76 yo M with complex h/o malignant melanoma treatment presents with worsening leg pain/leg numbness and shortness of breath Leg pain associated with worsening weakness Mostly due to 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 On gabapentin 600mg TID and diluadid [employer] pump symptoms improved, had finally slept last night on ambien Pain management on board plan to changed to fentanyl patch and adding cymbalta tomorrow 12/03 Dilaudid with [employer]ERK pump was d/c started on fentanyl patch 25 mcg Starting on Hydrocodone 5/325mg PO x 4 hours PRN breakthrough pain. Starting on Cymbalta 20mg daily Pain management on board Pain well controlled 12/04 Pain well controlled with fentanyl patch, gabapentin tolerated Cymbalta well did not require any extra dose of narcotic will discharge home with hospice Dyspnea Possible related to acute pulmonary edema CTA chest showed no PE Continue lasix 20mg daily received abx for HCAP Stable Antineoplastic chemotherapy induced pancytopenia S/P 2 units of blood were transfused on admission. Stable New onset of Atrial flutter Anticoagulation contraindicated at this time. rate is controlled ECHO showed * Atrial flutter with controlled ventricular rate was present during the echocardiogram. * There is mild concentric left ventricular hypertrophy. * There is subtle flattening of the interventricular septum in diastolic consistent with right ventricular volume overload. * Otherwise, there are no regional wall motion abnormalities noted. * The right ventricle is mildly dilated. * The right ventricular systolic function is mildly reduced. * There is mild tricuspid regurgitation. * Doppler findings do not suggest pulmonary hypertension. * There is no pericardial effusion. * Compared to the images of the prior study dated, 10/10/16, atrial flutter with controlled ventricular rate is now present as compared to sinus tachycardia at 100 bpm. The interventricular septal flattening, and right ventricular chamber sized and RV systolic dysfunction were present on the prior study, with no significant change noted. 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 No further treatment this point. Dr. Gimenez from palliative care had a meeting with pt and his son/ daughter today. very Poor prognosis They agreed for home hospice discharge home today with home hospice DMII controlled cont ISS/carb coverage. Severe obstructive sleep apnea. Can use his own CPAP if he has been using. DVT proph: Lovenox Code status DNR Disposition Poor prognosis Will discharge today with home Hospice. Palliative care on board Continued [facility] stay due to: other (coordinating discharge with hospice) Discharge planning: home with Hospice Consultants: Palliative Pain Management Current Inpatient Medications: Current Inpatient Medications Medications (Trade) Dose Ordered Sig/Tamika Route Start Time Stop Time Status Last Admin Dose Admin Allopurinol (Zyloprim Tab) 300 mg DAILY PO 11/30/16 09:00 12/30/16 08:59 12/04/16 08:12 300 MG Insulin Aspart (novoLOG ASPART) ACHS SQ 11/30/16 07:00 12/30/16 06:59 12/03/16 21:21 3 UNITS Prochlorperazine Maleate (Compazine Tab) 10 mg Q6H PRN PO 11/30/16 03:30 12/30/16 03:29 Triamcinolone Acetonide (Kenalog 0.5% Crm) 1 appln BID PRN EXT 11/30/16 03:30 12/30/16 03:29 Artificial Tears (Artificial Tears) 2 drops TID OPB 11/30/16 09:00 12/30/16 08:59 12/04/16 14:14 2 DROPS Pantoprazole Sodium (Protonix Tab) 40 mg QAM PO 11/30/16 09:00 12/30/16 08:59 12/04/16 08:12 40 MG Glucose (Glucose 40% Gel) 15-30 GRAMS 15 GRAMS... UD PRN PO 11/30/16 03:45 12/30/16 03:44 Glucose (Glucose Chew Tab) 4-8 Tablets 4 Tabl... UD PRN PO 11/30/16 03:45 12/30/16 03:44 Dextrose (Dextrose 50% 50ML Syringe) 25-50ML OF 50% DW IV FOR... UD PRN IV 11/30/16 03:45 12/30/16 03:44 Glucagon (Glucagon Inj) 1 mg UD PRN SQ 11/30/16 03:45 12/30/16 03:44 Ondansetron HCl (Zofran Inj) 4 mg Q6H PRN IV 11/30/16 04:45 12/30/16 04:44 11/30/16 06:36 4 MG Dexamethasone (Decadron Tab) 2 mg DAILY PO 12/01/16 09:00 12/30/16 08:59 12/04/16 08:10 2 MG Acetaminophen (Tylenol Tab) 1,000 mg Q8 PO 11/30/16 15:30 12/30/16 15:29 12/04/16 14:15 1,000 MG Zolpidem Tartrate (Ambien Tab) 5 mg HS PRN PO 11/30/16 22:00 12/30/16 21:59 11/30/16 21:43 5 MG Hydromorphone HCl (Dilaudid Inj) 1 mg Q3H PRN IV 11/30/16 21:15 12/14/16 15:14 12/01/16 16:22 1 MG Potassium Chloride (Klor-Con Tab) 40 meq QAM PO 12/01/16 10:00 12/31/16 09:59 12/04/16 08:10 40 MEQ Gabapentin (Neurontin Cap) 600 mg TID PO 12/01/16 21:00 12/30/16 15:29 12/04/16 14:14 600 MG Docusate Sodium (coLACE CAP) 100 mg BID PO 12/01/16 21:00 12/31/16 20:59 12/04/16 08:09 100 MG Furosemide (Lasix Tab) 20 mg QAM PO 12/02/16 09:00 01/01/17 08:59 12/04/16 08:11 20 MG Fentanyl (Duragesic Patch) 25 mcg Q72H TD 12/03/16 09:00 12/17/16 08:59 12/03/16 09:00 25 MCG Miscellaneous (Fentanyl Patch Remove & Waste) 1 ea Q3D N/A 12/06/16 08:15 01/05/17 08:14 Miscellaneous Information (Check Fentanyl Patch Placement) 1 ea QS N/A 12/03/16 16:00 01/02/17 15:59 12/04/16 08:52 1 EA Acetaminophen/ Hydrocodone Bitart ([place] 5/325 Tab) 1 tab Q4 PRN PO 12/03/16 08:15 12/17/16 08:14 Future Hold Duloxetine HCl (Cymbalta Cap) 20 mg QAM PO 12/04/16 08:00 01/03/17 07:59 12/04/16 08:09 20 MG
[2016-12-04 15:09] VITALS: BP 117/66; PULSE 92; TEMP 37.1; O2SAT 91
[2016-12-04] MEDS ORDERED: AMB5 PO (15:16)
[2016-12-04] MEDS ORDERED: MCRK20 PO (15:16)
[2016-12-04] MEDS ORDERED: NRN300 PO (15:16)
[2016-12-04] MEDS ORDERED: CYM20 PO (15:16)
[2016-12-04] MEDS ORDERED: DRGTP25 TD (15:16)
[2016-12-04] MEDS ORDERED: LSX20 PO (15:16)
[2016-12-04] MEDS ORDERED: CLC100 PO (15:22)
[2016-12-04] MEDS ORDERED: DXM/4 PO (15:22)
--- NOTE | 2016-12-04 15:32 | Discharge Instructions ---
Discharge Instructions Date of Service Dec 04, 2016. Admission Reason for Admission: Bilateral Leg Pain, Leptomeningeal Disease, Discharge Discharge Diagnosis / Problem: Leptomeningeal disease, New onset of Atrial flutter, DM II Discharge Goals Goal(s): Decrease discomfort, Improve function, Improve disease control Activity Recommendations Activity Limitations: resume your previous activity (as tolerated) . Instructions / Follow-Up Instructions / Follow-Up Discharge home with hospice Fall precaution international manager notified [facility] about the discharge Current Hospital Diet Patient's current hospital diet: Regular Diet Discharge Diet Recommended Diet: Diabetes Type 2 Diet Pending Studies Studies pending at discharge: no Laboratory Results Hemoglobin A1c Test 10/10/16 06:15 Range/Units Estimated Average Glucose 151 mg/dl Hemoglobin A1c 6.9 H 4.5-5.6 % Medical Emergencies . Who to Call and When: Medical Emergencies: If at any time you feel your situation is an emergency, please call 911 immediately. . Non-Emergent Contact Non-Emergency issues call your: Primary Care Provider Call Non-Emergent contact if: your pain is not controlled, your pain is worsening, you have any medication questions . . "Provider Documentation" section prepared by Nohemi Raymond. . VTE Core Measure Inpt VTE Proph given/why not?: Enoxaparin (Lovenox) [place] Drug Monitoring Program Search Results: no issues identified
[2016-12-06] MEDS ORDERED: FENTANYL PATCH REMOVE & WASTE SCH (08:15)
--- NOTE | 2016-12-08 00:42 | Discharge Summary ---
Discharge Summary Date of Service Dec 08, 2016. Discharge Summary Admission Date: Nov 30, 2016 at 04:40 Discharge Date: Dec 04, 2016 Discharge Disposition: Home (with Hospice) Principal Diagnosis: Leptomeningeal Disease, Secondary Diagnoses/Problems: New onset of Atrial flutter DM II Malignant melanoma Procedures: HEAD CT NONCONTRAST CT DOSE: 614.27 mGy.cm HISTORY: Headache. TECHNIQUE: Multiaxial CT images of the head were performed without the use of intravenous contrast. Automated exposure control was utilized for this study. A dose lowering technique was utilized adhering to the principles of ALARA. Comparison: Head CT 10/08/2016. Findings: The paranasal sinuses and mastoid air cells are clear. The calvarium and skull base are intact. There is no mass, hematoma, midline shift, acute infarct. White matter hypodensity is nonspecific but suggestive of microvascular ischemic change. The ventricles and sulci demonstrate mild age-related involutional changes. Right frontal approach ventriculostomy catheter with the tip terminating at the foramen of Monro. The ventricles are stable in size. Impression: No acute intracranial abnormality. Interval placement of a right sided ventriculostomy catheter. Electronically signed by: Earl Saeed M.D. 11/30/2016 6:59 AM Dictated Date/Time: 11/30/2016 6:56 AM BILATERAL LOWER EXTREMITY VENOUS DOPPLER HISTORY: CA pt, leg swelling COMPARISON STUDY: None. FINDINGS: There is normal compressibility, flow, and augmentation within the bilateral lower extremity deep venous systems. IMPRESSION: No DVT within the right or left lower extremity. Electronically signed by: Earl Saeed M.D. 11/30/2016 8:23 AM Dictated Date/Time: 11/30/2016 8:22 AM CHEST CTA for PULMONARY ARTERIES CT DOSE: 520.53 mGy.cm HISTORY: Short of breath. Anterior chest pain. TECHNIQUE: Multiaxial CT images of the chest were performed following the intravenous administration of contrast to evaluate the pulmonary arteries. Maximal intensity projection images were also obtained. A dose lowering technique was utilized adhering to the principles of ALARA. COMPARISON STUDY: Chest CT 10/08/2016. FINDINGS: The visualized liver is unremarkable. Splenomegaly, unchanged. No pleural or pericardial effusions. Prominent right peritracheal lymph nodes measure subcentimeter in short axis diameter. Therefore, no mediastinal or hilar lymphadenopathy. Postoperative changes within the left ankle axilla, unchanged. No axillary lymphadenopathy. Subcentimeter thyroid nodules. No fractures within the visualized osseous structures. No pneumothorax. The central airways are patent. Scattered patchy groundglass airspace opacities. Normal caliber thoracic aorta with no evidence for dissection. Coronary artery calcifications. No filling defects within the pulmonary arteries to suggest pulmonary embolus. IMPRESSION: 1. No evidence for pulmonary embolus. 2. Scattered patchy groundglass airspace opacities seen throughout the lungs. This is nonspecific and could be due to developing pulmonary edema or an atypical pneumonia. 3. Stable splenomegaly. Electronically signed by: Earl Saeed M.D. 11/30/2016 7:39 AM Dictated Date/Time: 11/30/2016 7:32 AM CHEST ONE VIEW PORTABLE CLINICAL HISTORY: Chest pain. COMPARISON STUDY: Chest radiograph and chest CT October 08, 2016. FINDINGS: There are left axilla surgical clips. No pneumothorax or pleural effusion is present. Cardiomediastinal silhouette is unremarkable. There is mild interstitial prominence. Linear bibasilar opacities are noted. IMPRESSION: 1. Linear left basilar opacities which favor atelectasis. 2. Interstitial prominence. This may reflect pulmonary vascular congestion or less likely an infectious process. Radiographic follow up is recommended. Electronically signed by: Joel Huerta M.D. 11/29/2016 9:51 PM Dictated Date/Time: 11/29/2016 9:49 PM Consultations: Palliative Pain Management Medication Reconciliation New Medications: Docusate Sodium (Docusate Sodium) 100 Mg Cap 100 MG PO BID for 30 Days, CAP Duloxetine HCl (Duloxetine HCl) 20 Mg Cap 20 MG PO QAM for 30 Days, CAP Fentanyl (Fentanyl) 25 Mcg Tdsy 25 MCG TD Q72H for 9 Days, #3 Furosemide (Furosemide) 20 Mg Tab 20 MG PO QAM for 30 Days, TAB Gabapentin (Gabapentin) 300 Mg Cap 600 MG PO TID for 30 Days, CAP Potassium Chloride (Klor-Con M20) 20 Meq Tabcr 20 MEQ PO QAM for 30 Days Zolpidem Tartrate (Zolpidem Tartrate) 5 Mg Tab 5 MG PO HS PRN for Sleep for 5 Days, TAB Changed Medications: Dexamethasone (Decadron) 4 Mg Tab 2 MG PO UD for 6 Days, TAB (Changed from: 4 MG; DAILY) take decadron 2 mg for 3 days, then 1 mg for 3 days Continued Medications: Allopurinol (Zyloprim) 300 Mg Tab 300 MG PO DAILY, TAB Artificial Tear Solution (Artificial Tears) 1 Gabriella Gabriella 2 DROPS OPB TID, #15 ML Enoxaparin (Lovenox) 40 Mg/0.4 Ml Inj 40 MG SQ Q24H, SYR Lansoprazole (Prevacid) 30 Mg Capcr 30 MG PO DAILY, CAP Melatonin (Kp Melatonin) 3 Mg Tab 3 MG PO HS, TAB Ondasetron Odt (Zofran Odt) 4 Mg Tab 4 MG SL Q6H for Nausea, TAB Prochlorperazine Maleate (Compazine) 10 Mg Tab 10 MG PO Q6H PRN for Nausea or Vomiting, TAB Simvastatin (Zocor) 40 Mg Tab 40 MG PO QPM, TAB Sucralfate (Carafate) 1 Gm Tab 1 GM PO QAM&HS, TAB Triamcinolone Acet (Triamcinolone Acetonide) 45 Appln/15 Gm Cr 1 APPLN TOP BID PRN for RASH for 30 Days, #30 GM Discontinued Medications: Acetaminophen (Tylenol) 325 Mg Tab 650 MG PO Q4 PRN for Pain or Fever, TAB Ciprofloxacin (Cipro) 250 Mg Tab 250 MG PO BID for 10 Days, #20 TAB BEGIN 11/20/16 X 10 DAYS Admission Information HPI (per Admitting provider): CHIEF COMPLAINT: Nausea, vomiting, increasing shortness of breath and bilateral leg pain since last noon. 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 He carries extensive course in his medical care consisting of a 76-year-old male with metastatic melanoma that was diagnosed initially in 2003, was admitted to [facility] on October 08 until October 18. At that time, he was admitted with fever, diarrhea, and probable syncope. 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. He was hospitalized at [facility] on 18 of October to 13 of November and underwent extensive investigation and management from different specialists. MRI of the head and spinal cord that was done in [facility] showed leptomeningeal disease in the area of conus medullaris and cauda equina. 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 Treatment given included IV insulin Solu-Medrol and oral corticosteroids and he completed course of antibiotics with vancomycin, ampicillin, Doxycycline and his fever resolved. He also got intrathecal chemotherapy and radiation in the spine about 10 doses and he was told that his cancer has been terminal and wherever he goes option remains as comfort care down the line. He is here today from [place] complaining of weakness, nausea, vomiting, and severe bilateral leg pain. He has been hemodynamically stable in the emergency room and his blood count is remarkable for hemoglobin of 7.6, platelet of 94, ProBNP of 4000 and his CAT scan of the chest did not show any pulmonary embolism, but concern was for CHF. CT of the head did not show any acute hemorrhage and given his complex medical history and presentation, he was admitted to telemetry unit. Physical Exam (per Admitting): GENERAL: In the ER, he was not having any acute distress, minimal shortness of breath at rest. VITAL SIGNS: Temperature 36.8, pulse was 65, blood pressure 103/52, saturation 96% on 2 liters. HEENT: Unremarkable. NECK: Supple. No JVD, no bruit. CHEST: Occasional crackles at the bases. HEART: S1, S2 regular. ABDOMEN: Soft, benign, nontender, no organomegaly. Bowel sounds present. EXTREMITIES: Trace edema bilaterally. MUSCULOSKELETAL SYSTEM: Did not show any acute arthritis but movement of the lower extremities cause pain. CENTRAL NERVOUS SYSTEM: He is alert, awake, oriented x3. He does have pain involving both the lower extremities and also headache. He is generally very weak in the lower extremities due to pain, but clinically, no focal neuro deficit appreciated Hospital Course 76 yo M with complex h/o malignant melanoma treatment presents with worsening leg pain/leg numbness and shortness of breath Leg pain associated with worsening weakness Mostly due to 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 On gabapentin 600mg TID and diluadid [employer] pump symptoms improved, had finally slept last night on ambien Pain management on board plan to changed to fentanyl patch and adding cymbalta tomorrow 12/03 Dilaudid with [employer] pump was d/c started on fentanyl patch 25 mcg Starting on Hydrocodone 5/325mg PO x 4 hours PRN breakthrough pain. Starting on Cymbalta 20mg daily Pain management on board Pain well controlled 12/04 Pain well controlled with fentanyl patch, gabapentin tolerated Cymbalta well did not require any extra dose of narcotic will discharge home with hospice Dyspnea Possible related to acute pulmonary edema CTA chest showed no PE Continue lasix 20mg daily received abx for HCAP Stable Antineoplastic chemotherapy induced pancytopenia S/P 2 units of blood were transfused on admission. Stable New onset of Atrial flutter Anticoagulation contraindicated at this time. rate is controlled ECHO showed * Atrial flutter with controlled ventricular rate was present during the echocardiogram. * There is mild concentric left ventricular hypertrophy. * There is subtle flattening of the interventricular septum in diastolic consistent with right ventricular volume overload. * Otherwise, there are no regional wall motion abnormalities noted. * The right ventricle is mildly dilated. * The right ventricular systolic function is mildly reduced. * There is mild tricuspid regurgitation. * Doppler findings do not suggest pulmonary hypertension. * There is no pericardial effusion. * Compared to the images of the prior study dated, 10/10/16, atrial flutter with controlled ventricular rate is now present as compared to sinus tachycardia at 100 bpm. The interventricular septal flattening, and right ventricular chamber sized and RV systolic dysfunction were present on the prior study, with no significant change noted. Malignant melanoma mets to skin, lungs and spinal cord s/p Ommaya reservoir placement for intrathecal treatments at [facility]. No further treatment this point. Dr. Gimenez from palliative care had a meeting with pt and his son/ daughter today. very Poor prognosis They agreed for home hospice discharge home today with home hospice DMII controlled cont ISS/carb coverage. Severe obstructive sleep apnea. Can use his own CPAP if he has been using. DVT proph: Lovenox Code status DNR Disposition Poor prognosis Will discharge today with home Hospice. Palliative care on board Total time spent on discharge = 35 minutes This includes examination of the patient, discharge planning, medication reconciliation, and communication with other providers. Discharge Instructions Discharge Instructions Date of Service Dec 04, 2016. Admission Reason for Admission: Bilateral Leg Pain, Leptomeningeal Disease, Discharge Discharge Diagnosis / Problem: Leptomeningeal disease, New onset of Atrial flutter, DM II Discharge Goals Goal(s): Decrease discomfort, Improve function, Improve disease control Activity Recommendations Activity Limitations: resume your previous activity (as tolerated) . Instructions / Follow-Up Instructions / Follow-Up Discharge home with hospice Fall precaution manager of network notified [facility] about the discharge Current Hospital Diet Patient's current hospital diet: Regular Diet Discharge Diet Recommended Diet: Diabetes Type 2 Diet Pending Studies Studies pending at discharge: no Laboratory Results Hemoglobin A1c Test 10/10/16 06:15 Range/Units Estimated Average Glucose 151 mg/dl Hemoglobin A1c 6.9 H 4.5-5.6 % Medical Emergencies . Who to Call and When: Medical Emergencies: If at any time you feel your situation is an emergency, please call 911 immediately. . Non-Emergent Contact Non-Emergency issues call your: Primary Care Provider Call Non-Emergent contact if: your pain is not controlled, your pain is worsening, you have any medication questions . . "Provider Documentation" section prepared by Nohemi Raymond. . VTE Core Measure Inpt VTE Proph given/why not?: Enoxaparin (Lovenox)SQ [place] Drug Monitoring Program Search Results: no issues identified Additional Copies To Angélica Root M.D. (MEDICAL)
== END 2016-12-04 16:57 | disposition hospice, home (50) | DRG 189 ==
LOC: EDBD 20:54 → C.EDC 20:55 → C.2T 11-30 04:40 → ENRESERV 11-30 04:55 → C.4E 12-03 10:49
PROVIDERS: ADMIT Internal Medicine; ATTEND Internal Medicine
PROC: 0HDRXZZ Extraction of Toe Nail, External Approach (ICD-10-PCS; principal; 2016-12-01)
DX: J81.0 Acute pulmonary edema (principal); D61.810 Antineoplastic chemotherapy induced pancytopenia; J18.9 Pneumonia, unspecified organism; C79.49 Secondary malignant neoplasm of other parts of nervous system; C79.31 Secondary malignant neoplasm of brain; C78.00 Secondary malignant neoplasm of unspecified lung; C79.2 Secondary malignant neoplasm of skin; I48.92 Unspecified atrial flutter; Z51.5 Encounter for palliative care; G57.83 Other specified mononeuropathies of bilateral lower limbs; L03.032 Cellulitis of left toe; L03.031 Cellulitis of right toe; L60.0 Ingrowing nail; E11.9 Type 2 diabetes mellitus without complications; E78.5 Hyperlipidemia, unspecified; G47.33 Obstructive sleep apnea (adult) (pediatric); M10.9 Gout, unspecified; Z51.81 Encounter for therapeutic drug level monitoring; Z79.899 Other long term (current) drug therapy; Z79.01 Long term (current) use of anticoagulants; Z79.4 Long term (current) use of insulin; Z85.820 Personal history of malignant melanoma of skin; Z89.022 Acquired absence of left finger(s); Z66 Do not resuscitate; Z74.01 Bed confinement status; Z87.891 Personal history of nicotine dependence; Z83.3 Family history of diabetes mellitus; Z82.49 Family history of ischemic heart disease and other diseases of the circulatory system